=== PATIENT | female | born 1940 | race Caucasian/White ===

== ENCOUNTER → 2018-01-20 | Outpatient (CLI) | payer MEDICARE ==
[~2018-01-20] MED LIST: IOHEXOL 350 MG/ML 100 ML (OMNIPAQUE 350) VIAL IV ONE; NS 250 ML (IVPB) BAG IV ONE
[2018-01-20 12:53] LABS: BUN/CREATININE RATIO 22; CREATININE SERUM 0.68 MG/DL (0.60-1.30); GFR ESTIMATED > 60
--- NOTE | 2018-01-20 13:39 | Diagnostic Imaging Report ---
PROCEDURE: CT head with and without contrast. TECHNIQUE: Multiple contiguous axial images were obtained through the brain before and after the administration of intravenous contrast. INDICATION: Fall with trauma to the head. COMPARISON: 12/18/2014. FINDINGS: Moderate-sized area of encephalomalacia is again identified involving the posterolateral margins of the left frontal lobe consistent with old infarct. There is no new loss of rodriguez-white matter junction differentiation to suggest new acute territorial infarct. There are scattered and confluent areas of decreased attenuation within the periventricular and subcortical deep white matter consistent with chronic small vessel ischemic changes. Old small lacunar infarct of the posteroinferior left basal ganglia is also noted. This is stable as well. There is no evidence of intra or extra-axial intracranial hemorrhage. Ventricles and cortical sulci are diffusely prominent consistent with age-related parenchymal volume loss. There is no mass effect or midline shift. Postcontrast images show no abnormal areas of enhancement. 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 Otherwise, bony calvarium is intact. Paranasal sinuses show minimal mucosal thickening of the left maxillary sinus. Mastoid air cells are clear. IMPRESSION: 1. No acute intracranial abnormality. No CT evidence of acute infarct, mass, nor hemorrhage. 2. Chronic small vessel ischemic changes with old infarcts of the left frontal lobe and basal ganglia. 3. Background of age-related parenchymal volume loss and chronic small vessel ischemic changes. Dictated by: Dictated on workstation # [id number]
== END ==
LOC: RAD 12:11
PROVIDERS: ATTEND Nurse Practitioner
DX: S09.90XA Unspecified injury of head, initial encounter (principal); I67.82 Cerebral ischemia; I63.9 Cerebral infarction, unspecified; W19.XXXA Unspecified fall, initial encounter
CPT/HCPCS: 36415; 70470; 82565; 84520

== ENCOUNTER 2018-02-12 09:07 | Outpatient (RCR) | payer MEDICARE | END 2018-03-19 11:39 | disposition home or self-care (01) | PROVIDERS: ATTEND Internal Medicine | DX: I69.351 Hemiplegia and hemiparesis following cerebral infarction affecting right dominant side (principal) ==

== ENCOUNTER 2018-07-27 10:30 | Inpatient (IN) | payer MEDICARE, OTHER ==
[~2018-07-27] VITALS: Ht 157.5 cm; Wt 48.5 kg
[~2018-07-27 10:30] MED LIST changes: +ACET325T38 PO; +ACET650S15 RC; +ALEN70TA2 PO; +ALPR0.254 PO; +BACL10TA PO; +BENZ1LOZ64 MM; +BISA10SU6 RC; +BISA5TAB8 PO; +CALC500T7 PO; +CLON0.1T PO; +DIPH25CA79 PO; +DOCU-143 PO; +FENT50VI18 IVP; +FLUO20CA42 PO; +GUAI5SYR PO; +HYDR-3812 PO; -IOHEXOL 350 MG/ML 100 ML (OMNIPAQUE 350) VIAL IV ONE; +LACT20SO2 PO; +LEVE500T99 PO; +LIDO1ADH41 TD; +MAG30ORA2 PO; +MAGN400O7 PO; +MELA3TAB PO; -NS 250 ML (IVPB) BAG IV ONE; +ONDA4AMP IVP; +PHEN100C11 PO; +POLY17PO6 PO; +WARF-47 PO
--- NOTE | 2018-07-27 10:30 | NUR ---
Pt admitted to room 229-1, with an admitting diagnosis of Weakness, debility, S/P multiple falls at home, S/P Lumbar Compression fx, on 07/27/18 from [facility], via w/c, accompanied by sister & brother in law. JIM FERNANDES introduced to surroundings, call light, bed controls, phone, TV, temperature control, lights, meal times, smoking policy, visitor policy, side rail policy, bathrooms and showers. Patient Rights provided to patient in the handbook. JIM FRENANDES verbalizes understanding that [facility] is not responsible for the loss or damage to any personal effects or valuables that are kept in the patients posession during their hospitalization. The following Patient Care Plans were discussed with the pt: Discharge Planning, Impaired Mobility, Self Care Deficit, Potential for fall/injury. JIM FERNANDES verbalizes understanding of Interdisciplinary Patient Education. Patient and/or family were informed about the Rapid Response Team and its purpose. Patient received Patient Rights Booklet, which includes Privacy Act Statement and Data Collection Information Summary.
--- NOTE | 2018-07-27 10:35 | NUR ---
UPDATED MED REC TO THE LIST OF MEDICATIONS ACTIVE AT [facility] PER DR. DEAN'S RECORDS. WILL UPDATE THE MED REC TO HOME MED LIST PRIOR TO [facility] AT A LATER TIME FOR PROPER DISCHARGE FROM HOSPITAL ORDERS. Addendum: 07/29/18 at 1125 by WILLIAM TAYLOR cut out press operator UPDATED MED REC BACK TO HOME MED LIST PRIOR TO [facility] USING THEIR PAPERWORK AND THE EXT MED HX. [facility] FILLED: 06-05-18 FOSAMAX 70MG WEEKLY 04-28-18 WARFARIN 4MG ,,,FR,SA (SEE COMMENT BELOW) 04-26-18 LEVETIRACETAM 500MG HS #90 04-26-18 PHENYTOIN EXT 100MG CAP TID #270 03-10-18 OXYBUTYNIN ER 15MG DAILY #30 [facility] FILLED: 06-05-18 FLUOXETINE 40MG DAILY #90 THE WARFARIN DOSE ON FILE FROM [facility] WAS 4MG THU, THU, THU AND 2MG THU,,Thu. I LEFT IT ON THE MED REC THAT DOSE. WHAT WAS FILLED AT [facility] WAS THE 4MG TABLETS ONE DAILY ON THURSDAY, THURSDAY, THURSDAY, THURSDAY. THEY HAD A SCRIPT ON HOLD THAT WAS NEVER FILLED IN JANUARY FOR WARFARIN 2MG Thu. WARFARIN DOSES CHANGE FREQUENTLY AND IT IS UNCLEAR WHAT DOSE THE PATIENT WAS ON PRIOR TO THE STAY AT [facility]. Addendum: 07/29/18 at 1126 by WILLIAM TAYLOR cut out press operator [facility] DID NOT HAVE OXYBUTYNIN ON FILE
[2018-07-27 10:42] VITALS: BP 136/78
[2018-07-27] MEDS ORDERED: OXYB15TA PO (11:02)
--- OUTSIDE RECORDS SUMMARY | 2018-07-27 11:12 | XMS REPORT ---
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 Active 485385349 Problem Arthritis M19.90 Active 2528513 Problem Seizure disorder G40.909 Active 683429211 Problem History of cerebrovascular accident Z86.73 Active 375838931 Problem Age-related osteoporosis without current pathological fracture M81.0 Active 23006432 ALLERGIES No Information ENCOUNTERS Encounter Location Date Diagnosis [place] [address] [address] Mar, History of aortic valve replacement Z95.2 [place] [address] [place] [id number] [place] [address] Feb, History of aortic valve replacement Z95.2 [place] [address] [place] [id number] [place] [address] 84[address]- 8629 Feb, History of aortic valve replacement Z95.2 [place] [address] [place] [id number] [place] [address]66- 8263 Feb, Fall, initial encounter W19.XXXA ; History of cerebrovascular accident Z86.73 ; History of aortic valve replacement Z95.2 ; Age-related osteoporosis without current pathological fracture M81.0 ; Hematoma T14.8XXA ; Reactive depression F32.9 ; Seizure disorder G40.909 and Arthritis M19.90 [place] [address] [place] [address] [address] Jan, Extension of cerebrovascular accident (CVA) I63.9 and History of aortic valve replacement Z95.2 [facility] [address] [place] [id number] [place] [address]- [address] Jan, [facility] [address] [address] Jan, History of aortic valve replacement Z95.2 [facility] [address] [place] [id number] [place] [address] Jan, Fall, initial encounter W19.XXXA and Hematoma T14.8XXA [place] [address] [address] Jan, [facility] [address] [address] Jan, Encounter for immunization Z23 [facility] [address] [address] Jan, History of aortic valve replacement Z95.2 [facility] [address] [place] [id number] [place] [address] 60971- 3146 Dec, [facility] [address] [place] [id number] [place] [address] 85766- 9859 Dec, History of aortic valve replacement Z95.2 [facility] [address] [place] [id number] [place] [address] 84231 -[address]89 Dec, Right ear impacted cerumen H61.21 [facility] [address] [place] [id number] [place] [address] 83856- 5283 Dec, History of aortic valve replacement Z95.2 [facility] [address] [place] [id number] [place] [address] 03855- 1029 Nov, [facility] [address] [address] 237[address] Nov, History of aortic valve replacement Z95.2 [place] [address] [facility] [id number] [address] Nov, 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 and History of aortic valve replacement Z95.2 [place] [address] [id number] [address] Oct, History of cerebrovascular accident Z86.73 ; History of aortic valve replacement Z95.2 ; Age-related osteoporosis without current pathological fracture M81.0 ; Reactive depression F32.9 ; Seizure disorder G40.909 and Arthritis M19.90 [place] [address] [id number] [address] Oct, History of aortic valve replacement Z95.2 [place] [address] [id number] [address] Oct, History of cerebrovascular accident Z86.73 ; Age-related osteoporosis without current pathological fracture M81.0 ; Reactive depression F32.9 ; History of aortic valve replacement Z95.2 ; Seizure disorder G40.909 and Arthritis M19.90 IMMUNIZATIONS No Known Immunizations SOCIAL HISTORY Never Assessed REASON FOR VISIT Lab (walk-in) PLAN OF CARE VITAL SIGNS MEDICATIONS Unknown Medications RESULTS No Results PROCEDURES Procedure Date Ordered Result Body Site PROTHROMBIN TIME Mar 12, 2018 INSTRUCTIONS MEDICATIONS ADMINISTERED No Known Medications MEDICAL (GENERAL) HISTORY Type Description Date Medical History stoke Medical History aortic valve replacement Medical History seizures Medical History bladder incontinence Surgical History right hip replacement 2004 Surgical History shoulder replacement, right Surgical History hysterectomy, total with bilateral salpingo-oophorectomy (BSO ) Surgical History appendectomy Surgical History breast biopsy, left-benign 1999 Surgical History left wrist post wrist fracture 1998 Hospitalization History cervical fx 2016
--- OUTSIDE RECORDS SUMMARY | 2018-07-27 11:12 | XMS REPORT ---
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 Active 564149015 Problem Arthritis M19.90 Active 3702178 Problem Seizure disorder G40.909 Active 192302907 Problem History of cerebrovascular accident Z86.73 Active 063092347 Problem Age-related osteoporosis without current pathological fracture M81.0 Active 45372202 ALLERGIES No Information ENCOUNTERS Encounter Location Date Diagnosis [place] [address] [address] Mar, [place] [address] [address] Mar, History of aortic valve replacement Z95.2 [place] [address] [place] [id number] [place] [address] 47[address] Feb, History of aortic valve replacement Z95.2 [place] [address] [place] [id number] [place] [address]- 8585 Feb, History of aortic valve replacement Z95.2 [place] [address] [address] Feb, Fall, initial encounter W19.XXXA ; History of cerebrovascular accident Z86.73 ; History of aortic valve replacement Z95.2 ; Age-related osteoporosis without current pathological fracture M81.0 ; Hematoma T14.8XXA ; Reactive depression F32.9 ; Seizure disorder G40.909 and Arthritis M19.90 [place] [address] [address] Jan, Extension of cerebrovascular accident (CVA) I63.9 and History of aortic valve replacement Z95.2 [facility] [address] [address] Jan, [place] [address] [address] Jan, History of aortic valve replacement Z95.2 [facility] [address] [address] Jan, Fall, initial encounter W19.XXXA and Hematoma T14.8XXA [place] [address] [address] Jan, [place] [address] [address] Jan, Encounter for immunization Z23 [place] [address] [address] Jan, History of aortic valve replacement Z95.2 [place] [address] [address] Dec, [facility] [address] [address] Dec, History of aortic valve replacement Z95.2 [facility] [address] [address] Dec, Right ear impacted cerumen H61.21 [place] [address] [address] Dec, History of aortic valve replacement Z95.2 [place] [address] [address] Nov, [place] [address] [address] Nov, History of aortic valve replacement Z95.2 [place] [address] [place] [address] Nov, 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 and History of aortic valve replacement Z95.2 [place] [address] [place] [id number] [place] [address]- 4175 Oct, History of cerebrovascular accident Z86.73 ; History of aortic valve replacement Z95.2 ; Age-related osteoporosis without current pathological fracture M81.0 ; Reactive depression F32.9 ; Seizure disorder G40.909 and Arthritis M19.90 [place] [address] [place] [address]70- 3300 Oct, History of aortic valve replacement Z95.2 [place] [address] [place] [address]- 8556 Oct, History of cerebrovascular accident Z86.73 ; Age-related osteoporosis without current pathological fracture M81.0 ; Reactive depression F32.9 ; History of aortic valve replacement Z95.2 ; Seizure disorder G40.909 and Arthritis M19.90 IMMUNIZATIONS No Known Immunizations SOCIAL HISTORY Never Assessed REASON FOR VISIT requests letter for insurance PLAN OF CARE VITAL SIGNS MEDICATIONS Unknown Medications RESULTS No Results PROCEDURES No Known procedures INSTRUCTIONS MEDICATIONS ADMINISTERED No Known Medications MEDICAL [...]
--- OUTSIDE RECORDS SUMMARY | 2018-07-27 11:13 | XMS REPORT ---
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 Active 008235006 Problem Arthritis M19.90 Active 2191480 Problem Seizure disorder G40.909 Active 118276673 Problem History of cerebrovascular accident Z86.73 Active 731052139 Problem Age-related osteoporosis without current pathological fracture M81.0 Active 70808226 ALLERGIES No Information ENCOUNTERS Encounter Location Date Diagnosis [place] [address] [address] Feb, History of aortic valve replacement Z95.2 [place] [address] [place] [id number] [place] [address]- [address] Feb, History of aortic valve replacement Z95.2 [place] [address] [address]- [address] Feb, Fall, initial encounter W19.XXXA ; History of cerebrovascular accident Z86.73 ; History of aortic valve replacement Z95.2 ; Age-related osteoporosis without current pathological fracture M81.0 ; Hematoma T14.8XXA ; Reactive depression F32.9 ; Seizure disorder G40.909 and Arthritis M19.90 [place] [address] [place] [id number] [place] [address] 199[address]- 9171 Jan, Extension of cerebrovascular accident (CVA) I63.9 and History of aortic valve replacement Z95.2 [facility] [address] [place] [id number] [place] [address] 27537- 2555 Jan, [facility] [address] [address]- [address] Jan, History of aortic valve replacement Z95.2 [facility] [address] [place] [id number] [place] [address] -[address]16 Jan, Fall, initial encounter W19.XXXA and Hematoma T14.8XXA [facility] [address] [address]- [address] Jan, [place] [address] [address]- [address] Jan, Encounter for immunization Z23 [place] [address] [address]- [address] Jan, History of aortic valve replacement Z95.2 [facility] [address] [place] [id number] [place] [address] 52035- 9845 Dec, [facility] [address] [place] [id number] [place] [address] 96494- 1245 Dec, History of aortic valve replacement Z95.2 [facility] [address] [place] [id number] [place] [address] -8092 Dec, Right ear impacted cerumen H61.21 [facility] [address] [place] [id number] [place] [address] 06724- 3394 Dec, History of aortic valve replacement Z95.2 [facility] [address] [place] [id number] [place] [address] 45618- 5190 Nov, [facility] [address] [address]- 6[address] Nov, History of aortic valve replacement Z95.2 [facility] [address] [place] [id number] [place] [address] 25771- 1423 Nov, 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 [id number] [address] Oct, History of cerebrovascular accident Z86.73 ; History of aortic valve replacement Z95.2 ; Age-related osteoporosis without current pathological fracture M81.0 ; Reactive depression F32.9 ; Seizure disorder G40.909 and Arthritis M19.90 [place] [address] [facility] [id number] [address] Oct, History of aortic valve replacement Z95.2 [place] [address] [facility] [id number] [address] Oct, History of cerebrovascular accident Z86.73 ; Age-related osteoporosis without current pathological fracture M81.0 ; Reactive depression F32.9 ; History of aortic valve replacement Z95.2 ; Seizure disorder G40.909 and Arthritis M19.90 IMMUNIZATIONS No Known Immunizations SOCIAL HISTORY Never Assessed REASON FOR VISIT medication changes FYI PLAN OF CARE VITAL SIGNS MEDICATIONS Medication Instructions Dosage Frequency Start Date End Date Duration Status Coumadin 4 MG Orally Once a day on Thursday, Thursday, , Thursday and Thursday 1 tablet 30 days Active Coumadin 2 MG Orally Once a day 1 tablet 24h Jan, 12 days Active RESULTS No Results PROCEDURES No Known procedures [...]
--- OUTSIDE RECORDS SUMMARY | 2018-07-27 11:14 | XMS REPORT ---
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 Active 978367398 Problem Arthritis M19.90 Active 3380853 Problem Seizure disorder G40.909 Active 383864801 Problem History of cerebrovascular accident Z86.73 Active 431624144 Problem Age-related osteoporosis without current pathological fracture M81.0 Active 02254067 ALLERGIES No Information ENCOUNTERS Encounter Location Date Diagnosis [place] [address] [address] Feb, History of aortic valve replacement Z95.2 [place] [address] [place] [id number] [place] [address] Feb, History of aortic valve replacement Z95.2 [place] [address] [address] Feb, Fall, initial encounter W19.XXXA ; History of cerebrovascular accident Z86.73 ; History of aortic valve replacement Z95.2 ; Age-related osteoporosis without current pathological fracture M81.0 ; Hematoma T14.8XXA ; Reactive depression F32.9 ; Seizure disorder G40.909 and Arthritis M19.90 [place] [address] [place] [id number] [place] [address]010- 8952 Jan, Extension of cerebrovascular accident (CVA) I63.9 and History of aortic valve replacement Z95.2 [facility] [address] [place] [id number] [place] [address] 7[address]- 9323 Jan, [facility] [address] [address]- [address] Jan, History of aortic valve replacement Z95.2 [facility] [address] [place] [id number] [place] [address] -[address]16 Jan, Fall, initial encounter W19.XXXA and Hematoma T14.8XXA [facility] [address] [address]- [address] Jan, [place] [address] [address]- [address] Jan, Encounter for immunization Z23 [place] [address] [address]- [address] Jan, History of aortic valve replacement Z95.2 [facility] [address] [place] [id number] [place] [address] 54421- 0977 Dec, [facility] [address] [place] [id number] [place] [address] 03933- 2200 Dec, History of aortic valve replacement Z95.2 [facility] [address] [place] [id number] [place] [address]27 -[address]70 Dec, Right ear impacted cerumen H61.21 [facility] [address] [place] [id number] [place] [address] 67[address]- 1666 Dec, History of aortic valve replacement Z95.2 [facility] [address] [place] [id number] [place] [address]- [address] Nov, [facility] [address] [address]- [address] Nov, History of aortic valve replacement Z95.2 [facility] [address] [place] [id number] [place] [address]23- 9754 Nov, 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 [id number] [address] Oct, History of cerebrovascular accident Z86.73 ; History of aortic valve replacement Z95.2 ; Age-related osteoporosis without current pathological fracture M81.0 ; Reactive depression F32.9 ; Seizure disorder G40.909 and Arthritis M19.90 [facility] [address] [id number] [address] Oct, History of aortic valve replacement Z95.2 [place] [address] [id number] [address] Oct, History of cerebrovascular accident Z86.73 ; Age-related osteoporosis without current pathological fracture M81.0 ; Reactive depression F32.9 ; History of aortic valve replacement Z95.2 ; Seizure disorder G40.909 and Arthritis M19.90 IMMUNIZATIONS No Known Immunizations SOCIAL HISTORY Never Assessed REASON FOR VISIT Lab (walk-in) PLAN OF CARE Activity Details Pending Test INR (IN HOUSE) VITAL SIGNS MEDICATIONS Unknown Medications RESULTS No Results PROCEDURES Procedure Date Ordered Result Body Site PROTHROMBIN TIME Feb 26, 2018 INSTRUCTIONS MEDICATIONS ADMINISTERED No Known Medications [...]
--- OUTSIDE RECORDS SUMMARY | 2018-07-27 11:14 | XMS REPORT ---
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 Active 029759703 Problem Arthritis M19.90 Active 5019222 Problem Seizure disorder G40.909 Active 364220630 Problem History of cerebrovascular accident Z86.73 Active 358976512 Problem Age-related osteoporosis without current pathological fracture M81.0 Active 82705307 ALLERGIES Substance Reaction Event Type Date Status Tetracycline HCl hives Drug Allergy Jan, Active Penicillin V Potassium Unknown Drug Allergy Jan, Active ENCOUNTERS Encounter Location Date Diagnosis [facility] [id number] [place] [address] 70777- 2961 Jan, Extension of cerebrovascular accident (CVA) I63.9 and History of aortic valve replacement Z95.2 [facility] [id number] [place] [address] 23011- 2235 Jan, [facility] [id number] [place] [address] 25779- 0531 Jan, History of aortic valve replacement Z95.2 [facility] [id number] [place] [address] 67358 -0460 Jan, Fall, initial encounter W19.XXXA and Hematoma T14.8XXA [facility] [id number] [place] [address] 31467- 6817 Jan, [facility] [id number] [place] [address] 91302- 6945 Jan, Encounter for immunization Z23 [place] [address] [address] Jan, History of aortic valve replacement Z95.2 [facility] [id number] [place] [address] 06287- 4092 Dec, [place] [address] [address]- [address] Dec, History of aortic valve replacement Z95.2 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 and History of aortic valve replacement Z95.2 [place] [id number] [place] [address] 23661- 4717 Oct, History of cerebrovascular accident Z86.73 ; History of aortic valve replacement Z95.2 ; Age-related osteoporosis without current pathological fracture M81.0 ; Reactive depression F32.9 ; Seizure disorder G40.909 and Arthritis M19.90 [place] [id number] [place] [address] 84517- 5167 Oct, History of aortic valve replacement Z95.2 [place] [id number] [place] [address] 68096- 5896 Oct, History of cerebrovascular accident Z86.73 ; Age-related osteoporosis without current pathological fracture M81.0 ; Reactive depression F32.9 ; History of aortic valve replacement Z95.2 ; Seizure disorder G40.909 and Arthritis M19.90 IMMUNIZATIONS No Known Immunizations SOCIAL HISTORY Never Assessed REASON FOR VISIT Hypertension check up Vadim MORENO , fell last saturday 01/20 had a hematoma Vadim MORENO , still has blurry vision Vadim MORENO , right hand is now not working at all since fall she cant use at all Vadim Moreno PLAN OF CARE Activity Details Follow Up 3 Weeks Reason: VITAL SIGNS Height 62.2 in 2018-01-28 Weight 114 lbs 2018-01-28 Temperature 96.6 degrees Fahrenheit 2018-01-28 Heart Rate 77 bpm 2018-01-28 Respiratory Rate 18 2018-01-28 BMI 20.71 kg/m2 2018-01-28 Blood pressure systolic 132 mmHg 2018-01-28 Blood pressure diastolic 78 mmHg 2018-01-28 MEDICATIONS Medication Instructions Dosage Frequency Start Date End Date Duration Status Biotin 5000 5 MG Orally Once a day 1 capsule 24h Active Naproxen Sodium 550 MG Orally every 12 hrs 1 tablet with food or milk as needed 12h Active Vitamin D-3 1000 UNIT Orally Once a day 1 capsule 24h Active Keppra 500 mg Orally at bedtime 1 tablet 30 days Active Prozac 40 mg Orally Once a day 1 capsule 24h Active Ensure - Active Coumadin 4 MG Orally Once a day on Thursday, Thursday, , Thursday and Thursday 1 tablet 30 days Active Coumadin 2 MG Orally Once a day on Thursday and Thursday 1 tablet Jan, 30 day(s) Active Dilantin 100 mg Orally Three times a day 1 capsule 8h 30 days Active Fosamax 70 MG Orally once weekly 1 tablet 28 days Active Oxybutynin Chloride 15 mg Orally Once a day 1 tablet 24h Jan, 30 days Active RESULTS No Results PROCEDURES No [...]
--- OUTSIDE RECORDS SUMMARY | 2018-07-27 11:14 | XMS REPORT ---
Author Author ANUEL HOLLOWAY 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 Active 974452418 Problem Arthritis M19.90 Active 2610605 Problem Seizure disorder G40.909 Active 522714729 Problem History of cerebrovascular accident Z86.73 Active 906581668 Problem Age-related osteoporosis without current pathological fracture M81.0 Active 05095029 ALLERGIES No Information ENCOUNTERS Encounter Location Date Diagnosis [place] [id number] [place] [address]37- 9778 Feb, Fall, initial encounter W19.XXXA ; History of cerebrovascular accident Z86.73 ; History of aortic valve replacement Z95.2 ; Age-related osteoporosis without current pathological fracture M81.0 ; Hematoma T14.8XXA ; Reactive depression F32.9 ; Seizure disorder G40.909 and Arthritis M19.90 [facility] [address] [place] [address] 90283- 1754 Jan, Extension of cerebrovascular accident (CVA) I63.9 and History of aortic valve replacement Z95.2 [facility] [id number] [place] [address] 95514- 1662 Jan, [facility] [id number] [place] [address] 29077- 9349 Jan, History of aortic valve replacement Z95.2 [facility] [address] [address] Jan, Fall, initial encounter W19.XXXA and Hematoma T14.8XXA [place] [address] 7[address]80- 9692 Jan, [place] [address] 03251- 1058 Jan, Encounter for immunization Z23 [place] [address] 75596- 2554 Jan, History of aortic valve replacement Z95.2 [place] [address] 69270- 0941 Dec, [place] [address] 59730- 8591 Dec, History of aortic valve replacement Z95.2 [facility] [address] [address]25 Dec, Right ear impacted cerumen H61.21 [place] [address] 35898- 6536 Dec, History of aortic valve replacement Z95.2 [place] [address] 03167- 5933 Nov, [place] [address] 98559- 6062 Nov, History of aortic valve replacement Z95.2 [place] [address] 72801- 7365 Nov, 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 and History of aortic valve replacement Z95.2 [place] [address] 70707- 2884 Oct, History of cerebrovascular accident Z86.73 ; History of aortic valve replacement Z95.2 ; Age-related osteoporosis without current pathological fracture M81.0 ; Reactive depression F32.9 ; Seizure disorder G40.909 and Arthritis M19.90 [facility] [address] [facility] [id number] [place] [address] Oct, History of aortic valve replacement Z95.2 [facility] [address] [facility] [id number] [place] [address] Oct, History of cerebrovascular accident Z86.73 ; Age-related osteoporosis without current pathological fracture M81.0 ; Reactive depression F32.9 ; History of aortic valve replacement Z95.2 ; Seizure disorder G40.909 and Arthritis M19.90 IMMUNIZATIONS No Known Immunizations SOCIAL HISTORY Never Assessed REASON FOR VISIT Lab (walk-in) PLAN OF CARE VITAL SIGNS MEDICATIONS Unknown Medications RESULTS Name Result Date Reference Range INR (IN HOUSE) 2018-02-11 INR 2.7 1.10 - 3.30 PREVIOUS INR 1.8 CURRENT COUMADIN DOSE 4mg MTTFS/2mg WS NEW COUMADIN DOSE Lot # [id number] Exp date 03 Sep 2018 PROCEDURES Procedure Date Ordered Result Body Site PROTHROMBIN TIME Feb 11, 2018 INSTRUCTIONS MEDICATIONS ADMINISTERED No Known Medications [...]
--- OUTSIDE RECORDS SUMMARY | 2018-07-27 11:15 | XMS REPORT ---
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 Active 802597774 Problem History of cerebrovascular accident Z86.73 Active 193357479 Problem Seizure disorder G40.909 Active 138589171 Problem Reactive depression F32.9 Active 50380061 Problem Age-related osteoporosis without current pathological fracture M81.0 Active 64185711 Problem Arthritis M19.90 Active 6416139 ALLERGIES No Information ENCOUNTERS Encounter Location Date Diagnosis [facility] [address] [address]- [address] Jan, [facility] [address] [address] Jan, Encounter for immunization Z23 [facility] [id number] [place] [address] 64432- 1849 Jan, History of aortic valve replacement Z95.2 [facility] [id number] [place] [address] 64223- 6685 Dec, [facility] [id number] [place] [address] 41143- 9135 Dec, History of aortic valve replacement Z95.2 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 and History of aortic valve replacement Z95.2 [place] [address], [place] [address] Oct, History of cerebrovascular accident Z86.73 ; History of aortic valve replacement Z95.2 ; Age-related osteoporosis without current pathological fracture M81.0 ; Reactive depression F32.9 ; Seizure disorder G40.909 and Arthritis M19.90 [place] [address], [place] [address]678 Oct, History of aortic valve replacement Z95.2 [place] [address], [place] [address]- 7[address] Oct, History of cerebrovascular accident Z86.73 ; Age-related osteoporosis without current pathological fracture M81.0 ; Reactive depression F32.9 ; History of aortic valve replacement Z95.2 ; Seizure disorder G40.909 and Arthritis M19.90 IMMUNIZATIONS No Known Immunizations SOCIAL HISTORY Never Assessed REASON FOR VISIT Requests return call PLAN OF CARE VITAL SIGNS MEDICATIONS Unknown [...]
--- OUTSIDE RECORDS SUMMARY | 2018-07-27 11:15 | XMS REPORT ---
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 Active 847471622 Problem History of cerebrovascular accident Z86.73 Active 255905929 Problem Seizure disorder G40.909 Active 545753889 Problem Reactive depression F32.9 Active 66266698 Problem Age-related osteoporosis without current pathological fracture M81.0 Active 45780233 Problem Arthritis M19.90 Active 9166796 ALLERGIES No Information ENCOUNTERS Encounter Location Date Diagnosis [facility] [address] [address]- [address]03 Dec, History of aortic valve replacement Z95.2 [facility] [address] [address]95 Dec, Right ear impacted cerumen H61.21 [facility] [id number] [place] [address] 97734- 3060 Dec, History of aortic valve replacement Z95.2 [facility] [id number] [place] [address] 79823- 7808 Nov, [facility] [address] 11375- 0578 Nov, History of aortic valve replacement Z95.2 [facility] [id number] [place] [address] 02505- 2525 Nov, 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 [id number] [place] [address]- [address] Oct, History of cerebrovascular accident Z86.73 ; History of aortic valve replacement Z95.2 ; Age-related osteoporosis without current pathological fracture M81.0 ; Reactive depression F32.9 ; Seizure disorder G40.909 and Arthritis M19.90 [place] [address] [facility] [id number] [place] [address]- [address] Oct, History of aortic valve replacement Z95.2 [place] [id number] [address] 9[address] Oct, History of cerebrovascular accident Z86.73 ; Age-related osteoporosis without current pathological fracture M81.0 ; Reactive depression F32.9 ; History of aortic valve replacement Z95.2 ; Seizure disorder G40.909 and Arthritis M19.90 IMMUNIZATIONS No Known Immunizations SOCIAL HISTORY Never Assessed REASON FOR VISIT Lab (walk-in) PLAN OF CARE VITAL SIGNS MEDICATIONS Unknown Medications RESULTS Name Result Date Reference Range INR (IN HOUSE) 2017-12-09 INR 4.6 1.10 - 3.30 PREVIOUS INR 3.6 CURRENT COUMADIN DOSE 4mg 6 days, 2 mg 1 day NEW COUMADIN DOSE Lot # [id number] Exp date 08/2018 PROCEDURES Procedure Date Ordered Result Body Site PROTHROMBIN TIME Dec 09, 2017 INSTRUCTIONS MEDICATIONS ADMINISTERED No Known Medications MEDICAL [...]
--- OUTSIDE RECORDS SUMMARY | 2018-07-27 11:15 | XMS REPORT ---
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 Active 896872855 Problem History of cerebrovascular accident Z86.73 Active 416480233 Problem Seizure disorder G40.909 Active 005829438 Problem Reactive depression F32.9 Active 83044609 Problem Age-related osteoporosis without current pathological fracture M81.0 Active 27002796 Problem Arthritis M19.90 Active 7989531 ALLERGIES No Information ENCOUNTERS Encounter Location Date Diagnosis [facility] [address] [address] Jan, [facility] [address] [address]- [address] Jan, Encounter for immunization Z23 [facility] [id number] [place] [address]- 0427 Jan, History of aortic valve replacement Z95.2 [facility] [id number] [place] [address] 43244- 8561 Dec, [facility] [id number] [place] [address] 59218- 4743 Dec, History of aortic valve replacement Z95.2 [facility] [id number] [place] [address] 84817 -2772 Dec, Right ear impacted cerumen H61.21 [facility] [address] [address]- [address]44 Dec, History of aortic valve replacement Z95.2 [place] [id number] [address] Nov, [place] [address] [place] [address] 94740- 3289 Nov, History of aortic valve replacement Z95.2 [place] [address] [place] [address] 25685- 3961 Nov, 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 and History of aortic valve replacement Z95.2 [place] [address], [place] [address] Oct, History of cerebrovascular accident Z86.73 ; History of aortic valve replacement Z95.2 ; Age-related osteoporosis without current pathological fracture M81.0 ; Reactive depression F32.9 ; Seizure disorder G40.909 and Arthritis M19.90 [place] [address] [place] [address] 85573- 3647 Oct, History of aortic valve replacement Z95.2 [place] [address], [place] [address]- [address] Oct, History of cerebrovascular accident Z86.73 ; Age-related osteoporosis without current pathological fracture M81.0 ; Reactive depression F32.9 ; History of aortic valve replacement Z95.2 ; Seizure disorder G40.909 and Arthritis M19.90 IMMUNIZATIONS No Known Immunizations SOCIAL HISTORY Never Assessed REASON FOR VISIT lab PLAN OF CARE VITAL SIGNS MEDICATIONS Unknown Medications RESULTS Name Result Date Reference Range INR (IN HOUSE) 2018-01-08 INR 3.2 1.10 - 3.30 PREVIOUS INR 2.5 CURRENT COUMADIN DOSE 4 mg 4 days, 2 mg 3 days NEW COUMADIN DOSE Lot # [id number] Exp date 08/2018 PROCEDURES Procedure Date Ordered Result Body Site PROTHROMBIN TIME Jan 08, 2018 INSTRUCTIONS MEDICATIONS ADMINISTERED No Known Medications [...]
--- OUTSIDE RECORDS SUMMARY | 2018-07-27 11:15 | XMS REPORT ---
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 Active 269160686 Problem History of cerebrovascular accident Z86.73 Active 309006882 Problem Seizure disorder G40.909 Active 845835142 Problem Reactive depression F32.9 Active 71566880 Problem Age-related osteoporosis without current pathological fracture M81.0 Active 00744598 Problem Arthritis M19.90 Active 0165693 ALLERGIES No Information ENCOUNTERS Encounter Location Date Diagnosis [facility] [id number] [place] [address]885 Dec, Right ear impacted cerumen H61.21 [facility] [id number] [place] [address] 75974- 3948 Dec, History of aortic valve replacement Z95.2 [facility] [id number] [place] [address] 12204- 7708 Nov, [facility] [address] [address]- [address] Nov, History of aortic valve replacement Z95.2 [facility] [address] [address]- [address] Nov, 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 and History of aortic valve replacement Z95.2 [facility] [id number] [place] [address] 07561- 5290 Oct, History of cerebrovascular accident Z86.73 ; History of aortic valve replacement Z95.2 ; Age-related osteoporosis without current pathological fracture M81.0 ; Reactive depression F32.9 ; Seizure disorder G40.909 and Arthritis M19.90 [facility] [address] [facility] [id number] [place] [address]- [address] Oct, History of aortic valve replacement Z95.2 [facility] [address] [facility] [id number] [address] Oct, History of cerebrovascular accident Z86.73 ; Age-related osteoporosis without current pathological fracture M81.0 ; Reactive depression F32.9 ; History of aortic valve replacement Z95.2 ; Seizure disorder G40.909 and Arthritis M19.90 IMMUNIZATIONS No Known Immunizations SOCIAL HISTORY Never Assessed REASON FOR VISIT Lab (walk-in) PLAN OF CARE VITAL SIGNS MEDICATIONS No Known Medications RESULTS Name Result Date Reference Range INR (IN HOUSE) 2017-11-20 INR 3.6 1.10 - 3.30 PREVIOUS INR 2.7 CURRENT COUMADIN DOSE 4 mg QD NEW COUMADIN DOSE Lot # [id number] Exp date 06/2018 PROCEDURES Procedure Date Ordered Result Body Site PROTHROMBIN TIME Nov 20, 2017 INSTRUCTIONS MEDICATIONS ADMINISTERED No Known Medications [...]
--- OUTSIDE RECORDS SUMMARY | 2018-07-27 11:15 | XMS REPORT ---
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 Active 577863644 Problem History of cerebrovascular accident Z86.73 Active 327131272 Problem Seizure disorder G40.909 Active 828892858 Problem Reactive depression F32.9 Active 19764967 Problem Age-related osteoporosis without current pathological fracture M81.0 Active 87968528 Problem Arthritis M19.90 Active 6695045 ALLERGIES No Information ENCOUNTERS Encounter Location Date Diagnosis [facility] [address] [address] Jan, [facility] [address] [address] Jan, Encounter for immunization Z23 [facility] [id number] [place] [address] Jan, History of aortic valve replacement Z95.2 [facility] [id number] [place] [address] Dec, [facility] [id number] [place] [address] Dec, History of aortic valve replacement Z95.2 [facility] [id number] [place] [address] Dec, Right ear impacted cerumen H61.21 [facility] [address] [address] Dec, History of aortic valve replacement Z95.2 [place] [address] [address] Nov, [place] [address], [place] [address] Nov, History of aortic valve replacement Z95.2 [place] [address] [place] [address] Nov, 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73 ; Age-related osteoporosis without current pathological fracture M81.0 ; Reactive depression F32.9 ; History of aortic valve replacement Z95.2 ; Seizure disorder G40.909 and Arthritis M19.90 IMMUNIZATIONS No Known Immunizations SOCIAL HISTORY Never Assessed REASON FOR VISIT Medication refill request PLAN OF CARE VITAL SIGNS MEDICATIONS Medication Instructions Dosage Frequency Start Date End Date Duration Status Oxybutynin Chloride 15 mg Orally Once a day 1 tablet 24h Jan, 30 days Active Dilantin 100 mg Orally Three times a day 1 capsule 8h 30 days Active Keppra 500 mg Orally at bedtime 1 tablet 30 days Active Fosamax 70 MG Orally once weekly 1 tablet 28 days Active RESULTS No Results PROCEDURES No [...]
--- OUTSIDE RECORDS SUMMARY | 2018-07-27 11:15 | XMS REPORT ---
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 Active 817415864 Problem History of cerebrovascular accident Z86.73 Active 916147883 Problem Seizure disorder G40.909 Active 667413508 Problem Reactive depression F32.9 Active 59149903 Problem Age-related osteoporosis without current pathological fracture M81.0 Active 99769611 Problem Arthritis M19.90 Active 4700555 ALLERGIES Substance Reaction Event Type Date Status Tetracycline HCl hives Drug Allergy Dec, Active Penicillin V Potassium Unknown Drug Allergy Dec, Active ENCOUNTERS Encounter Location Date Diagnosis [facility] [id number] [place] [address] Dec, [facility] [id number] [place] [address] Dec, History of aortic valve replacement Z95.2 [facility] [id number] [place] [address] Dec, Right ear impacted cerumen H61.21 [facility] [id number] [place] [address] Dec, History of aortic valve replacement Z95.2 [facility] [id number] [place] [address] Nov, [facility] [id number] [place] [address] Nov, History of aortic valve replacement Z95.2 [place] [address] [facility] [id number] [address] Nov, 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 and History of aortic valve replacement Z95.2 [place] [address] [address] [facility] [id number], [place] [address] Oct, History of cerebrovascular accident Z86.73 ; History of aortic valve replacement Z95.2 ; Age-related osteoporosis without current pathological fracture M81.0 ; Reactive depression F32.9 ; Seizure disorder G40.909 and Arthritis M19.90 [place] [address], [place] [address] Oct, History of aortic valve replacement Z95.2 [place] [address], [place] [address] Oct, History of cerebrovascular accident Z86.73 ; Age-related osteoporosis without current pathological fracture M81.0 ; Reactive depression F32.9 ; History of aortic valve replacement Z95.2 ; Seizure disorder G40.909 and Arthritis M19.90 IMMUNIZATIONS No Known Immunizations SOCIAL HISTORY Never Assessed REASON FOR VISIT bug in ear-possible bug in ear. The patient hasn't been able to hear out of her right ear since yesterday about noon._ _DANISH Reyes PLAN OF CARE Activity Details Follow Up prn Reason:if symptoms worsen VITAL SIGNS Height 62.2 in 2017-12-09 Weight 113.4 lbs 2017-12-09 Temperature 97.9 degrees Fahrenheit 2017-12-09 Heart Rate 72 bpm 2017-12-09 Respiratory Rate 20 2017-12-09 BMI 20.61 kg/m2 2017-12-09 Blood pressure systolic 164 mmHg 2017-12-09 Blood pressure diastolic 76 mmHg 2017-12-09 MEDICATIONS Medication Instructions Dosage Frequency Start Date End Date Duration Status Coumadin 4 MG Orally Once a day 1 tablet 24h Active Prozac 40 mg Orally Once a day 1 capsule 24h Active Naproxen Sodium 550 MG Orally every 12 hrs 1 tablet with food or milk as needed 12h Active Keppra 500 mg Orally at bedtime 1 tablet 30 days Active Dilantin 100 MG Orally Three times a day 1 capsule 8h Active Vitamin D-3 1000 UNIT Orally Once a day 1 capsule 24h Active Fosamax 70 MG Orally once weekly 1 tablet Mar, 28 days Active Carbamide Peroxide 6.5 % Otic Twice a day 5 drops into affected ear 12h Dec, Dec, 4 day(s) Active Biotin 5000 5 MG Orally Once a day 1 capsule 24h Active Ensure - Active RESULTS No Results PROCEDURES No Known [...]
--- OUTSIDE RECORDS SUMMARY | 2018-07-27 11:15 | XMS REPORT ---
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 Active 555844589 Problem History of cerebrovascular accident Z86.73 Active 842989040 Problem Seizure disorder G40.909 Active 547550185 Problem Reactive depression F32.9 Active 06886603 Problem Age-related osteoporosis without current pathological fracture M81.0 Active 40238568 Problem Arthritis M19.90 Active 2588062 ALLERGIES Substance Reaction Event Type Date Status Tetracycline HCl hives Drug Allergy Nov, Active Penicillin V Potassium Unknown Drug Allergy Nov, Active ENCOUNTERS Encounter Location Date Diagnosis [facility] [address] [place] [address] Dec, Right ear impacted cerumen H61.21 [facility] [address] [place] [address] Dec, History of aortic valve replacement Z95.2 [facility] [address] [address] Nov, [facility] [id number] [place] [address] Nov, History of aortic valve replacement Z95.2 [facility] [id number] [place] [address] Nov, 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 and History of aortic valve replacement Z95.2 [facility] [id number] [place] [address] Oct, History of cerebrovascular accident Z86.73 ; History of aortic valve replacement Z95.2 ; Age-related osteoporosis without current pathological fracture M81.0 ; Reactive depression F32.9 ; Seizure disorder G40.909 and Arthritis M19.90 [place] [address] [facility] [id number] [address] Oct, History of aortic valve replacement Z95.2 [place] [address] [place] [id number] [address] Oct, History of cerebrovascular accident Z86.73 ; Age-related osteoporosis without current pathological fracture M81.0 ; Reactive depression F32.9 ; History of aortic valve replacement Z95.2 ; Seizure disorder G40.909 and Arthritis M19.90 IMMUNIZATIONS No Known Immunizations SOCIAL HISTORY Never Assessed REASON FOR VISIT feet swelling - DANISH Alvares PLAN OF CARE Activity Details Follow Up 2 Months Reason: VITAL SIGNS Height 62.2 in 2017-11-06 Weight 113.1 lbs 2017-11-06 Temperature 98.7 degrees Fahrenheit 2017-11-06 Heart Rate 64 bpm 2017-11-06 Respiratory Rate 18 2017-11-06 BMI 20.55 kg/m2 2017-11-06 Blood pressure systolic 150 mmHg 2017-11-06 Blood pressure diastolic 70 mmHg 2017-11-06 MEDICATIONS Medication Instructions Dosage Frequency Start Date End Date Duration Status Naproxen Sodium 550 MG Orally every 12 hrs 1 tablet with food or milk as needed 12h Active Ensure - Active Biotin 5000 5 MG Orally Once a day 1 capsule 24h Active Dilantin 100 MG Orally Three times a day 1 capsule 8h Active Fosamax 70 MG Orally once weekly 1 tablet Active Keppra 500 mg Orally at bedtime 1 tablet Active Vitamin D-3 1000 UNIT Orally Once a day 1 capsule 24h Active Prozac 40 mg Orally Once a day 1 capsule 24h Active Coumadin 4 MG Orally Once a day 1 tablet 24h Active RESULTS Name Result Date Reference Range INR (IN HOUSE) 2017-11-06 INR 2.7 1.10 - 3.30 PREVIOUS INR 2.0 CURRENT COUMADIN DOSE 4 mg QDay NEW COUMADIN DOSE Lot # Exp date PROCEDURES Procedure Date Ordered Result Body Site PROTHROMBIN TIME Nov 06, 2017 INSTRUCTIONS MEDICATIONS ADMINISTERED No Known Medications MEDICAL (GENERAL) HISTORY Type Description Date Medical History sto Medical History aortic valve replacement Medical History seizures Medical History bladder incontinence Surgical History right hip replacement 2004 Surgical History shoulder replacement, right Surgical History hysterectomy, total with bilateral salpingo-oophorectomy (BSO ) Surgical History appendectomy Surgical History breast biopsy, left-benign 1999 Surgical History left wrist post wrist fracture 1998 Hospitalization History cervical fx 2016
--- OUTSIDE RECORDS SUMMARY | 2018-07-27 11:15 | XMS REPORT ---
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 Active 688802609 Problem History of cerebrovascular accident Z86.73 Active 260348763 Problem Seizure disorder G40.909 Active 724136910 Problem Reactive depression F32.9 Active 59272603 Problem Age-related osteoporosis without current pathological fracture M81.0 Active 06804193 Problem Arthritis M19.90 Active 0685422 ALLERGIES No Information ENCOUNTERS Encounter Location Date Diagnosis [facility] [address] [address] Jan, [facility] [address] [address] Jan, Encounter for immunization Z23 [facility] [id number] [place] [address] Jan, History of aortic valve replacement Z95.2 [facility] [id number] [place] [address] Dec, [facility] [id number] [place] [address] Dec, History of aortic valve replacement Z95.[address] 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 and History of aortic valve replacement Z95.2 [place] [address] [address] Oct, History of cerebrovascular accident Z86.73 ; History of aortic valve replacement Z95.2 ; Age-related osteoporosis without current pathological fracture M81.0 ; Reactive depression F32.9 ; Seizure disorder G40.909 and Arthritis M19.90 [place] [address] [address] Oct, History of aortic valve replacement Z95.2 [place] [address] [place] [id number] [address] Oct, History of cerebrovascular accident Z86.73 ; Age-related osteoporosis without current pathological fracture M81.0 ; Reactive depression F32.9 ; History of aortic valve replacement Z95.2 ; Seizure disorder G40.909 and Arthritis M19.90 IMMUNIZATIONS Vaccine Route Administration Date Status FLUZONE HIGH DOSE 0.5ML (65 & UP) 2017 IM Intramuscular Jan 08, 2018 Administered SOCIAL HISTORY Never Assessed REASON FOR VISIT Flu shot--ABoggsLPN PLAN OF CARE VITAL SIGNS MEDICATIONS Unknown Medications RESULTS No Results PROCEDURES Procedure Date Ordered Result Body Site FLUZONE HIGH DOSE (65 & UP) 2018 Jan 08, 2018 SINGLE IMMUNIZATION ADMIN Jan 08, 2018 INSTRUCTIONS MEDICATIONS ADMINISTERED No [...]
--- OUTSIDE RECORDS SUMMARY | 2018-07-27 11:15 | XMS REPORT ---
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 Active 576924470 Problem History of cerebrovascular accident Z86.73 Active 103427650 Problem Seizure disorder G40.909 Active 719990975 Problem Reactive depression F32.9 Active 39543202 Problem Age-related osteoporosis without current pathological fracture M81.0 Active 33491416 Problem Arthritis M19.90 Active 7005700 ALLERGIES No Information ENCOUNTERS Encounter Location Date Diagnosis [facility] [address] [address] Dec, History of aortic valve replacement Z95.2 [facility] [address] [address] Dec, Right ear impacted cerumen H61.21 [facility] [address] [place] [id number] [place] [address] Dec, History of aortic valve replacement Z95.2 [facility] [address] [place] [id number] [place] [address] Nov, [facility] [address] [address] Nov, History of aortic valve replacement Z95.2 [facility] [address] [id number] [place] [address] Nov, 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 and History of aortic valve replacement Z95.2 [place] [address] [facility] [id number] [place] [address]- [address] Oct, History of cerebrovascular accident Z86.73 ; History of aortic valve replacement Z95.2 ; Age-related osteoporosis without current pathological fracture M81.0 ; Reactive depression F32.9 ; Seizure disorder G40.909 and Arthritis M19.90 [place] [address] [facility] [id number] [place] [address] Oct, History of aortic valve replacement Z95.2 [place] [address] [place] [id number], [place] [address] Oct, History of cerebrovascular accident Z86.73 ; Age-related osteoporosis without current pathological fracture M81.0 ; Reactive depression F32.9 ; History of aortic valve replacement Z95.2 ; Seizure disorder G40.909 and Arthritis M19.90 IMMUNIZATIONS No Known Immunizations SOCIAL HISTORY Never Assessed REASON FOR VISIT Refill request PLAN OF CARE VITAL SIGNS MEDICATIONS Medication Instructions Dosage Frequency Start Date End Date Duration Status Keppra 500 mg Orally at bedtime 1 tablet 30 days Active Fosamax 70 MG Orally once weekly 1 tablet Mar, 28 days Active RESULTS No Results PROCEDURES [...]
--- OUTSIDE RECORDS SUMMARY | 2018-07-27 11:15 | XMS REPORT ---
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 Active 480404127 Problem History of cerebrovascular accident Z86.73 Active 688658959 Problem Seizure disorder G40.909 Active 189172408 Problem Reactive depression F32.9 Active 09218578 Problem Age-related osteoporosis without current pathological fracture M81.0 Active 86335745 Problem Arthritis M19.90 Active 3514509 ALLERGIES No Information ENCOUNTERS Encounter Location Date Diagnosis [facility] [id number] [place] [address] Dec, Right ear impacted cerumen H61.21 [facility] [id number] [place] [address]- [address] Dec, History of aortic valve replacement Z95.2 [facility] [id number] [place] [address] Nov, [facility] [address] [address] Nov, History of aortic valve replacement Z95.2 [facility] [address] [address] Nov, 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 [id number] [place] [address] Oct, History of aortic valve replacement Z95.2 [facility] [address] [facility] [id number] [address] Oct, History of cerebrovascular accident Z86.73 ; Age-related osteoporosis without current pathological fracture M81.0 ; Reactive depression F32.9 ; History of aortic valve replacement Z95.2 ; Seizure disorder G40.909 and Arthritis M19.90 IMMUNIZATIONS No Known Immunizations SOCIAL HISTORY Never Assessed REASON FOR VISIT Lab (walk-in) PLAN OF CARE VITAL SIGNS MEDICATIONS No Known Medications RESULTS Name Result Date Reference Range INR (IN HOUSE) 2017-10-26 INR 2.0 1.10 - 3.30 PREVIOUS INR 6.1 CURRENT COUMADIN DOSE 4 mg qd NEW COUMADIN DOSE Lot # [id number] Exp date 04 Jul 2018 PROCEDURES Procedure Date Ordered Result Body Site PROTHROMBIN TIME October 26, 2017 INSTRUCTIONS MEDICATIONS ADMINISTERED No Known Medications [...]
--- OUTSIDE RECORDS SUMMARY | 2018-07-27 11:16 | XMS REPORT | Continuity of Care Document ---
Author Organization Unknown Address Unknown Allergies Active Description Code Type Severity Reaction Onset Reported/Identified Relationship to Patient Clinical Status Yes PENICILLINS MODERATE OTHER Yes TETRACYCLINE MILD DERMATOLOGICAL - ERIC Yes No Known Drug Allergies [id number] Drug Allergy Unknown N/A 12/18/2014 Yes tetracycline [id number] Drug Allergy Unknown N/A 12/18/2014 Medications Medication Packaging Start Date Stop Date Route Dosage Sig FENTANYL INJ 100 MCG/2CC VIAL MCG 07/20/2018 07/20/2018 ONCE&1605 FENTANYL INJ 100 MCG/2CC VIAL MCG 07/20/2018 07/20/2018 ONCE&1734 FENTANYL INJ 100 MCG/2CC VIAL MCG 07/20/2018 07/20/2018 ONCE&1835 HYDROCODONE/APAP 5MG/325MG TAB 5 MG/325MG (JAQUELINE-TAB 5/325) TAB 07/20/2018 07/20/2018 PRN ONCE ACETAMINOPHEN ORAL TABLET 325mg(Tylenol) MG 07/20/2018 08/19/2018 PRN EVERY 6 Hour Docusate sodium 100mg oral capsule (COLACE) 07/20/2018 08/19/2018 PRN BID FENTANYL INJ 100 MCG/2CC VIAL MCG 07/20/2018 07/23/2018 PRN Q2H LACTULOSE SYRUP LIQ 20 GM/30CC (CHRONULAC SYRUP) GM 07/20/2018 08/19/2018 BID&0800,2000 WARFARIN TAB 2 MG (COUMADIN) tab 07/26/2018 Daily&1700 LEVETIRACETAM TAB 500 MG (KEPPRA) MG 07/20/2018 07/26/2018 QHS&2100 MELATONIN TAB 3 MG (MELATONIN) MG 07/20/2018 07/26/2018 PRN QHS PHENYTOIN CAP 100 MG (DILANTIN) MG 07/20/2018 07/27/2018 Q8H&0600,1400,2200 ACETAMINOPHEN SUPPOS SUP 650 MG (TYLENOL) MG 07/20/2018 07/27/2018 PRN Q4H ONDANSETRON VIAL INJ 4 MG/2CC (ZOFRAN 2CC VIAL) MG 07/20/2018 07/27/2018 PRN Q4H HYDROCODONE/APAP 5MG/325MG TAB 5 MG/325MG (JAQUELINE-TAB 5/325) TAB 07/20/2018 07/30/2018 PRN Q4H ALUM/MAG/SIMETH 30CC LIQ (MYLANTA PLUS) cc 07/20/2018 07/30/2018 PRN Q4H GUAIFENESIN - DM LIQ (ROBITUSSIN DM) MLS 07/20/2018 07/27/2018 PRN Q4H ALPRAZOLAM TAB 0.25 MG (XANAX) MG 07/20/2018 07/30/2018 PRN Q6H CLONIDINE TAB 0.1 MG (CATAPRES) MG 07/20/2018 07/27/2018 PRN Q6H CALCIUM CARBONATE TAB 500 MG (TUMS) MG 07/20/2018 07/27/2018 PRN Q6H DIPHENHYDRAMINE CAP 25 MG (BENADRYL) MG 07/20/2018 07/27/2018 PRN Q6H HYDROCODONE/APAP 5MG/325MG TAB 5 MG/325MG (JAQUELINE-TAB 5/325) TAB 07/20/2018 07/30/2018 PRN Q6H ALENDRONATE TAB 35 MG (FOSAMAX) MG 07/21/2018 07/21/2018 Q1WK&0600 POLYETHYLENE GLYCOL POWDER UD PWD (MIRALAX 17GM UNIT DOSE PAKS) gm 07/21/2018 07/27/2018 BID&0800,2000 BACLOFEN TAB 10 MG (LIORESAL) MG 07/31/2018 PRN TID FENTANYL PATCH PAT 12 MCG/HR (DURAGESIC PATCH) PATCH 07/21/2018 08/02/2018 Q72H&0800 BISACODYL TAB 5 MG (DULCOLAX) MG 07/27/2018 PRN Daily POLYETHYLENE GLYCOL POWDER UD PWD (MIRALAX 17GM UNIT DOSE PAKS) gm 07/21/2018 07/27/2018 Daily&0900 BISACODYL SUPPOS 10 MG (DULCOLAX SUPPOS) MG 07/21/2018 07/27/2018 PRN Daily FENTANYL INJ 100 MCG/2CC VIAL MCG 07/21/2018 07/24/2018 PRN Q3H MILK OF CYNDI ROSALES ml 07/21/2018 08/19/2018 PRN Daily WARFARIN TAB 2 MG (COUMADIN) tab 07/27/2018 Daily&0900 FENTANYL PATCH PAT 25 MCG/HR (DURAGESIC PATCH) PATCH 07/22/2018 11/01/2018 Q72H&0530 CHLORASEPTIC/HALLS ALTA/DROP (SORETHROAT ALTA/COUGH DROP) LOZENGE 07/22/2018 08/01/2018 PRN Q2H FENTANYL PATCH PAT 12 MCG/HR (DURAGESIC PATCH) PATCH 07/23/2018 08/04/2018 Q72H&1230 ENOXAPARIN SYRINGE INJ 40 MG (LOVENOX SYRINGE) MG 07/24/2018 07/24/2018 ONCE&0951 ACETAMINOPHEN ORAL TABLET 325mg(Tylenol) MG 07/24/2018 08/23/2018 PRN EVERY 6 Hour ALPRAZOLAM TAB 0.25 MG (XANAX) MG 07/24/2018 08/03/2018 PRN Q6H CLONIDINE TAB 0.1 MG (CATAPRES) MG 07/24/2018 07/31/2018 PRN Q6H CHLORASEPTIC/HALLS ALTA/DROP (SORETHROAT ALTA/COUGH DROP) LOZENGE 07/24/2018 08/03/2018 PRN Q2H CALCIUM CARBONATE TAB 500 MG (TUMS) MG 07/24/2018 07/31/2018 PRN Q6H DIPHENHYDRAMINE CAP 25 MG (BENADRYL) MG 07/24/2018 07/31/2018 PRN Q6H FENTANYL INJ 100 MCG/2CC VIAL MCG 07/24/2018 07/27/2018 PRN Q3H HYDROCODONE/APAP 5MG/325MG TAB 5 MG/325MG (JAQUELINE-TAB 5/325) TAB 07/24/2018 08/03/2018 PRN Q6H PHENYTOIN CAP 100 MG (DILANTIN) MG 07/24/2018 08/23/2018 TID&0800,1400,2000 ACETAMINOPHEN SUPPOS SUP 650 MG (TYLENOL) MG 07/24/2018 07/31/2018 PRN Q4H ONDANSETRON VIAL INJ 4 MG/2CC (ZOFRAN 2CC VIAL) MG 07/24/2018 07/31/2018 PRN Q4H BACLOFEN TAB 10 MG (LIORESAL) MG 08/03/2018 PRN TID ALUM/MAG/SIMETH 30CC LIQ (MYLANTA PLUS) cc 07/24/2018 08/03/2018 PRN Q4H GUAIFENESIN - DM LIQ (ROBITUSSIN DM) MLS 07/24/2018 07/31/2018 PRN Q4H WARFARIN TAB 2 MG (COUMADIN) MG 07/30/2018 QPM&1800 Docusate sodium 100mg oral capsule (COLACE) 07/24/2018 08/23/2018 PRN BID LACTULOSE SYRUP LIQ 20 GM/30CC (CHRONULAC SYRUP) GM 07/24/2018 08/23/2018 BID&0800,2000 LEVETIRACETAM TAB 500 MG (KEPPRA) MG 07/24/2018 08/22/2018 QHS&2100 MELATONIN TAB 3 MG (MELATONIN) MG 07/24/2018 07/30/2018 PRN QHS HYDROCODONE/APAP 5MG/325MG TAB 5 MG/325MG (JAQUELINE-TAB 5/325) TAB 07/25/2018 08/04/2018 PRN Q4H BISACODYL TAB 5 MG (DULCOLAX) MG 07/31/2018 PRN Daily POLYETHYLENE GLYCOL POWDER UD PWD (MIRALAX 17GM UNIT DOSE PAKS) gm 07/25/2018 08/23/2018 Daily&0900 FLUOXETINE CAP 20 MG (PROZAC) MG 07/31/2018 Daily&0900 BISACODYL SUPPOS 10 MG (DULCOLAX SUPPOS) MG 07/25/2018 07/31/2018 PRN Daily Lidocaine adhesive patch 5% (Lidoderm) PATCH 07/25/2018 08/03/2018 Daily&0900 MILK OF MAGNESIA LIQ ml 07/25/2018 08/23/2018 PRN Daily ENOXAPARIN SYRINGE INJ 40 MG (LOVENOX SYRINGE) MG 07/25/2018 08/04/2018 BID&0800,2000 WARFARIN TAB 2 MG (COUMADIN) MG 07/30/2018 QPM&1800 ALENDRONATE TAB 35 MG (FOSAMAX) MG 07/28/2018 08/18/2018 Q1WK&0600 Problems Date Dx Coded Attending Type Code Diagnosis Diagnosed By 12/18/2014 DEENA ROBERSON, ROSENDO Shaffer Ot 432.9 INTRACRANIAL HEMORR NOS 12/18/2014 DEENA ROBERSON, ROSENDO Shaffer Ot 873.42 OPEN WOUND OF FOREHEAD 12/18/2014 ROSENDO SHAFFER MD Ot 959.01 HEAD INJURY, NOS 12/18/2014 DEENA ROBERSON, ROSENDO Shfafer Ot E000.8 OTHER EXTERNAL CAUSE STATUS 12/18/2014 ROSENDO SHAFFER MD Ot E001.0 ACTIVITIES INVOLVING WALKING, MARCHING A 12/18/2014 DEENA ROBERSON, ROSENDO Shaffer Ot E849.6 ACCIDENT IN PUBLIC BLDG 12/18/2014 ROSENDO SHAFFER MD Ot E885.9 FALL FROM SLIPPING, TRIPPING, OR STUMBLI 12/26/2014 FIFI PARKER DO Ot V58.32 ENCOUNTER FOR REMOVAL OF SUTURES 01/21/2018 NWAGWU, ISIDORE O DIESEL ENGINE TESTER Ot I63.9 CEREBRAL INFARCTION, UNSPECIFIED 01/21/2018 NWAGWU, ISIDORE O DIESEL ENGINE TESTER Ot I67.82 CEREBRAL ISCHEMIA 01/21/2018 NWAGWU, ISIDORE O DIESEL ENGINE TESTER Ot S09.90XA UNSPECIFIED INJURY OF HEAD, INITIAL ENCO 01/21/2018 NWAGWU, ISIDORE O DIESEL ENGINE TESTER Ot W19.XXXA UNSPECIFIED FALL, INITIAL ENCOUNTER 02/04/2018 NWAGWU, ISIDORE O DIESEL ENGINE TESTER Ot I63.9 CEREBRAL INFARCTION, UNSPECIFIED 02/04/2018 NWAGWU, ISIDORE O DIESEL ENGINE TESTER Ot I67.82 CEREBRAL ISCHEMIA 02/04/2018 NWAGWU, ISIDORE O DIESEL ENGINE TESTER Ot S09.90XA UNSPECIFIED INJURY OF HEAD, INITIAL ENCO 02/04/2018 NWAGWU, ISIDORE O DIESEL ENGINE TESTER Ot W19.XXXA UNSPECIFIED FALL, INITIAL ENCOUNTER 03/11/2018 ANUEL HOLLOWAY MD Ot I69.351 HEMIPLGA FOLLOWING CEREBRAL INFRC AFF RI 03/18/2018 ANUEL HOLLOWAY MD Ot I69.351 HEMIPLGA FOLLOWING CEREBRAL INFRC AFF RI 03/19/2018 ANUEL HOLLOWAY MD F Ot I69.351 HEMIPLGA FOLLOWING CEREBRAL INFRC AFF RI 07/20/2018 Emily Deani W S32.0 FRACTURE OF LUMBAR VERTEBRA 07/20/2018 Regine Dean W S32.0 FRACTURE OF LUMBAR VERTEBRA 07/23/2018 NWAGWU, ISIDORE O DIESEL ENGINE TESTER Ot I63.9 CEREBRAL INFARCTION, UNSPECIFIED 07/23/2018 NWAGWU, ISIDORE O DIESEL ENGINE TESTER Ot I67.82 CEREBRAL ISCHEMIA 07/23/2018 NWAGWU, ISIDORE O DIESEL ENGINE TESTER Ot S09.90XA UNSPECIFIED INJURY OF HEAD, INITIAL ENCO 07/23/2018 NWAGWU, ISIDORE O DIESEL ENGINE TESTER Ot W19.XXXA UNSPECIFIED FALL, INITIAL ENCOUNTER Procedures There is no data. Results Test Result Range CMP - 10/09/17 12:07 GLUCOSE 88 mg/dL 65-99 UREA NITROGEN (BUN) 16 mg/dL 7-25 CREATININE 0.66 mg/dL 0.60-0.93 eGFR NON-AFR. BURUNDIAN 85 mL/min/1.73m2 > OR=60 eGFR 98 mL/min/1.73m2 > OR=60 BUN/CREATININE RATIO NOT APPLICABLE (calc) 6-22 SODIUM 141 mmol/L 135-146 POTASSIUM 4.6 mmol/L 3.5-5.3 CHLORIDE 106 mmol/L 98-110 CARBON DIOXIDE 28 mmol/L 20-31 CALCIUM 8.9 mg/dL 8.6-10.4 PROTEIN, TOTAL 6.6 g/dL 6.1-8.1 ALBUMIN 4.3 g/dL 3.6-5.1 GLOBULIN 2.3 g/dL (calc) 1.9-3.7 ALBUMIN/GLOBULIN RATIO 1.9 (calc) 1.0-2.5 BILIRUBIN, TOTAL 0.3 mg/dL 0.2-1.2 ALKALINE PHOSPHATASE 103 U/L 33-130 AST 19 U/L 10-35 ALT 10 U/L 6-29 [id number] - 01/20/18 12:35 Serum or plasma urea nitrogen measurement (mass/volume) 15 mg/dL 7-18 Serum or plasma creatinine measurement (mass/volume) 0.68 mg/dL 0.60-1.30 Serum or plasma urea nitrogen/creatinine mass ratio 22 NRG Serum or plasma creatinine measurement with calculation of estimated glomerular filtration rate > NRG Dilantin - 07/20/18 16:50 Dilantin 15.2 ug/mL 10.0-20.0 Urinalysis - 07/20/18 16:52 Icotest N/A Negative Urine Volume Urine Volume Sufficient (10mL) Urine-Appearance Clear Clear Urine-Bacteria Trace Urine-Bilirubin Negative Negative Urine-Blood Trace Negative Urine-Color Yellow Colorless-Lt. Yellow Urine-Epithelial Cells 0-5/HPF Urine-Glucose Negative Negative Urine-Ketones Negative Negative Urine-Leukocytes Negative Negative Urine-Nitrite Negative Negative Urine-Other Urine Saved if Culture Needed (48hrs from time of collection) Urine-pH 6.5 5-8.5 Urine-Protein Negative Negative Urine-RBC Rare/HPF Urine-Specific Kendall 1.015 1.000-1.030 Urine-WBC Negative Urobilinogen 0.2 0.2-1.0 Comprehensive Metabolic Panel - 07/21/18 05:25 Albumin 3.6 g/dL 3.6-5.1 ALP 182 U/L 35-130 ALT 11 U/L 6-45 Anion Gap 14 6-14 AST 17 U/L 2-40 BUN 12 mg/dL 5-25 Calcium 8.5 mg/dL 8.3-10.4 Chloride 109 mmol/L 95-114 CO2 24 mEq/L 22-33 Creat 0.65 mg/dL 0.50-1.50 eGFR 88 mL/min/1.73m2 >59 Globulin 2.1 g/dL 2.3-3.5 Glucose 87 mg/dL 70-110 Osmo 294 280-295 Potassium 3.7 mmol/L 3.5-5.3 Sodium 143 mmol/L 134-148 TBil 0.4 mg/dL 0.2-1.2 TP 5.7 g/dL 6.0-8.3 Comprehensive Metabolic Panel - 07/22/18 05:15 Albumin 3.6 g/dL 3.6-5.1 ALP 180 U/L 35-130 ALT 11 U/L 6-45 Anion Gap 13 6-14 AST 19 U/L 2-40 BUN 10 mg/dL 5-25 Calcium 8.7 mg/dL 8.3-10.4 Chloride 107 mmol/L 95-114 CO2 24 mEq/L 22-33 Creat 0.63 mg/dL 0.50-1.50 eGFR 91 mL/min/1.73m2 >59 Globulin 2.2 g/dL 2.3-3.5 Glucose 122 mg/dL 70-110 Osmo 289 280-295 Potassium 4.1 mmol/L 3.5-5.3 Sodium 140 mmol/L 134-148 TBil 0.4 mg/dL 0.2-1.2 TP 5.8 g/dL 6.0-8.3 Comprehensive Metabolic Panel - 07/23/18 05:20 Albumin 3.5 g/dL 3.6-5.1 ALP 169 U/L 35-130 ALT 9 U/L 6-45 Anion Gap 13 6-14 AST 18 U/L 2-40 BUN 11 mg/dL 5-25 Calcium 8.7 mg/dL 8.3-10.4 Chloride 108 mmol/L 95-114 CO2 24 mEq/L 22-33 Creat 0.62 mg/dL 0.50-1.50 eGFR 93 mL/min/1.73m2 >59 Globulin 2.0 g/dL 2.3-3.5 Glucose 126 mg/dL 70-110 Osmo 292 280-295 Potassium 3.8 mmol/L 3.5-5.3 Sodium 141 mmol/L 134-148 TBil 0.3 mg/dL 0.2-1.2 TP 5.5 g/dL 6.0-8.3 Protime - 07/24/18 05:21 INR 1.7 1.0-4.0 Protime 20.3 Sec 9.9-12.8 Comprehensive Metabolic Panel - 07/25/18 05:38 Albumin 3.4 g/dL 3.6-5.1 ALP 180 U/L 35-130 ALT 15 U/L 6-45 Anion Gap 14 6-14 AST 27 U/L 2-40 BUN 14 mg/dL 5-25 Calcium 8.6 mg/dL 8.3-10.4 Chloride 109 mmol/L 95-114 CO2 23 mEq/L 22-33 Creat 0.59 mg/dL 0.50-1.50 eGFR 98 mL/min/1.73m2 >59 Globulin 1.9 g/dL 2.3-3.5 Glucose 98 mg/dL 70-110 Osmo 294 280-295 Potassium 4.2 mmol/L 3.5-5.3 Sodium 142 mmol/L 134-148 TBil 0.3 mg/dL 0.2-1.2 TP 5.3 g/dL 6.0-8.3 CBC with Auto Diff - 07/26/18 05:40 Baso% 0.30 % 0.00-2.50 Eos 0.1 K/uL 0.0-0.7 Eos% 2.3 % 0.0-7.0 Hct 35.0 % 36.0-46.0 Hgb 11.4 g/dL 13.0-15.0 Lym 0.68 K/uL 0.60-3.40 Lym% 11.3 % 10.0-50.0 MCH 31.0 pg 27.0-31.0 MCHC 32.6 g/dL 32.0-36.0 MCV 95.1 fL 80.0-97.0 [place]% 12.7 % 0.0-12.0 MPV 12.5 fL 7.4-10.0 All% 73.4 % 37.0-80.0 Plt 209 K/uL 150-400 RBC 3.68 M/uL 3.60-5.00 RDW 13.8 % 11.6-14.8 WBC 6.04 K/uL 5.00-10.00 All 4.43 K/uL 2.00-6.90 [place]ifax 0.8 K/uL 0.0-0.9 Baso 0.0 K/uL 0.0-0.2 Comprehensive Metabolic Panel - 07/26/18 05:40 Albumin 3.3 g/dL 3.6-5.1 ALP 175 U/L 35-130 ALT 15 U/L 6-45 Anion Gap 13 6-14 AST 23 U/L 2-40 BUN 15 mg/dL 5-25 Calcium 8.3 mg/dL 8.3-10.4 Chloride 109 mmol/L 95-114 CO2 24 mEq/L 22-33 Creat 0.61 mg/dL 0.50-1.50 eGFR 95 mL/min/1.73m2 >59 Globulin 1.8 g/dL 2.3-3.5 Glucose 103 mg/dL 70-110 Osmo 294 280-295 Potassium 4.2 mmol/L 3.5-5.3 Sodium 142 mmol/L 134-148 TBil 0.3 mg/dL 0.2-1.2 TP 5.1 g/dL 6.0-8.3 Protime - 07/26/18 05:40 INR 2.1 1.0-4.0 Protime 24.5 Sec 9.9-12.8 Comprehensive Metabolic Panel - 07/27/18 05:20 Albumin 3.4 g/dL 3.6-5.1 ALP 183 U/L 35-130 ALT 16 U/L 6-45 Anion Gap 16 6-14 AST 25 U/L 2-40 BUN 14 mg/dL 5-25 Calcium 8.8 mg/dL 8.3-10.4 Chloride 109 mmol/L 95-114 CO2 23 mEq/L 22-33 Creat 0.63 mg/dL 0.50-1.50 eGFR 91 mL/min/1.73m2 >59 Globulin 2.2 g/dL 2.3-3.5 Glucose 99 mg/dL 70-110 Osmo 296 280-295 Potassium 4.6 mmol/L 3.5-5.3 Sodium 143 mmol/L 134-148 TBil 0.2 mg/dL 0.2-1.2 TP 5.6 g/dL 6.0-8.3 Encounters ACCT No. Visit Date/Time Discharge Status Pt. Type Provider Facility Loc./Unit Complaint [id number] 07/19/2018 12:20:00 07/19/2018 23:59:59 CLS [id number] 10/09/2017 10:20:00 Document Registration [id number] 07/20/2018 19:10:00 07/24/2018 10:00:00 [id number]2018 [id number] 07/20/2018 16:07:00 Document Registration [id number] 07/20/2018 19:10:00 Document Registration [id number] 02/12/2018 09:07:00 03/19/2018 11:39:00 DIS Outpatient ANUEL HOLLOWAY MD [facility] REHAB CVA [id number] 01/20/2018 12:21:00 01/20/2018 23:59:59 CLS Outpatient ENRRIQUE ARRIAGA APRN [facility] RAD FALL [id number] 12/26/2014 10:28:00 12/26/2014 11:06:00 DIS Emergency FIFI PARKER DO [facility] ER SUTURE REMOVAL [id number] 12/18/2014 11:48:00 12/18/2014 14:45:00 DIS Emergency DEENA ROBERSON, ROSENDO Shaffer [facility] ER FALL/RT EYE LAC [id number] 07/30/2018 09:00:00 PEN Preadmit DENISE ROBERSON, VALENTE Bronson [facility] SDC LEFT CATARACT [id number] 07/27/2018 13:56:00 PEN Preadmit REGINE DEAN DO LUMBAR COMPRESSION FX
--- OUTSIDE RECORDS SUMMARY | 2018-07-27 11:16 | XMS REPORT ---
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 Active 106548943 Problem History of cerebrovascular accident Z86.73 Active 355676660 Problem Seizure disorder G40.909 Active 458724811 Problem Reactive depression F32.9 Active 41201535 Problem Age-related osteoporosis without current pathological fracture M81.0 Active 24342139 Problem Arthritis M19.90 Active 7893231 ALLERGIES No Information ENCOUNTERS Encounter Location Date Diagnosis [facility] [id number] [place] [phone] Dec, Right ear impacted cerumen H61.21 [facility] [id number] [place] [address] Dec, History of aortic valve replacement Z95.2 [facility] [id number] [place] [phone] Nov, [facility] [address] [address] Nov, History of aortic valve replacement Z95.2 [facility] [address] [address] Nov, 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 and History of aortic valve replacement Z95.2 [facility] [id number] [place] [address] Oct, History of cerebrovascular accident Z86.73 ; History of aortic valve replacement Z95.2 ; Age-related osteoporosis without current pathological fracture M81.0 ; Reactive depression F32.9 ; Seizure disorder G40.909 and Arthritis M19.90 [facility] [address] [facility] [id number] [place] [address] Oct, History of aortic valve replacement Z95.2 [facility] [address] [facility] [id number] [address] Oct, History of cerebrovascular accident Z86.73 ; Age-related osteoporosis without current pathological fracture M81.0 ; Reactive depression F32.9 ; History of aortic valve replacement Z95.2 ; Seizure disorder G40.909 and Arthritis M19.90 IMMUNIZATIONS No Known Immunizations SOCIAL HISTORY Never Assessed REASON FOR VISIT Lab (walk-in)--DANISH Reyes PLAN OF CARE VITAL SIGNS MEDICATIONS Medication Instructions Dosage Frequency Start Date End Date Duration Status Coumadin 4 MG Orally Once a day 1 tablet 24h Unknown Prozac 40 mg Orally Once a day 1 capsule 24h Unknown Dilantin 100 MG Orally Three times a day 1 capsule 8h Unknown Vitamin D-3 1000 UNIT Orally Once a day 1 capsule 24h Unknown Keppra 500 mg Orally at bedtime 1 tablet Unknown Fosamax 70 MG Orally once weekly 1 tablet Unknown Biotin 5000 5 MG Orally Once a day 1 capsule 24h Unknown Naproxen Sodium 550 MG Orally every 12 hrs 1 tablet with food or milk as needed 12h Unknown Ensure - Unknown RESULTS Name Result Date Reference Range INR (IN HOUSE) 2017-10-23 INR 6.1 1.10 - 3.30 PREVIOUS INR 3.4 CURRENT COUMADIN DOSE 4 mg daily NEW COUMADIN DOSE Lot # [id number] Exp date 06/2018 PROCEDURES Procedure Date Ordered Result Body Site PROTHROMBIN TIME October 23, 2017 INSTRUCTIONS MEDICATIONS ADMINISTERED No Known Medications [...]
--- OUTSIDE RECORDS SUMMARY | 2018-07-27 11:16 | XMS REPORT ---
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 Active 514131826 Problem History of cerebrovascular accident Z86.73 Active 304960854 Problem Seizure disorder G40.909 Active 026937788 Problem Reactive depression F32.9 Active 80665390 Problem Age-related osteoporosis without current pathological fracture M81.0 Active 81635318 Problem Arthritis M19.90 Active 0430160 ALLERGIES Substance Reaction Event Type Date Status Tetracycline HCl hives Drug Allergy Oct, Active Penicillin V Potassium Unknown Drug Allergy Oct, Active ENCOUNTERS Encounter Location Date Diagnosis [facility] [id number] [place] [phone] Dec, Right ear impacted cerumen H61.21 [facility] [id number] [place] [address] Dec, History of aortic valve replacement Z95.2 [facility] [address] [address] Nov, [facility] [id number] [place] [address] Nov, History of aortic valve replacement Z95.2 [facility] [id number] [place] [address] Nov, 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 and History of aortic valve replacement Z95.2 [facility] [id number] [place] [address] Oct, History of cerebrovascular accident Z86.73 ; History of aortic valve replacement Z95.2 ; Age-related osteoporosis without current pathological fracture M81.0 ; Reactive depression F32.9 ; Seizure disorder G40.909 and Arthritis M19.90 [address] [facility] [id number] [address] Oct, History of aortic valve replacement Z95.2 [address] [facility] [id number] [address] Oct, History of cerebrovascular accident Z86.73 ; Age-related osteoporosis without current pathological fracture M81.0 ; Reactive depression F32.9 ; History of aortic valve replacement Z95.2 ; Seizure disorder G40.909 and Arthritis M19.90 IMMUNIZATIONS No Known Immunizations SOCIAL HISTORY Never Assessed REASON FOR VISIT Establish Care-DANISH leonardo, fills at [facility] verified with pharmacy, last INR 2.2 on 09/09/17 PLAN OF CARE Activity Details Follow Up 2 Months Reason: VITAL SIGNS Weight 111.8 lbs 2017-10-09 Temperature 97.7 degrees Fahrenheit 2017-10-09 Heart Rate 70 bpm 2017-10-09 Respiratory Rate 16 2017-10-09 Blood pressure systolic 130 mmHg 2017-10-09 Blood pressure diastolic 72 mmHg 2017-10-09 MEDICATIONS Medication Instructions Dosage Frequency Start Date End Date Duration Status Dilantin 100 MG Orally Three times a day 1 capsule 8h Active Coumadin 4 MG Orally Once a day 1 tablet 24h Active Naproxen Sodium 550 MG Orally every 12 hrs 1 tablet with food or milk as needed 12h Active Prozac 40 mg Orally Once a day 1 capsule 24h Active Fosamax 70 MG Orally once weekly 1 tablet Active Ensure - Active Vitamin D-3 1000 UNIT Orally Once a day 1 capsule 24h Active Biotin 5000 5 MG Orally Once a day 1 capsule 24h Active Keppra 500 mg Orally at bedtime 1 tablet Active RESULTS No Results PROCEDURES Procedure Date Ordered Result Body Site COMPREHEN METABOLIC PANEL October 09, 2017 COMPLETE CBC W/AUTO DIFF WBC October 09, 2017 PROTHROMBIN TIME October 09, 2017 INSTRUCTIONS MEDICATIONS ADMINISTERED No Known [...]
[2018-07-27] MEDS ORDERED: ACETAMINOPHEN 650 MG SUPP (TYLENOL) PR PRN (11:30)
[2018-07-27] MEDS ORDERED: ANTACID SUSP 30 ML UDC (MYLANTA) PO PRN (11:30)
[2018-07-27] MEDS ORDERED: ACETAMINOPHEN 325 MG TABLET PO PRN (11:30)
[2018-07-27] MEDS ORDERED: cloNIDine 0.1 MG (CATAPRES) TAB PO PRN (11:30)
[2018-07-27] MEDS ORDERED: BISACODYL 10 MG SUPP (DULCOLAX) RC PRN (11:30)
[2018-07-27] MEDS ORDERED: BISACODYL 5 MG (DULCOLAX) TABLET PO PRN (11:30)
[2018-07-27] MEDS ORDERED: DOCUSATE SODIUM 100 MG (COLACE) CAP PO PRN (11:30)
[2018-07-27] MEDS ORDERED: ALPRAZolam 0.25 MG (XANAX) TAB PO PRN (11:30)
[2018-07-27] MEDS ORDERED: MILK OF MAGNESIA 400 MG/5 ML 30 ML UDC PO PRN (11:30)
[2018-07-27] MEDS ORDERED: ONDANSETRON 4 MG/2 ML (SDV) Z0FRAN IV PRN (11:45)
[2018-07-27] MEDS ORDERED: guaiFENesin/DM (ROBITUSSIN DM) 10 ML UDC PO PRN (11:45)
[2018-07-27] MEDS ORDERED: CALCIUM CARBONATE 500 MG (TUMS) TAB.CHEW PO PRN (11:45)
[2018-07-27] MEDS ORDERED: CHLORASEPTIC LOZENGE MM PRN (11:45)
[2018-07-27] MEDS ORDERED: diphenhydrAMINE 25 MG TAB (BENADRYL) PO PRN (11:45)
--- NOTE | 2018-07-27 11:55 | Physical Therapy Evaluation ---
PT Evaluation-General Medical Diagnosis Admission Date Jul 27, 2018 at 10:30 Medical Diagnosis: lumbar fracture Onset Date: Jul 20, 2018 Therapy Diagnosis Therapy Diagnosis: impaired mobility, strength, endurance Height/Weight Height (Feet): 3 Weight (Pounds): 150 Referral Physician: Regine Romero DO Reason for Referral: Evaluation/Treatment Medical History Pertinent Medical History: CVA Current History per pt report: pt had fallen 6 weeks ago and has had increase pain. pt went to hospital 1 week ago on 07/20/18 and found to have lumbar fracture. Reviewed History: Yes Social History Home: Single Level Current Living Status: Alone Entry Into Home: Ramp Patient has friends that live just two houses down from her. Prior/Core FIM Prior Level of Function Therapy Code Descriptions/Definitions Functional [place] Measure: 0=Not Assessed/NA 4=Minimal Assistance 1=Total Assistance 5=Supervision or Setup 2=Maximal Assistance 6=Modified [place] 3=Moderate Assistance 7=Complete [place] Therapy Quality Codes: 6 Independent with activity with or without an assistive device 5 Patient requires set up or clean up by helper. Patient completes activity by themselves 4 Supervision or touching assist (CGA). [place] provide cues , steadying assist 3 The helper provides less than half the effort to complete the activity 2 The helper provides more than half the effort to complete the activity 1 Dependent. The helper does all the effort to complete an activity 7 Patient refused to complete or attempt activity 9 The patient did not perform the activity before the current illness or injury 88 Not attempted due to Medical conditions or safety concerns Functional Abilities and Goals: Independent: Patient completed the activities by him/herself, with or without an assistive device, with no assistance from a helper. Needed Some Help: Patient needed partial assistance from another person to complete activities. Dependent: A helper completed the activities for the patient. Unknown: Not Applicable: Bed Mobility: 7 Transfers (B,C,W/C) (FIM): 7 Gait: 7 Indoor Mobility (Ambulation): Independent Patient states she was not using an assistive device previously. PT Evaluation-Current Subjective Patient in transport wheelchair pre tx, agrees to PT, has 6/10 pain in low back and left hip. Pt/Family Goals "to be independent at home" Objective Patient Orientation: Person, Place, Non-Verbal/Aphasic, Situation ROM/Strength ROM Lower Extremities bilateral lower extremities mostly WNL but slightly limited due to pain. Strenght Lower Extremities right lower extremity (hip flexion 3/5, knee flexion 4/5, knee extension 4/5, dorsiflexion 2/5), left lower extremity (hip flexion 4/5, knee flexion 5/5, knee extension 5/5, dorsiflexion 5/5) Neuromuscular (Tone, Coordination, Reflexes) NT Sensory Hearing: Functional Sensation Right Lower Extremit: Impaired Sensation Left Lower Extremity: Impaired Sensation Lower Extremities Patient has intact light touch sensation in both lower extremities but has decreased sensation in her feet. Transfers Therapy Code Descriptions/Definitions Functional [place] Measure: 0=Not Assessed/NA 4=Minimal Assistance 1=Total Assistance 5=Supervision or Setup 2=Maximal Assistance 6=Modified [place] 3=Moderate Assistance 7=Complete [place] Therapy Quality Codes: 6 Independent with activity with or without an assistive device 5 Patient requires set up or clean up by helper. Patient completes activity by themselves 4 Supervision or touching assist (CGA). [place] provide cues , steadying assist 3 The helper provides less than half the effort to complete the activity 2 The helper provides more than half the effort to complete the activity 1 Dependent. The helper does all the effort to complete an activity 7 Patient refused to complete or attempt activity 9 The patient did not perform the activity before the current illness or injury 88 Not attempted due to Medical conditions or safety concerns Transfers (B, C, W/C) (FIM): 4 Scootin Rollin Roll Left to Right (QC): 3 Supine to/from Sit: 3 Sit to/from Stand: 4 Sit to Lying (QC): 3 Lying to Sitting/Side of Bed(Q: 3 Sit to Stand (QC): 4 Chair/Tsa-en-Nlxzo Xfer(QC): 4 Car Transfer (QC): 4 Patient performs bed mobility with SBA but needs min assist for rolling, supine <-> sit min assist, sit <-> stand CGA, transfers CGA, car transfer CGA. Occasional cues for hand placement and positioning. Gait Does the Patient Walk?: Yes Mode of Locomotion: Walk Anticipated Mode of Locomotion: Walk Gait (FIM): 4 Walk 10 feet (QC): 4 Walk 50 ft with 2 Turns(QC): 4 Walk 150 ft (QC): 4 Walking 10ft/uneven surface-QC: 4 Distance: 150'x2 Gait Level of Assist: 4 Gait Persons Needed: 1 Gait Assistive Device: Walker Platform Comments/Gait Description Patient can ambulate 150' with a platform walker with CGA (including 50' with at least 2 turns of 90 degrees and 10' over an uneven surface). 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 She has a slight dropfoot on the right side. Wheelchair Training Does the Pt Use a Wheelchair?: No Stairs Stairs (FIM): 1 #of Steps: 1 Level of Assist: 4 1 Step (curb) (QC): 4 Assistive Device: Walker Patient can go up and down 1 steps using a platform walker with CGA. Cues for foot placement. Balance Sitting Static: Normal Sitting Dynamic: Normal Standing Static: Good Standing Dynamic: Good Treatment Standing LE exercises in the parallel bars x15 (heel raises, hip flex/abd, mini- squats, marching), LAQ alternating for 2 min (seated). Assessment/Needs Patient has impaired mobility, strength, endurance. Patient in recliner post tx with nurse call, phone, tray, all needs met. Patient may benefit from an AFO on the right side. Rehab Potential: Fair PT Short Term Goals Short Term Goals Time Frame: Aug 03, 2018 Transfers (B,C,W/C) (FIM): 4 (CGA) Gait (FIM): 5 Gait Distance Comment: 200' Gait Level of Assist: 5 Gait Assistive Device: Walker Platform PT [facility]iary Goals Quilting Supervisor Goals PT [facility]it[facility]iary Goals Time Frame: August 17, 2018 Transfers (B,C,W/C) (FIM): 5 Sit to Lying (QC): 4 Lying-Sitting on Side/Bed(QC): 4 Sit to Stand (QC): 4 Rollin Roll Left to Right (QC): 4 Chair/Esb-eh-Ldgyc Xfer(QC): 4 Car Transfer (QC): 4 Gait (FIM): 5 Distance: 300' Walk 10 feet (QC): 4 Walk 10ft-Uneven Surface(QC): 4 Walk 50ft with 2 Turns (QC): 4 Walk 150 ft (QC): 4 Gait Level of Assist: 5 Gait Assistive Device: Walker Platform Stairs (FIM): 2 # of Steps: 4 1 Step (curb) (QC): 4 4 Steps (QC): 4 Stairs Level Of Assist: 4 PT Plan Problem List Problem List: Activity Tolerance, Functional Strength, Safety, Balance, Gait, Transfer, Bed Mobility, ROM Treatment/Plan Treatment Plan: Continue Plan of Care Treatment Plan: Bed Mobility, Education, Functional Activity Francy, Functional Strength, Group Therapy, Gait, Safety, Therapeutic Exercise, Transfers Treatment Duration: August 17, 2018 Frequency: At least 5 of 7 days/Wk (IRF) Estimated Hrs Per Day: 1.5 hours per day Patient and/or Family Agrees t: Yes Safety Risks/Education Patient Education: Gait Training, Transfer Techniques, Steps, Correct Positioning, Safety Issues Teaching Recipient: Patient Teaching Methods: Demonstration, Discussion Response to Teaching: Reinforcement Needed Discharge Recommendations Plan Patient will perform bed mobility and transfer training, balance and endurance training, functional strengthening, stair training, gait training, and education , to improve functional mobility and independence at home. Therapy D/C Recommendations: Assisted Living, Home w/ Family Support, Prison (TCU/[facility]) Time/GCodes Time In: 1050 Time Out: 1150 Total Billed Treatment Time: 60 Total Billed Treatment 1 visit EVM 30' EX 15' GT 15' MAURICIO POLANCO PT Jul 27, 2018 11:55
--- NOTE | 2018-07-27 12:57 | Occupational Therapy Eval ---
OT Evaluation-General/PLF Medical Diagnosis Admission Date Jul 27, 2018 at 10:30 Medical Diagnosis: lumbar fracture Onset Date: Jul 20, 2018 Therapy Diagnosis Therapy Diagnosis: impaired ADLs and mobility Height/Weight Height (Feet): 3 Weight (Pounds): 150 Precautions Precautions/Isolations: Seizure, Standard Precautions Weight Bear Status Weight Bearing Restriction: Weight Bearing/Tolerated Referral Physician: Regine Romero DO Referral Reason: Activity Tolerance, Self Care, Evaluation/Treatment, Strengthening/ROM Medical History Pertinent Medical History: CVA Current History per pt report: pt had fallen 6 weeks ago and has had increase pain. pt went to hospital 1 week ago on 07/20/18 and found to have lumbar fracture. Reviewed History: Yes Social History Home: Single Level Current Living Status: Alone Entry Into Home: Ramp pt stated her sister n lives 2 houses down and can assist when need be. ADL-Prior Level of Function Therapy Code Descriptions/Definitions Functional [place] Measure: 0=Not Assessed/NA 4=Minimal Assistance 1=Total Assistance 5=Supervision or Setup 2=Maximal Assistance 6=Modified [place] 3=Moderate Assistance 7=Complete [place] Therapy Quality Codes: 6 Independent with activity with or without an assistive device 5 Patient requires set up or clean up by helper. Patient completes activity by themselves 4 Supervision or touching assist (CGA). [place] provide cues , steadying assist 3 The helper provides less than half the effort to complete the activity 2 The helper provides more than half the effort to complete the activity 1 Dependent. The helper does all the effort to complete an activity 7 Patient refused to complete or attempt activity 9 The patient did not perform the activity before the current illness or injury 88 Not attempted due to Medical conditions or safety concerns Functional Abilities and Goals: Independent: Patient completed the activities by him/herself, with or without an assistive device, with no assistance from a helper. Needed Some Help: Patient needed partial assistance from another person to complete activities. Dependent: A helper completed the activities for the patient. Unknown: Not Applicable: Self Care: Independent Functional Cognition: Independent DME/Equipment: Bath Chair, Shower DME/Equipment Comments quad cane per pt report. pt brother has family member that live 2 houses down to assist PRN. pt stated she was completely independently PLOF with ADLs and IADLs including driving. Drive Self: Yes OT Current Status Subjective pt sitting in recliner chiar upon OT arrival in no apparent distress. pt agreed to OT evaluation/ treatment session. 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 PROM WFL for R hand L UE WFL all planes. ADL-Treatment Eating (FIM): 5 (reqries additional timing to comlete task) Eating (QC): 4 Grooming (FIM): 4 (required CGA and assit to open items. ) Oral Hygiene (QC): 3 Bathing (FIM): 4 (CGA fro safty/ balance. pt required assist to open soap containers secodnary to decrease strength/ ROM in RUE from prior CVA) Bathing Location: L Arm, R Arm, L Upper Leg, R Upper Leg, L Lower Leg ( including foot), R Lower Leg (including foot), Chest, Abdomen, Buttocks, Perineal Area Shower/Bathe Self (QC): 3 Upper Body Dressing (FIM): 4 (pt required assist to fasten zipper) Upper Body Dressing (QC): 3 Lower Body Dressing (FIM): 4 (CGA for safety/ balance) Lower Body Dressing (QC): 4 On/Off Footwear (QC): 4 Toileting (FIM): 4 (CGA fro safety/ balance while standing to pull up/ down pants. ) Toileting Hygiene (QC): 4 Transfers (B, C, W/C) (FIM): 4 (CGA fro safety/ balance while using platform walker) Toilet/Commode Transfer (FIM): 4 Toilet Transfer (QC): 4 Shower Transfer (FIM): 4 Other Treatments resting hand splint measured and applied to R hand secondary to decrease ROM and fixed flexion of MCPs. pt education on wearing splint at night time only. pt education on precautions of splint. pt verbalized understanding precaution placed on white board in room as a reminder. NSG made aware of night time splint. Education OT Patient Education: Correct positioning, Energy conservation, Instructions don/doff splint/brace, Instructions to caregiver, Modified ADL techniques, Progress toward Goal/Update tx plan, Purpose of tx/functional activities, Reviewed precautions, Rehab process, Safety issues, Transfer techniques Teaching Recipient: Patient Teaching Methods: Demonstration, Discussion Response to Teaching: Verbalize Understanding, Return Demonstration OT Short Term Goals Short Term Goals Eating(FIM): 6 Grooming(FIM): 5 Bathing(FIM): 5 Bathing Location: L Arm, R Arm, L Upper Leg, R Upper Leg, L Lower Leg ( including foot), R Lower Leg (including foot), Chest, Abdomen, Buttocks, Perineal Area Upper Body Dressing(FIM): 5 Lower Body Dressing(FIM): 5 Toileting(FIM): 5 Transfers (B,C,W/C) (FIM): 5 Toilet/Commode Transfer(FIM): 5 Tub Transfer(FIM): 5 Shower Transfer(FIM): 5 Comprehension(FIM): 5 Additional Short Term Goals: 1-Demonstrate ADL Tasks, 2-Verbalize Understanding , 3-ImproveStrength/Francy 1=Demonstrate adherence to instructed precautions during ADL tasks. 2=Patient will verbalize/demonstrate understanding of assistive devices/ modifications for ADL. 3=Patient will improve strength/tolerance for activity to enable patient to perform ADL's. OT Education Program Associate Goals Education Program Associate Goals Eating (FIM): 6 Eating (QC): 6 Groomin Oral Hygiene (QC): 6 Bathing(FIM): 6 Bathing Location: L Arm, R Arm, L Upper Leg, R Upper Leg, L Lower Leg ( including foot), R Lower Leg (including foot), Chest, Abdomen, Buttocks, Perineal Area Shower/Bathe Self (QC): 6 Upper Body Dressing(FIM): 6 Upper Body Dressing (QC): 6 Lower Body Dressing(FIM): 6 Lower Body Dressing (QC): 6 On/Off Footwear (QC): 6 Toileting(FIM): 6 Toileting Hygiene (QC): 6 Transfers (B,C,W/C) (FIM): 6 Toilet/Commode Transfer(FIM): 6 Toilet/Commode Transfer (QC): 6 Tub Transfer(FIM): 0 Shower Transfer(FIM): 6 Additional Goals: 1-Demonstrate ADL Tasks, 2-Verbalize Understanding, 3- ImproveStrength/Francy 1=Demonstrate adherence to instructed precautions during ADL tasks. 2=Patient will verbalize/demonstrate understanding of assistive devices/ modifications for ADL. 3=Patient will improve strength/tolerance for activity to enable patient to perform ADL's. OT Education/Plan Problem List/Assessment Assessment: Decreased Activ Tolerance, Decreased Safety Aware, Decreased UE Strength, Impaired Bed Mobility, Impaired Coordination, Impaired Funct Balance, Impaired I ADL's, Impaired Self-Care Skills, Restricted Funct UE ROM 78 year old female presents with functional limitations affecting areas of ADLs and functional trasnfers. pt would ebenefit from skilled OT Services to increase independence with ADLS and functional transfers and to assist upon mention deficits. Discharge Recommendations Plan/Recommendations: Continue POC Target Placement home Patient/Family Goals "to increase my overall independence Treatment Plan/Plan of Care Treatment,Training & Education: Yes Patient would benefit from OT for education, treatment and training to promote independence in ADL's, mobility, safety and/or upper extremity function for ADL' s. Plan of Care: ADL Retraining, Caregiver Training, Concurrent Therapy, Functional Mobility, Group Exercise/Act as Ind, Orthotic Fitting/Training, UE Funct Exercise/Act, UE Neuromus Re-Ed/Coord Treatment Duration: August 17, 2018 Frequency: At least 5 of 7 days/Wk (IRF) Estimated Hrs Per Day: 1.5 hours per day Agreement: Yes Rehab Potential: Good Time/GCodes Start Time: 12:45 Stop Time: 14:15 Billed Treatment Time EVM 15 minutes ADL 60 minutes, 4 units FA 15 minutes, 1 unit DEBORA SLOAN OT Jul 27, 2018 12:57
[2018-07-27] MEDS: OXYBUTYNIN (DITROPAN) 5 MG TAB PO SCH ×2 (13:59→21:52)
[2018-07-27] MEDS: PHENYTOIN 100 MG (DILANTIN) CAP PO SCH ×2 (14:15→20:25)
[2018-07-27] MEDS: HYDROcodone/APAP 5 MG/325 MG (LORTAB) TAB PO PRN ×2 (14:20→22:38)
--- NOTE | 2018-07-27 15:34 | NUR ---
Call to Dr. Coronel's office per pt request. Pt states that she was scheduled to have cataract surgery this Thursday by Dr. Barton. Will be unable to do this since hospitalization.
--- NOTE | 2018-07-27 15:39 | ST Cognitive Linguistic Eval ---
Speech Evaluation-General Medical Diagnosis lumbar fracture Onset Date: Jul 20, 2018 Therapy Diagnosis Therapy Diagnosis: Cognitive-communication Precautions Precautions/Isolations: Seizure, Standard Precautions Referral Referring Physician: Dr. Romero Medical History Pertinent Medical History: CVA Reviewed History: Yes Social History Current Living Status: Alone Speech PLF-Current Status Prior Level of Function The patient lived at home alone with family close by who provide daily support for her needs. Subjective The patient was pleasant and cooperative with the evaluation. Language Eval: Auditory Comprehends Simple Yes/No Ques: Functional Indent/Objects Multiple Xavier: Functional Ident/Pics in Multiple Xavier: Functional Follows 1-Step Commands: Functional Follows Complex Directions: Functional Follows General Conversations: Functional Language Eval: Verbal Language Completes Spontaneous Greeting: Functional Produces Auto, Serial Info: Functional Imitates Simple Words/Phrases: Functional Word Finding: Functional Requests Basic Needs: Functional States Basic Personal Info: Functional Expresses Complex Ideas: Functional Objective Cognitive Domain Attention: WNL Memory: WNL Problem Solving: Functional Executive Functions: WNL Visuospatial Skills: WNL Composite Severity Rating: WNL Clock Drawing Severity Rating: WNL Objective Formal/Standardized Tests Abimael Cognitive Assessment (MOCA) Results Visuospatial/Executive: 5/5, Namin/3, Memory: Immediate 5/5, Delayed 5/5, Attention: 6/6, Language: 3/3, Abstraction: 2/2, Orientation: 6/6 Total 30/30 Oral Motor/Speech Production The patient's speech is somewhat delayed due to an old CVA (1996) Impression The patient is a pleasant 78 year old female who was admitted to the ARU for strengthening s/p spine fracture. She plans to return home with family support post rehab. The patient completed the MOCA with all areas of cognitive testing completed at 100%. She does not require skilled ST at this time. Communication/Social Cognition Comprehension: 7 Expression: 7 Social Interaction: 7 Problem Solvin Memory: 7 Speech Patient Assess Expression of Ideas/Wants: Expression (4) Understanding Verbal Content: Understands (4) Brief Interview-Mental Status: Yes Repetition of Three Words: Three (3) Temporal Orientation: Month: Accurate within 5 days(2) Temporal Orientation: Day: Correct (1) Recall : Wear to say "Sock": Yes, no cue required (2) Recall : Color: Yes, no cue required (2) Recall : Bed: Yes, no cue required (2) Memory/Recall Ability: Current season, Location of own room, That he or she is in a hsp/hsp unit Speech Short Term Goals Short Term Goals Comprehension: 5 Speech-Plan Patient/Family Goals Patient/Family Goals: The patient plans to return home with her family near by for daily support as needed. Treatment Plan Speech Therapy Treatment Plan: Discontinue ST The patient does not warrant skilled ST at this time. Treatment Duration: Jul 27, 2018 Frequency: 1 time per week Estimated Hrs Per Day: .25 hour per day Rehab Potential: Good Barriers to Learning: None identified Pt/Family Agrees to Plan: Yes Safety Risks/Education Teaching Recipient: Patient Teaching Methods: Discussion Response to Teaching: Verbalize Understanding Education Topics Provided: Safety within her room. Time Speech Therapy Time In: 15:05 Speech Therapy Time Out: 15:20 Total Billed Time: 15 Billed Treatment Time 1, SPSNDSUDHAKAR Lyn Jul 27, 2018 15:39
--- NOTE | 2018-07-27 15:51 | Physical Therapy Daily Note ---
PT Daily Note-Current Subjective Patient in recliner pre tx, agrees to PT, has pain of 7/10 in right leg, states she has already had pain meds. Appearance Patient in recliner post tx with nurse call, phone, tray, all needs met. Mental Status Patient Orientation: Person, Place, Situation Transfers Therapy Code Descriptions/Definitions Functional [place] Measure: 0=Not Assessed/NA 4=Minimal Assistance 1=Total Assistance 5=Supervision or Setup 2=Maximal Assistance 6=Modified [place] 3=Moderate Assistance 7=Complete [place] Therapy Quality Codes: 6 Independent with activity with or without an assistive device 5 Patient requires set up or clean up by helper. Patient completes activity by themselves 4 Supervision or touching assist (CGA). [place] provide cues , steadying assist 3 The helper provides less than half the effort to complete the activity 2 The helper provides more than half the effort to complete the activity 1 Dependent. The helper does all the effort to complete an activity 7 Patient refused to complete or attempt activity 9 The patient did not perform the activity before the current illness or injury 88 Not attempted due to Medical conditions or safety concerns Transfers (B, C, W/C) (FIM): 5 Sit to/from Stand: 5 Gait Training Gait (FIM): 5 Distance: 150'x2 Gait Level of Assist: 5 Gait Persons Needed: 1 Gait Assistive Device: Walker Platform slow, antalgic, occasional standing rest break, right foot drop Exercises Seated Therapy Exercises: Ankle pumps, Hip flexion Seated Reps: 20 LAQ alternating for 2 min Treatments transfers, ambulation, LE exercises Assessment Current Status: Fair Progress improving ambulation PT Short Term Goals Short Term Goals Time Frame: Aug 03, 2018 Transfers (B,C,W/C) (FIM): 5 Gait (FIM): 5 Gait Distance Comment: 200' Gait Level of Assist: 5 Gait Assistive Device: Walker Platform PT Tare Worker Goals Tare Worker Goals PT Tare Worker Goals Time Frame: August 17, 2018 Transfers (B,C,W/C) (FIM): 5 Sit to Lying (QC): 4 Lying-Sitting on Side/Bed(QC): 4 Sit to Stand (QC): 4 Rollin Roll Left to Right (QC): 4 Chair/Dpv-wm-Wdyaa Xfer(QC): 4 Car Transfer (QC): 4 Gait (FIM): 5 Distance: 300' Walk 10 feet (QC): 4 Walk 10ft-Uneven Surface(QC): 4 Walk 50ft with 2 Turns (QC): 4 Walk 150 ft (QC): 4 Gait Level of Assist: 5 Gait Assistive Device: Walker Platform Stairs (FIM): 2 # of Steps: 4 1 Step (curb) (QC): 4 4 Steps (QC): 4 Stairs Level Of Assist: 4 PT Plan Problem List Problem List: Activity Tolerance, Functional Strength, Safety, Balance, Gait, Transfer, Bed Mobility, ROM Treatment/Plan Treatment Plan: Continue Plan of Care Treatment Plan: Bed Mobility, Education, Functional Activity Francy, Functional Strength, Group Therapy, Gait, Safety, Therapeutic Exercise, Transfers Treatment Duration: August 17, 2018 Frequency: At least 5 of 7 days/Wk (IRF) Estimated Hrs Per Day: 1.5 hours per day Patient and/or Family Agrees t: Yes Safety Risks/Education Patient Education: Gait Training, Transfer Techniques, Correct Positioning, Safety Issues Teaching Recipient: Patient Teaching Methods: Demonstration, Discussion Response to Teaching: Reinforcement Needed Time/GCodes Time In: 1520 Time Out: 1550 Total Billed Treatment Time: 30 Total Billed Treatment 1 visit EX 10' GT 20' MAURICIO POLANCO PT Jul 27, 2018 15:51
[2018-07-27] MEDS: BACLOFEN 10 MG (LIORESAL) TAB PO PRN (16:11)
[2018-07-27 16:27] VITALS: BP 117/71
[2018-07-27] MEDS ORDERED: warFARin 2 MG (COUMADIN) TAB PO SCH (18:00)
[2018-07-27] MEDS: LIDOCAINE PATCH REMOVAL TP SCH (20:25)
[2018-07-27] MEDS: LACTULOSE SYRUP 10GM/15ML (ENULOSE) 30ML UDC PO SCH (20:31)
[2018-07-27] MEDS ORDERED: MELATONIN 3 MG TABLET PO PRN (21:00)
[2018-07-27] MEDS: LEVETIRACETAM 500 MG (KEPPRA) TAB PO SCH (21:52)
--- NOTE | 2018-07-28 03:50 | NUR ---
MANAGER IMAGE met with patient to review team conference summary. As patient was relatively high functioning upon admission and currently requiring standby assist to contact-guard assist for all therapy activity team has recommended discharge on 429. Patient is agreeable to this date as she was hopeful to complete only a short stay at a . MANAGER IMAGE reviewed recommendation of home health therapies and platform walker upon discharge, patient is agreeable to this. MANAGER IMAGE will arrange resources.
[2018-07-28 05:01] VITALS: BP 131/78
[2018-07-28 05:19] LABS: BASOPHILS % (AUTO) 1 % (0-10); EOSINOPHILS # (AUTO) 0.2 10^3/uL (0.0-0.3); EOSINOPHILS % (AUTO) 4 % (0-10); HEMATOCRIT 36 % (35-52); HEMOGLOBIN 11.2 G/DL (11.5-16.0); LYMPHOCYTES % (AUTO) 19 % (12-44); MEAN CORPUSCULAR HEMOGLOBIN 30 PG (25-34); MEAN CORPUSCULAR HGB CONC 32 G/DL (32-36); MEAN CORPUSCULAR VOLUME 95 FL (80-99); MEAN PLATELET VOLUME 11.8 FL (7.4-10.4); MONOCYTES # (AUTO) 0.7 X 10^3 (0.0-1.0); MONOCYTES % (AUTO) 13 % (0-12); NEUTROPHILS # (AUTO) 3.1 X 10^3 (1.8-7.8); NEUTROPHILS % (AUTO) 63 % (42-75); PLATELET COUNT 237 10^3/uL (130-400); RED CELL DISTRIBUTION WIDTH 14.3 % (10.0-14.5)
[2018-07-28 05:37] LABS: INR 1.9 (0.8-1.4); PROTHROMBIN TIME PATIENT 22.8 SEC (12.2-14.7)
[2018-07-28 05:43] LABS: ALANINE AMINOTRANSFERASE 18 U/L (0-55); ALBUMIN 3.4 GM/DL (3.2-4.5); ALKALINE PHOSPHATASE 162 U/L (40-136); BILIRUBIN,TOTAL 0.2 MG/DL (0.1-1.0); BUN/CREATININE RATIO 33; CALCIUM 9.1 MG/DL (8.5-10.1); CARBON DIOXIDE 25 MMOL/L (21-32); CHLORIDE 107 MMOL/L (98-107); CREATININE SERUM 0.61 MG/DL (0.60-1.30); GFR ESTIMATED > 60; GLUCOSE 99 MG/DL (70-105); POTASSIUM 4.7 MMOL/L (3.6-5.0); SODIUM 142 MMOL/L (135-145); TOTAL PROTEIN 5.9 GM/DL (6.4-8.2)
[2018-07-28] MEDS: HYDROcodone/APAP 5 MG/325 MG (LORTAB) TAB PO PRN ×2 (06:01→21:04)
--- NOTE | 2018-07-28 08:25 | PM&R H&P / Post Admit Assess ---
History of Present Illness HPI/Chief Complaint CC: Lumbar compression fracture with severe debility HPI: This is a frail 78yoWF clinic patient of Dr Martinez at [facility], who recently moved from [place], [place] to be close to her niece who provides for her care and lives 2 houses down from her, who present to IRF to improve on independent ADL's and ambulation and prevent fall prior to returning home to live independently. Patient was admitted to [facility] for 1 week due to severe spine pain and was dx with compression fracture of L5 and subacute on L2 along with lumbar stenosis so she was admitted and treated for severe pain and then required SB to improve strength prior to admit to IRF. 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 She has a mechanical valve of which her Warfarin has required multiple adjustments since she has been inpatient at [facility] so will consult Cardiology to establish care and check ECHO and further manage that while she is here at IRF. Barriers to returning home will be ability to ambulate safely without falls and regain independent ADL 's of showering and toileting. Source: patient, RN/MD, old records Exam Limitations: no limitations Date Seen 07/28/18 Time Seen by a Provider: 08:30 Attending Physician Regine Dean David F MD Referring Physician Date of Admission Jul 27, 2018 at 10:30 Home Medications & Allergies Home Medications Reviewed patient Home Medication Reconciliation performed by pharmacy medication reconciliations preventative maintenance technician and/or nursing. Patients Allergies have been reviewed. Allergies Allergies Coded Allergies Penicillins (Verified Allergy, Unknown, 07/27/18) tetracycline (Verified Allergy, Unknown, 12/18/14) Past Nvwndhy-Lwdmro-Jqxslw Hx Past Med/Social Hx: Reviewed Nursing Past Med/Soc Hx, Reviewed and Corrections made Patient Social History Marrital Status: single Employed/Student: retired Alcohol Use: Denies Use Alcohol Beverage of Choice: Wine Recreational Drug Use: No Smoking Status: Never a Smoker Physical Abuse Screen: No Sexual Abuse: No Recent Foreign Travel: No Contact w/other who traveled: No Recent Hopitalizations: Yes ([facility]) Recent Infectious Disease Expo: No Immunizations Up To Date Tetanus Booster (TDap): Less than 5yrs Date of Pneumonia Vaccine: Apr 06, 2014 Past Medical History Surgeries: Cardiac, Hysterectomy, Joint Replacement Cardiac: High Cholesterol, Hypertension, Valvular Heart Disease Neurological: Seizure Disorder, Stroke Musculoskeletal: Osteoporosis, Back Injury, Foot Drop, Fractures, Spasms HEENT: Cataract Loss of Vision: Left Psychosocial: Anxiety, Depression History of Blood Disorders: No Adverse Reaction to Blood Orellana: No Review of Systems Constitutional: see HPI, malaise, weakness EENTM: no symptoms reported Respiratory: no symptoms reported Cardiovascular: no symptoms reported Gastrointestinal: no symptoms reported Genitourinary: no symptoms reported Musculoskeletal: back pain, joint pain Skin: no symptoms reported Psychiatric/Neurological: Anxiety, Depressed, Emotional Problems All Other Systems Reviewed Negative Unless Noted: Yes Physical Exam Exam Vital Signs Vital Signs Date Time Temp Pulse Resp B/P (MAP) Pulse Ox O2 Delivery O2 Flow Rate FiO2 07/28/18 05:01 97.0 68 16 131/78 (95) 97 Room Air Capillary Refill : Less Than 3 Seconds General Appearance: No Apparent Distress, WD/WN, Chronically ill, Thin HEENT: PERRL/EOMI, Normal ENT Inspection, Pharynx Normal, Moist Mucous Membranes Neck: Full Range of Motion, Normal Inspection, Non Tender, Supple Respiratory: Chest Non Tender, Lungs Clear, Normal Breath Sounds, No Accessory Muscle Use, No Respiratory Distress Cardiovascular: Regular Rate, Rhythm, No Edema, No Gallop, No JVD, Systolic Murmur Gastrointestinal: Normal Bowel Sounds, No Organomegaly, No Pulsatile Mass, Non Tender, Soft Back: Normal Inspection, No CVA Tenderness, Decreased Range of Motion, Vertebral Tenderness Extremity: Normal Capillary Refill, Normal Inspection, Normal Range of Motion, Non Tender, No Calf Tenderness, No Pedal Edema Neurologic/Psychiatric: Alert, Oriented x3, No Motor/Sensory Deficits (see specifics), Normal Mood/Affect, Motor Weakness (right arm 1/5 strength right hand 0.5/5, right foot drop noted) Skin: Normal Color, Warm/Dry Lymphatic: No Adenopathy Results Results/Procedures Labs Laboratory Tests 07/28/18 05:05 Patient resulted labs reviewed. 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 The patient will have a comprehensive program of inpatient rehabilitation with a goal of maximizing level of functional independence prior to discharge home with family next door. The patient will have PT/OT ninety minutes per day, each discipline, five days a week for gait, strengthening, conditioning, balance , ADLs, any patient/family/caregiver training as necessary. Speech therapy to do cognitive assessment and treat as indicated. Rehabilitation nursing to assist with bowel, bladder, skin, wound care, medication administration, pain management. Enrollment Coordinator to assist with discharge planning, community reentry. SCD's for DVT prophylaxis. She appears to be well motivated to participate in three hours of therapy a day. She should be able to tolerate three hours of therapy a day from a medical standpoint. She should benefit from the three hours of therapy a day. She has a reasonable discharge plan, reasonable discharge rehabilitation goals and a supportive family. She has various comorbidities that need to be closely monitored with medications and treatments adjusted on a daily basis as needed. These include: see list Barriers to discharge for this patient who had been independent prior to this are for her to be modified independent to supervision for ADLs and mobility skills prior to discharge home with family, so as to lessen the burden of the caregivers. Risks for this patient include: 1. Fall 2. Fracture 3. DVT 4. Pulmonary embolism 5. Wound infection 6. Skin breakdown 7. Contractures 8. Poorly controlled pain 9. Urinary retention 10. UTI 11. Respiratory infection 12. Aspiration Estimated Length of Stay: 7 days Prognosis: Rehab prognosis appears good for goal of discharge home with family modified independent to supervision for ADLs and mobility skills. REGINE DEAN DO Jul 28, 2018 08:25
[2018-07-28] MEDS: LACTULOSE SYRUP 10GM/15ML (ENULOSE) 30ML UDC PO SCH ×2 (09:00→21:00)
--- NOTE | 2018-07-28 09:47 | Occupational Ther Daily Note ---
OT Current Status-Daily Note Subjective pt sitting in recliner chair upon OT Arrival in no apparent distress. pt complains of no pain, lightness or dizziness prior to stated of OT. Appearance post OT Session pt left with physical therapist Mental Status/Objective Therapy Code Descriptions/Definitions Functional [place] Measure: 0=Not Assessed/NA 4=Minimal Assistance 1=Total Assistance 5=Supervision or Setup 2=Maximal Assistance 6=Modified [place] 3=Moderate Assistance 7=Complete [place] ADL-Treatment Therapy Code Descriptions/Definitions Functional [place] Measure: 0=Not Assessed/NA 4=Minimal Assistance 1=Total Assistance 5=Supervision or Setup 2=Maximal Assistance 6=Modified [place] 3=Moderate Assistance 7=Complete [place] Therapy Quality Codes: 6 Independent with activity with or without an assistive device 5 Patient requires set up or clean up by helper. Patient completes activity by themselves 4 Supervision or touching assist (CGA). Shelley provide cues , steadying assist 3 The helper provides less than half the effort to complete the activity 2 The helper provides more than half the effort to complete the activity 1 Dependent. The helper does all the effort to complete an activity 7 Patient refused to complete or attempt activity 9 The patient did not perform the activity before the current illness or injury 88 Not attempted due to Medical conditions or safety concerns Transfers (B, C, W/C) (FIM): 5 (platform walker) Other Treatment pt demo ability to perform functional mobility approx. 15 ft to closet to gather clothing with supervision for safety/ balance using platform walker. pt gathered clothing and placed them in bag. pt education on carrying items while using platform walker. pt verbalized and demo understanding correctly with supervision.. pt then took clothing to laundry room approx 65 ft with supervision. pt education on placement of RW while completing laundry task. pt demo understanding correctly. pt then ambulate to [place] gym where she complete 5 minutes f/b UBE to increase activity tolerance for daily tasks. 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 pt reports rest hand splint work great during the night and complains of no issues. noted MCP flex approx 70 degrees compared to 90 degrees yesterday (07/27/18) Education OT Patient Education: Energy conservation, Modified ADL techniques, Progress toward Goal/Update tx plan, Purpose of tx/functional activities, Rehab process, Transfer techniques, Use of adapted equipment Teaching Recipient: Patient Teaching Methods: Demonstration, Discussion Response to Teaching: Verbalize Understanding, Return Demonstration OT Short Term Goals Short Term Goals Eating(FIM): 6 Grooming(FIM): 5 Bathing(FIM): 5 Bathing Location: L Arm, R Arm, L Upper Leg, R Upper Leg, L Lower Leg ( including foot), R Lower Leg (including foot), Chest, Abdomen, Buttocks, Perineal Area Upper Body Dressing(FIM): 5 Lower Body Dressing(FIM): 5 Toileting(FIM): 5 Transfers (B,C,W/C) (FIM): 5 Toilet/Commode Transfer(FIM): 5 Tub Transfer(FIM): 5 Shower Transfer(FIM): 5 Comprehension(FIM): 5 Additional Short Term Goals: 1-Demonstrate ADL Tasks, 2-Verbalize Understanding , 3-ImproveStrength/Francy 1=Demonstrate adherence to instructed precautions during ADL tasks. 2=Patient will verbalize/demonstrate understanding of assistive devices/ modifications for ADL. 3=Patient will improve strength/tolerance for activity to enable patient to perform ADL's. OT Table Assembler Metal Goals Table Assembler Metal Goals Eating (FIM): 6 Eating (QC): 6 Groomin Oral Hygiene (QC): 6 Bathing(FIM): 6 Bathing Location: L Arm, R Arm, L Upper Leg, R Upper Leg, L Lower Leg ( including foot), R Lower Leg (including foot), Chest, Abdomen, Buttocks, Perineal Area Shower/Bathe Self (QC): 6 Upper Body Dressing(FIM): 6 Upper Body Dressing (QC): 6 Lower Body Dressing(FIM): 6 Lower Body Dressing (QC): 6 On/Off Footwear (QC): 6 Toileting(FIM): 5 Toileting Hygiene (QC): 6 Transfers (B,C,W/C) (FIM): 6 Toilet/Commode Transfer(FIM): 6 Toilet/Commode Transfer (QC): 6 Tub Transfer(FIM): 0 Shower Transfer(FIM): 6 Comprehension(FIM): 6 Expression (FIM): 6 Social Interaction(FIM): 6 Problem Solving(FIM): 6 Memory(FIM): 6 Additional Goals: 1-Demonstrate ADL Tasks, 2-Verbalize Understanding, 3- ImproveStrength/Francy 1=Demonstrate adherence to instructed precautions during ADL tasks. 2=Patient will verbalize/demonstrate understanding of assistive devices/ modifications for ADL. 3=Patient will improve strength/tolerance for activity to enable patient to perform ADL's. OT Education/Plan Problem List/Assessment Assessment: Decreased Activ Tolerance, Decreased Safety Aware, Decreased UE Strength, Impaired Bed Mobility, Impaired Cognition, Impaired Coordination, Impaired Funct Balance, Impaired I ADL's, Impaired Self-Care Skills, Restricted Funct UE ROM pt presents with functional limitations affecting areas of ADLs and functional transfers. pt would benefit from skilled OT Services to increase independence with ADLS and functional transfers and to assist upon mention deficits. Discharge Recommendations Plan/Recommendations: Continue POC Patient/Family Goals "to be independent with everything again" Treatment Plan/Plan of Care Patient would benefit from OT for education, treatment and training to promote independence in ADL's, mobility, safety and/or upper extremity function for ADL' s. Plan of Care: ADL Retraining, Caregiver Training, Concurrent Therapy, Functional Mobility, Group Exercise/Act as Ind, Orthotic Fitting/Training, UE Funct Exercise/Act, UE Neuromus Re-Ed/Coord Treatment Duration: August 17, 2018 Frequency: At least 5 of 7 days/Wk (IRF) Estimated Hrs Per Day: 1.5 hours per day Agreement: Yes Rehab Potential: Good Time/GCodes Start Time: 08:00 Stop Time: 09:00 Billed Treatment Time FA 60 minutes, 4 units DEBORA SLOAN OT Jul 28, 2018 09:47
[2018-07-28] MEDS: OXYBUTYNIN (DITROPAN) 5 MG TAB PO SCH ×3 (09:55→20:58)
[2018-07-28] MEDS: FLUoxetine HCL 20 MG (PROzac) CAP PO SCH (09:55)
[2018-07-28] MEDS: PHENYTOIN 100 MG (DILANTIN) CAP PO SCH ×3 (09:55→20:58)
[2018-07-28] MEDS: POLYETHYLENE GLYCOL 17 GM (MIRALAX) PACK PO SCH (09:57)
--- NOTE | 2018-07-28 09:59 | Physical Therapy Daily Note ---
PT Daily Note-Current Subjective Pt. was in therapy room before treatment. Pt. agreed to therapy treatment. Pt. rated pain 5/10 in her lower back. 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 May take a few seconds for her to comprehend and reply to a question. Transfers Therapy Code Descriptions/Definitions Functional [place] Measure: 0=Not Assessed/NA 4=Minimal Assistance 1=Total Assistance 5=Supervision or Setup 2=Maximal Assistance 6=Modified [place] 3=Moderate Assistance 7=Complete [place] Therapy Quality Codes: 6 Independent with activity with or without an assistive device 5 Patient requires set up or clean up by helper. Patient completes activity by themselves 4 Supervision or touching assist (CGA). [place] provide cues , steadying assist 3 The helper provides less than half the effort to complete the activity 2 The helper provides more than half the effort to complete the activity 1 Dependent. The helper does all the effort to complete an activity 7 Patient refused to complete or attempt activity 9 The patient did not perform the activity before the current illness or injury 88 Not attempted due to Medical conditions or safety concerns Scootin Supine to/from Sit: 5 Sit to/from Stand: 5 Sit to Lying (QC): 5 Sit to Stand (QC): 5 Gait Training Does the Patient Walk?: Yes Distance (FIM): 3=150 ft Distance: 150' Walk 10 feet (QC): 5 Walk 50 ft with 2 Turns(QC): 5 Walk 150 ft (QC): 5 Gait Level of Assist: 5 Gait Persons Needed: 1 Gait Assistive Device: Walker Platform Pt walks with slow but steady phu. Wheelchair Training Does the Pt Use a Wheelchair?: No Exercises Supine Ex: Ankle pumps, Quad Set, Glut sets, Heel Slides, Short Arc Quads, Straight leg raise, Hip abd/add Supine Reps: 10 Seated Therapy Exercises: Ankle pumps, Long arc quads, Hip flexion, Kicking activity, Hip abd/add Seated Reps: 10 Treatments Pt completes Supine Ex with a couple short RB followed by Seated Ex. Pt ambulates in hallway using Platform. Pt returns to recliner at end of tx. JIG GRINDER assists pt with computer and phone set up at end of tx. Pt has all needs met. Assessment Current Status: Good Progress Pt takes extended time to complete tasks and occasional RB needed. PT Short Term Goals Short Term Goals Time Frame: Aug 03, 2018 Transfers (B,C,W/C) (FIM): 5 Gait (FIM): 5 Gait Distance Comment: 200' Gait Level of Assist: 5 Gait Assistive Device: Walker Platform PT Detention Goals Manager Document Control Goals PT Detention Goals Time Frame: August 17, 2018 Transfers (B,C,W/C) (FIM): 5 Sit to Lying (QC): 4 Lying-Sitting on Side/Bed(QC): 4 Sit to Stand (QC): 4 Rollin Roll Left to Right (QC): 4 Chair/Nbm-mw-Yqznn Xfer(QC): 4 Car Transfer (QC): 4 Gait (FIM): 5 Distance: 300' Walk 10 feet (QC): 4 Walk 10ft-Uneven Surface(QC): 4 Walk 50ft with 2 Turns (QC): 4 Walk 150 ft (QC): 4 Gait Level of Assist: 5 Gait Assistive Device: Walker Platform Stairs (FIM): 2 # of Steps: 4 1 Step (curb) (QC): 4 4 Steps (QC): 4 Stairs Level Of Assist: 4 PT Plan Problem List Problem List: Activity Tolerance, Functional Strength, Gait Treatment/Plan Treatment Plan: Continue Plan of Care Treatment Plan: Bed Mobility, Education, Functional Activity Francy, Functional Strength, Group Therapy, Gait, Safety, Therapeutic Exercise, Transfers Treatment Duration: August 17, 2018 Frequency: At least 5 of 7 days/Wk (IRF) Estimated Hrs Per Day: 1.5 hours per day Patient and/or Family Agrees t: Yes Safety Risks/Education Patient Education: Gait Training, Transfer Techniques, Correct Positioning, Safety Issues Teaching Recipient: Patient Teaching Methods: Discussion Response to Teaching: Verbalize Understanding Time/GCodes Time In: 900 Time Out: 1000 Total Billed Treatment Time: 60 Total Billed Treatment 1, GT, EX x2 & FA G Codes Necessary: JOSEPH Doss JIG GRINDER Jul 28, 2018 09:59
[2018-07-28] MEDS: LIDOCAINE 4% (SALONPAS) PATCH TOP SCH (10:14)
--- NOTE | 2018-07-28 10:15 | NUR ---
POT LINING SUPERVISOR met with patient to complete initial assessment. Patient was alert and oriented and agreeable to assessment. Patient admitted to ARU from [facility] with lumbar compression fracture and debility. Prior to fracture patient resided alone in a one level home in [place] and the home is equipped with a wheelchair ramp at the entrance. Previous to fracture patient utilized a single-point cane or quad cane for ambulation. Patient reports independence with tasks; however, does require assistance with housekeeping. PCP identified as Dr. Haim Zavala at [facility] and nike athlete as Dr. Pedroza. Primary contact identified as [id number] Cally at [phone] and [id number] ray at [phone], both reside a few houses away from patient. Insurance verified as Medicare and [employer] Medicare supplement with [employer] prescription coverage. Preferred pharmacy listed as [facility]. Patient requests shortened length of stay as admission function was high level, POT LINING SUPERVISOR will discuss barriers to discharge in team conference meeting. POT LINING SUPERVISOR did review typical ARU length of stay and will report patient following team recommendation. POT LINING SUPERVISOR will continue to follow.
--- NOTE | 2018-07-28 11:00 | NUR ---
ECHO DONE. IS SLOW TO RESPOND DUE TO PREVIOUS STROKE, BUT ANSWERS APPROPRIATELY. DENIES ANY BACK PAIN LONG SITTING OR LYING STILL. STATES PAIN "NEVER GETS OVER A 5".
[2018-07-28] MEDS ORDERED: NON-FORMULARY MEDICATION 1 EA EA (Alendronate Sodium (Fosamax) 70 MG) PO SCH (11:30)
--- NOTE | 2018-07-28 11:31 | Consultation-Cardiology ---
HPI-Cardiology Cardiology Consultation Date of Consultation 07/28/18 Date of Admission Time Seen by Provider: 08:30 Indication: History of valve replacement. HPI Patient is a very pleasant 78 y/o female with history of CVA, HTN, valve replacement with mechanical valve, on coumadin therapy. Currently in IRF d/t weakness/debility after sustaining lumbar compression fracture approx 6 weeks ago. Denies any chest pain, dyspnea, dizziness or lightheadedness. No other complaints at this time. This is a 78-year-old lady with history of CVA, hypertension and aortic valve replacement. Material Coumadin therapy, has generalized weakness and debility, undergoing physical therapy, had lumbar compression fracture 6 weeks ago. She denied any chest pain or shortness of breath. No palpitation. Home Medications & Allergies Allergies: Coded Allergies: Penicillins (Verified Allergy, Unknown, 07/27/18) tetracycline (Verified Allergy, Unknown, 12/18/14) Home Medication List Reviewed: Yes OZV-Uyurgy-Pzjsks Hx Patient Social History Marital Status: single Employed/Student: retired Alcohol Use: Denies Use Recreational Drug Use: No Smoking Status: Never a Smoker Recent Foreign Travel: No Recent Infectious Disease Expo: No Recent Hopitalizations: Yes ([facility]) Physical Abuse Screen: No Sexual Abuse: No Immunizations Up To Date Tetanus Booster (TDap): Less than 5yrs Date of Pneumonia Vaccine: Apr 06, 2014 Past Medical History Valve replacement, HTN Family Medical History Significant Family History: No Pertinent Family Hx Review of Systems Constitutional: No chills, No diaphoresis, No fever; malaise, weakness EENTM: No blurred vision, No double vision, No mouth pain, No epistaxis, No nose congestion, No nose pain Respiratory: No cough, No dyspnea on exertion Cardiovascular: No chest pain, No palpitations Gastrointestinal: No abdominal pain, No constipation, No diarrhea Genitourinary: No dysuria, No frequency Musculoskeletal: back pain; No joint pain Skin: No lesions, No rash Psychiatric/Neurological: Denies Anxiety, Denies Depressed Reviewed Test Results Reviewed Test Results Lab Laboratory Tests 07/28/18 05:05: White Blood Count 5.0, Red Blood Count 3.75L, Hemoglobin 11.2L, Hematocrit 36, Mean Corpuscular Volume 95, Mean Corpuscular Hemoglobin 30, Mean Corpuscular Hemoglobin Concent 32, Red Cell Distribution Width 14.3, Platelet Count 237, Mean Platelet Volume 11.8H, Neutrophils (%) (Auto) 63, Lymphocytes (%) (Auto) 19 , Monocytes (%) (Auto) 13H, Eosinophils (%) (Auto) 4, Basophils (%) (Auto) 1, Neutrophils # (Auto) 3.1, Lymphocytes # (Auto) 1.0, Monocytes # (Auto) 0.7, Eosinophils # (Auto) 0.2, Basophils # (Auto) 0.0, Prothrombin Time 22.8H, INR Comment 1.9H, Sodium Level 142, Potassium Level 4.7, Chloride Level 107, Carbon Dioxide Level 25, Anion Gap 10, Blood Urea Nitrogen 20H, Creatinine 0.61, Estimat Glomerular Filtration Rate > 60, BUN/Creatinine Ratio 33, Glucose Level 99, Calcium Level 9.1, Corrected Calcium 9.6, Total Bilirubin 0.2, Aspartate Amino Transf (AST/SGOT) 21, Alanine Aminotransferase (ALT/SGPT) 18, Alkaline Phosphatase 162H, Total Protein 5.9L, Albumin 3.4 Physical Exam Vital Signs Vital Signs - First Documented 07/27/18 10:42 Temp 98.3 Pulse 71 Resp 20 B/P (MAP) 136/78 (97) Pulse Ox 97 O2 Delivery Room Air Capillary Refill : Less Than 3 Seconds Height, Weight, BMI Height: 5'2.00" Weight: 107lbs. 0.8oz. 48.420217na; 19.6 BMI Method:Estimated General Appearance: No Apparent Distress, WD/WN HEENT: TMs Normal, Normal ENT Inspection Neck: Full Range of Motion, Normal Inspection, Non Tender, Supple Respiratory: Chest Non Tender, Lungs Clear, Normal Breath Sounds, No Accessory Muscle Use, No Respiratory Distress Cardiovascular: Regular Rate, Rhythm, No Edema, No Gallop, No JVD, No Murmur, Normal Peripheral Pulses Gastrointestinal: Normal Bowel Sounds, Non Tender, Soft Rectal: Deferred Back: No CVA Tenderness Extremity: Non Tender, No Calf Tenderness Neurologic/Psychiatric: Alert, Oriented x3, medical lab assistant II-XII Norm as Tested A/P-Cardiology Admission Diagnosis Generalized weakness HTN Hx Valve replacement Seizure disorder Assessment/Plan Generalized weakness after lumbar compression fracture- continue PT/OT History of valve replacement with mechanical valve, patient unsure of which valve, surgery done in [place] in remote past. Maintained on Coumadin. Continue to monitor PT/INR. Reports no recent 2D Echo done, I will evaluate 2D Echo. I will try to obtain records from Dr. Abram Licona, CT surgeon at [facility] in [place], [place]. HTN- controlled. Continue to monitor. Hx of seizure disorder Hx of CVA in 1996 Hx of intracranial bleed secondary to fall in 2014. Thank you for allowing us to participate in the management of Ms. Brice. This is Chrissy Smith PA-C, as a scribe for Dr. Vora. This is Dr. Vora, I have seen and evaluated the patient with Chrissy, examined the patient and interviewed the patient, on examination lungs were clear to auscultation bilateral, heart is regular. Patient has generalized weakness and receiving physical therapy, still having residual slurred speech from her old stroke. Has weakness and compression fraction. Maintained on Coumadin. I will continue to monitor blood pressure, continue to monitor INR. Continue with physical therapy. I did make a few minor modification to the note using Italic font Clinical Quality Measures DVT/VTE Risk/Contraindication: Risk Factor Score Per Nursin RFS Level Per Nursing on Admit: 4+=Very High CHRISSY CHRISTIANSON Jul 28, 2018 11:31 VALENTIN VORA MD Jul 28, 2018 16:16
[2018-07-28] MEDS: BACLOFEN 10 MG (LIORESAL) TAB PO PRN (14:20)
--- NOTE | 2018-07-28 14:26 | Therapy Group Daily Note ---
Therapy Daily Group Note Patient Education Topic Exercises Exercises LE Seated Exercise, UE Exercise Session Ratio (pt:therapist): 4:1 Goal of Session: UE/LE Strengthing Goal Met for this Session: Yes Pt Benefit of Group: Contributions to Others, Increased Functional Strength, Recognition of Peers, Socialization Other/Notes Pt ambulated with FWW to OT/PT group. Group consisted of introductions (name, place living, name of kindergarten), socialization and UE/LE seated exercises with education. Pt introduced self with cues due to diagnosis and actively listened to peers. Pt verbalized understanding of education and completed exercises using light resistance theraband and 1# wrist/ankle wts, verbal/ physical cues needed for correct technique. Pt able to acknowledge exercises that were completed as a daily activity. After therapy, pt sitting in recliner with call light/phone in reach. All needs met in room. Start Time: 13:00 Stop Time: 14:05 Total Billed Treatment Time: 65 Total Billed Treatment 1-GRP JOSE MANUEL PRINGLE Jul 28, 2018 14:26
--- NOTE | 2018-07-28 15:25 | NUR ---
REQUEST FOR RECORDS FAXED TO [facility], MEDICAL RECORDS IN [place], [place]. THEY SAID IT WOULD BE SEVERAL DAYS BEFORE RECORDS WERE FAXED.
[2018-07-28 17:51] VITALS: BP 105/59
[2018-07-28] MEDS ORDERED: warFARin 2 MG (COUMADIN) TAB PO SCH (18:00)
--- NOTE | 2018-07-28 19:07 | NUR ---
bedside report received from MORIAH CADE, assume care of pt
[2018-07-28] MEDS: LEVETIRACETAM 500 MG (KEPPRA) TAB PO SCH (20:58)
[2018-07-28] MEDS: LIDOCAINE PATCH REMOVAL TP SCH (21:00)
--- NOTE | 2018-07-28 21:00 | NUR ---
assessments & interventions completed, see assessments & interventions, refused Enulose
--- NOTE | 2018-07-28 21:04 | NUR ---
c/o pain to neck level 6/10 on numeric scale , Lortab 5 1 tab po given
--- NOTE | 2018-07-28 21:35 | NUR ---
pain level 2/10 on numeric scale
[2018-07-29 06:26] VITALS: BP 123/66
--- NOTE | 2018-07-29 06:30 | NUR ---
refused to get up in the chair for breakfast
[2018-07-29 06:56] LABS: INR 1.8 (0.8-1.4); PROTHROMBIN TIME PATIENT 21.6 SEC (12.2-14.7)
--- NOTE | 2018-07-29 07:11 | NUR ---
report given to MORIAH CDAE
--- NOTE | 2018-07-29 08:10 | Cardiology Progress Note ---
Subjective Date Seen by Provider: Jul 29, 2018 Time Seen by Provider: 08:09 Subjective/Events-last exam Patient is sitting up in bed, no new complaints. Denies any chest pain or dyspnea. Objective-Cardiology Exam Last Set of Vital Signs Vital Signs 07/29/18 07/29/18 06:26 09:00 Temp 97.3 Pulse 58 Resp 16 B/P (MAP) 123/66 (85) Pulse Ox 99 O2 Delivery Room Air Capillary Refill : Less Than 3 Seconds I&O Intake and Output 07/29/18 00:00 Intake Total 940 ml Balance 940 ml Intake Oral 940 ml # Voids 7 # Bowel Movements 2 General: Alert, Oriented X3, Cooperative HEENT: Atraumatic, PERRLA Neck: Supple, No JVD, No Thyromegaly Lungs: Clear to Auscultation, Normal Air Movement Heart: Regular Rate, Normal S1, Normal S2, No Murmurs Abdomen: Normal Bowel Sounds, Soft, No Tenderness, No Hepatosplenomegaly, No Masses Extremities: No Clubbing, No Cyanosis, No Edema, Normal Pulses, No Tenderness/ Swelling Skin: No Rashes, No Breakdown, No Significant Lesion Neuro: Normal Speech, Cranial Nerves 3-12 NL Psych/Mental Status: Mental Status NL, Mood NL A/P-Cardiology Admission Diagnosis Generalized weakness HTN Hx Valve replacement Seizure disorder Assessment/Plan Generalized weakness after lumbar compression fracture- continue PT/OT History of aortic valve replacement with mechanical valve, surgery done in [place] in remote past. Maintained on Coumadin. Continue to monitor PT/INR. 2D Echo done yesterday. I will try to obtain records from Dr. Abram Licona, CT surgeon at [facility] in [place], [place]. HTN- controlled. Continue to monitor. Hx of seizure disorder Hx of CVA in 1996 Hx of intracranial bleed secondary to fall in 2014. Clinical Quality Measures DVT/VTE Risk/Contraindication: Risk Factor Score Per Nursin RFS Level Per Nursing on Admit: 4+=Very High Supervisory-Addendum Brief Supervisory Addendum Participated in pt care: history, MDM, physical Personally performed: exam, history, MDM Care discussed with: DANE Results interpretation: agree with documentation Notes: Patient was seen and evaluated, resting comfortably, no new complaint. No chest pain. Discussed the finding of her echocardiogram. On examination lungs were clear to auscultation bilaterally. I'll continue on current medication and monitor CHRISSY CHRISTIANSON Jul 29, 2018 8:10 am VALENTIN HEAD MD Jul 29, 2018 3:48 pm
--- NOTE | 2018-07-29 08:33 | PM&R Progress Note ---
Subjective HPI/CC On Admission Date Seen by Provider: Jul 29, 2018 Time Seen by Provider: 08:15 CC: Lumbar compression fracture with severe debility HPI: This is a frail 78yoWF clinic patient of Dr Martinez at [facility], who recently moved from [place], [place] to be close to her niece who provides for her care and lives 2 houses down from her, who present to IRF to improve on independent ADL's and ambulation and prevent fall prior to returning home to live independently. Patient was admitted to [facility] for 1 week due to severe spine pain and was dx with compression fracture of L5 and subacute on L2 along with lumbar stenosis so she was admitted and treated for severe pain and then required SB to improve strength prior to admit to IRF. 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 She has a mechanical valve of which her Warfarin has required multiple adjustments since she has been inpatient at [facility] so will consult Cardiology to establish care and check ECHO and further manage that while she is here at IRF. Barriers to returning home will be ability to ambulate safely without falls and regain independent ADL 's of showering and toileting. Subjective/Events-last exam INR 1.8 so will initiate Lovenox bridge for mechanical valve. Echo was completed yesterday. Appreciate Dr. Vora consultation. Increasing Coumadin to 5mg daily now. Will check INR tomorrow. Bowels are moving. Pain is controlled. Participating in therapy. Agrees with discharge on Thursday. Review of Systems General: Fatigue Neurological: Weakness, Numbness, Incoordination Objective Exam Vital Signs Vital Signs Date Time Temp Pulse Resp B/P (MAP) Pulse Ox O2 Delivery O2 Flow Rate FiO2 07/29/18 17:11 Room Air 07/29/18 16:29 98.1 59 16 114/68 (83) 100 Capillary Refill : Less Than 3 Seconds General Appearance: No Apparent Distress, WD/WN HEENT: TMs Normal, Normal ENT Inspection Neck: Full Range of Motion, Normal Inspection, Non Tender, Supple Respiratory: Chest Non Tender, Lungs Clear, Normal Breath Sounds, No Accessory Muscle Use, No Respiratory Distress Cardiovascular: Regular Rate, Rhythm, No Edema, No Gallop, No JVD, No Murmur, Normal Peripheral Pulses Gastrointestinal: Normal Bowel Sounds, Non Tender, Soft Rectal: Deferred Back: Normal Inspection, Decreased Range of Motion Extremity: Non Tender, No Calf Tenderness Neurologic/Psychiatric: Alert, Oriented x3, choir accompanist II-XII Norm as Tested, Aphasia (ezpressive aphasia), Motor Weakness (right arm and hand) Skin: Normal Color, Warm/Dry Lymphatic: No Adenopathy Results/Procedures Lab Patient resulted labs reviewed. FIM Transfers Therapy Code Descriptions/Definitions Functional [place] Measure: 0=Not Assessed/NA 4=Minimal Assistance 1=Total Assistance 5=Supervision or Setup 2=Maximal Assistance 6=Modified [place] 3=Moderate Assistance 7=Complete [place] Therapy Quality Codes: 6 Independent with activity with or without an assistive device 5 Patient requires set up or clean up by helper. Patient completes activity by themselves 4 Supervision or touching assist (CGA). [place] provide cues , steadying assist 3 The helper provides less than half the effort to complete the activity 2 The helper provides more than half the effort to complete the activity 1 Dependent. The helper does all the effort to complete an activity 7 Patient refused to complete or attempt activity 9 The patient did not perform the activity before the current illness or injury 88 Not attempted due to Medical conditions or safety concerns Gait Training Does the Patient Walk?: Yes Distance (FIM): [phone] ft Gait Assistive Device: Walker Platform Wheelchair Training Does the Pt Use a Wheelchair?: No Mental Status/Objective Comprehension: 7 Expression: 7 Social Interaction: 7 Problem Solvin Memory: 7 ADL-Treatment Feedin (reqries additional timing to comlete task) Eating (QC): 4 Groomin (required CGA and assit to open items. ) Oral Hygiene (QC): 3 Bathin (CGA fro safty/ balance. pt required assist to open soap containers secodnary to decrease strength/ ROM in RUE from prior CVA) Bathing Location: L Arm, R Arm, L Upper Leg, R Upper Leg, L Lower Leg ( including foot), R Lower Leg (including foot), Chest, Abdomen, Buttocks, Perineal Area Shower/Bathe Self (QC): 3 Upper Extremity Dressin (pt required assist to fasten zipper) Upper Body Dressing (QC): 3 Lower Extremity Dressin (CGA for safety/ balance) Lower Body Dressing (QC): 4 On/Off Footwear (QC): 4 Toiletin (CGA fro safety/ balance while standing to pull up/ down pants. ) Toileting Hygiene (QC): 4 Toilet/Commode Transfer: 4 Toilet Transfer (QC): 4 Shower: 4 Assessment/Plan Assessment and Plan Assess & Plan/Chief Complaint Assessment: Lumbar compression fracture Plan: IRF protocol Pain meds Ambulate Fine tune prior to DC home Consult Dr Vora to establish Cardiology care is appreciated Checked ECHO Lovenox bridge (1) Lumbar compression fracture (2) Mechanical heart valve present (3) Anticoagulant long-term use (4) Right sided weakness (5) Foot drop, right (6) Depression (7) Anxiety (8) Lumbar stenosis (9) Seizure disorder (10) Overactive bladder (11) Hypertension (12) Fall on same level from tripping as cause of accidental injury (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
--- NOTE | 2018-07-29 08:33 | Individualized Plan of Care ---
Individualized Plan of Care Rehab Nursing IPOC Order Admission Date Jul 27, 2018 at 10:30 Current Orders Orders Admission Order(Inpt,Obs,Sdc) (07/27/18 09:11) Magnetic Observer-Inpt Rehab Con (07/27/18 09:11) Rehab Nursing Orders-Ipoc (07/27/18 09:11) Physical Therapy Rehab Orders (07/27/18 09:11) Occupational Therapy Rehab Ord (07/27/18 09:11) Speech Therapy Rehab Orders (07/27/18 09:11) Precautions (Aru) (07/27/18 09:11) Weekly Weight (Lbs) WEEK (07/27/18 09:11) Rehab-Intensity Of Therapy (07/27/18 09:11) Initiate Admission Nursing Pro .admission (07/27/18 09:11) Admission Arrival Bed Request (07/27/18 10:38) Acetaminophen Tablet/Caplet (Tylenol T (07/27/18 11:30) Alprazolam Tablet (Xanax Tablet) (07/27/18 11:30) Baclofen Tablet (Lioresal Tablet) (07/27/18 11:30) Bisacodyl Tablet (Dulcolax Tablet) (07/27/18 11:30) Bisacodyl Suppository (Dulcolax Supposit (07/27/18 11:30) Clonidine Tablet (Catapres Tablet) (07/27/18 11:30) Docusate Sodium Capsule (Colace Capsule) (07/27/18 11:30) Antacid Suspension (Mylanta Suspension (07/27/18 11:30) Magnesium Hydroxide Oral Susp (Mom Oral (07/27/18 11:30) Warfarin Tablet (Coumadin Tablet) (07/27/18 18:00) Warfarin Tablet (Coumadin Tablet) (07/28/18 18:00) Acetaminophen Suppository (Tylenol Suppo (07/27/18 11:30) (Nf) Alendronate Sodium (Fosamax) (07/28/18 11:30) Phenol/Na Phenolate Lozenge (Chlorasepti (07/27/18 11:45) Calcium Carbonate Chew Tablet (Antacid C (07/27/18 11:45) Diphenhydramine Tablet (Benadryl Tablet) (07/27/18 11:45) Fluoxetine Capsule (Prozac Capsule) (07/28/18 09:00) Guaifenesin/Dm Syrup (Robitussin Dm Syru (07/27/18 11:45) Hydrocodone/Apap 5/325 Tablet (Lortab 5 (07/27/18 11:45) Lactulose Oral Solution (Enulose Oral So (07/27/18 21:00) Levetiracetam Tablet (Keppra Tablet) (07/27/18 21:00) Lidocaine 4% Patch (Salonpas 4% Patch) (07/28/18 09:00) Melatonin Tablet (Melatonin Tablet) (07/27/18 21:00) Ondansetron Injection (Zofran Injectio (07/27/18 11:45) Phenytoin Capsule (Dilantin Capsule) (07/27/18 14:00) Polyethylene Glycol Powder Pkt (Miralax (07/28/18 09:00) Cbc With Automated Diff (07/28/18 06:00) Comprehensive Metabolic Panel (07/28/18 06:00) Protime With Inr (07/28/18 06:00) Oxybutynin Tablet (Ditropan Tablet) (07/27/18 13:00) Patch Removal (Patch Removal) (07/27/18 21:00) Heart Healthy (07/27/18 Lunch) Patient Visit (07/27/18 ) Pt Eval Moderate Complexity (07/27/18 ) Exercise Therap, Ea 15 Min (07/27/18 ) Gait Training, Ea 15 Min (07/27/18 ) Patient Visit (07/27/18 ) Speech Sound Lang Comp (07/27/18 ) Request Ot Evaluate & Treat (07/27/18 20:10) Ambulate 08,12,20 (07/27/18 20:11) Sequential Compression Device 08,20 (07/27/18 20:11) Dvt/Vte Risk - Notifiy Physici 08 (07/27/18 20:11) Consult Physician (07/28/18 08:21) Echo W Doppler/Color Flow (07/28/18 09:08) Obtain Records From (Order) (07/28/18 12:05) Protime With Inr (07/29/18 05:00) Patient Visit (07/28/18 ) Gait Training, Ea 15 Min (07/28/18 ) Exercise Therap, Ea 15 Min (07/28/18 ) Functional Activities, Ea 15 (07/28/18 ) Patient Visit (07/28/18 ) Enoxaparin Injection (Lovenox Injection) (07/29/18 10:00) Warfarin Tablet (Coumadin Tablet) (07/29/18 18:00) Enoxaparin Injection (Lovenox Injection) (07/29/18 10:00) Protime With Inr (07/30/18 06:00) Patient Visit (07/29/18 ) Gait Training, Ea 15 Min (07/29/18 ) Exercise Therap, Ea 15 Min (07/29/18 ) Rehab Nursing Orders: Ongoing Assess. of Function Status Intensity of Therapy to be met Patient to be seen: Min.3h per day/5 of 7d PT IPOC Problem List: Activity Tolerance, Functional Strength, Gait Treatment Plan: Continue Plan of Care Bed Mobility, Education, Functional Activity Francy, Functional Strength, Group Therapy, Gait, Safety, Therapeutic Exercise, Transfers Treatment Duration: August 17, 2018 Frequency: At least 5 of 7 days/Wk (IRF) Estimated Hrs Per Day: 1.5 hours per day OT IPOC Problems: Decreased Activ Tolerance, Decreased Safety Aware, Decreased UE Strength, Impaired Bed Mobility, Impaired Coordination, Impaired Funct Balance, Impaired I ADL's, Impaired Self-Care Skills, Restricted Funct UE ROM OT Treatment, Training and Edu: Yes OT Problems pt presents with functional limitations affecting areas of ADLs and functional transfers. pt would benefit from skilled OT Services to increase independence with ADLS and functional transfers and to assist upon mention deficits. Plan of Care: ADL Retraining, Caregiver Training, Concurrent Therapy, Functional Mobility, Group Exercise/Act as Ind, Orthotic Fitting/Training, UE Funct Exercise/Act, UE Neuromus Re-Ed/Coord Treatment Duration: August 17, 2018 Frequency: At least 5 of 7 days/Wk (IRF) Estimated Hrs Per Day: 1.[address] IPOC Speech Therapy Treatment Plan: Discontinue ST Treatment Duration: Jul 27, 2018 Frequency: 1 time per week Estimated Hrs Per Day: .25 hour per day Magnetic Observer/Case Mgmt Magnetic Observer/Case Managemen: Discharge Planning Dietitian/Mobile Device Engineer Dietitian/Mobile Device Engineer to monitor nutritional status and make changes and/or recommendations as needed and work with speech pathology on dietary upgrades as the occur. Physician IPOC Medical Issues being managed closely and that require the 24 hour availability of a physician: Close monitoring of INR due to h/o bleeding and toxic level last week Fall risk increased Brief Synthesis of Preadmission Screen, Post-Admission Evaluation, and Therapy Evaluations: PT will work with patient on ambulating with walker with right arm chronic paresis OT will work to improve impaired ADL's Medical Prognosis: Good Anticipated Length of Stay: 7 days TRACEY DEAN DO Jul 29, 2018 08:33
[2018-07-29] MEDS: LACTULOSE SYRUP 10GM/15ML (ENULOSE) 30ML UDC PO SCH ×2 (09:04→21:05)
[2018-07-29] MEDS: FLUoxetine HCL 20 MG (PROzac) CAP PO SCH (09:04)
[2018-07-29] MEDS: OXYBUTYNIN (DITROPAN) 5 MG TAB PO SCH ×3 (09:04→21:04)
[2018-07-29] MEDS: PHENYTOIN 100 MG (DILANTIN) CAP PO SCH ×3 (09:04→19:31)
[2018-07-29] MEDS: POLYETHYLENE GLYCOL 17 GM (MIRALAX) PACK PO SCH (09:05)
[2018-07-29] MEDS: LIDOCAINE 4% (SALONPAS) PATCH TOP SCH (09:06)
[2018-07-29] MEDS ORDERED: ENOXAPARIN 40 MG/0.4 ML (LOVENOX) SYR SQ SCH (10:00)
--- NOTE | 2018-07-29 10:00 | NUR ---
FEELS IS IMPROVING WITH THERAPY. DR. DEAN AWARE OF INR 1.8 AND MED CHANGES MADE.
--- NOTE | 2018-07-29 10:28 | Physical Therapy Daily Note ---
PT Daily Note-Current Subjective Pt sitting in recliner upon arrival. Pt agrees to PT. Pain Numeric Pain Scale: 4 Location: Right Location Body Site: Thigh Pain Description: Ache Mental Status Patient Orientation: Person, Place, Situation Pt is more verbal today than yesterday. Transfers Therapy Code Descriptions/Definitions Functional [place] Measure: 0=Not Assessed/NA 4=Minimal Assistance 1=Total Assistance 5=Supervision or Setup 2=Maximal Assistance 6=Modified [place] 3=Moderate Assistance 7=Complete [place] Therapy Quality Codes: 6 Independent with activity with or without an assistive device 5 Patient requires set up or clean up by helper. Patient completes activity by themselves 4 Supervision or touching assist (CGA). [place] provide cues , steadying assist 3 The helper provides less than half the effort to complete the activity 2 The helper provides more than half the effort to complete the activity 1 Dependent. The helper does all the effort to complete an activity 7 Patient refused to complete or attempt activity 9 The patient did not perform the activity before the current illness or injury 88 Not attempted due to Medical conditions or safety concerns Scootin Supine to/from Sit: 5 Sit to/from Stand: 5 Sit to Lying (QC): 5 Sit to Stand (QC): 5 Car Transfer (QC): 5 Weight Bearing Right Lower Extremity: Right Full Weight Bearing Left Lower Extremity: Left Full Weight Bearing Gait Training Does the Patient Walk?: Yes Distance (FIM): 3=150 ft Distance: 150' x 2 Walk 10 feet (QC): 5 Walk 50 ft with 2 Turns(QC): 5 Gait Level of Assist: 5 Gait Persons Needed: 1 Gait Assistive Device: Walker Platform Wheelchair Training Does the Pt Use a Wheelchair?: No Exercises Supine Ex: Ankle pumps, Quad Set, Glut sets, Short Arc Quads, Hip abd/add Supine Reps: 10 Seated Therapy Exercises: Ankle pumps, Long arc quads, Hip flexion, Kicking activity, Hamstring Curls, Hip abd/add, Glut set Seated Reps: 10 NuStep Minutes: 5 NuStep Workload: 1 Treatments Pt. transferred from chair and ambulated in hallway and into therapy room. Pt. completed supine exercises followed by some seated exercises. Pt. then rode Nustep x 5 min on workload 1 using just her LE for her back precautions. Pt. then ambulated to car transfer and completed task on her own. Pt. then ambulated back to her room and left in chair with call light and all needs met. Assessment Current Status: Good Progress Pt. seemed to have more energy today and seemed to be able to carry on conversation better today. 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 PT [facility] Goals Time Frame: August 17, 2018 Transfers (B,C,W/C) (FIM): 5 Sit to Lying (QC): 4 Lying-Sitting on Side/Bed(QC): 4 Sit to Stand (QC): 4 Rollin Roll Left to Right (QC): 4 Chair/Zof-pb-Fhqiu Xfer(QC): 4 Car Transfer (QC): 4 Gait (FIM): 5 Distance: 300' Walk 10 feet (QC): 4 Walk 10ft-Uneven Surface(QC): 4 Walk 50ft with 2 Turns (QC): 4 Walk 150 ft (QC): 4 Gait Level of Assist: 5 Gait Assistive Device: Walker Platform Stairs (FIM): 2 # of Steps: 4 1 Step (curb) (QC): 4 4 Steps (QC): 4 Stairs Level Of Assist: 4 PT Plan Treatment/Plan Treatment Plan: Continue Plan of Care Treatment Plan: Bed Mobility, Education, Functional Activity Francy, Functional Strength, Group Therapy, Gait, Safety, Therapeutic Exercise, Transfers Treatment Duration: August 17, 2018 Frequency: At least 5 of 7 days/Wk (IRF) Estimated Hrs Per Day: 1.5 hours per day Patient and/or Family Agrees t: Yes Safety Risks/Education Patient Education: Gait Training, Transfer Techniques, Reviewed Precautions, Correct Positioning, Disease Process, Safety Issues Teaching Recipient: Patient Teaching Methods: Demonstration, Discussion Response to Teaching: Verbalize Understanding, Return Demonstration Time/GCodes Time In: 1000 Time Out: 1100 Total Billed Treatment Time: 60 Total Billed Treatment 1, GT x 2, EX x 2 G Codes Necessary: JOSEPH Doss [employer] DIST[employer]BUTOR TENDER Jul 29, 2018 10:28
[2018-07-29] MEDS: HYDROcodone/APAP 5 MG/325 MG (LORTAB) TAB PO PRN ×2 (11:04→23:18)
[2018-07-29] MEDS: ENOXAPARIN 60 MG/0.6 ML (LOVENOX) SYR SC SCH ×2 (11:06→21:05)
[2018-07-29] MEDS ORDERED: FLUO40CA PO (11:19)
--- NOTE | 2018-07-29 13:36 | Occupational Ther Daily Note ---
OT Current Status-Daily Note Subjective pt sitting in recliner chair upon OT arrival in no apparent distress. pt agreed to OT TX session with focus on increasing independence with ADLS and functional transfers Mental Status/Objective Patient Orientation: Normal For Age Therapy Code Descriptions/Definitions Functional [place] Measure: 0=Not Assessed/NA 4=Minimal Assistance 1=Total Assistance 5=Supervision or Setup 2=Maximal Assistance 6=Modified [place] 3=Moderate Assistance 7=Complete [place] ADL-Treatment Therapy Code Descriptions/Definitions Functional [place] Measure: 0=Not Assessed/NA 4=Minimal Assistance 1=Total Assistance 5=Supervision or Setup 2=Maximal Assistance 6=Modified [place] 3=Moderate Assistance 7=Complete [place] Therapy Quality Codes: 6 Independent with activity with or without an assistive device 5 Patient requires set up or clean up by helper. Patient completes activity by themselves 4 Supervision or touching assist (CGA). [place] provide cues , steadying assist 3 The helper provides less than half the effort to complete the activity 2 The helper provides more than half the effort to complete the activity 1 Dependent. The helper does all the effort to complete an activity 7 Patient refused to complete or attempt activity 9 The patient did not perform the activity before the current illness or injury 88 Not attempted due to Medical conditions or safety concerns Eating (FIM): 5 (requries maranda tiwth opening container secondary to limited ROM in right hand) Eating (QC): 4 Grooming (FIM): 6 (standing at sink) Oral Hygiene (QC): 6 Bathing (FIM): 5 (intermitting superiviosins for safety/ balance) Bathing Location: L Arm, R Arm, L Upper Leg, R Upper Leg, L Lower Leg ( including foot), R Lower Leg (including foot), Chest, Abdomen, Buttocks, Perineal Area Shower/Bathe Self (QC): 4 Upper Body (FIM): 6 Upper Body Dressing (QC): 6 Lower Body Dressing (FIM): 6 Lower Body Dressing (QC): 6 On/Off Footwear (QC): 6 Toileting (FIM): 6 Toileting Hygiene (QC): 6 Transfers (B, C, W/C) (FIM): 5 (supervision for safety/ balance) Toilet/Commode Transfer (FIM): 6 Toilet Transfer (QC): 6 Shower Transfer(FIM): 6 (use of GB) Other Treatment pt demo ability to singh/ doff resting hand splint appropriately and was able to stated precautions of wearing RHS and wearing times of RHS Education OT Patient Education: Energy conservation, Instructions don/doff splint/brace, Modified ADL techniques, Progress toward Goal/Update tx plan, Purpose of tx/ functional activities, Reviewed precautions, Rehab process, Safety issues, Transfer techniques Teaching Recipient: Patient Teaching Methods: Demonstration, Discussion Response to Teaching: Verbalize Understanding, Return Demonstration OT Short Term Goals Short Term Goals Eating(FIM): 6 Grooming(FIM): 5 Bathing(FIM): 5 Bathing Location: L Arm, R Arm, L Upper Leg, R Upper Leg, L Lower Leg ( including foot), R Lower Leg (including foot), Chest, Abdomen, Buttocks, Perineal Area Upper Body Dressing(FIM): 5 Lower Body Dressing(FIM): 5 Toileting(FIM): 5 Transfers (B,C,W/C) (FIM): 5 Toilet/Commode Transfer(FIM): 5 Tub Transfer(FIM): 5 Shower Transfer(FIM): 5 Comprehension(FIM): 5 Additional Short Term Goals: 1-Demonstrate ADL Tasks, 2-Verbalize Understanding , 3-ImproveStrength/Francy 1=Demonstrate adherence to instructed precautions during ADL tasks. 2=Patient will verbalize/demonstrate understanding of assistive devices/ modifications for ADL. 3=Patient will improve strength/tolerance for activity to enable patient to perform ADL's. OT Halfway Goals Halfway Goals Eating (FIM): 6 Eating (QC): 6 Groomin Oral Hygiene (QC): 6 Bathing(FIM): 6 Bathing Location: L Arm, R Arm, L Upper Leg, R Upper Leg, L Lower Leg ( including foot), R Lower Leg (including foot), Chest, Abdomen, Buttocks, Perineal Area Shower/Bathe Self (QC): 6 Upper Body Dressing(FIM): 6 Upper Body Dressing (QC): 6 Lower Body Dressing(FIM): 6 Lower Body Dressing (QC): 6 On/Off Footwear (QC): 6 Toileting(FIM): 5 Toileting Hygiene (QC): 6 Transfers (B,C,W/C) (FIM): 6 Toilet/Commode Transfer(FIM): 6 Toilet/Commode Transfer (QC): 6 Tub Transfer(FIM): 0 Shower Transfer(FIM): 6 Comprehension(FIM): 6 Expression (FIM): 6 Social Interaction(FIM): 6 Problem Solving(FIM): 6 Memory(FIM): 6 Additional Goals: 1-Demonstrate ADL Tasks, 2-Verbalize Understanding, 3- ImproveStrength/Francy 1=Demonstrate adherence to instructed precautions during ADL tasks. 2=Patient will verbalize/demonstrate understanding of assistive devices/ modifications for ADL. 3=Patient will improve strength/tolerance for activity to enable patient to perform ADL's. OT Education/Plan Problem List/Assessment Assessment: Decreased UE Strength, Impaired Funct Balance, Impaired I ADL's pt presents with functional limitations affecting areas of ADLs and functional transfers. pt would benefit from skilled OT Services to increase independence with ADLS and functional transfers and to assist upon mention deficits. Discharge Recommendations Plan/Recommendations: Continue POC Treatment Plan/Plan of Care Treatment,Training & Education: Yes Patient would benefit from OT for education, treatment and training to promote independence in ADL's, mobility, safety and/or upper extremity function for ADL' s. Plan of Care: ADL Retraining, Caregiver Training, Concurrent Therapy, Functional Mobility, Group Exercise/Act as Ind, Orthotic Fitting/Training, UE Funct Exercise/Act, UE Neuromus Re-Ed/Coord Treatment Duration: August 17, 2018 Frequency: At least 5 of 7 days/Wk (IRF) Estimated Hrs Per Day: 1.5 hours per day Agreement: Yes Rehab Potential: Good Time/GCodes Start Time: 11:00 Stop Time: 12:30 Billed Treatment Time ADL 6 units, 85minutes FA 5 minutes DEBORA SLOAN OT Jul 29, 2018 13:36
--- NOTE | 2018-07-29 15:01 | Physical Therapy Daily Note ---
PT Daily Note-Current Subjective Pt. was in chair upon arrival and agreed to treatment. Pt. complained of pain 4/ 10 in her R leg. Pain Numeric Pain Scale: 4 Location: Right Location Body Site: Thigh Pain Description: Ache Transfers Therapy Code Descriptions/Definitions Functional [place] Measure: 0=Not Assessed/NA 4=Minimal Assistance 1=Total Assistance 5=Supervision or Setup 2=Maximal Assistance 6=Modified [place] 3=Moderate Assistance 7=Complete [place] Therapy Quality Codes: 6 Independent with activity with or without an assistive device 5 Patient requires set up or clean up by helper. Patient completes activity by themselves 4 Supervision or touching assist (CGA). [place] provide cues , steadying assist 3 The helper provides less than half the effort to complete the activity 2 The helper provides more than half the effort to complete the activity 1 Dependent. The helper does all the effort to complete an activity 7 Patient refused to complete or attempt activity 9 The patient did not perform the activity before the current illness or injury 88 Not attempted due to Medical conditions or safety concerns Sit to/from Stand: 5 Sit to Lying (QC): 5 Sit to Stand (QC): 5 Weight Bearing Right Lower Extremity: Right Full Weight Bearing Left Lower Extremity: Left Full Weight Bearing Gait Training Does the Patient Walk?: Yes Distance (FIM): 3=150 ft Distance: 150' Gait Level of Assist: 5 Gait Persons Needed: 1 Gait Assistive Device: Walker Platform Wheelchair Training Does the Pt Use a Wheelchair?: No Exercises Supine Ex: Ankle pumps, Quad Set, Glut sets, Heel Slides, Short Arc Quads, Hip abd/add Supine Reps: 10 Treatments Pt. transferred from chair and ambulated down the hallway and then into the therapy room. Pt. completed supine exercises. Pt. then transferred from mat and ambulated back to room left in bed with call light and all needs met. Assessment Current Status: Good Progress Pt. seems to have more energy today and seems to be able to hold on conversation better. PT Short Term Goals Short Term Goals Time Frame: Aug 03, 2018 Transfers (B,C,W/C) (FIM): 5 Gait (FIM): 5 Gait Distance Comment: 200' Gait Level of Assist: 5 Gait Assistive Device: Walker Platform PT [facility] Goals [facility] Goals PT [facility] Goals Time Frame: August 17, 2018 Transfers (B,C,W/C) (FIM): 5 Sit to Lying (QC): 4 Lying-Sitting on Side/Bed(QC): 4 Sit to Stand (QC): 4 Rollin Roll Left to Right (QC): 4 Chair/Eel-qk-Dosgk Xfer(QC): 4 Car Transfer (QC): 4 Gait (FIM): 5 Distance: 300' Walk 10 feet (QC): 4 Walk 10ft-Uneven Surface(QC): 4 Walk 50ft with 2 Turns (QC): 4 Walk 150 ft (QC): 4 Gait Level of Assist: 5 Gait Assistive Device: Walker Platform Stairs (FIM): 2 # of Steps: 4 1 Step (curb) (QC): 4 4 Steps (QC): 4 Stairs Level Of Assist: 4 PT Plan Treatment/Plan Treatment Plan: Continue Plan of Care Treatment Plan: Bed Mobility, Education, Functional Activity Francy, Functional Strength, Group Therapy, Gait, Safety, Therapeutic Exercise, Transfers Treatment Duration: August 17, 2018 Frequency: At least 5 of 7 days/Wk (IRF) Estimated Hrs Per Day: 1.5 hours per day Patient and/or Family Agrees t: Yes Safety Risks/Education Patient Education: Gait Training, Reviewed Precautions, Correct Positioning, Disease Process, Safety Issues Teaching Recipient: Patient Teaching Methods: Demonstration, Discussion Response to Teaching: Verbalize Understanding, Return Demonstration Time/GCodes Time In: 1330 Time Out: 1400 Total Billed Treatment Time: 30 Total Billed Treatment 1, GT, EX G Codes Necessary: JOSEPH Doss ENGINE ROOM HELPER Jul 29, 2018 15:01
[2018-07-29 16:29] VITALS: BP 114/68
[2018-07-29] MEDS: warFARin 5 MG (COUMADIN) TAB PO SCH (17:39)
[2018-07-29] MEDS ORDERED: warFARin 3 MG (COUMADIN) TAB PO SCH (18:00)
[2018-07-29] MEDS: BACLOFEN 10 MG (LIORESAL) TAB PO PRN (21:04)
[2018-07-29] MEDS: LEVETIRACETAM 500 MG (KEPPRA) TAB PO SCH (21:04)
[2018-07-29] MEDS: LIDOCAINE PATCH REMOVAL TP SCH (21:05)
[2018-07-30 04:46] VITALS: BP 117/73
[2018-07-30 06:18] LABS: INR 2.1 (0.8-1.4); PROTHROMBIN TIME PATIENT 24.7 SEC (12.2-14.7)
--- NOTE | 2018-07-30 08:21 | Occupational Ther Daily Note ---
OT Current Status-Daily Note Subjective pt laying in bed upon O T arrival in no apparent distress.pt agreed to OT TX session with focus on increasing independence with ADLS. pt complains of no pain Mental Status/Objective Patient Orientation: Normal For Age Therapy Code Descriptions/Definitions Functional [place] Measure: 0=Not Assessed/NA 4=Minimal Assistance 1=Total Assistance 5=Supervision or Setup 2=Maximal Assistance 6=Modified [place] 3=Moderate Assistance 7=Complete [place] ADL-Treatment Therapy Code Descriptions/Definitions Functional [place] Measure: 0=Not Assessed/NA 4=Minimal Assistance 1=Total Assistance 5=Supervision or Setup 2=Maximal Assistance 6=Modified [place] 3=Moderate Assistance 7=Complete [place] Therapy Quality Codes: 6 Independent with activity with or without an assistive device 5 Patient requires set up or clean up by helper. Patient completes activity by themselves 4 Supervision or touching assist (CGA). [place] provide cues , steadying assist 3 The helper provides less than half the effort to complete the activity 2 The helper provides more than half the effort to complete the activity 1 Dependent. The helper does all the effort to complete an activity 7 Patient refused to complete or attempt activity 9 The patient did not perform the activity before the current illness or injury 88 Not attempted due to Medical conditions or safety concerns Eating (FIM): 6 (pt requried additioning timing to open containers/ cut up food. pt demo jr technique. ) Eating (QC): 6 Grooming (FIM): 6 (additional timing to open containters. ) Oral Hygiene (QC): 6 Bathing (FIM): 6 (use GB to maintain balance while standig.) Bathing Location: L Arm, R Arm, L Upper Leg, R Upper Leg, L Lower Leg ( including foot), R Lower Leg (including foot), Chest, Abdomen, Buttocks, Perineal Area Shower/Bathe Self (QC): 6 Upper Body (FIM): 7 (pt demo ability to gather clothing from closet and singh shirt independently ) Upper Body Dressing (QC): 6 Lower Body Dressing (FIM): 6 (use of RW to maintain balance while standing to pull up pants. ) Lower Body Dressing (QC): 6 On/Off Footwear (QC): 6 Toileting (FIM): 7 Toileting Hygiene (QC): 6 Transfers (B, C, W/C) (FIM): 6 (use of platform walker) Toilet/Commode Transfer (FIM): 6 Toilet Transfer (QC): 6 Shower Transfer(FIM): 6 pt demo increased independence with ADLS and functional transfers with use of platform walker Education OT Patient Education: Progress toward Goal/Update tx plan, Purpose of tx/ functional activities Teaching Recipient: Patient Teaching Methods: Discussion Response to Teaching: Verbalize Understanding OT Short Term Goals Short Term Goals Eating(FIM): 6 Grooming(FIM): 5 Bathing(FIM): 5 Bathing Location: L Arm, R Arm, L Upper Leg, R Upper Leg, L Lower Leg ( including foot), R Lower Leg (including foot), Chest, Abdomen, Buttocks, Perineal Area Upper Body Dressing(FIM): 5 Lower Body Dressing(FIM): 5 Toileting(FIM): 5 Transfers (B,C,W/C) (FIM): 5 Toilet/Commode Transfer(FIM): 5 Tub Transfer(FIM): 5 Shower Transfer(FIM): 5 Comprehension(FIM): 5 Additional Short Term Goals: 1-Demonstrate ADL Tasks, 2-Verbalize Understanding , 3-ImproveStrength/Francy 1=Demonstrate adherence to instructed precautions during ADL tasks. 2=Patient will verbalize/demonstrate understanding of assistive devices/ modifications for ADL. 3=Patient will improve strength/tolerance for activity to enable patient to perform ADL's. OT [facility] Goals [facility] Goals Eating (FIM): 6 Eating (QC): 6 Groomin Oral Hygiene (QC): 6 Bathing(FIM): 6 Bathing Location: L Arm, R Arm, L Upper Leg, R Upper Leg, L Lower Leg ( including foot), R Lower Leg (including foot), Chest, Abdomen, Buttocks, Perineal Area Shower/Bathe Self (QC): 6 Upper Body Dressing(FIM): 6 Upper Body Dressing (QC): 6 Lower Body Dressing(FIM): 6 Lower Body Dressing (QC): 6 On/Off Footwear (QC): 6 Toileting(FIM): 5 Toileting Hygiene (QC): 6 Transfers (B,C,W/C) (FIM): 6 Toilet/Commode Transfer(FIM): 6 Toilet/Commode Transfer (QC): 6 Tub Transfer(FIM): 0 Shower Transfer(FIM): 6 Comprehension(FIM): 6 Expression (FIM): 6 Social Interaction(FIM): 6 Problem Solving(FIM): 6 Memory(FIM): 6 Additional Goals: 1-Demonstrate ADL Tasks, 2-Verbalize Understanding, 3- ImproveStrength/Francy 1=Demonstrate adherence to instructed precautions during ADL tasks. 2=Patient will verbalize/demonstrate understanding of assistive devices/ modifications for ADL. 3=Patient will improve strength/tolerance for activity to enable patient to perform ADL's. OT Education/Plan Problem List/Assessment Assessment: Impaired I ADL's, Restricted Funct UE ROM pt presents with functional limitations affecting areas of ADLs and functional transfers. pt would benefit from skilled OT Services to increase independence with ADLS and functional transfers and to assist upon mention deficits. Discharge Recommendations Plan/Recommendations: Continue POC Treatment Plan/Plan of Care Treatment,Training & Education: Yes Patient would benefit from OT for education, treatment and training to promote independence in ADL's, mobility, safety and/or upper extremity function for ADL' s. Plan of Care: ADL Retraining, Caregiver Training, Concurrent Therapy, Functional Mobility, Group Exercise/Act as Ind, Orthotic Fitting/Training, UE Funct Exercise/Act, UE Neuromus Re-Ed/Coord Treatment Duration: August 17, 2018 Frequency: At least 5 of 7 days/Wk (IRF) Estimated Hrs Per Day: 1.5 hours per day Agreement: Yes Rehab Potential: Good Time/GCodes Start Time: 08:00 Stop Time: 09:00 Billed Treatment Time ADL 4 units, 60 minutes DEBORA SLOAN OT Jul 30, 2018 08:21
--- NOTE | 2018-07-30 08:39 | PM&R Progress Note ---
Subjective HPI/CC On Admission Date Seen by Provider: Jul 30, 2018 Time Seen by Provider: 08:45 CC: Lumbar compression fracture with severe debility HPI: This is a frail 78yoWF clinic patient of Dr Martinez at [facility], who recently moved from [place], [place] to be close to her niece who provides for her care and lives 2 houses down from her, who present to IRF to improve on independent ADL's and ambulation and prevent fall prior to returning home to live independently. Patient was admitted to [facility] for 1 week due to severe spine pain and was dx with compression fracture of L5 and subacute on L2 along with lumbar stenosis so she was admitted and treated for severe pain and then required SB to improve strength prior to admit to IRF. 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 She has a mechanical valve of which her Warfarin has required multiple adjustments since she has been inpatient at [facility] so will consult Cardiology to establish care and check ECHO and further manage that while she is here at IRF. Barriers to returning home will be ability to ambulate safely without falls and regain independent ADL 's of showering and toileting. Subjective/Events-last exam INR is 2.1 today so will DC the Lovenox bridge Bladder issues persist even after Oxybutynin has been continued so Dr. Stewart will be consulted Fall risk prevention discussed DC planning for Thursday Can navigate at home because she's had the stroke for 20 years and has everything set up at home Overall doing very well Reviewed RN notes and therapy notes Review of Systems Musculoskeletal: back pain Neurological: Weakness, Numbness, Incoordination Objective Exam Vital Signs Vital Signs Date Time Temp Pulse Resp B/P (MAP) Pulse Ox O2 Delivery O2 Flow Rate FiO2 07/30/18 17:30 98.0 63 18 106/66 (79) 97 Room Air Capillary Refill : Less Than 3 Seconds General Appearance: No Apparent Distress, WD/WN HEENT: TMs Normal, Normal ENT Inspection Neck: Full Range of Motion, Normal Inspection, Non Tender, Supple Respiratory: Chest Non Tender, Lungs Clear, Normal Breath Sounds, No Accessory Muscle Use, No Respiratory Distress Cardiovascular: Regular Rate, Rhythm, No Edema, No Gallop, No JVD, No Murmur, Normal Peripheral Pulses Gastrointestinal: Normal Bowel Sounds, Non Tender, Soft Rectal: Deferred Back: Normal Inspection, Decreased Range of Motion Extremity: Non Tender, No Calf Tenderness Neurologic/Psychiatric: Alert, Oriented x3, chief librarian branch or department II-XII Norm as Tested, Aphasia (ezpressive aphasia), Motor Weakness (right arm and hand) Skin: Normal Color, Warm/Dry Lymphatic: No Adenopathy Results/Procedures Lab Patient resulted labs reviewed. FIM Transfers Therapy Code Descriptions/Definitions Functional [place] Measure: 0=Not Assessed/NA 4=Minimal Assistance 1=Total Assistance 5=Supervision or Setup 2=Maximal Assistance 6=Modified [place] 3=Moderate Assistance 7=Complete [place] Therapy Quality Codes: 6 Independent with activity with or without an assistive device 5 Patient requires set up or clean up by helper. Patient completes activity by themselves 4 Supervision or touching assist (CGA). [place] provide cues , steadying assist 3 The helper provides less than half the effort to complete the activity 2 The helper provides more than half the effort to complete the activity 1 Dependent. The helper does all the effort to complete an activity 7 Patient refused to complete or attempt activity 9 The patient did not perform the activity before the current illness or injury 88 Not attempted due to Medical conditions or safety concerns Mental Status/Objective Comprehension: 7 Expression: 7 Social Interaction: 7 Problem Solvin Memory: 7 ADL-Treatment Feedin (pt requried additioning timing to open containers/ cut up food. pt demo jr technique. ) Eating (QC): 6 Groomin (additional timing to open containters. ) Oral Hygiene (QC): 6 Bathin (use GB to maintain balance while standig.) Bathing Location: L Arm, R Arm, L Upper Leg, R Upper Leg, L Lower Leg ( including foot), R Lower Leg (including foot), Chest, Abdomen, Buttocks, Perineal Area Shower/Bathe Self (QC): 6 Upper Extremity Dressin (pt demo ability to gather clothing from closet and singh shirt independently ) Upper Body Dressing (QC): 6 Lower Extremity Dressin (use of RW to maintain balance while standing to pull up pants. ) Lower Body Dressing (QC): 6 On/Off Footwear (QC): 6 Toiletin Toileting Hygiene (QC): 6 Toilet/Commode Transfer: 6 Toilet Transfer (QC): 6 Shower: 6 (use of GB) Assessment/Plan Assessment and Plan Assess & Plan/Chief Complaint Assessment: Lumbar compression fracture Plan: IRF protocol Pain meds Ambulate Fine tune prior to DC home Consult Dr Vora to establish Cardiology care is appreciated Checked ECHO Lovenox bridge DC since INR 2.1 (1) Lumbar compression fracture (2) Mechanical heart valve present (3) Anticoagulant long-term use (4) Right sided weakness (5) Foot drop, right (6) Depression (7) Anxiety (8) Lumbar stenosis (9) Seizure disorder (10) Overactive bladder (11) Hypertension (12) Fall on same level from tripping as cause of accidental injury (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
[2018-07-30] MEDS: LIDOCAINE 4% (SALONPAS) PATCH TOP SCH (10:02)
[2018-07-30] MEDS: OXYBUTYNIN (DITROPAN) 5 MG TAB PO SCH ×2 (10:02→13:15)
[2018-07-30] MEDS: PHENYTOIN 100 MG (DILANTIN) CAP PO SCH ×3 (10:02→20:10)
[2018-07-30] MEDS: LACTULOSE SYRUP 10GM/15ML (ENULOSE) 30ML UDC PO SCH ×2 (10:02→19:33)
[2018-07-30] MEDS: FLUoxetine HCL 20 MG (PROzac) CAP PO SCH (10:02)
[2018-07-30] MEDS: POLYETHYLENE GLYCOL 17 GM (MIRALAX) PACK PO SCH (10:03)
--- NOTE | 2018-07-30 10:06 | Physical Therapy Daily Note ---
PT Daily Note-Current Subjective Yoko states she is eager to go home Thursday. She does not own a FWW and would like one with a platform. She would like to have a bath aide for a few weeks if possible. Her low back pain appears to be 3-5/10 during amb. Mental Status Patient Orientation: Person, Non-Verbal/Aphasic, Situation Comprehension: 6 Transfers Therapy Code Descriptions/Definitions Functional [place] Measure: 0=Not Assessed/NA 4=Minimal Assistance 1=Total Assistance 5=Supervision or Setup 2=Maximal Assistance 6=Modified [place] 3=Moderate Assistance 7=Complete [place] Therapy Quality Codes: 6 Independent with activity with or without an assistive device 5 Patient requires set up or clean up by helper. Patient completes activity by themselves 4 Supervision or touching assist (CGA). [place] provide cues , steadying assist 3 The helper provides less than half the effort to complete the activity 2 The helper provides more than half the effort to complete the activity 1 Dependent. The helper does all the effort to complete an activity 7 Patient refused to complete or attempt activity 9 The patient did not perform the activity before the current illness or injury 88 Not attempted due to Medical conditions or safety concerns Transfers (B, C, W/C) (FIM): 5 Scootin Rollin Supine to/from Sit: 6 Sit to/from Stand: 6 Bed to/from Chair: 5 Weight Bearing Right Lower Extremity: Right Full Weight Bearing Left Lower Extremity: Left Full Weight Bearing Gait Training Gait (FIM): 5 Yoko amb with platform FWW from her room to the gift shop, down and up the ramp outdoors and back with 2 rest breaks (>500 ft). She attempted to walk without an asistive device, which was her PLOF at home, but R leg pain and weakness prevented her from amb safely. She amb 15 ft with min assist x 1. Exercises Supine Ex: Bridging, Ankle pumps, Heel Slides Supine Reps: 10 Assessment Current Status: Excellent Progress Yoko walks safely and independently with the platform FWW, bed mobility was independent. She tried to amb without the walker but R leg pain/weakness prevented safe amb. Recommend platform FWW, [facility] PT and bath aide when she returns home. PT Short Term Goals Short Term Goals Time Frame: Aug 03, 2018 Transfers (B,C,W/C) (FIM): 5 Gait (FIM): 5 Gait Distance Comment: 200' Gait Level of Assist: 5 Gait Assistive Device: Walker Platform PT Axle Inspector Goals Long-Term Goals PT Long-Term Goals Time Frame: August 17, 2018 Transfers (B,C,W/C) (FIM): 5 Sit to Lying (QC): 4 Lying-Sitting on Side/Bed(QC): 4 Sit to Stand (QC): 4 Rollin Roll Left to Right (QC): 4 Chair/Lib-rg-Xcnkk Xfer(QC): 4 Car Transfer (QC): 4 Gait (FIM): 5 Distance: 300' Walk 10 feet (QC): 4 Walk 10ft-Uneven Surface(QC): 4 Walk 50ft with 2 Turns (QC): 4 Walk 150 ft (QC): 4 Gait Level of Assist: 5 Gait Assistive Device: Walker Platform Stairs (FIM): 2 # of Steps: 4 1 Step (curb) (QC): 4 4 Steps (QC): 4 Stairs Level Of Assist: 4 PT Plan Treatment/Plan Treatment Plan: Continue Plan of Care Treatment Plan: Bed Mobility, Education, Functional Activity Francy, Functional Strength, Group Therapy, Gait, Safety, Therapeutic Exercise, Transfers Treatment Duration: August 17, 2018 Frequency: At least 5 of 7 days/Wk (IRF) Estimated Hrs Per Day: 1.5 hours per day Patient and/or Family Agrees t: Yes Time/GCodes Time In: 900 Time Out: 1000 Total Billed Treatment Time: 60 Total Billed Treatment 1, Gt x 3, ex x 1 G Codes Necessary: STEPHANIE Rehman PT Jul 30, 2018 10:06
[2018-07-30] MEDS: HYDROcodone/APAP 5 MG/325 MG (LORTAB) TAB PO PRN (10:22)
--- NOTE | 2018-07-30 10:54 | Cardiology Progress Note ---
Subjective Date Seen by Provider: Jul 30, 2018 Time Seen by Provider: 10:53 Subjective/Events-last exam Patient is sitting in a chair, feeling better, no new complaint, still having generalized fatigue Review of Systems General: No Chills, No Night Sweats; Fatigue, Malaise; No Appetite, No Other HEENT: No Head Aches, No Visual Changes, No Eye Pain, No Ear Pain, No Dysphasia , No Sinus Congestion, No Post Nasal Drip, No Sore Throat, No Other Pulmonary: No Dyspnea, No Cough, No Pleuritic Chest Pain, No Other Cardiovascular: No: Chest Pain, Palpitations, Orthopnea, Paroxysmal Noc. Dyspnea, Edema, Lt Headedness, Other Objective-Cardiology Exam Last Set of Vital Signs Vital Signs 07/30/18 04:46 Temp 96.9 Pulse 60 Resp 16 B/P (MAP) 117/73 (88) Pulse Ox 96 O2 Delivery Room Air Capillary Refill : Less Than 3 Seconds I&O Intake and Output 07/30/18 00:00 Intake Total 1120 ml Balance 1120 ml Intake Oral 1120 ml # Voids 5 # Bowel Movements 2 General: Alert, Oriented X3, Cooperative HEENT: Atraumatic, PERRLA Neck: Supple, No JVD, No Thyromegaly Lungs: Clear to Auscultation, Normal Air Movement Heart: Regular Rate, Normal S1, Normal S2, Other (systolic murmur at the left sternal border) Abdomen: Normal Bowel Sounds, Soft, No Tenderness, No Hepatosplenomegaly, No Masses Extremities: No Clubbing, No Cyanosis, No Edema, Normal Pulses, No Tenderness/ Swelling Skin: No Rashes, No Breakdown, No Significant Lesion Neuro: Normal Speech, Cranial Nerves 3-12 NL Psych/Mental Status: Mental Status NL, Mood NL Results Lab Laboratory Tests Test 07/30/18 05:46 Range/Units Prothrombin Time 24.7 H 12.2-14.7 SEC INR Comment 2.1 H 0.8-1.4 A/P-Cardiology Admission Diagnosis Generalized weakness HTN Hx Valve replacement Seizure disorder Assessment/Plan Generalized weakness after lumbar compression fracture- continue PT/OT History of aortic valve replacement with mechanical valve, surgery done in [place] in remote past. Maintained on Coumadin. Continue to monitor PT/INR. 2D Echo done yesterday. I will try to obtain records from Dr. Abram Licona, CT surgeon at [facility] in [place], [place]. Continue on Coumadin and monitor INR HTN- controlled. Continue to monitor. Hx of seizure disorder Hx of CVA in 1996 Hx of intracranial bleed secondary to fall in 2014. Clinical Quality Measures DVT/VTE Risk/Contraindication: Risk Factor Score Per Nursin RFS Level Per Nursing on Admit: 4+=Very High VALENTIN HEAD MD Jul 30, 2018 10:54 am
--- NOTE | 2018-07-30 11:11 | NUR ---
METAL FABRICATOR APPRENTICE sent walker order with platform attachment to DME for delivery today. Patient will proceed with discharge on Thursday. METAL FABRICATOR APPRENTICE provided list of area [facility] providers for patient to review. She wishes to discuss with her family and will let METAL FABRICATOR APPRENTICE know which provider she would like to choose, on Thursday.
--- NOTE | 2018-07-30 14:03 | CONSULTATION REPORT ---
DATE OF SERVICE: 07/30/2018 ATTENDING PHYSICIAN: Dr. Romero. SUMMARY: After reviewing the patient's records, interviewing her, this is a 78-year-old white lady who had a compression fracture of L5 and subacute L2 lumbar stenosis, admitted to rehab. She also has a history of mechanical valve and is on warfarin. She is allergic to PENICILLIN and TETRACYCLINE. The patient has some concentration and speech problem; however, she told me that she has been having problem with stress urinary incontinence, necessitating some 2-3 a day. She has been taking oxybutynin, but apparently was not best helped may be helping her urgency and urge incontinence. She denies any retention. She denies any previous bladder surgeries. IMPRESSION: Neurogenic bladder with stress urinary incontinence, rule out retention and urinary tract infection. PLAN: We will do a bladder scan postvoid residual and straight cath if needed. Stress urinary incontinence is more managed by outpatient workup at this point; however, we will see what we can do while she is in the hospital. Job ID: [id number] DocumentID: [id number] Dictated Date: 07/30/2018 13:28:56 Accounting Systems Manager Date: 07/30/2018 14:02:46 Dictated By: DELROY LOPEZ MD
--- NOTE | 2018-07-30 14:47 | Therapy Group Daily Note ---
Therapy Daily Group Note Patient Education Topic Home Safety, Fall Prevention, Home Safety, Energy Cons Session Ratio (pt:therapist): 4:1 Goal of Session: Education on ARU Expectations, Energy Conservation Tech., Home Safety Strategies, Safety with Transfers, Use of Adaptive Equipment Goal Met for this Session: Yes Pt Benefit of Group: Contributions to Others, F/U Use of Strategies @Home, Increased Functional Safety, Recognition of Peers, Socialization Other/Notes Pt perform functional mobility with use of platform walker MOD I to OT group this pm. Pt introduced self to group for socialization. Education was provided regarding home safety including potential hazards and solutions for common problem areas. each room of home discussed in session. AE/ modification discussed to increase safety within home. Education also included energy conservation during functional tasks. Pt contributed appropriately to group discussion and was able to identify possible areas for improvement needed in her own home situation. Pt actively listened to education and states understanding. pt also was able to name explamples of safety modifications through out house. Pt returned to room, sitting in chair with needs met after session. Start Time: 13:00 Stop Time: 14:00 Total Billed Treatment GRP 60 minutes DEBORA SLOAN OT Jul 30, 2018 14:47
[2018-07-30 17:30] VITALS: BP 106/66
[2018-07-30] MEDS: warFARin 5 MG (COUMADIN) TAB PO SCH (18:01)
[2018-07-30] MEDS: LEVETIRACETAM 500 MG (KEPPRA) TAB PO SCH (20:10)
[2018-07-30] MEDS: LIDOCAINE PATCH REMOVAL TP SCH (20:10)
[2018-07-30] MEDS: BACLOFEN 10 MG (LIORESAL) TAB PO PRN (22:22)
[2018-07-31 05:51] VITALS: BP 130/72
--- NOTE | 2018-07-31 08:39 | PM&R Progress Note ---
Subjective HPI/CC On Admission Date Seen by Provider: Jul 31, 2018 Time Seen by Provider: 07:00 CC: Lumbar compression fracture with severe debility HPI: This is a frail 78yoWF clinic patient of Dr Martinez at [facility], who recently moved from [place], [place] to be close to her niece who provides for her care and lives 2 houses down from her, who present to IRF to improve on independent ADL's and ambulation and prevent fall prior to returning home to live independently. Patient was admitted to [facility] for 1 week due to severe spine pain and was dx with compression fracture of L5 and subacute on L2 along with lumbar stenosis so she was admitted and treated for severe pain and then required SB to improve strength prior to admit to IRF. 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 She has a mechanical valve of which her Warfarin has required multiple adjustments since she has been inpatient at [facility] so will consult Cardiology to establish care and check ECHO and further manage that while she is here at IRF. Barriers to returning home will be ability to ambulate safely without falls and regain independent ADL 's of showering and toileting. Subjective/Events-last exam Patient doing much better and ready for discharge on Thursday Walker with platform due to right arm paralysis from stroke 20 years ago was ordered Denies any pain Bowels are moving Reviewed therapy notes Conferred with RN We will check INR tomorrow since she has been on Coumadin and a higher dose of 5 mg daily and was discontinued off the Lovenox bridge since it was therapeutic Appreciate cardiology evaluation since now she is established with cardiology Review of Systems General: Fatigue Objective Exam Vital Signs Vital Signs Date Time Temp Pulse Resp B/P (MAP) Pulse Ox O2 Delivery O2 Flow Rate FiO2 07/31/18 16:15 98.1 62 18 119/68 (85) 97 Room Air Capillary Refill : Less Than 3 Seconds General Appearance: No Apparent Distress, WD/WN HEENT: TMs Normal, Normal ENT Inspection Neck: Full Range of Motion, Normal Inspection, Non Tender, Supple Respiratory: Chest Non Tender, Lungs Clear, Normal Breath Sounds, No Accessory Muscle Use, No Respiratory Distress Cardiovascular: Regular Rate, Rhythm, No Edema, No Gallop, No JVD, No Murmur, Normal Peripheral Pulses Gastrointestinal: Normal Bowel Sounds, Non Tender, Soft Rectal: Deferred Back: Normal Inspection, Decreased Range of Motion Extremity: Non Tender, No Calf Tenderness Neurologic/Psychiatric: Alert, Oriented x3, nursing program director II-XII Norm as Tested, Aphasia , Motor Weakness Skin: Normal Color, Warm/Dry Lymphatic: No Adenopathy Results/Procedures Lab Patient resulted labs reviewed. FIM Transfers Therapy Code Descriptions/Definitions Functional [place] Measure: 0=Not Assessed/NA 4=Minimal Assistance 1=Total Assistance 5=Supervision or Setup 2=Maximal Assistance 6=Modified [place] 3=Moderate Assistance 7=Complete [place] Therapy Quality Codes: 6 Independent with activity with or without an assistive device 5 Patient requires set up or clean up by helper. Patient completes activity by themselves 4 Supervision or touching assist (CGA). [place] provide cues , steadying assist 3 The helper provides less than half the effort to complete the activity 2 The helper provides more than half the effort to complete the activity 1 Dependent. The helper does all the effort to complete an activity 7 Patient refused to complete or attempt activity 9 The patient did not perform the activity before the current illness or injury 88 Not attempted due to Medical conditions or safety concerns Mental Status/Objective Comprehension: 6 Expression: 7 Social Interaction: 7 Problem Solvin Memory: 7 ADL-Treatment Feedin (pt requried additioning timing to open containers/ cut up food. pt demo jr technique. ) Eating (QC): 6 Groomin (additional timing to open containters. ) Oral Hygiene (QC): 6 Bathin (use GB to maintain balance while standig.) Bathing Location: L Arm, R Arm, L Upper Leg, R Upper Leg, L Lower Leg ( including foot), R Lower Leg (including foot), Chest, Abdomen, Buttocks, Perineal Area Shower/Bathe Self (QC): 6 Upper Extremity Dressin (pt demo ability to gather clothing from closet and singh shirt independently ) Upper Body Dressing (QC): 6 Lower Extremity Dressin (use of RW to maintain balance while standing to pull up pants. ) Lower Body Dressing (QC): 6 On/Off Footwear (QC): 6 Toiletin Toileting Hygiene (QC): 6 Toilet/Commode Transfer: 6 Toilet Transfer (QC): 6 Shower: 6 Assessment/Plan Assessment and Plan Assess & Plan/Chief Complaint Assessment: Lumbar compression fracture Plan: IRF protocol Pain meds Ambulate Fine tune prior to DC home Consult Dr Vora to establish Cardiology care is appreciated Checked ECHO Lovenox bridge DC since INR 2.1 Check labs in am (1) Lumbar compression fracture (2) Mechanical heart valve present (3) Anticoagulant long-term use (4) Right sided weakness (5) Foot drop, right (6) Depression (7) Anxiety (8) Lumbar stenosis (9) Seizure disorder (10) Overactive bladder (11) Hypertension (12) Fall on same level from tripping as cause of accidental injury (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
[2018-07-31] MEDS: POLYETHYLENE GLYCOL 17 GM (MIRALAX) PACK PO SCH (09:17)
[2018-07-31] MEDS: LACTULOSE SYRUP 10GM/15ML (ENULOSE) 30ML UDC PO SCH ×2 (09:17→20:35)
[2018-07-31] MEDS: FLUoxetine HCL 20 MG (PROzac) CAP PO SCH (09:30)
[2018-07-31] MEDS: PHENYTOIN 100 MG (DILANTIN) CAP PO SCH ×3 (09:30→20:34)
[2018-07-31] MEDS: LIDOCAINE 4% (SALONPAS) PATCH TOP SCH (09:31)
--- NOTE | 2018-07-31 09:48 | Progress Note-Urology ---
Progress Note-Urology Progress Notes/Assess & Plan Progress/Assessment & Plan STRAIGHT CATH RETENTION FOR PVR YESTERDAY AND OXYBUTIN HELD. FOLLOW UP WITH SCANS AND CATH PRN. Final Diagnosis NEUROGENIC BLADDER WITH RETENTION AND INCONTINENCE DELROY LOPEZ MD Jul 31, 2018 09:48
--- NOTE | 2018-07-31 13:30 | Physical Therapy Daily Note ---
PT Daily Note-Current Subjective Pt agreeable. Requested BR. Pt asked if she could be up adlib in room. Pt instructed to always call nurse for safety. Pt agreeable. Pain rated 1/10 in back. Mental Status Patient Orientation: Person, Place, Situation Transfers Therapy Code Descriptions/Definitions Functional [place] Measure: 0=Not Assessed/NA 4=Minimal Assistance 1=Total Assistance 5=Supervision or Setup 2=Maximal Assistance 6=Modified [place] 3=Moderate Assistance 7=Complete [place] Therapy Quality Codes: 6 Independent with activity with or without an assistive device 5 Patient requires set up or clean up by helper. Patient completes activity by themselves 4 Supervision or touching assist (CGA). [place] provide cues , steadying assist 3 The helper provides less than half the effort to complete the activity 2 The helper provides more than half the effort to complete the activity 1 Dependent. The helper does all the effort to complete an activity 7 Patient refused to complete or attempt activity 9 The patient did not perform the activity before the current illness or injury 88 Not attempted due to Medical conditions or safety concerns Weight Bearing Right Lower Extremity: Right Full Weight Bearing Left Lower Extremity: Left Full Weight Bearing Gait Training Gait Assistive Device: FWW Pt amb with PW 1 x 500ft Treatments Ther ex LAQ and hip flexion x 20 each. BR mobility SBA. Back to chair with call light and all needs met Assessment Pt nicolas well. Demonstrated safe transfers and mobility. PT Short Term Goals Short Term Goals Time Frame: Aug 03, 2018 Transfers (B,C,W/C) (FIM): 5 Gait (FIM): 5 Gait Distance Comment: 200' Gait Level of Assist: 5 Gait Assistive Device: Walker Platform PT Packing Machine Feeder Goals Halfway Goals PT Halfway Goals Time Frame: August 17, 2018 Transfers (B,C,W/C) (FIM): 5 Sit to Lying (QC): 4 Lying-Sitting on Side/Bed(QC): 4 Sit to Stand (QC): 4 Rollin Roll Left to Right (QC): 4 Chair/Aiq-go-Xgwzd Xfer(QC): 4 Car Transfer (QC): 4 Gait (FIM): 5 Distance: 300' Walk 10 feet (QC): 4 Walk 10ft-Uneven Surface(QC): 4 Walk 50ft with 2 Turns (QC): 4 Walk 150 ft (QC): 4 Gait Level of Assist: 5 Gait Assistive Device: Walker Platform Stairs (FIM): 2 # of Steps: 4 1 Step (curb) (QC): 4 4 Steps (QC): 4 Stairs Level Of Assist: 4 PT Plan Treatment/Plan Treatment Plan: Continue Plan of Care Treatment Plan: Bed Mobility, Education, Functional Activity Francy, Functional Strength, Group Therapy, Gait, Safety, Therapeutic Exercise, Transfers Treatment Duration: August 17, 2018 Frequency: At least 5 of 7 days/Wk (IRF) Estimated Hrs Per Day: 1.5 hours per day Patient and/or Family Agrees t: Yes Time/GCodes Time In: 930 Time Out: 1000 Total Billed Treatment Time: 30 Total Billed Treatment 1, ther x 10min, gait 20 min SANTOS CLAYTON CPTA Jul 31, 2018 13:30
[2018-07-31 16:15] VITALS: BP 119/68
[2018-07-31] MEDS: warFARin 5 MG (COUMADIN) TAB PO SCH (18:34)
--- NOTE | 2018-07-31 19:11 | NUR ---
bedside report received from CASSANDRA CADE, assume care of pt
[2018-07-31] MEDS: LEVETIRACETAM 500 MG (KEPPRA) TAB PO SCH (20:34)
[2018-07-31] MEDS: HYDROcodone/APAP 5 MG/325 MG (LORTAB) TAB PO PRN (20:35)
[2018-07-31] MEDS: LIDOCAINE PATCH REMOVAL TP SCH (20:35)
--- NOTE | 2018-07-31 20:35 | NUR ---
c/o generalized discomfort level 5/10 on numeric scale, Lortab 5 1 tab po given, refused Enulose
--- NOTE | 2018-07-31 22:39 | NUR ---
earlier found pt had credit cards offered to lock them up in her room but pt declined, now letting this nurse lock up her walet with credit cards in her room locked cabinet
[2018-08-01 05:16] LABS: BASOPHILS # (AUTO) 0.1 10^3/uL (0.0-0.1); BASOPHILS % (AUTO) 1 % (0-10); EOSINOPHILS # (AUTO) 0.2 10^3/uL (0.0-0.3); EOSINOPHILS % (AUTO) 4 % (0-10); HEMATOCRIT 36 % (35-52); HEMOGLOBIN 11.2 G/DL (11.5-16.0); LYMPHOCYTES # (AUTO) 1.1 X 10^3 (1.0-4.0); LYMPHOCYTES % (AUTO) 22 % (12-44); MEAN CORPUSCULAR HEMOGLOBIN 30 PG (25-34); MEAN CORPUSCULAR HGB CONC 31 G/DL (32-36); MEAN CORPUSCULAR VOLUME 95 FL (80-99); MEAN PLATELET VOLUME 11.6 FL (7.4-10.4); MONOCYTES # (AUTO) 0.7 X 10^3 (0.0-1.0); MONOCYTES % (AUTO) 14 % (0-12); NEUTROPHILS # (AUTO) 3.1 X 10^3 (1.8-7.8); NEUTROPHILS % (AUTO) 59 % (42-75); PLATELET COUNT 265 10^3/uL (130-400); RED CELL DISTRIBUTION WIDTH 13.9 % (10.0-14.5); WHITE BLOOD COUNT 5.2 10^3/uL (4.3-11.0)
[2018-08-01 05:29] LABS: INR 2.6 (0.8-1.4)
[2018-08-01 05:39] VITALS: BP 144/66
[2018-08-01 05:45] LABS: ALANINE AMINOTRANSFERASE 18 U/L (0-55); ALBUMIN 3.5 GM/DL (3.2-4.5); ALKALINE PHOSPHATASE 185 U/L (40-136); BILIRUBIN,TOTAL 0.2 MG/DL (0.1-1.0); BUN/CREATININE RATIO 33; CARBON DIOXIDE 24 MMOL/L (21-32); CHLORIDE 107 MMOL/L (98-107); CREATININE SERUM 0.63 MG/DL (0.60-1.30); GFR ESTIMATED > 60; GLUCOSE 98 MG/DL (70-105); POTASSIUM 4.2 MMOL/L (3.6-5.0); SODIUM 143 MMOL/L (135-145); TOTAL PROTEIN 5.9 GM/DL (6.4-8.2)
--- NOTE | 2018-08-01 07:12 | NUR ---
bedside report given to CASSANDRA CADE
--- NOTE | 2018-08-01 07:28 | PM&R Progress Note ---
Subjective HPI/CC On Admission Date Seen by Provider: Aug 01, 2018 Time Seen by Provider: 07:00 CC: Lumbar compression fracture with severe debility HPI: This is a frail 78yoWF clinic patient of Dr Martinez at [facility], who recently moved from [place], [place] to be close to her niece who provides for her care and lives 2 houses down from her, who present to IRF to improve on independent ADL's and ambulation and prevent fall prior to returning home to live independently. Patient was [place] [facility] [place] due to severe spine pain and was dx with compression fracture of L5 and subacute on L2 along with lumbar stenosis so she was admitted and treated for severe pain and then required SB to improve strength prior to admit to IRF. 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 She has a mechanical valve of which her Warfarin has required multiple adjustments since she has been inpatient [place] [facility] so will consult Cardiology to establish care and check ECHO and further manage that while she is here at IRF. Barriers to returning home will be ability to ambulate safely without falls and regain independent ADL 's of showering and toileting. 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 was ordered and she has that in the room with her now Denies any pain Bowels are moving Reviewed therapy notes Conferred with RN INR therapeutic since she has been on Coumadin and a higher dose of 5 mg daily and was discontinued off the Lovenox bridge since it was therapeutic Appreciate cardiology evaluation since now she is established with cardiology Objective Exam Vital Signs Vital Signs Date Time Temp Pulse Resp B/P (MAP) Pulse Ox O2 Delivery O2 Flow Rate FiO2 08/01/18 17:19 98.2 64 18 128/79 (95) 95 Room Air Capillary Refill : Less Than 3 Seconds General Appearance: No Apparent Distress, WD/WN HEENT: TMs Normal, Normal ENT Inspection Neck: Full Range of Motion, Normal Inspection, Non Tender, Supple Respiratory: Chest Non Tender, Lungs Clear, Normal Breath Sounds, No Accessory Muscle Use, No Respiratory Distress Cardiovascular: Regular Rate, Rhythm, No Edema, No Gallop, No JVD, No Murmur, Normal Peripheral Pulses Gastrointestinal: Normal Bowel Sounds, Non Tender, Soft Rectal: Deferred Back: Normal Inspection, Decreased Range of Motion Extremity: Non Tender, No Calf Tenderness Neurologic/Psychiatric: Alert, Oriented x3, senior php developer II-XII Norm as Tested, Aphasia , Motor Weakness Skin: Normal Color, Warm/Dry Lymphatic: No Adenopathy Results/Procedures Lab Laboratory Tests 08/01/18 05:00 Patient resulted labs reviewed. FIM Transfers Therapy Code Descriptions/Definitions Functional [place] Measure: 0=Not Assessed/NA 4=Minimal Assistance 1=Total Assistance 5=Supervision or Setup 2=Maximal Assistance 6=Modified [place] 3=Moderate Assistance 7=Complete [place] Therapy Quality Codes: 6 Independent with activity with or without an assistive device 5 Patient requires set up or clean up by helper. Patient completes activity by themselves 4 Supervision or touching assist (CGA). [place] provide cues , steadying assist 3 The helper provides less than half the effort to complete the activity 2 The helper provides more than half the effort to complete the activity 1 Dependent. The helper does all the effort to complete an activity 7 Patient refused to complete or attempt activity 9 The patient did not perform the activity before the current illness or injury 88 Not attempted due to Medical conditions or safety concerns Mental Status/Objective Comprehension: 6 Expression: 7 Social Interaction: 7 Problem Solvin Memory: 7 ADL-Treatment Feedin (pt requried additioning timing to open containers/ cut up food. pt demo jr technique. ) Eating (QC): 6 Groomin (additional timing to open containters. ) Oral Hygiene (QC): 6 Bathin (use GB to maintain balance while standig.) Bathing Location: L Arm, R Arm, L Upper Leg, R Upper Leg, L Lower Leg ( including foot), R Lower Leg (including foot), Chest, Abdomen, Buttocks, Perineal Area Shower/Bathe Self (QC): 6 Upper Extremity Dressin (pt demo ability to gather clothing from closet and singh shirt independently ) Upper Body Dressing (QC): 6 Lower Extremity Dressin (use of RW to maintain balance while standing to pull up pants. ) Lower Body Dressing (QC): 6 On/Off Footwear (QC): 6 Toiletin Toileting Hygiene (QC): 6 Toilet/Commode Transfer: 6 Toilet Transfer (QC): 6 Shower: 6 Assessment/Plan Assessment and Plan Assess & Plan/Chief Complaint Assessment: Lumbar compression fracture Plan: IRF protocol Pain meds Ambulate Fine tune prior to DC home Consult Dr Vora to establish Cardiology care is appreciated Checked ECHO Lovenox bridge DC since INR > 2.0 (1) Lumbar compression fracture (2) Mechanical heart valve present (3) Anticoagulant long-term use (4) Right sided weakness (5) Foot drop, right (6) Depression (7) Anxiety (8) Lumbar stenosis (9) Seizure disorder (10) Overactive bladder (11) Hypertension (12) Fall on same level from tripping as cause of accidental injury (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
[2018-08-01] MEDS: LACTULOSE SYRUP 10GM/15ML (ENULOSE) 30ML UDC PO SCH ×2 (08:39→20:40)
[2018-08-01] MEDS: POLYETHYLENE GLYCOL 17 GM (MIRALAX) PACK PO SCH (08:39)
[2018-08-01] MEDS: FLUoxetine HCL 20 MG (PROzac) CAP PO SCH (08:49)
[2018-08-01] MEDS: LIDOCAINE 4% (SALONPAS) PATCH TOP SCH (08:49)
[2018-08-01] MEDS: PHENYTOIN 100 MG (DILANTIN) CAP PO SCH ×3 (08:49→20:41)
[2018-08-01 15:15] VITALS: BP 128/79
[2018-08-01 17:19] VITALS: BP 128/79
[2018-08-01] MEDS: warFARin 5 MG (COUMADIN) TAB PO SCH (18:09)
[2018-08-01] MEDS: LEVETIRACETAM 500 MG (KEPPRA) TAB PO SCH (20:41)
[2018-08-01] MEDS: BACLOFEN 10 MG (LIORESAL) TAB PO PRN (21:54)
[2018-08-01] MEDS: LIDOCAINE PATCH REMOVAL TP SCH (21:54)
[2018-08-02 05:24] VITALS: BP 119/57
[2018-08-02] MEDS ORDERED: ACHD5005 PO (08:16)
[2018-08-02] MEDS ORDERED: Lidocaine 4% Patch TOP (08:16)
[2018-08-02] MEDS ORDERED: BACL10TA PO (08:16)
--- NOTE | 2018-08-02 08:18 | D/C HH Face to Face Order ---
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 Patient Data-Allergies,Ht & Wt Patient Allergies: Coded Allergies: Penicillins (Verified Allergy, Unknown, 07/27/18) tetracycline (Verified Allergy, Unknown, 12/18/14) Height (Feet): 5 Height (Inches): 2.00 Weight (Pounds): 107 Weight (Ounces): 0.8 Home Health Need/Face to Face Date of Face to Face: Aug 02, 2018 Clinical Findings: Generalized weakness and fatigue, Muscle weakness, Unsteady gait I have seen Pt [id number]: Yes Discharged To: Home Diagnosis/Conditions: Lumbar compression fracture Falls Mechanical heart valve Coumadin treatment 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 Pt req the following assistanc: Walker Home Health Nursing Orders Home Health Services Order: Nursing Services, Wireless Sales Manager-Evaluate & Treat, Physical Therapy-Evaluate & Treat, Other (bath aide) Certify Stmt I certify that this patient is under my care and that I, a nurse practitioner or a physician; a legal document assistant working with me, had a face to face encounter that - meets the physician face to face encounter requirements with this patient as dated. TRACEY DEAN DO Aug 02, 2018 08:18
--- NOTE | 2018-08-02 08:20 | Cardiology Progress Note ---
Subjective Date Seen by Provider: Aug 02, 2018 Time Seen by Provider: 08:18 Subjective/Events-last exam Patient is sitting up in bed, no new complaints. Being discharged home today. Denies any chest pain or dyspnea. Objective-Cardiology Exam Last Set of Vital Signs Vital Signs 08/02/18 05:24 Temp 97.8 Pulse 63 Resp 20 B/P (MAP) 119/57 (77) Pulse Ox 97 O2 Delivery Room Air Capillary Refill : Less Than 3 Seconds I&O Intake and Output 08/02/18 00:00 Intake Total 1580 ml Output Total 750 ml Balance 830 ml Intake Oral 1580 ml Output Urine Total 750 ml Bladder Scan Volume Amount 201 ml 201 ml # Voids 5 General: Alert, Oriented X3, Cooperative HEENT: Atraumatic, PERRLA Neck: Supple, No JVD, No Thyromegaly Lungs: Clear to Auscultation, Normal Air Movement Heart: Regular Rate, Normal S1, Normal S2, Other (systolic murmur at the left sternal border) Abdomen: Normal Bowel Sounds, Soft, No Tenderness, No Hepatosplenomegaly, No Masses Extremities: No Clubbing, No Cyanosis, No Edema, Normal Pulses, No Tenderness/ Swelling Skin: No Rashes, No Breakdown, No Significant Lesion Neuro: Normal Speech, Cranial Nerves 3-12 NL Psych/Mental Status: Mental Status NL, Mood NL A/P-Cardiology Admission Diagnosis Generalized weakness HTN Hx Valve replacement Seizure disorder Assessment/Plan Generalized weakness after lumbar compression fracture- continue PT/OT History of aortic valve replacement with mechanical valve, surgery done in [place] in remote past. Maintained on Coumadin. Continue to monitor PT/INR. Continue on Coumadin and monitor INR HTN- controlled. Continue to monitor. Hx of seizure disorder Hx of CVA in 1996 Hx of intracranial bleed secondary to fall in 2014. Patient being discharged home today. F/u in our office in 2-4 weeks. Clinical Quality Measures DVT/VTE Risk/Contraindication: Risk Factor Score Per Nursin RFS Level Per Nursing on Admit: 4+=Very High CHRISSY CHRISTIANSON Aug 02, 2018 08:20
--- NOTE | 2018-08-02 08:20 | Discharge Summary ---
Diagnosis/Chief Complaint Date of Admission Jul 27, 2018 at 10:30 Date of Discharge Discharge Date: Aug 02, 2018 Discharge Diagnosis Assessment: Lumbar compression fracture Plan: IRF protocol Pain meds Ambulate Fine tune prior to DC home Consult Dr Vora to establish Cardiology care is appreciated Checked ECHO Lovenox bridge DC since INR > 2.0 (1) Lumbar compression fracture (2) Mechanical heart valve present (3) Anticoagulant long-term use (4) Right sided weakness (5) Foot drop, right (6) Depression (7) Anxiety (8) Lumbar stenosis (9) Seizure disorder (10) Overactive bladder (11) Hypertension (12) Fall on same level from tripping as cause of accidental injury (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 She was maintained on Coumadin required Lovenox bridges periodically when INR was less than 2.0. Cardiology Dr. Vora was consulted to establish cardiology care since she was new to the area. She participated in all therapies and her pain was well controlled on a Lidocaine patch and minimal amount of pain medication. Bowel regimen was maintained with good results and normalcy. Overall she was found to have good return back to baseline function although the right arm from the stroke from the 20 years prior still remained she did well with a platform walker and overall was able to navigate and return back to baseline to return home to live independently with her sister in law helping her. She had close follow up with Dr. Stewart, he recommended discontinuation of the Oxybutynin since she was retaining urine, follow up with Dr. Vora and Dr. Martinez. Labs (last 24 hrs) Laboratory Tests 07/28/18 05:05: White Blood Count 5.0, Red Blood Count 3.75L, Hemoglobin 11.2L, Hematocrit 36, Mean Corpuscular Volume 95, Mean Corpuscular Hemoglobin 30, Mean Corpuscular Hemoglobin Concent 32, Red Cell Distribution Width 14.3, Platelet Count 237, Mean Platelet Volume 11.8H, Neutrophils (%) (Auto) 63, Lymphocytes (%) (Auto) 19 , Monocytes (%) (Auto) 13H, Eosinophils (%) (Auto) 4, Basophils (%) (Auto) 1, Neutrophils # (Auto) 3.1, Lymphocytes # (Auto) 1.0, Monocytes # (Auto) 0.7, Eosinophils # (Auto) 0.2, Basophils # (Auto) 0.0, Prothrombin Time 22.8H, INR Comment 1.9H, Sodium Level 142, Potassium Level 4.7, Chloride Level 107, Carbon Dioxide Level 25, Anion Gap 10, Blood Urea Nitrogen 20H, Creatinine 0.61, Estimat Glomerular Filtration Rate > 60, BUN/Creatinine Ratio 33, Glucose Level 99, Calcium Level 9.1, Corrected Calcium 9.6, Total Bilirubin 0.2, Aspartate Amino Transf (AST/SGOT) 21, Alanine Aminotransferase (ALT/SGPT) 18, Alkaline Phosphatase 162H, Total Protein 5.9L, Albumin 3.4 07/29/18 06:12: Prothrombin Time 21.6H, INR Comment 1.8H 07/30/18 05:46: Prothrombin Time 24.7H, INR Comment 2.1H 08/01/18 05:00: White Blood Count 5.2, Red Blood Count 3.76L, Hemoglobin 11.2L, Hematocrit 36, Mean Corpuscular Volume 95, Mean Corpuscular Hemoglobin 30, Mean Corpuscular Hemoglobin Concent 31L, Red Cell Distribution Width 13.9, Platelet Count 265, Mean Platelet Volume 11.6H, Neutrophils (%) (Auto) 59, Lymphocytes (%) (Auto) 22 , Monocytes (%) (Auto) 14H, Eosinophils (%) (Auto) 4, Basophils (%) (Auto) 1, Neutrophils # (Auto) 3.1, Lymphocytes # (Auto) 1.1, Monocytes # (Auto) 0.7, Eosinophils # (Auto) 0.2, Basophils # (Auto) 0.1, Prothrombin Time 29.0H, INR Comment 2.6H, Sodium Level 143, Potassium Level 4.2, Chloride Level 107, Carbon Dioxide Level 24, Anion Gap 12, Blood Urea Nitrogen 21H, Creatinine 0.63, Estimat Glomerular Filtration Rate > 60, BUN/Creatinine Ratio 33, Glucose Level 98, Calcium Level 9.0, Corrected Calcium 9.4, Total Bilirubin 0.2, Aspartate Amino Transf (AST/SGOT) 21, Alanine Aminotransferase (ALT/SGPT) 18, Alkaline Phosphatase 185H, Total Protein 5.9L, Albumin 3.5 Pending Labs Laboratory Tests 07/28/18 05:05: White Blood Count 5.0, Red Blood Count 3.75, Hemoglobin 11.2, Hematocrit 36, Mean Corpuscular Volume 95, Mean Corpuscular Hemoglobin 30, Mean Corpuscular Hemoglobin Concent 32, Red Cell Distribution Width 14.3, Platelet Count 237, Mean Platelet Volume 11.8, Neutrophils (%) (Auto) 63, Lymphocytes (%) (Auto) 19 , Monocytes (%) (Auto) 13, Eosinophils (%) (Auto) 4, Basophils (%) (Auto) 1, Neutrophils # (Auto) 3.1, Lymphocytes # (Auto) 1.0, Monocytes # (Auto) 0.7, Eosinophils # (Auto) 0.2, Basophils # (Auto) 0.0, Prothrombin Time 22.8, INR Comment 1.9, Sodium Level 142, Potassium Level 4.7, Chloride Level 107, Carbon Dioxide Level 25, Anion Gap 10, Blood Urea Nitrogen 20, Creatinine 0.61, Estimat Glomerular Filtration Rate > 60, BUN/Creatinine Ratio 33, Glucose Level 99, Calcium Level 9.1, Corrected Calcium 9.6, Total Bilirubin 0.2, Aspartate Amino Transf (AST/SGOT) 21, Alanine Aminotransferase (ALT/SGPT) 18, Alkaline Phosphatase 162, Total Protein 5.9, Albumin 3.4 07/29/18 06:12: Prothrombin Time 21.6, INR Comment 1.8 07/30/18 05:46: Prothrombin Time 24.7, INR Comment 2.1 08/01/18 05:00: White Blood Count 5.2, Red Blood Count 3.76, Hemoglobin 11.2, Hematocrit 36, Mean Corpuscular Volume 95, Mean Corpuscular Hemoglobin 30, Mean Corpuscular Hemoglobin Concent 31, Red Cell Distribution Width 13.9, Platelet Count 265, Mean Platelet Volume 11.6, Neutrophils (%) (Auto) 59, Lymphocytes (%) (Auto) 22 , Monocytes (%) (Auto) 14, Eosinophils (%) (Auto) 4, Basophils (%) (Auto) 1, Neutrophils # (Auto) 3.1, Lymphocytes # (Auto) 1.1, Monocytes # (Auto) 0.7, Eosinophils # (Auto) 0.2, Basophils # (Auto) 0.1, Prothrombin Time 29.0, INR Comment 2.6, Sodium Level 143, Potassium Level 4.2, Chloride Level 107, Carbon Dioxide Level 24, Anion Gap 12, Blood Urea Nitrogen 21, Creatinine 0.63, Estimat Glomerular Filtration Rate > 60, BUN/Creatinine Ratio 33, Glucose Level 98, Calcium Level 9.0, Corrected Calcium 9.4, Total Bilirubin 0.2, Aspartate Amino Transf (AST/SGOT) 21, Alanine Aminotransferase (ALT/SGPT) 18, Alkaline Phosphatase 185, Total Protein 5.9, Albumin 3.5 Discharge Home Medications: Active Scripts Active [Lidocaine 4% Patch] 1 EA Patch 1 Ea TOP DAILY Hydrocodone/Acetaminophen 5/325mg Tablet (Acetaminophen/Hydrocodone Bitart) 1 Tab Tab 1 Tab PO Q4H PRN Baclofen 10 Mg Tablet 10 Mg PO TID PRN Reported Fluoxetine HCl 40 Mg Capsule 40 Mg PO DAILY Fosamax (Alendronate Sodium) 70 Mg Tablet 70 Mg PO WE Keppra (Levetiracetam) 500 Mg Tablet 500 Mg PO HS Warfarin Sodium 2 Mg Tablet 4 Mg PO MOWEFR@1800 TAKES 2 (2MG) TABLETS Warfarin Sodium 2 Mg Tablet 2 Mg PO SUTUTHSA@1800 Phenytoin Sodium Extended 100 Mg Capsule 100 Mg PO 0800,1400,2000 Instructions to patient/family Please see electronic discharge instructions given to patient. 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
[2018-08-02] MEDS: LIDOCAINE 4% (SALONPAS) PATCH TOP SCH (08:50)
[2018-08-02] MEDS: LACTULOSE SYRUP 10GM/15ML (ENULOSE) 30ML UDC PO SCH (08:50)
[2018-08-02] MEDS: FLUoxetine HCL 20 MG (PROzac) CAP PO SCH (08:50)
[2018-08-02] MEDS: POLYETHYLENE GLYCOL 17 GM (MIRALAX) PACK PO SCH (08:50)
[2018-08-02] MEDS: PHENYTOIN 100 MG (DILANTIN) CAP PO SCH (08:50)
--- NOTE | 2018-08-02 09:14 | Cardiology Progress Note ---
Subjective Date Seen by Provider: Aug 02, 2018 Time Seen by Provider: 09:10 Subjective/Events-last exam Patient is in a chair, no new complaint, possible discharge Review of Systems General: No Chills, No Night Sweats, No Fatigue, No Malaise, No Appetite, No Other HEENT: No Head Aches, No Visual Changes, No Eye Pain, No Ear Pain, No Dysphasia , No Sinus Congestion, No Post Nasal Drip, No Sore Throat, No Other Pulmonary: No Dyspnea, No Cough, No Pleuritic Chest Pain, No Other Cardiovascular: No: Chest Pain, Palpitations, Orthopnea, Paroxysmal Noc. Dyspnea, Edema, Lt Headedness, Other Objective-Cardiology Exam Last Set of Vital Signs Vital Signs 08/02/18 05:24 Temp 97.8 Pulse 63 Resp 20 B/P (MAP) 119/57 (77) Pulse Ox 97 O2 Delivery Room Air Capillary Refill : Less Than 3 Seconds I&O Intake and Output 08/02/18 00:00 Intake Total 1580 ml Output Total 750 ml Balance 830 ml Intake Oral 1580 ml Output Urine Total 750 ml Bladder Scan Volume Amount 201 ml 201 ml # Voids 5 General: Alert, Oriented X3, Cooperative HEENT: Atraumatic, PERRLA Neck: Supple, No JVD, No Thyromegaly Lungs: Clear to Auscultation, Normal Air Movement Heart: Regular Rate, Normal S1, Normal S2, Other (systolic murmur at the left sternal border) Abdomen: Normal Bowel Sounds, Soft, No Tenderness, No Hepatosplenomegaly, No Masses Extremities: No Clubbing, No Cyanosis, No Edema, Normal Pulses, No Tenderness/ Swelling Skin: No Rashes, No Breakdown, No Significant Lesion Neuro: Normal Speech, Cranial Nerves 3-12 NL Psych/Mental Status: Mental Status NL, Mood NL A/P-Cardiology Admission Diagnosis Generalized weakness HTN Hx Valve replacement Seizure disorder Assessment/Plan Generalized weakness after lumbar compression fracture- continue PT/OT History of aortic valve replacement with mechanical valve, surgery done in [place] in remote past. Maintained on Coumadin. Continue to monitor PT/INR. Continue on Coumadin and monitor INR HTN- controlled. Continue to monitor. Hx of seizure disorder Hx of CVA in 1996 Hx of intracranial bleed secondary to fall in 2014. Patient being discharged home today. F/u in our office in 2-4 weeks. Clinical Quality Measures DVT/VTE Risk/Contraindication: Risk Factor Score Per Nursin RFS Level Per Nursing on Admit: 4+=Very High VALENTIN HEAD MD Aug 02, 2018 09:14
--- NOTE | 2018-08-02 09:33 | Physical Therapy Daily Note ---
PT Daily Note-Current Subjective Pt laying Supine in bed upon arrival. Pt agrees to PT for FIM scoring for D/C today. Pt asked for SW to visit w/pt after tx for choice of HH & info about [place]. Pain Location: No Pain Reported Mental Status Patient Orientation: Person, Place, Situation Pt still struggling with verbalization. Transfers Therapy Code Descriptions/Definitions Functional [place] Measure: 0=Not Assessed/NA 4=Minimal Assistance 1=Total Assistance 5=Supervision or Setup 2=Maximal Assistance 6=Modified [place] 3=Moderate Assistance 7=Complete [place] Therapy Quality Codes: 6 Independent with activity with or without an assistive device 5 Patient requires set up or clean up by helper. Patient completes activity by themselves 4 Supervision or touching assist (CGA). [place] provide cues , steadying assist 3 The helper provides less than half the effort to complete the activity 2 The helper provides more than half the effort to complete the activity 1 Dependent. The helper does all the effort to complete an activity 7 Patient refused to complete or attempt activity 9 The patient did not perform the activity before the current illness or injury 88 Not attempted due to Medical conditions or safety concerns Transfers (B, C, W/C) (FIM): 6 Scootin Rollin Roll Left to Right (QC): 6 Supine to/from Sit: 6 Sit to/from Stand: 6 Sit to Lying (QC): 6 Sit to Stand (QC): 6 Chair/Izg-wi-Fezdc Xfer(QC): 6 Bed to/from Chair: 6 Car Transfer (QC): 6 Weight Bearing Right Lower Extremity: Right Full Weight Bearing Left Lower Extremity: Left Full Weight Bearing Gait Training Does the Patient Walk?: Yes Gait (FIM): 6 Distance (FIM): 3=150 ft Distance: 150' Walk 10 feet (QC): 6 Walk 50 ft with 2 Turns(QC): 6 Walk 150 ft (QC): 6 Walking 10ft/uneven surface-QC: 6 Gait Level of Assist: 6 Gait Persons Needed: 1 Gait Assistive Device: Walker Platform Wheelchair Training Does the Pt Use a Wheelchair?: No Stair Training Stairs (FIM): 1 #of Steps: 1 1 Step (curb) (QC): 4 Stairs: Pattern: Step to Level of Assist: 4 Pt not able to complete steps and will have ramp at home. 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 Treatments Pt completes transfers including car transfer, ambulation including across varying surface and Bed Mobility. Pt returns to room to rest reclined in recliner with all needs met. Assessment Current Status: Good Progress Pt excited for D/C today. PT Short Term Goals Short Term Goals Time Frame: Aug 03, 2018 Transfers (B,C,W/C) (FIM): 5 Gait (FIM): 5 Gait Distance Comment: 200' Gait Level of Assist: 5 Gait Assistive Device: Walker Platform PT Alf Goals Block Saw Operator Goals PT Alf Goals Time Frame: August 17, 2018 Transfers (B,C,W/C) (FIM): 5 Sit to Lying (QC): 4 Lying-Sitting on Side/Bed(QC): 4 Sit to Stand (QC): 4 Rollin Roll Left to Right (QC): 4 Chair/Ste-wz-Bnaid Xfer(QC): 4 Car Transfer (QC): 4 Gait (FIM): 5 Distance: 300' Walk 10 feet (QC): 4 Walk 10ft-Uneven Surface(QC): 4 Walk 50ft with 2 Turns (QC): 4 Walk 150 ft (QC): 4 Gait Level of Assist: 5 Gait Assistive Device: Walker Platform Stairs (FIM): 2 # of Steps: 4 1 Step (curb) (QC): 4 4 Steps (QC): 4 Stairs Level Of Assist: 4 PT Plan Problem List Problem List: Activity Tolerance Treatment/Plan Treatment Plan: Continue Plan of Care Treatment Plan: Bed Mobility, Education, Functional Activity Francy, Functional Strength, Group Therapy, Gait, Safety, Therapeutic Exercise, Transfers Treatment Duration: August 17, 2018 Frequency: At least 5 of 7 days/Wk (IRF) Estimated Hrs Per Day: 1.5 hours per day Patient and/or Family Agrees t: Yes Safety Risks/Education Patient Education: Gait Training, Correct Positioning, Safety Issues Teaching Recipient: Patient Teaching Methods: Discussion Response to Teaching: Verbalize Understanding Time/GCodes Time In: 800 Time Out: 830 Total Billed Treatment Time: 30 Total Billed Treatment 1, FA x2 (30m) G Codes Necessary: JOSEPH Doss TAX SPECIALIST Aug 02, 2018 09:33
--- NOTE | 2018-08-02 09:34 | Progress Note-Urology ---
Progress Note-Urology Progress Notes/Assess & Plan Progress/Assessment & Plan DOING WELL OFF OXYBUTIN. HOME TODAY. SEE ME IN 2 WEEKS Final Diagnosis NEUROGENIC BLADDER WITH RETENTION AND INCONTINENCE DELROY LOPEZ MD Aug 02, 2018 09:34
--- NOTE | 2018-08-02 09:57 | Occupational Ther Daily Note ---
OT Current Status-Daily Note Subjective pt agreed to OT TX session with focus on increasing independence with ADLS. functional transfers. pt stated she is d/c today Mental Status/Objective Therapy Code Descriptions/Definitions Functional [place] Measure: 0=Not Assessed/NA 4=Minimal Assistance 1=Total Assistance 5=Supervision or Setup 2=Maximal Assistance 6=Modified [place] 3=Moderate Assistance 7=Complete [place] Comprehension(FIM): 6 Expression(FIM): 6 Social Interaction(FIM): 7 Problem Solving(FIM): 7 Memory(FIM): 7 ADL-Treatment Therapy Code Descriptions/Definitions Functional [place] Measure: 0=Not Assessed/NA 4=Minimal Assistance 1=Total Assistance 5=Supervision or Setup 2=Maximal Assistance 6=Modified [place] 3=Moderate Assistance 7=Complete [place] Therapy Quality Codes: 6 Independent with activity with or without an assistive device 5 Patient requires set up or clean up by helper. Patient completes activity by themselves 4 Supervision or touching assist (CGA). [place] provide cues , steadying assist 3 The helper provides less than half the effort to complete the activity 2 The helper provides more than half the effort to complete the activity 1 Dependent. The helper does all the effort to complete an activity 7 Patient refused to complete or attempt activity 9 The patient did not perform the activity before the current illness or injury 88 Not attempted due to Medical conditions or safety concerns Eating (FIM): 7 Eating (QC): 6 Grooming (FIM): 7 Oral Hygiene (QC): 6 Bathing (FIM): 6 (seated with use of hand held shower head) Bathing Location: L Arm, R Arm, L Upper Leg, R Upper Leg, L Lower Leg ( including foot), R Lower Leg (including foot), Chest, Abdomen, Buttocks, Perineal Area Shower/Bathe Self (QC): 6 Upper Body (FIM): 7 Upper Body Dressing (QC): 6 Lower Body Dressing (FIM): 6 (use of RW to maintain balance with one hand) Lower Body Dressing (QC): 6 On/Off Footwear (QC): 6 Toileting (FIM): 7 (3/3 task using no AD) Toileting Hygiene (QC): 6 Transfers (B, C, W/C) (FIM): 6 (use of platform walker) Toilet/Commode Transfer (FIM): 6 Toilet Transfer (QC): 6 Tub Transfer(FIM): 0 Shower Transfer(FIM): 6 (use of GB) pt demo ability to gather clothing from closet and transport items safety into bathroom. pt demo ability to perform ADLS with use of shower chair, grab bar and platform walker. noted no LOB noted this date and pt maintain good safety awareness. pt stated she feels comfortable complete ADLS at home and states no concerns. Other Treatment pt demo ability to stated splint precaution/ wearing schedule and demo ability to successfully singh/. doff resting hand splint. no concerns noted. Education OT Patient Education: Progress toward Goal/Update tx plan Teaching Recipient: Patient Teaching Methods: Discussion Response to Teaching: Verbalize Understanding OT Short Term Goals Short Term Goals Eating(FIM): 6 Grooming(FIM): 5 Bathing(FIM): 5 Bathing Location: L Arm, R Arm, L Upper Leg, R Upper Leg, L Lower Leg ( including foot), R Lower Leg (including foot), Chest, Abdomen, Buttocks, Perineal Area Upper Body Dressing(FIM): 5 Lower Body Dressing(FIM): 5 Toileting(FIM): 5 Transfers (B,C,W/C) (FIM): 5 Toilet/Commode Transfer(FIM): 5 Tub Transfer(FIM): 5 Shower Transfer(FIM): 5 Comprehension(FIM): 5 Additional Short Term Goals: 1-Demonstrate ADL Tasks, 2-Verbalize Understanding , 3-ImproveStrength/Francy 1=Demonstrate adherence to instructed precautions during ADL tasks. 2=Patient will verbalize/demonstrate understanding of assistive devices/ modifications for ADL. 3=Patient will improve strength/tolerance for activity to enable patient to perform ADL's. OT Ed Transporter Goals [place] Goals Eating (FIM): 6 Eating (QC): 6 Groomin Oral Hygiene (QC): 6 Bathing(FIM): 6 Bathing Location: L Arm, R Arm, L Upper Leg, R Upper Leg, L Lower Leg ( including foot), R Lower Leg (including foot), Chest, Abdomen, Buttocks, Perineal Area Shower/Bathe Self (QC): 6 Upper Body Dressing(FIM): 6 Upper Body Dressing (QC): 6 Lower Body Dressing(FIM): 6 Lower Body Dressing (QC): 6 On/Off Footwear (QC): 6 Toileting(FIM): 5 Toileting Hygiene (QC): 6 Transfers (B,C,W/C) (FIM): 6 Toilet/Commode Transfer(FIM): 6 Toilet/Commode Transfer (QC): 6 Tub Transfer(FIM): 0 Shower Transfer(FIM): 6 Comprehension(FIM): 6 Expression (FIM): 6 Social Interaction(FIM): 6 Problem Solving(FIM): 6 Memory(FIM): 6 Additional Goals: 1-Demonstrate ADL Tasks, 2-Verbalize Understanding, 3- ImproveStrength/Francy 1=Demonstrate adherence to instructed precautions during ADL tasks. 2=Patient will verbalize/demonstrate understanding of assistive devices/ modifications for ADL. 3=Patient will improve strength/tolerance for activity to enable patient to perform ADL's. OT Education/Plan Problem List/Assessment pt has made good progress with OT services. pt has met all OT goals. Discharge Recommendations Plan/Recommendations: Discharge/Goals Met Therapy D/C Recommendations: Home w/ Family Support Equpiment Recommendations-D/C: None Target Placement home Treatment Plan/Plan of Care Treatment,Training & Education: Yes Patient would benefit from OT for education, treatment and training to promote independence in ADL's, mobility, safety and/or upper extremity function for ADL' s. Plan of Care: ADL Retraining, Caregiver Training, Concurrent Therapy, Functional Mobility, Group Exercise/Act as Ind, Orthotic Fitting/Training, UE Funct Exercise/Act, UE Neuromus Re-Ed/Coord Treatment Duration: August 17, 2018 Frequency: At least 5 of 7 days/Wk (IRF) Estimated Hrs Per Day: 1.5 hours per day Agreement: Yes Rehab Potential: Good Time/GCodes Start Time: 09:30 Stop Time: 10:15 Billed Treatment Time ADL 45 minutes, 3 units DEBORA SLOAN OT Aug 02, 2018 09:57
--- NOTE | 2018-08-02 10:11 | Therapy Team Discharge Summary ---
Therapy Discharge Summary Discharge Recommendations Date of Discharge 08/02/18 Therapy D/C Recommendations: Home w/ Family Support Occupational Therapy OT has focused on increasing independence with ADLs, functional transfers, activity tolerance, activity endurance, safe IADLs, UE strength, resting hand splint, splint precautions, standing tolerance, overall standing balance, and overall safety with functional tasks in sitting and standing. pt has made great progress will in inpatient rehab. pt is currently performing all ADLs and functional transfers MOD I / I with use of platform walker for functional transfers and GB and shower chair for bathing. pt home is handicap accessible therefore, pt does no need any equipment for discharge. pt is safe to discharge home. 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) PT [employer] Engagement Planning Operator Goals [employer] Operator Goals PT [employer] Planning Operator Goals Time Frame: August 17, 2018 Transfers (B,C,W/C) (FIM): 5 Roll Left to Right (QC): 4 Sit to Lying (QC): 4 Lying-Sitting on Side/Bed(QC): 4 Sit to Stand (QC): 4 Chair/Nof-ki-Anvjy Xfer(QC): 4 Car Transfer (QC): 4 Gait (FIM): 5 Distance: 300' Walk 10 feet (QC): 4 Walk 10ft-Uneven Surface(QC): 4 Walk 50ft with 2 Turns (QC): 4 Walk 150 ft (QC): 4 Gait Level of Assist: 5 Gait Assistive Device: Walker Platform Stairs (FIM): 2 # of Steps: 4 1 Step (curb) (QC): 4 4 Steps (QC): 4 Stairs Level Of Assist: 4 OT [employer] Planning Operator Goals [facility] Goals Eating (FIM): 6 (met) Eating (QC): 6 (MET) Oral Hygiene (QC): 6 (MET) Grooming(FIM): 6 (MET) Bathing(FIM): 6 (MET) Bathing Location: L Arm, R Arm, L Upper Leg, R Upper Leg, L Lower Leg ( including foot), R Lower Leg (including foot), Chest, Abdomen, Buttocks, Perineal Area Shower/Bathe Self (QC): 6 (MET) Upper Body Dressing(FIM): 6 (MET) Upper Body Dressing (QC): 6 (MET) Lower Body Dressing(FIM): 6 (MET) Lower Body Dressing (QC): 6 (MET) On/Off Footwear (QC): 6 (MET) Toileting(FIM): 5 (MET) Toileting Hygiene (QC): 6 (MET) Transfers (B,C,W/C) (FIM): 6 (MET) Toilet/Commode Transfer(FIM): 6 (MET) Toilet/Commode Transfer (QC): 6 (MET) Tub Transfer(FIM): 0 Shower Transfer(FIM): 6 (MET) Comprehension(FIM): 6 (MET) Expression (FIM): 6 (MET) Social Interaction(FIM): 6 (MET) Problem Solving(FIM): 6 (MET) Memory(FIM): 6 (MET) Additional Goals: 1-Demonstrate ADL Tasks, 2-Verbalize Understanding, 3- ImproveStrength/Francy 1=Demonstrate adherence to instructed precautions during ADL tasks. 2=Patient will verbalize/demonstrate understanding of assistive devices/ modifications for ADL. 3=Patient will improve strength/tolerance for activity to enable patient to perform ADL's. Speech [employer] Planning Operator Goals [facility] Goals Comprehension: 6 Expression: 6 Social Interaction: 6 Problem Solvin Memory: 6 DEBORA SLOAN OT Aug 02, 2018 10:11
[2018-08-02 13:06] VITALS: BP 119/57
== END 2018-08-02 15:54 | disposition home health service (06) | DRG 560 ==
PROVIDERS: ADMIT Internal Medicine; ATTEND Internal Medicine
DX: S32.050D Wedge compression fracture of fifth lumbar vertebra, subsequent encounter for fracture with routine healing (principal); S32.020D Wedge compression fracture of second lumbar vertebra, subsequent encounter for fracture with routine healing; M48.061 Spinal stenosis, lumbar region without neurogenic claudication; I69.351 Hemiplegia and hemiparesis following cerebral infarction affecting right dominant side; I69.398 Other sequelae of cerebral infarction; M21.371 Foot drop, right foot; M81.0 Age-related osteoporosis without current pathological fracture; N31.9 Neuromuscular dysfunction of bladder, unspecified; N39.3 Stress incontinence (female) (male); R33.9 Retention of urine, unspecified; N32.81 Overactive bladder; G40.909 Epilepsy, unspecified, not intractable, without status epilepticus; I10 Essential (primary) hypertension; E78.00 Pure hypercholesterolemia, unspecified; Z95.2 Presence of prosthetic heart valve; F41.9 Anxiety disorder, unspecified; F32.9 Major depressive disorder, single episode, unspecified; H54.62 Unqualified visual loss, left eye, normal vision right eye; Z79.01 Long term (current) use of anticoagulants; W18.09XD Striking against other object with subsequent fall, subsequent encounter
CPT/HCPCS: 36415; 80053; 85025; 85610; 93306

== ENCOUNTER 2018-08-28 23:36 | Emergency (ER) | payer MEDICARE, OTHER | END 2018-08-29 01:45 | disposition home or self-care (01) | LOC: ER 08-29 01:45 ==

== ENCOUNTER 2018-09-01 05:50 | Outpatient (CLI) | payer MEDICARE, OTHER ==
[~2018-09-01] VITALS: Ht 157.5 cm; Wt 49.9 kg
[~2018-09-01 05:50] MED LIST changes: +ACHD5005 PO; +FLUO40CA PO; +Lidocaine 4% Patch TOP; +OXYB15TA PO
[2018-09-01] MEDS ORDERED: OXYB5TAB9 PO (12:41)
== END 2018-09-02 14:27 | disposition home or self-care (01) ==
LOC: PREOP 05:50
PROVIDERS: ATTEND Specialist
DX: Z01.818 Encounter for other preprocedural examination (principal)

== ENCOUNTER 2018-09-03 09:27 | Day surgery (SDC) | payer MEDICARE, OTHER ==
[~2018-09-03] VITALS: Ht 157.5 cm; Wt 49.9 kg
[~2018-09-03 09:27] MED LIST changes: +OXYB5TAB9 PO
[2018-09-03 09:35] VITALS: BP 137/61
[2018-09-03] MEDS ORDERED: POVIDONE (BETADINE) OPHTH SOLN 5% 30 ML OP ONE (09:45)
[2018-09-03] MEDS ORDERED: MOXIFLOXACIN OPHTH SOLN 5 MG/ML 0.3 ML SYRINGE OP ONE (09:45)
[2018-09-03] MEDS ORDERED: TIMOLOL MALEATE 0.5% 5 ML (TIMOPTIC) BTL OU PRN (09:45)
[2018-09-03] MEDS ORDERED: LIDOCAINE PF 1% 2 ML AMP IR PRN (09:45)
[2018-09-03] MEDS: TETRACAINE 0.5% OPHTH SOLN 4 ML BTL (SINGLE DOSE ONLY) OU PRN ×4 (10:00→10:15)
--- OUTSIDE RECORDS SUMMARY | 2018-09-03 10:03 | XMS REPORT | Continuity of Care Document ---
Author Organization Unknown Address Unknown Allergies Active Description Code Type Severity Reaction Onset Reported/Identified Relationship to Patient Clinical Status Yes PENICILLINS MODERATE OTHER Yes TETRACYCLINE MILD DERMATOLOGICAL - ERIC Yes No Known Drug Allergies [id number] Drug Allergy Unknown N/A 12/18/2014 Yes tetracycline [id number] Drug Allergy Unknown N/A 12/18/2014 Yes Penicillins [id number] Drug Allergy Unknown N/A 07/27/2018 Yes Sulfa (Sulfonamide Antibiotics) [id number] Drug Allergy Unknown N/A 09/01/2018 Medications Medication Packaging Start Date Stop Date [...] BID&0800,2000 WARFARIN TAB 2 MG (COUMADIN) tab 07/20/2018 07/26/2018 Daily&1700 LEVETIRACETAM TAB 500 MG (KEPPRA) [...] BID&0800,2000 BACLOFEN TAB 10 MG (LIORESAL) MG 07/21/2018 07/31/2018 PRN TID FENTANYL PATCH PAT 12 MCG/HR (DURAGESIC PATCH) PATCH 07/21/2018 08/02/2018 Q72H&0800 BISACODYL TAB 5 MG (DULCOLAX) MG 07/21/2018 07/27/2018 PRN Daily POLYETHYLENE GLYCOL POWDER UD PWD (MIRALAX 17GM UNIT DOSE PAKS) gm 07/21/2018 07/27/2018 Daily&0900 BISACODYL SUPPOS 10 MG (DULCOLAX SUPPOS) MG 07/21/2018 07/27/2018 PRN Daily FENTANYL INJ 100 MCG/2CC VIAL MCG 07/21/2018 07/24/2018 PRN Q3H MILK OF CYNDI ROSALES ml 07/21/2018 08/19/2018 PRN Daily WARFARIN TAB 2 MG (COUMADIN) tab 07/21/2018 07/27/2018 Daily&0900 FENTANYL PATCH PAT 25 MCG/HR [...] Q4H BACLOFEN TAB 10 MG (LIORESAL) MG 07/24/2018 08/03/2018 PRN TID ALUM/MAG/SIMETH 30CC LIQ (MYLANTA PLUS) cc 07/24/2018 08/03/2018 PRN Q4H GUAIFENESIN - DM LIQ (ROBITUSSIN DM) MLS 07/24/2018 07/31/2018 PRN Q4H WARFARIN TAB 2 MG (COUMADIN) MG 07/24/2018 07/30/2018 QPM&1800 Docusate sodium 100mg oral capsule (COLACE) 07/24/2018 08/23/2018 PRN BID LACTULOSE SYRUP LIQ 20 GM/30CC (CHRONULAC SYRUP) GM 07/24/2018 08/23/2018 BID&0800,2000 LEVETIRACETAM TAB 500 MG (KEPPRA) MG 07/24/2018 08/22/2018 QHS&2100 MELATONIN TAB 3 MG (MELATONIN) MG 07/24/2018 07/30/2018 PRN QHS HYDROCODONE/APAP 5MG/325MG TAB 5 MG/325MG (JAQUELINE-TAB 5/325) TAB 07/25/2018 08/04/2018 PRN Q4H BISACODYL TAB 5 MG (DULCOLAX) MG 07/25/2018 07/31/2018 PRN Daily POLYETHYLENE GLYCOL POWDER UD PWD (MIRALAX 17GM UNIT DOSE PAKS) gm 07/25/2018 08/23/2018 Daily&0900 FLUOXETINE CAP 20 MG (PROZAC) MG 07/25/2018 07/31/2018 Daily&0900 BISACODYL SUPPOS 10 MG (DULCOLAX SUPPOS) MG 07/25/2018 07/31/2018 PRN Daily Lidocaine adhesive patch 5% (Lidoderm) PATCH 07/25/2018 08/03/2018 Daily&0900 MILK OF MAGNESIA LIQ ml 07/25/2018 08/23/2018 PRN Daily ENOXAPARIN SYRINGE INJ 40 MG (LOVENOX SYRINGE) MG 07/25/2018 08/04/2018 BID&0800,2000 WARFARIN TAB 2 MG (COUMADIN) MG 07/26/2018 07/30/2018 QPM&1800 ALENDRONATE TAB 35 MG (FOSAMAX) MG 07/28/2018 08/18/2018 Q1WK&0600 Problems Date Dx Coded Attending Type Code Diagnosis Diagnosed By 12/18/2014 DEENA ROBERSON, ROSENDO Shaffer Ot 432.9 INTRACRANIAL HEMORR NOS 12/18/2014 DEENA ROBERSON, ROSENDO Shaffer Ot 873.42 OPEN WOUND OF FOREHEAD 12/18/2014 DEENA ROBERSON, ROSENDO Shaffer Ot 959.01 HEAD INJURY, NOS 12/18/2014 DEENA ROBERSON, ROSENDO Shaffer Ot E000.8 OTHER EXTERNAL CAUSE STATUS 12/18/2014 ROSENDO SHAFFER MD Ot E001.0 ACTIVITIES INVOLVING WALKING, MARCHING A 12/18/2014 ROSENDO SHAFFER MD Ot E849.6 ACCIDENT IN PUBLIC BLDG 12/18/2014 ROSENDO SHAFFER MD Ot E885.9 FALL FROM SLIPPING, TRIPPING, OR STUMBLI 12/26/2014 FIFI PARKER DO Ot V58.32 ENCOUNTER FOR REMOVAL OF SUTURES 01/21/2018 ENRRIQUE ARRIAGA APRN Ot I63.9 CEREBRAL INFARCTION, UNSPECIFIED 01/21/2018 DARÍO ARRIAGARE O SALAD CHEF Ot I67.82 CEREBRAL ISCHEMIA 01/21/2018 NWENRRIQUE PRUETT APRN Ot S09.90XA UNSPECIFIED INJURY OF HEAD, INITIAL ENCO 01/21/2018 NWGUNNERWDARÍO AcostaRE O SALAD CHEF Ot W19.XXXA UNSPECIFIED FALL, INITIAL ENCOUNTER 02/04/2018 ENRRIQUE ARRIAGA APRN Ot I63.9 CEREBRAL INFARCTION, UNSPECIFIED 02/04/2018 ENRRIQUE ARRIAGA APRN Ot I67.82 CEREBRAL ISCHEMIA 02/04/2018 NWGUNNERWDARÍO AcostaRE O SALAD CHEF Ot S09.90XA UNSPECIFIED INJURY OF HEAD, INITIAL ENCO 02/04/2018 ENRRIQUE ARRIAGA O SALAD CHEF Ot W19.XXXA UNSPECIFIED FALL, INITIAL ENCOUNTER 03/11/2018 JEWEL ROBERSON, ANUEL Betts Ot I69.351 HEMIPLGA FOLLOWING CEREBRAL INFRC AFF RI 03/18/2018 JEWEL ROBERSON, ANUEL Betts Ot I69.351 HEMIPLGA FOLLOWING CEREBRAL INFRC AFF RI 03/19/2018 JEWEL ROBERSON, ANUEL Betts Ot I69.351 HEMIPLGA FOLLOWING CEREBRAL INFRC AFF RI 07/20/2018 Tracey Dean S32.0 FRACTURE OF LUMBAR VERTEBRA 07/20/2018 Tracey Dean S32.0 FRACTURE OF LUMBAR VERTEBRA 07/23/2018 NWAGWU, ISIDORE O SALAD CHEF Ot I63.9 CEREBRAL INFARCTION, UNSPECIFIED 07/23/2018 NWAGWU, ISIDORE O SALAD CHEF Ot I67.82 CEREBRAL ISCHEMIA 07/23/2018 NWAGWU, ISIDORE O SALAD CHEF Ot S09.90XA UNSPECIFIED INJURY OF HEAD, INITIAL ENCO 07/23/2018 NWAGWU, ISIDORE O SALAD CHEF Ot W19.XXXA UNSPECIFIED FALL, INITIAL ENCOUNTER 07/24/2018 Tracey Dean 345.90 07/24/2018 Tracey Dean W 438.31 07/24/2018 Tracey Dean W 733.00 07/24/2018 Tracey Dean 805.4 CLOSED FRACTURE OF LUMBAR VERTEBRA WITHOUT MENTION OF SPINAL CORD INJURY 07/24/2018 Tracey Dean G40.909 EPILEPSY, UNSP, NOT INTRACTABLE, WITHOUT STATUS EPILEPTICUS 07/24/2018 Tracey Dean 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 07/24/2018 Tracey Dean M81.0 AGE- RELATED OSTEOPOROSIS W/O CURRENT PATHOLOGICAL FRACTURE 07/24/2018 Tracey Dean S32.0 FRACTURE OF LUMBAR VERTEBRA 07/24/2018 Tracey Dean S32.029A UNSP FRACTURE OF SECOND LUMBAR VERTEBRA, INIT FOR CLOS FX 07/24/2018 Tracey Dean S32.059A UNSP FRACTURE OF FIFTH LUMBAR VERTEBRA, INIT FOR CLOS FX 07/24/2018 Tracey Dean V43.3 HEART VALVE REPLACED BY OTHER MEANS 07/24/2018 Tracey Dean V58.61 LONG- TERM (CURRENT) USE OF ANTICOAGULANTS 07/24/2018 Tracey Dean W Z79.01 LONGTERM (CURRENT) USE OF ANTICOAGULANTS 07/24/2018 Tracey Dean W Z95.2 PRESENCE OF PROSTHETIC HEART VALVE 07/28/2018 ENRRIQUE ARRIAGA APRN Ot I63.9 CEREBRAL INFARCTION, UNSPECIFIED 07/28/2018 NWENRRIQUE PRUETT O SALAD CHEF Ot I67.82 CEREBRAL ISCHEMIA 07/28/2018 NWDARÍO PRUETT O SALAD CHEF Ot S09.90XA UNSPECIFIED INJURY OF HEAD, INITIAL ENCO 07/28/2018 ENRRIQUE ARRIAGA O SALAD CHEF Ot W19.XXXA UNSPECIFIED FALL, INITIAL ENCOUNTER 08/02/2018 TRACEY DEAN DO Ot E78.00 PURE HYPERCHOLESTEROLEMIA, UNSPECIFIED 08/02/2018 TRACEY DEAN DO Ot F32.9 MAJOR DEPRESSIVE DISORDER, SINGLE EPISOD 08/02/2018 TRACEY DEAN DO Ot F41.9 ANXIETY DISORDER, UNSPECIFIED 08/02/2018 TRACEY DEAN DO Ot G40.909 EPILEPSY, UNSP, NOT INTRACTABLE, WITHOUT 08/02/2018 MICHELLE DEAN DOI Ot H54.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, LEFT EYE, [place] 08/02/2018 TRACEY DEAN DO Ot I10 ESSENTIAL (PRIMARY) HYPERTENSION 08/02/2018 TRACEY DEAN DO Ot I69.351 HEMIPLGA FOLLOWING CEREBRAL INFRC AFF RI 08/02/2018 MICHELLE DEAN DOI Ot I69.398 OTHER SEQUELAE OF CEREBRAL INFARCTION 08/02/2018 TRACEY DEAN DO Ot M21.371 FOOT DROP, RIGHT FOOT 08/02/2018 TRACEY DEAN DO Ot M48.061 SPINAL STENOSIS, LUMBAR REGION WITHOUT N 08/02/2018 TRACEY DEAN DO Ot M81.0 AGE-RELATED OSTEOPOROSIS W/O CURRENT PAT 08/02/2018 TRACEY DEAN DO Ot N31.9 NEUROMUSCULAR DYSFUNCTION OF BLADDER, UN 08/02/2018 MICHELLE DEAN DOI Ot N32.81 OVERACTIVE BLADDER 08/02/2018 TRACEY DEAN DO Ot N39.3 STRESS INCONTINENCE (FEMALE) (MALE) 08/02/2018 TRACEY DEAN DO Ot R33.9 RETENTION OF URINE, UNSPECIFIED 08/02/2018 MICHELLE DEAN DOI Ot S32.020D WEDGE COMPRSN FX SECOND LUM VERT, SUBS F 08/02/2018 JERMAINE SALEH TRACEY Ot S32.050D WEDGE COMPRSN FX FIFTH LUM VERT, SUBS FO 08/02/2018 JERMAINE SALEH TRACEY Ot W18.09XD STRIKING AGAINST OTH OBJECT W SUBSEQUENT 08/02/2018 DEANTRACEY ALDANA DO Ot Z79.01 LONGTERM (CURRENT) USE OF ANTICOAGULANT 08/02/2018 TRACEY DEAN DO Ot Z95.2 PRESENCE OF PROSTHETIC HEART VALVE 09/02/2018 CHUY ROGERS DO Ot E78.00 PURE HYPERCHOLESTEROLEMIA, UNSPECIFIED 09/02/2018 CHUY ROGERS DO, Ot F32.9 MAJOR DEPRESSIVE DISORDER, SINGLE EPISOD 09/02/2018 CHUY ROGERS DO, Ot F41.9 ANXIETY DISORDER, UNSPECIFIED 09/02/2018 CHUY ROGERS DO, Ot G40.909 EPILEPSY, UNSP, NOT INTRACTABLE, WITHOUT 09/02/2018 CHUY ROGERS DO Ot I10 ESSENTIAL (PRIMARY) HYPERTENSION 09/02/2018 CHUY ROGERS DO Ot M62.81 MUSCLE WEAKNESS (GENERALIZED) 09/02/2018 CHUY ROGERS DO Ot M81.0 AGE-RELATED OSTEOPOROSIS W/O CURRENT PAT 09/02/2018 CHUY ROGERS DO Ot R51 HEADACHE 09/02/2018 CHUY ROGERS DO Ot S01.01XA LACERATION WITHOUT FOREIGN BODY OF SCALP 09/02/2018 CHUY ROGERS DO, Ot S09.90XA UNSPECIFIED INJURY OF HEAD, INITIAL ENCO 09/02/2018 CHUY ROGERS DO Ot W01.198A FALL SAME LEV FROM SLIP/TRIP W STRIKE AG 09/02/2018 CHUY ROGERS DO Ot Z23 ENCOUNTER FOR IMMUNIZATION 09/02/2018 CHUY ROGERS DO, Ot Z79.01 LONGTERM (CURRENT) USE OF ANTICOAGULANT 09/02/2018 CHUY ROGERS DO, Ot Z86.73 PRSNL HX OF TIA (TIA), AND CEREB INFRC W 09/02/2018 CHUY ROGERS DO, Ot Z88.0 ALLERGY STATUS TO PENICILLIN 09/02/2018 CHUY ROGERS DO, Ot Z88.1 ALLERGY STATUS TO OTHER ANTIBIOTIC AGENT 09/02/2018 CHUY ROGERS DO Ot Z90.710 ACQUIRED ABSENCE OF BOTH CERVIX AND UTER 09/02/2018 CHUY ROGERS DO Ot Z95.2 PRESENCE OF PROSTHETIC HEART VALVE 09/02/2018 CHUY ROGERS DO Ot 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 Results Test Result Range CMP - 10/09/17 12:07 GLUCOSE 88 mg/dL 65-99 UREA NITROGEN (BUN) 16 mg/dL 7-25 CREATININE 0.66 mg/dL 0.60-0.93 eGFR NON-AFR. CITIZEN OF [place] 85 mL/min/1.73m2 > OR=60 eGFR 98 mL/min/1.73m2 [...] 19 U/L 10-35 ALT 10 U/L 6-29 [id number] - 01/20/18 12:35 Serum or plasma urea [...] 5-8.5 Urine-Protein Negative Negative Urine-RBC Rare/HPF Urine-Specific [place] 1.015 1.000-1.030 Urine-WBC Negative Urobilinogen 0.2 0.2-1.0 [...] 32.6 g/dL 32.0-36.0 MCV 95.1 fL 80.0-97.0 [place]% 12.7 % 0.0-12.0 MPV 12.5 fL 7.4-10.0 All% 73.4 % 37.0-80.0 Plt 209 K/uL 150-400 RBC 3.68 M/uL 3.60-5.00 RDW 13.8 % 11.6-14.8 WBC 6.04 K/uL 5.00-10.00 All 4.43 K/uL 2.00-6.90 [place] 0.8 K/uL 0.0-0.9 Baso 0.0 K/uL 0.0-0.2 [...] 0.2 mg/dL 0.2-1.2 TP 5.6 g/dL 6.0-8.3 Complete blood count (CBC) with automated white blood cell (WBC) differential - 07/28/18 05:05 Blood leukocytes automated count (number/volume) 5.0 10*3/uL 4.3-11.0 Blood erythrocytes automated count (number/volume) 3.75 10*6/uL 4.35-5.85 Venous blood hemoglobin measurement (mass/volume) 11.2 g/dL 11.5-16.0 Blood hematocrit (volume fraction) 36 % 35-52 Automated erythrocyte mean corpuscular volume 95 [foz_us] 80-99 Automated erythrocyte mean corpuscular hemoglobin (mass per erythrocyte) 30 pg 25-34 Automated erythrocyte mean corpuscular hemoglobin concentration measurement (mass/volume) 32 g/dL 32-36 Automated erythrocyte distribution width ratio 14.3 % 10.0- 14.5 Automated blood platelet count (count/volume) 237 10*3/uL 130-400 Automated blood platelet mean volume measurement 11.8 [foz_us] 7.4-10.4 Automated blood neutrophils/100 leukocytes 63 % 42-75 Automated blood lymphocytes/100 leukocytes 19 % 12-44 Blood monocytes/100 leukocytes 13 % 0-12 Automated blood eosinophils/100 leukocytes 4 % 0-10 Automated blood basophils/100 leukocytes 1 % 0-10 Blood neutrophils automated count (number/volume) 3.1 10*3 1.8-7.8 Blood lymphocytes automated count (number/volume) 1.0 10*3 1.0-4.0 Blood monocytes automated count (number/volume) 0.7 10*3 0.0- 1.0 Automated eosinophil count 0.2 10*3/uL 0.0-0.3 Automated blood basophil count (count/volume) 0.0 10*3/uL 0.0-0.1 Comprehensive metabolic panel - 07/28/18 05:05 Serum or plasma sodium measurement (moles/volume) 142 mmol/L 135-145 Serum or plasma potassium measurement (moles/volume) 4.7 mmol/L 3.6-5.0 Serum or plasma chloride measurement (moles/volume) 107 mmol/L 98-107 Carbon dioxide 25 mmol/L 21-32 Serum or plasma anion gap determination (moles/volume) 10 mmol/L 5-14 Serum or plasma urea nitrogen measurement (mass/volume) 20 mg/dL 7-18 Serum or plasma creatinine measurement (mass/volume) 0.61 mg/dL 0.60-1.30 Serum or plasma urea nitrogen/creatinine mass ratio 33 NRG Serum or plasma creatinine measurement with calculation of estimated glomerular filtration rate > NRG Serum or plasma glucose measurement (mass/volume) 99 mg/dL 70-105 Serum or plasma calcium measurement (mass/volume) 9.1 mg/dL 8.5-10.1 Serum or plasma total bilirubin measurement (mass/volume) 0.2 mg/dL 0.1-1.0 Serum or plasma alkaline phosphatase measurement (enzymatic activity/volume) 162 U/L 40-136 Serum or plasma aspartate aminotransferase measurement (enzymatic activity/volume) 21 U/L 5-34 Serum or plasma alanine aminotransferase measurement (enzymatic activity/volume) 18 U/L 0-55 Serum or plasma protein measurement (mass/volume) 5.9 g/dL 6.4-8.2 Serum or plasma albumin measurement (mass/volume) 3.4 g/dL 3.2-4.5 CALCIUM CORRECTED 9.6 mg/dL 8.5-10.1 PT panel in platelet poor plasma by coagulation assay - 07/28/18 05:05 Prothrombin time (PT) in platelet poor plasma by coagulation assay 22.8 s 12.2-14.7 INR in platelet poor plasma or blood by coagulation assay 1.9 0.8-1.4 PT panel in platelet poor plasma by coagulation assay - 07/29/18 06:12 Prothrombin time (PT) in platelet poor plasma by coagulation assay 21.6 s 12.2-14.7 INR in platelet poor plasma or blood by coagulation assay 1.8 0.8-1.4 PT panel in platelet poor plasma by coagulation assay - 07/30/18 05:46 Prothrombin time (PT) in platelet poor plasma by coagulation assay 24.7 s 12.2-14.7 INR in platelet poor plasma or blood by coagulation assay 2.1 0.8-1.4 Complete blood count (CBC) with automated white blood cell (WBC) differential - 08/01/18 05:00 Blood leukocytes automated count (number/volume) 5.2 10*3/uL 4.3-11.0 Blood erythrocytes automated count (number/volume) 3.76 10*6/uL 4.35-5.85 Venous blood hemoglobin measurement (mass/volume) 11.2 g/dL 11.5-16.0 Blood hematocrit (volume fraction) 36 % 35-52 Automated erythrocyte mean corpuscular volume 95 [foz_us] 80-99 Automated erythrocyte mean corpuscular hemoglobin (mass per erythrocyte) 30 pg 25-34 Automated erythrocyte mean corpuscular hemoglobin concentration measurement (mass/volume) 31 g/dL 32-36 Automated erythrocyte distribution width ratio 13.9 % 10.0- 14.5 Automated blood platelet count (count/volume) 265 10*3/uL 130-400 Automated blood platelet mean volume measurement 11.6 [foz_us] 7.4-10.4 Automated blood neutrophils/100 leukocytes 59 % 42-75 Automated blood lymphocytes/100 leukocytes 22 % 12-44 Blood monocytes/100 leukocytes 14 % 0-12 Automated blood eosinophils/100 leukocytes 4 % 0-10 Automated blood basophils/100 leukocytes 1 % 0-10 Blood neutrophils automated count (number/volume) 3.1 10*3 1.8-7.8 Blood lymphocytes automated count (number/volume) 1.1 10*3 1.0-4.0 Blood monocytes automated count (number/volume) 0.7 10*3 0.0- 1.0 Automated eosinophil count 0.2 10*3/uL 0.0-0.3 Automated blood basophil count (count/volume) 0.1 10*3/uL 0.0-0.1 PT panel in platelet poor plasma by coagulation assay - 08/01/18 05:00 Prothrombin time (PT) in platelet poor plasma by coagulation assay 29.0 s 12.2-14.7 INR in platelet poor plasma or blood by coagulation assay 2.6 0.8-1.4 Comprehensive metabolic panel - 08/01/18 05:00 Serum or plasma sodium measurement (moles/volume) 143 mmol/L 135-145 Serum or plasma potassium measurement (moles/volume) 4.2 mmol/L 3.6-5.0 Serum or plasma chloride measurement (moles/volume) 107 mmol/L 98-107 Carbon dioxide 24 mmol/L 21-32 Serum or plasma anion gap determination (moles/volume) 12 mmol/L 5-14 Serum or plasma urea nitrogen measurement (mass/volume) 21 mg/dL 7-18 Serum or plasma creatinine measurement (mass/volume) 0.63 mg/dL 0.60-1.30 Serum or plasma urea nitrogen/creatinine mass ratio 33 NRG Serum or plasma creatinine measurement with calculation of estimated glomerular filtration rate > NRG Serum or plasma glucose measurement (mass/volume) 98 mg/dL 70-105 Serum or plasma calcium measurement (mass/volume) 9.0 mg/dL 8.5-10.1 Serum or plasma total bilirubin measurement (mass/volume) 0.2 mg/dL 0.1-1.0 Serum or plasma alkaline phosphatase measurement (enzymatic activity/volume) 185 U/L 40-136 Serum or plasma aspartate aminotransferase measurement (enzymatic activity/volume) 21 U/L 5-34 Serum or plasma alanine aminotransferase measurement (enzymatic activity/volume) 18 U/L 0-55 Serum or plasma protein measurement (mass/volume) 5.9 g/dL 6.4-8.2 Serum or plasma albumin measurement (mass/volume) 3.5 g/dL 3.2-4.5 CALCIUM CORRECTED 9.4 mg/dL 8.5-10.1 Complete blood count (CBC) with automated white blood cell (WBC) differential - 08/29/18 00:05 Blood leukocytes automated count (number/volume) 7.4 10*3/uL 4.3-11.0 Blood erythrocytes automated count (number/volume) 4.06 10*6/uL 4.35-5.85 Venous blood hemoglobin measurement (mass/volume) 12.3 g/dL 11.5-16.0 Blood hematocrit (volume fraction) 37 % 35-52 Automated erythrocyte mean corpuscular volume 92 [foz_us] 80-99 Automated erythrocyte mean corpuscular hemoglobin (mass per erythrocyte) 30 pg 25-34 Automated erythrocyte mean corpuscular hemoglobin concentration measurement (mass/volume) 33 g/dL 32-36 Automated erythrocyte distribution width ratio 14.1 % 10.0- 14.5 Automated blood platelet count (count/volume) 215 10*3/uL 130-400 Automated blood platelet mean volume measurement 11.6 [foz_us] 7.4-10.4 Automated blood neutrophils/100 leukocytes 74 % 42-75 Automated blood lymphocytes/100 leukocytes 14 % 12-44 Blood monocytes/100 leukocytes 11 % 0-12 Automated blood eosinophils/100 leukocytes 1 % 0-10 Automated blood basophils/100 leukocytes 0 % 0-10 Blood neutrophils automated count (number/volume) 5.4 10*3 1.8-7.8 Blood lymphocytes automated count (number/volume) 1.0 10*3 1.0-4.0 Blood monocytes automated count (number/volume) 0.8 10*3 0.0- 1.0 Automated eosinophil count 0.1 10*3/uL 0.0-0.3 Automated blood basophil count (count/volume) 0.0 10*3/uL 0.0-0.1 PT panel in platelet poor plasma by coagulation assay - 08/29/18 00:05 Prothrombin time (PT) in platelet poor plasma by coagulation assay 27.3 s 12.2-14.7 INR in platelet poor plasma or blood by coagulation assay 2.4 0.8-1.4 Activated partial thromboplastin time (aPTT) in platelet poor plasma bycoagulation assay - 08/29/18 00:05 Activated partial thromboplastin time (aPTT) in platelet poor plasma bycoagulation assay 40 s 24-35 Comprehensive metabolic panel - 08/29/18 00:05 Serum or plasma sodium measurement (moles/volume) 141 mmol/L 135-145 Serum or plasma potassium measurement (moles/volume) 3.9 mmol/L 3.6-5.0 Serum or plasma chloride measurement (moles/volume) 106 mmol/L 98-107 Carbon dioxide 24 mmol/L 21-32 Serum or plasma anion gap determination (moles/volume) 11 mmol/L 5-14 Serum or plasma urea nitrogen measurement (mass/volume) 16 mg/dL 7-18 Serum or plasma creatinine measurement (mass/volume) 0.73 mg/dL 0.60-1.30 Serum or plasma urea nitrogen/creatinine mass ratio 22 NRG Serum or plasma creatinine measurement with calculation of estimated glomerular filtration rate > NRG Serum or plasma glucose measurement (mass/volume) 118 mg/dL 70-105 Serum or plasma calcium measurement (mass/volume) 9.0 mg/dL 8.5-10.1 Serum or plasma total bilirubin measurement (mass/volume) 0.2 mg/dL 0.1-1.0 Serum or plasma alkaline phosphatase measurement (enzymatic activity/volume) 155 U/L 40-136 Serum or plasma aspartate aminotransferase measurement (enzymatic activity/volume) 21 U/L 5-34 Serum or plasma alanine aminotransferase measurement (enzymatic activity/volume) 12 U/L 0-55 Serum or plasma protein measurement (mass/volume) 6.6 g/dL 6.4-8.2 Serum or plasma albumin measurement (mass/volume) 4.2 g/dL 3.2-4.5 CALCIUM CORRECTED 8.8 mg/dL 8.5-10.1 Encounters ACCT No. Visit Date/Time Discharge Status Pt. Type Provider Facility Loc./Unit Complaint [id number] 08/12/2018 11:40:00 08/12/2018 23:59:59 CLS Outpatient ANUEL HOLLOWAY MD [facility] [id number] 10/09/2017 10:20:00 Document Registration [id number] 07/24/2018 10:00:00 07/27/2018 09:50:00 DIS Inpatient Former[facility] MED-SURG [id number] 07/20/2018 19:10:00 07/24/2018 10:00:00 DIS Inpatient Formerly [facility] MED-SURG [id number] 07/20/2018 16:07:00 Document Registration [id number] 07/20/2018 19:10:00 Document Registration [id number] 08/28/2018 23:36:00 08/29/2018 01:45:00 DIS Outpatient CHUY ROGERS DO [facility] ER FALL [id number] 08/06/2018 12:00:00 08/06/2018 23:59:59 CLS Preadmit VALENTE WALKER MD [facility] SDC CATARACT RIGHT EYE [id number] 07/27/2018 10:30:00 08/02/2018 15:54:00 DIS Inpatient TRACEY DEAN DO [facility] IRF LUMBAR COMPRESSION FX [id number] 07/30/2018 09:00:00 07/30/2018 23:59:59 CLS Preadmit VALENTE WALKER MD [facility] SDC LEFT CATARACT [id number] 02/12/2018 09:07:00 03/19/2018 11:39:00 DIS Outpatient ANUEL HOLLOWAY MD [facility] REHAB CVA [id number] 01/20/2018 12:21:00 01/20/2018 23:59:59 CLS Outpatient ENRRIQUE ARRIAGA APRN [facility] RAD FALL [id number] 12/26/2014 10:28:00 12/26/2014 11:06:00 DIS Emergency FIFI PARKER DO [facility] ER SUTURE REMOVAL [id number] 12/18/2014 11:48:00 12/18/2014 14:45:00 DIS Emergency ROSENDO SHAFFER MD [facility] ER FALL/RT EYE LAC [id number] 09/01/2018 05:50:00 ACT Outpatient VALENTE WALKER MD [facility] PREOP LEFT CATARACT EXTRACTION WITH IOL
[2018-09-03] MEDS: PHENYLEPHRINE 10% OPHTH (NEO-SYN) 5 ML BTL OU SCH ×3 (10:05→10:16)
[2018-09-03] MEDS: CYCLOPENTOLATE 1% (CYCLOGYL) 2 ML DROPS OP SCH ×3 (10:05→10:16)
--- NOTE | 2018-09-03 10:07 | Ophthalmologist Pre-Op Note ---
Pre-Operative Progress Note H&P Reviewed The H&P was reviewed, patient examined and no changes noted. Date H&P Reviewed: September 03, 2018 Time H&P Reviewed: 10:07 Pre-Op Dx Cataract, Left Eye VALENTE WALKER MD September 03, 2018 10:07
[2018-09-03] MEDS ORDERED: MIDAZOLAM 2 MG/2 ML (VERSED) VIAL ONE (10:23)
--- NOTE | 2018-09-03 10:45 | Ophthalmology Operative Report ---
Cataract removal/placement IOL PREOPERATIVE DIAGNOSIS: Cataract Left Eye POSTOPERATIVE DIAGNOSIS: Cataract Left Eye PROCEDURE: Cataract removal and placement of posterior chamber implant, left eye SURGEON: Geremias Walker ANESTHESIA: Topical with sedation COMPLICATIONS: None ESTIMATED BLOOD LOSS: Minimal DESCRIPTION OF PROCEDURE: After proper informed consent was obtained, the patient, a 78 female, was taken to the Operating Room and the left eye was anesthetized with tetracaine. The left eye was then prepped and draped in the usual manner. A wire lid speculum was placed. A paracentesis was made at the left hand position. Preservative free lidocaine was injected into the anterior chamber followed by viscoelastic. A clear corneal incision was made in the temporal position. A capsulorrhexis was preformed and the central nuclear and cortical material were removed. The posterior capsule was polished and an Dionte 19.0 [id number] was placed into the capsular bag. The residual viscoelastic was aspirated and balanced saline solution was injected into the anterior chamber. Moxifloxacin was injected into the anterior chamber. The wound was checked and found to be water tight. The patient tolerated the procedure well without complications. GEREMIAS WALKER MD September 03, 2018 10:45
[2018-09-03 10:50] VITALS: BP 145/57
--- NOTE | 2018-09-03 11:02 | Anesthesia-General Post-Op ---
MAC Patient Condition Mental Status/LOC: Same as Preop Cardiovascular: Satisfactory Nausea/Vomiting: Absent Respiratory: Satisfactory Pain: Controlled Complications: Absent Post Op Complications Complications None Follow Up Care/Instructions Patient Instructions None needed. Anesthesiology Discharge Order Discharge Order Patient is doing well, no complaints, stable vital signs, no apparent adverse anesthesia problems. No complications reported per nursing. JUANY DAVIS CRNA September 03, 2018 11:02
== END 2018-09-03 10:50 | disposition home or self-care (01) ==
LOC: SDC 09:27
PROVIDERS: ATTEND Specialist
DX: H25.12 Age-related nuclear cataract, left eye (principal); R56.9 Unspecified convulsions; F41.9 Anxiety disorder, unspecified; F32.9 Major depressive disorder, single episode, unspecified; Z95.2 Presence of prosthetic heart valve; Z79.01 Long term (current) use of anticoagulants; Z79.899 Other long term (current) drug therapy

== ENCOUNTER 2018-09-07 14:16 | Emergency (ER) | payer MEDICARE, OTHER ==
[~2018-09-07] VITALS: Ht 162.6 cm; Wt 49.9 kg
[2018-09-07 15:22] VITALS: BP 149/69
== END 2018-09-07 15:22 | disposition home or self-care (01) ==
LOC: EDUNIT# 14:16 → ER 14:17
DX: S01.01XD Laceration without foreign body of scalp, subsequent encounter (principal); X58.XXXD Exposure to other specified factors, subsequent encounter

== ENCOUNTER 2018-09-08 06:00 | Outpatient (CLI) | payer MEDICARE, OTHER ==
[~2018-09-08] VITALS: Ht 162.6 cm; Wt 49.9 kg
== END 2018-09-08 14:58 | disposition home or self-care (01) ==
LOC: PREOP 06:00
PROVIDERS: ATTEND Specialist
DX: Z01.818 Encounter for other preprocedural examination (principal)

== ENCOUNTER 2018-09-10 09:46 | Day surgery (SDC) | payer MEDICARE, OTHER ==
[~2018-09-10] VITALS: Ht 162.6 cm; Wt 49.9 kg
[2018-09-10 09:50] VITALS: BP 141/66
[2018-09-10] MEDS ORDERED: POVIDONE (BETADINE) OPHTH SOLN 5% 30 ML OP ONE (10:00)
[2018-09-10] MEDS ORDERED: MOXIFLOXACIN OPHTH SOLN 5 MG/ML 0.3 ML SYRINGE OP ONE (10:00)
[2018-09-10] MEDS ORDERED: LIDOCAINE PF 1% 2 ML AMP IR PRN (10:00)
[2018-09-10] MEDS ORDERED: TIMOLOL MALEATE 0.5% 5 ML (TIMOPTIC) BTL OU PRN (10:00)
[2018-09-10] MEDS: TETRACAINE 0.5% OPHTH SOLN 4 ML BTL (SINGLE DOSE ONLY) OU PRN ×4 (10:06→10:36)
[2018-09-10] MEDS: PHENYLEPHRINE 10% OPHTH (NEO-SYN) 5 ML BTL OU SCH ×3 (10:23→10:36)
[2018-09-10] MEDS: CYCLOPENTOLATE 1% (CYCLOGYL) 2 ML DROPS OP SCH ×3 (10:23→10:36)
--- NOTE | 2018-09-10 10:25 | Ophthalmologist Pre-Op Note ---
Pre-Operative Progress Note H&P Reviewed The H&P was reviewed, patient examined and no changes noted. Date H&P Reviewed: Sep 10, 2018 Time H&P Reviewed: 10:25 Pre-Op Dx Cataract, Right Eye VALENTE WALKER MD Sep 10, 2018 10:25
[2018-09-10] MEDS ORDERED: MIDAZOLAM 2 MG/2 ML (VERSED) VIAL ONE (10:50)
--- NOTE | 2018-09-10 11:12 | Ophthalmology Operative Report ---
Cataract removal/placement IOL PREOPERATIVE DIAGNOSIS: Cataract Right Eye POSTOPERATIVE DIAGNOSIS: Cataract Right Eye PROCEDURE: Cataract removal and placement of posterior chamber implant, right eye SURGEON: Geremias Walker ANESTHESIA: Topical with sedation COMPLICATIONS: None ESTIMATED BLOOD LOSS: Minimal DESCRIPTION OF PROCEDURE: After proper informed consent was obtained, the patient, a 78 female, was taken to the Operating Room and the right eye was anesthetized with tetracaine. The right eye was then prepped and draped in the usual manner. A wire lid speculum was placed. A paracentesis was made at the left hand position. Preservative free lidocaine was injected into the anterior chamber followed by viscoelastic. A clear corneal incision was made in the temporal position. A capsulorrhexis was preformed and the central nuclear and cortical material were removed. The posterior capsule was polished and Dionte 19.5 AU00T0 IOL was placed into the capsular bag. The residual viscoelastic was aspirated and balanced saline solution was injected into the anterior chamber. Moxifloxacin was injected into the anterior chamber. The wound was checked and found to be water tight. The patient tolerated the procedure well without complications. GEREMIAS WALKER MD Sep 10, 2018 11:12
[2018-09-10 11:20] VITALS: BP 153/66
--- NOTE | 2018-09-10 12:14 | Anesthesia-General Post-Op ---
MAC Patient Condition Mental Status/LOC: Same as Preop Cardiovascular: Satisfactory Nausea/Vomiting: Absent Respiratory: Satisfactory Pain: Controlled Complications: Absent Post Op Complications Complications None Follow Up Care/Instructions Patient Instructions None needed. Anesthesiology Discharge Order Discharge Order Patient is doing well, no complaints, stable vital signs, no apparent adverse anesthesia problems. No complications reported per nursing. JUANY DAVIS CRNA Sep 10, 2018 12:14
--- OUTSIDE RECORDS SUMMARY | 2018-09-10 13:36 | XMS REPORT | Continuity of Care Document ---
Author Organization Unknown Address Unknown Allergies Active Description Code Type Severity Reaction Onset Reported/Identified Relationship to Patient Clinical Status Yes PENICILLINS MODERATE OTHER Yes TETRACYCLINE MILD DERMATOLOGICAL - ERIC Yes No Known Drug Allergies [id number] Drug Allergy Unknown N/A 12/18/2014 Yes Penicillins [id number] Drug Allergy Unknown N/A 09/02/2018 Yes Sulfa (Sulfonamide Antibiotics) [id number] Drug Allergy Unknown N/A 09/02/2018 Yes tetracycline [id number] Drug Allergy Unknown N/A 09/02/2018 Medications Medication Packaging Start Date Stop Date [...] CEREBRAL INFARCTION, UNSPECIFIED 01/21/[address] O [address] SCAN TECH Ot I67.82 CEREBRAL ISCHEMIA 01/21/2018 NWENRRIQUE PRUETT APRN Ot S09.90XA UNSPECIFIED INJURY OF HEAD, INITIAL ENCO 01/21/[address]RE O CT SCAN TECH Ot W19.XXXA UNSPECIFIED FALL, INITIAL ENCOUNTER 02/04/2018 ENRRIQUE ARRIAGA APRN Ot I63.9 CEREBRAL INFARCTION, UNSPECIFIED 02/04/2018 ENRRIQUE ARRIAGA APRN Ot I67.82 CEREBRAL ISCHEMIA 02/04/2018 [address]ostaRE O CT SCAN TECH Ot S09.90XA UNSPECIFIED INJURY OF HEAD, INITIAL ENCO 02/04/[address] SCAN TECH Ot W19.XXXA UNSPECIFIED FALL, INITIAL ENCOUNTER 03/11/2018 [...] OF LUMBAR VERTEBRA 07/23/2018 NWAGWU, ISIDORE O CT SCAN TECH Ot I63.9 CEREBRAL INFARCTION, UNSPECIFIED 07/23/2018 NWAGWU, ISIDORE O CT SCAN TECH Ot I67.82 CEREBRAL ISCHEMIA 07/23/2018 NWAGWU, ISIDORE O CT SCAN TECH Ot S09.90XA UNSPECIFIED INJURY OF HEAD, INITIAL ENCO 07/23/2018 NWAGWU, ISIDORE O CT SCAN TECH Ot W19.XXXA UNSPECIFIED FALL, INITIAL ENCOUNTER 07/24/2018 Tracey Dean 345.90 07/24/2018 Tracey Dean W 438.31 07/24/2018 Tracey Dean W 733.00 07/24/2018 rTacey Dean 805.4 CLOSED FRACTURE OF LUMBAR VERTEBRA [...] OF ANTICOAGULANTS 07/24/2018 Tracey Dean W Z79.01 ALF (CURRENT) USE OF ANTICOAGULANTS 07/24/2018 Tracey Dean W Z95.2 PRESENCE OF PROSTHETIC HEART VALVE 07/28/2018 ENRRIQUE ARRIAGA APRN Ot I63.9 CEREBRAL INFARCTION, UNSPECIFIED 07/28/[address] SCAN TECH Ot I67.82 CEREBRAL ISCHEMIA 07/28/[address] SCAN TECH Ot S09.90XA UNSPECIFIED INJURY OF HEAD, INITIAL ENCO 07/28/[address] SCAN TECH Ot W19.XXXA UNSPECIFIED FALL, INITIAL ENCOUNTER 08/02/2018 TRACEY DEAN DO Ot E78.00 PURE HYPERCHOLESTEROLEMIA, UNSPECIFIED 08/02/2018 TRACEY DEAN DO Ot F32.9 MAJOR DEPRESSIVE DISORDER, SINGLE EPISOD 08/02/2018 TRACYE DEAN DO Ot F41.9 ANXIETY DISORDER, UNSPECIFIED [...] SECOND LUM VERT, SUBS F 08/02/2018 JERMAINE TRACEY Ot S32.050D WEDGE COMPRSN FX FIFTH LUM VERT, SUBS FO 08/02/2018 JERMAINE TRACEY Ot W18.09XD STRIKING AGAINST OTH OBJECT W SUBSEQUENT 08/02/2018 DEANTRACEY ALDANA DO Ot Z79.01 ALF (CURRENT) USE OF ANTICOAGULANT 08/02/2018 TRACEY DEAN DO Ot Z95.2 PRESENCE OF PROSTHETIC HEART VALVE 08/29/2018 CHUY ROGERS DO Ot E78.00 PURE HYPERCHOLESTEROLEMIA, UNSPECIFIED 08/29/2018 CHUY ROGERS DO, Ot F32.9 MAJOR DEPRESSIVE DISORDER, SINGLE EPISOD 08/29/2018 CHUY ROGERS DO, Ot F41.9 ANXIETY DISORDER, UNSPECIFIED 08/29/2018 CHUY ROGERS DO, Ot G40.909 EPILEPSY, UNSP, NOT INTRACTABLE, WITHOUT 08/29/2018 CHUY ROGERS DO Ot I10 ESSENTIAL (PRIMARY) HYPERTENSION 08/29/2018 CHUY ROGERS DO Ot M62.81 MUSCLE WEAKNESS (GENERALIZED) 08/29/2018 CHUY ROGERS DO Ot M81.0 AGE-RELATED OSTEOPOROSIS W/O CURRENT PAT 08/29/2018 CHUY ROGERS DO Ot R51 HEADACHE 08/29/2018 CHUY ROGERS DO, Ot S01.01XA LACERATION WITHOUT FOREIGN BODY OF SCALP 08/29/2018 CHUY ROGERS DO, Ot S09.90XA UNSPECIFIED INJURY OF HEAD, INITIAL ENCO 08/29/2018 CHUY ROGERS DO Ot W01.198A FALL SAME LEV FROM SLIP/TRIP W STRIKE AG 08/29/2018 CHUY ROGERS DO Ot Z23 ENCOUNTER FOR IMMUNIZATION 08/29/2018 CHUY ROGERS DO, Ot Z79.01 ALF (CURRENT) USE OF ANTICOAGULANT 08/29/2018 CHUY ROGERS DO, Ot Z86.73 PRSNL HX OF TIA (TIA), AND CEREB INFRC W 08/29/2018 CHUY ROGERS DO, Ot Z88.0 ALLERGY STATUS TO PENICILLIN 08/29/2018 CHUY ROGERS DO, Ot Z88.1 ALLERGY STATUS TO OTHER ANTIBIOTIC AGENT 08/29/2018 SUE SALEH CHUY K Ot Z90.710 ACQUIRED ABSENCE OF BOTH CERVIX AND UTER 08/29/2018 [place] CHUY SALEH Ot Z95.2 PRESENCE OF PROSTHETIC HEART [facility]/29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 08/29/2018 [facility] Z96.641 PRESENCE OF RIGHT ARTIFICIAL HIP JOINT 09/02/2018 [facility] E78.00 PURE HYPERCHOLESTEROLEMIA, UNSPECIFIED 09/02/2018 [facility] F32.9 MAJOR DEPRESSIVE DISORDER, SINGLE EPISOD 09/02/2018 [facility] F41.9 ANXIETY DISORDER, UNSPECIFIED 09/02/2018 [facility] G40.909 EPILEPSY, UNSP, NOT INTRACTABLE, WITHOUT 09/02/2018 [facility] I10 ESSENTIAL (PRIMARY) HYPERTENSION 09/02/2018 [facility] M62.81 MUSCLE WEAKNESS (GENERALIZED) 09/02/2018 [facility] M81.0 AGE-RELATED OSTEOPOROSIS W/O CURRENT PAT 09/02/2018 [place] CHUY SALEH Ot R51 HEADACHE 09/02/2018 [place] CHUY SALEH Ot S01.01XA LACERATION WITHOUT FOREIGN BODY OF SCALP 09/02/2018 [facility] S09.90XA UNSPECIFIED INJURY OF HEAD, INITIAL ENCO 09/02/2018 [facility] CHUY SALEH Ot W01.198A FALL SAME LEV FROM SLIP/TRIP W STRIKE AG 09/02/2018 [facility] CHUY SALEH Ot Z23 ENCOUNTER FOR IMMUNIZATION 09/02/2018 [place] CHUY SALEH Ot Z79.01 ALF (CURRENT) USE OF ANTICOAGULANT 09/02/2018 [place] CHUY SALEH Ot Z86.73 PRSNL HX OF TIA (TIA), AND CEREB INFRC W 09/02/2018 [facility] Z88.0 ALLERGY STATUS TO PENICILLIN 09/02/2018 [place] CHUY SALEH Ot Z88.1 ALLERGY STATUS TO OTHER ANTIBIOTIC AGENT 09/02/2018 [facility] Z90.710 ACQUIRED ABSENCE OF BOTH CERVIX AND UTER 09/02/2018 CHUY ROGERS DO Ot Z95.2 PRESENCE OF PROSTHETIC HEART VALVE 09/02/2018 CHUY ROGERS DO Ot 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 09/02/2018 CHUY ROGERS DO Ot Z96.641 PRESENCE OF RIGHT ARTIFICIAL HIP JOINT 09/03/2018 VALENTE WALKER MD Ot Z01.818 ENCOUNTER FOR OTHER PREPROCEDURAL EXAMIN 09/03/2018 VALENTE WALKER MD Ot F32.9 MAJOR DEPRESSIVE DISORDER, SINGLE EPISOD 09/03/2018 VALENTE WALKER MD Ot F41.9 ANXIETY DISORDER, UNSPECIFIED 09/03/2018 VALENTE WALKER MD Ot H25.12 AGE-RELATED NUCLEAR CATARACT, LEFT EYE 09/03/2018 VALENTE WALKER MD Ot R56.9 UNSPECIFIED CONVULSIONS 09/03/2018 VALENTE WALKER MD Ot Z79.01 ALF (CURRENT) USE OF ANTICOAGULANT 09/03/2018 VALENTE WALKER MD Ot Z79.899 OTHER [employer]OR (CURRENT) DRUG THERAPY 09/03/2018 VALENTE WALKER MD Ot Z95.2 PRESENCE OF PROSTHETIC HEART VALVE 09/07/2018 VALENTE WALKER MD Ot F32.9 MAJOR DEPRESSIVE DISORDER, SINGLE EPISOD 09/07/2018 VALENTE WALKER MD Ot F41.9 ANXIETY DISORDER, UNSPECIFIED 09/07/2018 VALENTE WALKER MD Ot H25.12 AGE-RELATED NUCLEAR CATARACT, LEFT EYE 09/07/2018 VALENTE WALKER MD Ot R56.9 UNSPECIFIED CONVULSIONS 09/07/2018 VALENTE WALKER MD Ot Z79.01 FR[employer]ZEN FO[employer] SELECTOR (CURRENT) USE OF ANTICOAGULANT 09/07/2018 VALENTE WALKER MD Ot Z79.899 OTHER ALF (CURRENT) DRUG THERAPY 09/07/2018 VALENTE WALKER MD Ot Z95.2 PRESENCE OF PROSTHETIC HEART VALVE Procedures There is no data. Results Test Result Range - 10/09/17 12:07 GLUCOSE 88 mg/dL 65-99 UREA NITROGEN (BUN) 16 mg/dL 7-25 CREATININE 0.66 mg/dL 0.60-0.93 eGFR NON-AFR. MAURITIAN 85 mL/min/1.73m2 > OR=60 eGFR 98 mL/min/1.73m2 [...] 19 U/L 10-35 ALT 10 U/L 6-29 [id number] - 01/20/18 12:35 Serum or plasma urea [...] 5-8.5 Urine-Protein Negative Negative Urine-RBC Rare/HPF Urine-Specific [place] 1.015 1.000-1.030 Urine-WBC Negative Urobilinogen 0.2 0.2-1.0 [...] 32.6 g/dL 32.0-36.0 MCV 95.1 fL 80.0-97.0 [place]% 12.7 % 0.0-12.0 MPV 12.5 fL 7.4-10.0 All% 73.4 % 37.0-80.0 Plt 209 K/uL 150-400 RBC 3.68 M/uL 3.60-5.00 RDW 13.8 % 11.6-14.8 WBC 6.04 K/uL 5.00-10.00 All 4.43 K/uL 2.00-6.90 [place] 0.8 K/uL 0.0-0.9 Baso 0.0 K/uL 0.0-0.2 [...] Status Pt. Type Provider Facility Loc./Unit Complaint [id number] 08/12/2018 11:40:00 08/12/2018 23:59:59 CLS [facility] [id number] 10/09/2017 10:20:00 Document Registration [id number] 07/24/2018 10:00:00 07/27/2018 09:50:00 DIS Inpatient [facility] MED-SURG [id number] 07/20/2018 19:10:00 07/24/2018 10:00:00 DIS Inpatient [facility] MED-SURG [id number] 07/20/2018 16:07:00 Document Registration [id number] 07/20/2018 19:10:00 Document Registration [id number] 09/08/2018 06:00:00 09/08/2018 14:58:00 DIS Outpatient VALENTE WALKER MD [facility] PREOP CATARACT RIGHT EYE [id number] 09/03/2018 09:27:00 09/03/2018 10:50:00 DIS Outpatient VALENTE WALKER MD [facility] LEFT CATARACT [id number] 09/01/2018 05:50:00 09/02/2018 14:27:00 DIS Outpatient VALENTE WALKER MD [facility] PREOP LEFT CATARACT EXTRACTION WITH IOL [id number] 08/28/2018 23:36:00 08/29/2018 01:45:00 DIS Emergency CHUY ROGERS DO [facility] ER FALL [id number] 08/06/2018 12:00:00 08/06/2018 23:59:59 CLS Preadmit VALENTE WALKER MD [facility] CATARACT RIGHT EYE [id number] 07/27/2018 10:30:00 08/02/2018 15:54:00 DIS Inpatient TRACEY DEAN DO [facility] IRF LUMBAR COMPRESSION FX [id number] 02/12/2018 09:07:00 03/19/2018 11:39:00 DIS Outpatient ANUEL HOLLOWAY MD [facility] REHAB CVA [id number] 01/20/2018 12:21:00 01/20/2018 23:59:59 CLS Outpatient ENRRIQUE ARRIAGA APRN [facility] RAD FALL [id number] 12/26/2014 10:28:00 12/26/2014 11:06:00 DIS Emergency FIFI PARKER DO [facility] ER SUTURE REMOVAL [id number] 12/18/2014 11:48:00 12/18/2014 14:45:00 DIS Emergency DEENA ROBERSON, ROSENDO Shaffer [facility] ER FALL/RT EYE LAC [id number] 09/07/2018 14:17:00 ACT Emergency JOSH SCHERER APRN [facility] ER STAPLE REMOVAL
== END 2018-09-10 11:20 | disposition home or self-care (01) ==
LOC: SDC 09:46
PROVIDERS: ATTEND Specialist
DX: H25.11 Age-related nuclear cataract, right eye (principal); R56.9 Unspecified convulsions; Z79.899 Other long term (current) drug therapy

== ENCOUNTER → 2019-06-03 | Outpatient (CLI) | payer MEDICARE, OTHER ==
[~2019-06-03] MED LIST changes: -BISA10SU6 RC; +BISA10SU8 RC; -HYDR-3812 PO; -MELA3TAB PO; +MELA3TAB65 PO; -OXYB15TA PO; +OXYB15TA19 PO; +OXYB5TAB13 PO; -OXYB5TAB9 PO
--- NOTE | 2019-06-03 16:16 | Diagnostic Imaging Report ---
PROCEDURE: MRI lumbar spine without contrast. TECHNIQUE: Multiplanar, multisequence MRI of the lumbar spine was performed without contrast. INDICATION: Hip and low back pain. COMPARISON: None. FINDINGS: 5 lumbar type vertebral bodies are visualized with the last well-formed disc space designated L5-S1. No acute fracture or dislocation is seen in the lumbar spine. Possible pars defects with surrounding edema is seen on the right at L5. There is straightening of the lumbar spine. Chronic height loss is seen in the superior endplates of L2 and L4 secondary to prominent Schmorl's nodes. The bone marrow signal is normal. The conus terminates at the L1 level. No masses are seen associated with the conus or nerve roots of the cauda equina. No epidural collections are identified. Multilevel degenerative changes are seen in the lumbar spine with disc bulges, facet hypertrophy, and buckling of the ligamentum flavum. T12-L1: No significant spinal canal or foraminal stenosis. L1-L2: Broad-based disc bulge, facet hypertrophy, and buckling of ligamentum flavum results in mild spinal canal narrowing and mild left and no right foraminal narrowing. L2-L3: Broad-based disc bulge, facet hypertrophy, and buckling of ligamentum flavum results in no significant spinal canal narrowing and mild bilateral foraminal narrowing. L3-L4: Broad-based disc bulge, facet hypertrophy, and buckling of ligamentum flavum resulting in moderate spinal canal stenosis and mild to moderate left and mild right foraminal narrowing. L4-L5: Broad-based disc bulge, facet hypertrophy, and buckling of the ligamentum flavum results in severe spinal canal stenosis and moderate to severe bilateral foraminal stenosis. L5-S1: Broad-based disc bulge, facet hypertrophy, and buckling of the ligamentum flavum results in moderate spinal canal stenosis and moderate bilateral foraminal stenosis. Paravertebral soft tissues are unremarkable. IMPRESSION: 1. No acute fracture or dislocation in the lumbar spine. 2. Multilevel degenerative changes in the lumbar spine, greatest at L4-L5 and L5-S1. 3. Possible pars defect on the right at L5 with surrounding edema. Dictated by: Dictated on workstation # [id number]
== END ==
LOC: RAD 15:14
PROVIDERS: ATTEND Internal Medicine
DX: M47.27 Other spondylosis with radiculopathy, lumbosacral region (principal); M48.07 Spinal stenosis, lumbosacral region
CPT/HCPCS: 72148

== ENCOUNTER 2020-05-30 11:38 | Inpatient (IN) | payer MEDICARE, OTHER ==
[~2020-05-30] VITALS: Ht 157.5 cm; Wt 39.9 kg
[~2020-05-30 11:38] MED LIST changes: +ACET325C7 PO; +ALEN70TA80 PO; +ALPR.25T PO; -ALPR0.254 PO; +CLN.1T PO; -CLON0.1T PO; +FLUO40CA12 PO; +LEVE500T6 PO; +MELA3TAB39 PO; -MELA3TAB65 PO; +ROSU10TA28 PO; +WARF4TAB3 PO
[2020-05-30] MEDS ORDERED: LACTULOSE SYRUP 10GM/15ML (ENULOSE) 30ML UDC PO PRN (12:00)
[2020-05-30] MEDS ORDERED: BISACODYL 10 MG SUPP (DULCOLAX) PR PRN ×2 (12:00→17:30)
[2020-05-30] MEDS ORDERED: DOCUSATE SODIUM 100 MG (COLACE) CAP PO PRN (12:00)
[2020-05-30] MEDS ORDERED: CALCIUM CARBONATE 500 MG (TUMS) TAB.CHEW PO PRN (12:00)
[2020-05-30] MEDS ORDERED: guaiFENesin/CODEINE (ROBITUSSIN AC) 10ML UDC PO PRN (12:00)
[2020-05-30] MEDS ORDERED: ONDANSETRON 4 MG (ZOFRAN) ORAL DISSOLVE TAB PO PRN (12:00)
[2020-05-30] MEDS ORDERED: LOPERAMIDE 2 MG (IMODIUM) TABLET PO PRN (12:00)
[2020-05-30] MEDS ORDERED: diphenhydrAMINE 25 MG TAB (BENADRYL) PO PRN (12:00)
[2020-05-30] MEDS ORDERED: FLEET ENEMA ADULT 1 EA BTL PR PRN (12:00)
[2020-05-30 13:00] VITALS: BP 145/60
--- NOTE | 2020-05-30 14:06 | Occupational Therapy Eval ---
OT Evaluation-General/PLF Medical Diagnosis Admission Date May 30, 2020 at 12:30 Medical Diagnosis: L tib/fib fracture Onset Date: May 21, 2020 Therapy Diagnosis Therapy Diagnosis: Decreased ADL status Height/Weight Height (Feet): 5 Height (Inches): 4.00 Weight (Pounds): 110 Weight (Ounces): 0.8 Precautions Precautions/Isolations: Fall Prevention, Standard Precautions, Pressure Ulcer Weight Bear Status Weight Bearing Restriction: Non Weight Bearing Location Restriction: L LE Referral Physician: Heather Referral Reason: Activity Tolerance, Self Care, Evaluation/Treatment, Strengthening/ROM Medical History Pertinent Medical History: CVA, HTN Additional Medical History Previous CVA (R side affected), mechanical heart valve, dysarthria, seizure hx, OA Current History Pt fell in home after slipping on ice cube. Sustained L tib/ fib fracture and IM denice placed. Reviewed History: Yes Social History Home: Single Level Current Living Status: Alone Entry Into Home: Ramp Steps Into Home: 0 Steps Inside Home: 0 ADL-Prior Level of Function SCALE: Activities may be completed with or without assistive devices. 5-Khyxijkufx-jrhndjj completes the activity by him/herself with no assistance from a helper. 5-Set-up or Clean-up Assistance-helper sets up or cleans up; patient completes activity. [place] assists only prior to or following the activity. 4-Supervision or Touching Assistance-helper provides verbal cues and/or touching/steadying and/or contact guard assistance as patient completes activity. Assistance may be provided throughout the activity or intermittently. 3-Partial/Moderate Assistance-helper does LESS THAN HALF the effort. [place] lifts, holds or supports trunk or limbs, but provides less than half the effort. 2-Substantial/Maximal Assistance-helper does MORE THAN HALF the effort. [place] lifts or holds trunk or limbs and provides more than half the effort. 1-Thrdqwcov-kjcvog does ALL the effort. Patient does none of the effort to complete the activity. Or, the assistance of 2 or more helpers is required for the patient to complete the activity. If activity was not attempted, code reason: 7-Patient Refused. 9-Not Applicable-not attempted and the patient did not perform the activity before the current illness, exacerbation or injury. 10-Not Attempted due to Environmental Limitations-(lack of equipment, weather restraints, etc.). 88-Not Attempted due to Medical Conditions or Safety Concerns. ADL PLOF Comments Pt. reports that she lives alone, but that her family checks on her 2x/day. She states that she is able to bathe/dress herself, but has assist for housekeeping and food prep. Has a caregiver 2x per week, 2 hours a day. She states that her family makes sure that she eats when they are there, breakfast and dinner, and that they cut up her meat for her. She uses a walker for ambulation. Self Care: Independent Functional Cognition: Independent DME/Equipment Comments more info needed for d/c recommendations in bathroom/ home. Occupation: retired. Drive Self: Yes OT Current Status Subjective Pt AxO. Upright in recliner. States 3/10 pain in L tib/fib, states NWB status. Pt agrees to OT eval and transfer to ARU. ARU expectations and OT role explained. Pt has minimal expressive aphasia. Mental Status/Objective Patient Orientation: Person, Place, Situation, Normal For Age Current Hearing Aids: No Dentures/Partials: No Hand Dominance: Left Upper Extremity ROM shoulder flexion WFL bilaterally pt's R hand contracted to semi-flexed position, able to PROM with LUE Upper Extremity Coordination WFL LUE decreased RUE (able to mobilize passively only), states uses arm during stabilization tasks. Upper Extremity Sensation DNT Upper Extremity Strength WFL LUE (4/5), decreased RUE (3+/5) ADL-Treatment Eating (QC): 5 (s/u (given coke with straw and able to drink s/u)) Oral Hygiene (QC): 7 Shower/Bathe Self (QC): 7 Upper Body Dressing (QC): 7 Lower Body Dressing (QC): 7 On/Off Footwear (QC): 7 Toileting Hygiene (QC): 7 Other Treatments Pt in recliner, completes medication management with nurse assist and s/u for drink. Pt completes MMT/ ROM screening with noted R side fx decrease due to prior CVA. Pt completes SPT to w/c placed on R side with mod A. Pt sits with control, is pushed to ARU and explained ARU expectations and role of therapy. Pt provides environmental and medical hx, increased time needed for expressive aphasia. Pt left with HUDSON end of session for fx treatment. Education OT Patient Education: Correct positioning, Purpose of tx/functional activities, Reviewed precautions, Rehab process, Safety issues, Transfer techniques Teaching Recipient: Patient Teaching Methods: Demonstration, Discussion Response to Teaching: Verbalize Understanding, Return Demonstration, Reinforcement Needed OT Short Term Goals Short Term Goals Eatin Oral hygiene: 5 Toileting hygiene: 3 Shower/bathe self: 3 Upper body dressin Lower body dressin Putting on/taking off footwear: 2 OT Interviewing Clerk Goals Interviewing Clerk Goals Time Frame: Jun 06, 2020 Eating (QC): 5 Oral Hygiene (QC): 5 Toileting Hygiene (QC): 6 Shower/Bathe Self (QC): 5 Upper Body Dressing (QC): 6 Lower Body Dressing (QC): 6 On/Off Footwear (QC): 6 Additional Goals: 1-Demonstrate ADL Tasks, 2-Verbalize Understanding, 3- ImproveStrength/Francy 1=Demonstrate adherence to instructed precautions during ADL tasks. 2=Patient will verbalize/demonstrate understanding of assistive devices/modifications for ADL. 3=Patient will improve strength/tolerance for activity to enable patient to perform ADL's. OT Education/Plan Problem List/Assessment Assessment: Decreased Activ Tolerance, Decreased UE Strength, Dependent Transfers, Impaired Bed Mobility, Impaired Coordination, Impaired Funct Balance, Impaired I ADL's, Impaired Self-Care Skills, Restricted Funct UE ROM Discharge Recommendations Plan/Recommendations: Continue POC Therapy Discharge Recommendati: Intermittent Supervision, Home & Family, Post Acute OT Comment more info/ time needed for AD/ AE needs upon d/c. Treatment Plan/Plan of Care Treatment,Training & Education: Yes Patient would benefit from OT for education, treatment and training to promote independence in ADL's, mobility, safety and/or upper extremity function for ADL's. Plan of Care: ADL Retraining, Caregiver Training, Concurrent Therapy, Functional Mobility, Group Exercise/Act as Ind, Orthotic Fitting/Training, UE Funct Exercise/Act, UE Neuromus Re-Ed/Coord, W/C Management Training Treatment Duration: Jun 13, 2020 Frequency: At least 5 of 7 days/Wk (IRF) Estimated Hrs Per Day: 1.5 hours per day Agreement: Yes Rehab Potential: Fair Time/GCodes Start Time: 12:30 Stop Time: 12:50 Total Time Billed (hr/min): 20 Billed Treatment Time 1, EVM (20) ELIAS SILVER OTR May 30, 2020 14:06
--- NOTE | 2020-05-30 14:32 | Occupational Ther Daily Note ---
OT Current Status-Daily Note Subjective Took over care from OTR/L. Pt alert, sitting in w/c. Pt agrees to therapy. No c/o pain. Pt is anxious and overwhelmed with move to ARU, but continues to want to work with therapy. Mental Status/Objective Patient Orientation: Person, Place, Time, Situation Attachments: IV ADL-Treatment Pt does have difficulty with word finding at times. Pt agrees to sponge bath. Pt requests to use toilet. Assist to propel w/c to bathroom. Mod A to transfer from w/c to toilet. Max A to hike pants down. Co-treat with PT ([id number]), skilled instruction and care requires 2 clinicians due to decreased mobility, increased fall risk and fatigue of pt. PT focusing on transfers, mobility, w/c mobility and standing while OT focusing on functional transfers, ADLs and placement of extremities during mobility. Assist x2 to stand, cleanse and manipulate clothing after BM for toileting. Mod A to transfer to recliner to complete sponge bath. Set up for sponge bath, pt able to reach all areas except L lower leg/foot due to SHIRIN wrap and buttocks. Set up for upper body dressing. Pt is able to thread R foot into pant leg and due to R LE fracture requires assist to thread R foot. Assist x1 to stand while 2nd assist to hike pants over hips. Max A to don socks. Sitting at sink, pt is able to complete oral care independently. Pt uses R UE for a functional assist. Therapy Code Descriptions/Definitions Functional Monroe Measure: 0=Not Assessed/NA 4=Minimal Assistance 1=Total Assistance 5=Supervision or Setup 2=Maximal Assistance 6=Modified [place] 3=Moderate Assistance 7=Complete IndependenceSCALE: Activities may be completed with or without assistive devices. 1-Oienihhpfo-ezlhgif completes the activity by him/herself with no assistance from a helper. 5-Set-up or Clean-up Assistance-helper sets up or cleans up; patient completes activity. [place] assists only prior to or following the activity. 4-Supervision or Touching Assistance-helper provides verbal cues and/or touching/steadying and/or contact guard assistance as patient completes activity. Assistance may be provided throughout the activity or intermittently. 3-Partial/Moderate Assistance-helper does LESS THAN HALF the effort. [place] lifts, holds or supports trunk or limbs, but provides less than half the effort. 2-Substantial/Maximal Assistance-helper does MORE THAN HALF the effort. [place] lifts or holds trunk or limbs and provides more than half the effort. 4-Khbyvkawf-qvzhsd does ALL the effort. Patient does none of the effort to complete the activity. Or, the assistance of 2 or more helpers is required for the patient to complete the activity. If activity was not attempted, code reason: 7-Patient Refused. 9-Not Applicable-not attempted and the patient did not perform the activity before the current illness, exacerbation or injury. 10-Not Attempted due to Environmental Limitations-(lack of equipment, weather restraints, etc.). 88-Not Attempted due to Medical Conditions or Safety Concerns. Eating (QC): 88 Oral Hygiene (QC): 6 Shower/Bathe Self (QC): 3 Upper Body Dressing (QC): 5 Lower Body Dressing (QC): 1 On/Off Footwear: 2 Toileting Hygiene (QC): 1 Toilet Transfer (QC): 3 Other Treatment Pt working on w/c mobility using R foot and L UE, fatigues quickly. See PT notes for ambulation and car transfer. Pt is independent with bed mobility. After therapy, pt lying in bed with call light/phone in reach. All needs met in room. Education OT Patient Education: Purpose of tx/functional activities, Transfer techniques Teaching Recipient: Patient Teaching Methods: Demonstration, Discussion Response to Teaching: Verbalize Understanding, Return Demonstration, Reinforcement Needed OT Short Term Goals Short Term Goals Eatin Oral hygiene: 5 Toileting hygiene: 3 Shower/bathe self: 3 Upper body dressin Lower body dressin Putting on/taking off footwear: 2 OT Air Chief Marshal Goals Air Chief Marshal Goals Time Frame: Jun 06, 2020 Eating (QC): 5 Oral Hygiene (QC): 5 Toileting Hygiene (QC): 6 Shower/Bathe Self (QC): 5 Upper Body Dressing (QC): 6 Lower Body Dressing (QC): 6 On/Off Footwear (QC): 6 1=Demonstrate adherence to instructed precautions during ADL tasks. 2=Patient will verbalize/demonstrate understanding of assistive devices/modifications for ADL. 3=Patient will improve strength/tolerance for activity to enable patient to perform ADL's. OT Education/Plan Problem List/Assessment Assessment: Decreased Activ Tolerance, Decreased UE Strength, Impaired Coordination, Impaired Funct Balance, Impaired Self-Care Skills, Restricted Funct UE ROM Discharge Recommendations Plan/Recommendations: Continue POC Treatment Plan/Plan of Care Patient would benefit from OT for education, treatment and training to promote independence in ADL's, mobility, safety and/or upper extremity function for ADL's. Plan of Care: ADL Retraining, Functional Mobility, Group Exercise/Act as Ind, UE Funct Exercise/Act, UE Neuromus Re-Ed/Coord, W/C Management Training Treatment Duration: Jun 13, 2020 Frequency: At least 5 of 7 days/Wk (IRF) Agreement: Yes Time/GCodes Start Time: 12:50 (1310) Stop Time: 13:00 (1410) Total Time Billed (hr/min): 70 Billed Treatment Time 1 visit- ADL 3 (40 min) FA 2 (30 min) co-treat with PT [id number], [id number]. PT jose antonioal [phone] JOSE MANUEL PRINGLE May 30, 2020 14:32
--- NOTE | 2020-05-30 14:32 | Physical Therapy Evaluation ---
PT Evaluation-General Medical Diagnosis Admission Date May 30, 2020 at 12:30 Medical Diagnosis: L tib/fib fracture Onset Date: May 30, 2020 Therapy Diagnosis Therapy Diagnosis: weakness; abn gait Height/Weight Height (Feet): 5 Height (Inches): 4.00 Weight (Pounds): 110 Weight (Ounces): 0.8 Precautions Precautions/Isolations: Fall Prevention, Standard Precautions, Pressure Ulcer Weight Bear Status Right Lower Extremity: Right Full Weight Bearing Left Lower Extremity: Left Non Weight Bearing Referral Physician: Heather Reason for Referral: Evaluation/Treatment Medical History Pertinent Medical History: CVA (right side affected), HTN Additional Medical History Mechanical heart valve, Osteoporosis Current History Post acute hospital stay post fall with closed left tib/fib fracture (NWB) and repaired surgically with IM denice in the tibia. Transferred to ARU for skilled therapy services Reviewed History: Yes Social History Home: Single Level Current Living Status: Alone Entry Into Home: Ramp Patient lives alone with family next door. Ramp to enter, but small threshhold to enter the home. Her home would be mostly accomodating with moving a few pieces of furniture. Prior Prior Level of Function SCALE: Activities may be completed with or without assistive devices. 9-Ctrxbvesdf-euzgbab completes the activity by him/herself with no assistance from a helper. 5-Set-up or Clean-up Assistance-helper sets up or cleans up; patient completes activity. Darby assists only prior to or following the activity. 4-Supervision or Touching Assistance-helper provides verbal cues and/or touching/steadying and/or contact guard assistance as patient completes activity. Assistance may be provided throughout the activity or intermittently. 3-Partial/Moderate Assistance-helper does LESS THAN HALF the effort. Darby lifts, holds or supports trunk or limbs, but provides less than half the effort. 2-Substantial/Maximal Assistance-helper does MORE THAN HALF the effort. Darby lifts or holds trunk or limbs and provides more than half the effort. 4-Neyjxmisd-qoouwe does ALL the effort. Patient does none of the effort to complete the activity. Or, the assistance of 2 or more helpers is required for the patient to complete the activity. If activity was not attempted, code reason: 7-Patient Refused. 9-Not Applicable-not attempted and the patient did not perform the activity before the current illness, exacerbation or injury. 10-Not Attempted due to Environmental Limitations-(lack of equipment, weather restraints, etc.). 88-Not Attempted due to Medical Conditions or Safety Concerns. Bed Mobility: 6 Transfers (B,C,W/C): 6 Gait: 6 (FWW with platform or QC; she has both) Stairs: 9 Indoor Mobility (Ambulation): Independent Stairs: Not Applicalbe Prior Devices Use: Walker, Other-see list below (Quad cane) Pt did perform community mobility with assist from family; does not drive. PT Evaluation-Current Subjective Pt agreeable to PT. Post treatment, voices that she feels tired. Pt is adament that her plan is to discharge home as before. Pt/Family Goals Her goal is to return home alone as before with family support as needed. Objective Patient Orientation: Person, Place, Time, Situation ROM/Strength ROM Lower Extremities ROM is WFL Strength Lower Extremities Right LE strength is grossly 4/5 throughout; left LE hip flexion is 4/5 Cast spans foot to across knee joint. Integumentary/Posture Integumentary Pt has protective dressings on her left heel and buttock. Bowel Incontinence: No Bladder Incontinence: No Posture Hand flexion right; rounded shoulders and forward head. Neuromuscular (Tone, Coordination, Reflexes) Right UE affected by CVa with flexion tone and only gross movements. Sensory Vision: Functional Hearing: Functional Hand Dominance: Right (but now uses left hand. ) Sensation Right Lower Extremit: Intact Sensation Left Lower Extremity: Intact Transfers Roll Left & Right (QC): 4 Sit to Lying (QC): 4 Lying to Sitting/Side of Bed(Q: 4 Sit to Stand (QC): 3 Chair/Znx-dr-Zwxog Xfer(QC): 2 Toilet Transfer (QC): 3 Car Transfer (QC): 2 SPT with FWW or without requires heavy assist for use and plcement of right UE as well as maintaining NWB left. Gait Does the Patient Walk?: No and Walking Goal IS indicated Mode of Locomotion: Both Anticipated Mode of Locomotion: Both Walk 10 feet (QC): 88 Walk 50 ft with 2 Turns(QC): 88 Walk 150 ft (QC): 88 Walking 10ft/uneven surface-QC: 88 Gait Assistive Device: Walker Platform Comments/Gait Description Pt able to hop/slide forward a few hops to progress approx 1-2 feet with FWW platform with mod assist. She does maintain NWB left. Assist to advance the walker and she tends to hop too close to the walker and displace her weight to put her in a position to fall backwards if she was not supported Wheelchair Training Does the Pt Use a Wheelchair?: Yes Wheel 50 ft with 2 turns (QC): 4 (Cues for technique and sequencing. ) Wheel 150 ft (QC): 3 Type of Wheelchair: Manual Pt uses left UE and R LE Stairs 1 Step (curb) (QC): 9 4 Steps (QC): 9 12 Steps (QC): 9 Balance Sitting Static: Good Sitting Dynamic: Good Standing Static: Fair Standing Dynamic: Fair Picking up an Object (QC): 9 Assessment/Needs Pt presents post fall with left tib/fib fracture with impaired functional strength, balance and activity tolerance that limits her ability to perform bed mobility, transfers, gait and wheelchair mobility. She is NWB left and has right sided hemiplegia. She will benefit from skilled PT to address her mobility deficits and train in alter techniques to adapt and allow her to mobilize at a mod indep level to allow her to return home and care for herself. She will likely use gait and wc mobility in her home while she is NWB and will need to transfer at a mod indep level. She is motivated and cooperative. She does take extra time to communicate but follows cues and understands well Rehab Potential: Good PT Short Term Goals Short Term Goals Time Frame: Jun 13, 2020 Sit to lyin Lying to sitting on side of be: 6 Sit to stand: 4 Chair/kqb-fo-xomoa transfer: 4 Walk 10 feet: 3 Wheel 50ft w/2 turns: 6 Wheel 150 feet: 4 Type: Manual PT Nursing Home Goals Senior Director Creative Services Goals PT Senior Director Creative Services Goals Time Frame: Jun 27, 2020 Roll Left & Right (QC): 6 Sit to Lying (QC): 6 Lying-Sitting on Side/Bed(QC): 6 Sit to Stand (QC): 6 Chair/Jtr-yt-Ggheq Xfer(QC): 6 Toilet Transfer (QC): 6 Car Transfer (QC): 5 Does the Patient Walk: No and Walking Goal IS indicated Walk 10 feet (QC): 4 Walk 50ft with 2 Turns (QC): 4 Walk 150 ft (QC): 88 Walking 10ft on Uneven Surface: 88 1 Step (curb) (QC): 9 4 Steps (QC): 9 12 Steps (QC): 9 Picking up an Object (QC): 9 Does the Pt use WC or Scooter?: Yes Wheel 50 feet with 2 turns (QC: 6 Type: Manual Wheel 150 feet: 6 Type: Manual PT Plan Problem List Problem List: Activity Tolerance, Functional Strength, Safety, Balance, Gait, Transfer, Bed Mobility Treatment/Plan Treatment Plan: Continue Plan of Care Treatment Plan: Bed Mobility, Education, Functional Activity Francy, Functional Strength, Group Therapy, Gait, Safety, Therapeutic Exercise, Transfers Treatment Duration: Jun 27, 2020 Frequency: At least 5 of 7 days/Wk (IRF) Estimated Hrs Per Day: 1.5 hours per day Patient and/or Family Agrees t: Yes Safety Risks/Education Patient Education: Transfer Techniques, Safety Issues Teaching Recipient: Patient Teaching Methods: Demonstration, Discussion Response to Teaching: Reinforcement Needed Discharge Recommendations Therapy Discharge Recommendati: Post Acute PT Time/GCodes Time In: 1300 Time Out: 1310 ([id number]) Total Billed Treatment Time: 70 Total Billed Treatment visit EVM 10 FA 60 JOSE MANUEL TAM PT May 30, 2020 14:32
--- NOTE | 2020-05-30 15:14 | ST Cognitive Linguistic Eval ---
Speech Evaluation-General Medical Diagnosis L tib/fib fracture Onset Date: May 21, 2020 Therapy Diagnosis Therapy Diagnosis: Cognitive-communication Referral Referring Physician: Dr. Romero Medical History Pertinent Medical History: CVA, HTN Reviewed History: Yes Social History Current Living Status: Alone Speech PLF-Current Status Prior Level of Function Patient lived home alone where she is independent for most of her daily needs. She does have involved family who check on her 2x daily and assist her as needed. Subjective Patient was pleasant and cooperative with the cognitive assessment. Language Eval: Auditory Comprehends Simple Yes/No Ques: Functional Indent/Objects Multiple Xavier: Functional Ident/Pics in Multiple Xavier: Functional Follows 1-Step Commands: Functional Follows Complex Directions: Functional Follows General Conversations: Functional Language Eval: Verbal Language Completes Spontaneous Greeting: Functional Produces Auto, Serial Info: Functional Imitates Simple Words/Phrases: Functional Word Finding: Functional Requests Basic Needs: Functional States Basic Personal Info: Functional Expresses Complex Ideas: Functional Objective Cognitive Domain Attention: WNL Memory: WNL Problem Solving: Functional Executive Functions: WNL Visuospatial Skills: WNL Composite Severity Rating: WNL Clock Drawing Severity Rating: WNL Objective Formal/Standardized Tests [facility] Mental Status ([facility]) Results 28/30, within normal range of function Oral Motor/Speech Production Speech is intelligible, she does have difficulty with word finding at times due to an old CVA in 1996 Impression Patient is a pleasant 80 y/o female who was admitted to the ARU s/p tib-fib fracture. Patient was given the SLUMS at bedside with a score of 28/30 obtained. This score is within normal range of function and does not indicate a need for speech therapy at this time. Speech Patient Assess Expression of Ideas/Wants: Expression (4) Understanding Verbal Content: Understands (4) Brief Interview-Mental Status: Yes Repetition of Three Words: Three (3) Temporal Orientation: Year: Correct (3) Temporal Orientation: Month: Accurate within 5 days(2) Temporal Orientation: Day: Correct (1) Recall : Wear to say "Sock": Yes, no cue required (2) Recall : Color: Yes, no cue required (2) Recall : Bed: Yes,after cueing (1) Memory/Recall Ability: Current season, That he or she is in a hsp/hsp unit Speech-Plan Patient/Family Goals Patient/Family Goals: Patient plans on returning to her home upon discharge. Treatment Plan Speech Therapy Treatment Plan: Discontinue ST Treatment Duration: May 30, 2020 Frequency: 1 time per week Estimated Hrs Per Day: .5 hour per day Rehab Potential: Fair Barriers to Learning: Patient's recent fall, age Pt/Family Agrees to Plan: Yes Safety Risks/Education Teaching Recipient: Patient Teaching Methods: Discussion Response to Teaching: Verbalize Understanding Education Topics Provided: Safety within her room, communication of wants/needs, call light use Time Speech Therapy Time In: 14:30 Speech Therapy Time Out: 15:00 Total Billed Time: 30 Billed Treatment Time 1, SPSNDCOMP SUDHAKAR Daniel May 30, 2020 15:14
[2020-05-30 15:44] VITALS: BP 145/60
[2020-05-30 17:07] VITALS: BP 106/50
--- NOTE | 2020-05-30 17:29 | PM&R Post Admission Assessment ---
PM&R Date of Visit: May 30, 2020 Time of Visit: 13:00 History of Present Illness CC: s/p left tibial fracture in need of intensive rehab HPI: This is an 80yoWF clinic patient of [facility] known to me from prior IRF stay 07/2018 after sustaining a compression fracture who is now presenting to the IRF in need of aggressive rehab in order to return home to independent living next door to her family but remains non-weight bearing on the left. Pain is controlled. BM+. INR monitoring by Cardiology. Using IS. IRF previous HPI: 07/28/18: CC: Lumbar compression fracture with severe debility HPI: This is a frail 78yoWF clinic patient of Dr Martinez at [facility], who recently moved from [place], [place] to be close to her niece who provides for her care and lives 2 houses down from her, who present to IRF to improve on independent ADL's and ambulation and prevent fall prior to returning home to live independently. Patient was admitted to [facility] for 1 week due to severe spine pain and was dx with compression fracture of L5 and subacute on L2 along with lumbar stenosis so she was admitted and treated for severe pain and then required SB to improve strength prior to admit to IRF. 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 She has a mechanical valve of which her Warfarin has required multiple adjustments since she has been inpatient at [facility] so will consult Cardiology to establish care and check ECHO and further manage that while she is here at IRF. Barriers to returning home will be ability to ambulate safely without falls and regain independent ADL's of showering and toileting. Assessment from med-surg copied from prior notes: (1) Fall on same level from tripping as cause of accidental injury Status: Acute (2) Fracture, tibia and fibula, shaft Status: Acute Assessment & Plan: 05/23: Plan for surgery today, Vit K given prior to surgery 05/24: POD #1, pain well controlled, working with PT and up to chair this AM, Started on Lovenox today, will plan to restart coumadin tomorrow 05/25: POD #2, Continue to work with PT, IRF consult, restarting coumadin today, continue lovenox bridge 05/26: Postop day #3 doing well post internal fixation of left tibial fracture. INR still subtherapeutic 1.5 continue daily INR monitoring and full dose Lovenox bridging until INR reaches 2. Consult for evaluation for possible acute rehab if not a candidate will need halfway which the patient has required in the past when she lived in [place] for several months last year. 05/27: Postop day 3 internal fixation left tibial fracture. INR is up to 1.8 she is still on full dose bridging Lovenox therapy when she gets above 2 will need to have Lovenox discontinued. We are in the process of evaluation for acute rehab facility. If she is not deemed to be a candidate will need halfway placement with PT and OT. Hemoglobin was again 7 with some increase in fatigue likely mostly postop related bleeding that is not ongoing from her fracture site. We will give 1 unit of packed cells after discussion. 05/28/20: DC Lovenox since INR therapeutic and check iron Qualifiers: Qualified Codes: S82.202A - Unspecified fracture of shaft of left tibia, initial encounter for closed fracture; S82.402A - Unspecified fracture of shaft of left fibula, initial encounter for closed fracture (3) Age related osteoporosis Status: Chronic Assessment & Plan: - States that she has only taken bisphosphanates in the past, DEXA as outpatient Qualifiers: Qualified Codes: M80.00XA - Age-related osteoporosis with current pathological fracture, unspecified site, initial encounter for fracture (4) Anticoagulant long-term use Status: Chronic Assessment & Plan: - Due to mechanical heart valve 05/24: Bridging with lovenox starting today, will restart coumadin tomorrow (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 (6) Seizure disorder Status: Chronic (7) Mechanical heart valve present Status: Chronic (8) Advanced age (9) DVT prophylaxis Status: Acute Plan: Monitor labs Iron infusion Pain control Past Jolvycd-Eipjyz-Luosce Hx Past Med/Social Hx: Reviewed Nursing Past Med/Soc Hx, Reviewed and Corrections made Patient Social History Marrital Status: single Employed/Student: retired Alcohol Use: Denies Use Alcohol Beverage of Choice: Wine Drug of Choice: No recreational drug use Smoking Status: Never a Smoker Recent Hopitalizations: No Immunizations Up To Date Tetanus Booster (TDap): Less than 5yrs Date of Pneumonia Vaccine: Apr 06, 2014 Date of Influenza Vaccine: Feb 20, 2020 Seasonal Allergies Seasonal Allergies: No Past Medical History Surgeries: Cardiac, Hysterectomy, Joint Replacement, Oophorectomy, Orthopedic, Valve Replacement Currently Using CPAP: No Currently Using BIPAP: No Cardiac: High Cholesterol, Hypertension, Valvular Heart Disease Neurological: Seizure Disorder, Stroke : No Hysterectomy, Menopausal Musculoskeletal: Osteoporosis, Back Injury, Foot Drop, Fractures, Spasms HEENT: Cataract Loss of Vision: Left Psychosocial: Anxiety, Depression History of Blood Disorders: No Adverse Reaction to Blood Orellana: No Family History No Pertinent Family Hx, Heart Disease, CVA, Seizures, Stroke, Vascular Disease Osteoporosis Prior Level of Function Bed Mobility: 6 Transfers: 6 Gait: 6 (FWW with platform or QC; she has both) Stairs: 9 Indoor Mobility (Ambulation): Independent Stairs: Not Applicalbe Prior Devices Use: Walker, Other-see list below (Quad cane) Self Care: Independent Functional Cognition: Independent Occupation: retired. Drive Self: Yes Current Level of Fuctioning Roll Left to Right: 4 Sit to Lyin Lying to Sitting/Side of Bed: 4 Sit to Stand: 3 Chair/Fnc-zu-Odovo Xfer: 2 Car Transfer: 2 Does the Patient Walk: No and Walking Goal IS indicated Mode of Locomotion: Both Anticipated Mode of Locomotion: Both Walk 10 feet: 88 Walk 50 ft with 2 Turns: 88 Walk 150 ft: 88 Walking 10ft on uneven surface: 88 Gait Assistive Device: Walker Platform Does the Pt Use a Wheelchair: Yes Wheel 50 ft with 2 turns: 4 (Cues for technique and sequencing. ) Wheel 150 ft: 3 Type of Wheelchair: Manual 1 Step (curb): 9 4 Steps: 9 12 Steps: 9 Picking up an Object: 9 Eatin (s/u (given coke with straw and able to drink s/u)) Oral Hygiene: 7 Shower/Bathe Self: 7 Upper Body Dressin Lower Body Dressin On/Off Footwear: 7 Toileting Hygiene: 7 Toilet Transfer: 3 PM&R Allergy/Meds/Data Review Allergies Coded Allergies: Penicillins (Verified Allergy, Unknown, 09/02/18) Sulfa (Sulfonamide Antibiotics) (Verified Allergy, Unknown, 09/02/18) tetracycline (Verified Allergy, Unknown, 5/30/19) Home Medications Scheduled Alendronate Sodium (Alendronate Sodium), 70 MG PO FRI, (Reported) Fluoxetine HCl (Prozac), 40 MG PO DAILY, (Reported) Levetiracetam (Levetiracetam), 500 MG PO HS, (Reported) Oxybutynin Chloride (Oxybutynin Chloride ER), 15 MG PO DAILY, (Reported) Phenytoin Sodium Extended (Phenytoin Sodium Extended), 100 MG PO TID, (Reported) Rosuvastatin Calcium (Rosuvastatin Calcium), 10 MG PO HS, (Reported) Warfarin Sodium (Warfarin Sodium), 4 MG PO DAILY, (Reported) Scheduled PRN Acetaminophen (Tylenol), 650 MG PO Q8H PRN for PAIN-MILD (1-4), (Reported) Current Medications Current Medications Reviewed Review of Systems Constitutional: see HPI, malaise, weakness EENTM: no symptoms reported Respiratory: no symptoms reported Cardiovascular: no symptoms reported Gastrointestinal: no symptoms reported Genitourinary: no symptoms reported Musculoskeletal: back pain, joint pain Skin: no symptoms reported Psychiatric/Neurological: Depressed All Other Systems Reviewed Negative Unless Noted: Yes Physical Exam Physical Exam Vital Signs Vital Signs - First Documented 05/30/20 13:00 Temp 36.0 Pulse 72 Resp 18 B/P (MAP) 145/60 (88) Pulse Ox 95 O2 Delivery Room Air Capillary Refill : Height, Weight, BMI Height: 5'4.00" Weight: 110lbs. 0.8oz. [id number]; 19.75 BMI Method:Estimated General Appearance: No Apparent Distress, WD/WN, Chronically ill, Thin Eyes: Bilateral Eye Normal Inspection, Bilateral Eye PERRL HEENT: PERRL/EOMI, Normal ENT Inspection, Pharynx Normal Neck: Full Range of Motion, Normal Inspection, Non Tender, Supple, Carotid Bruit Respiratory: Chest Non Tender, Lungs Clear, Normal Breath Sounds, No Accessory Muscle Use, No Respiratory Distress Cardiovascular: No Edema, No Gallop, No JVD, No Murmur, Normal Peripheral Pulses, Systolic Murmur, Irregularly Irregular Gastrointestinal: Normal Bowel Sounds, No Organomegaly, No Pulsatile Mass, Non Tender, Soft Back: Normal Inspection, No CVA Tenderness, No Vertebral Tenderness Extremity: Normal Capillary Refill, Normal Inspection, Normal Range of Motion, Non Tender, No Calf Tenderness, No Pedal Edema Neurologic/Psychiatric: Alert, Oriented x3, Normal Mood/Affect, Abnormal Gait, Depressed Affect, Motor Weakness (generalized all extremities) Skin: Normal Color, Warm/Dry Lymphatic: No Adenopathy PM&R Medical Assessment & Plan REHAB/MEDICAL ASSESSMENT AND PLAN: REHAB IMPAIRMENT GROUP: Left tibia fracture ETIOLOGIC DIAGNOSIS: Left tibia fracture The comorbidities that impact the patients function and/or functional outcome by: previous CVA, expressive aphasia chronic, non-weight bearing on left leg REHAB PLAN: The patient is being admitted to our comprehensive inpatient rehabilitation facility and can tolerate the intensity of service consisting of at least: 180 minutes of therapy a day, 5 out of 7 days a week Rehab treatment will consist of: PT OT will help patient regain independence with the use of AD and maintain NWB status on left leg in order to return to live independently The patient/family has a good understanding of our discharge process and will benefit from an interdisciplinary inpatient rehabilitation program. The patient has potential to make improvement and is in need of at least two of the following multidisciplinary therapies including but not limited to physical, occupational, speech, and prosthetics and orthotics. Additionally the patient will need services from respiratory, nutritional services, wound care, psychology, etc. (Customize this to each patient). Given the patients complex condition and risk of further medical complications, rehabilitation services cannot be safely or effectively provided at a lower level of care such as a halfway facility. BARRIERS TO DISCHARGE: Prior CVA with deficits and non-weight bearing status on left ESTIMATED LOS: 14 days DISPOSITION: Home RELEVANT CHANGES SINCE PREADMISSION SCREENING: I have compared the patients medical and functional status at the time of the preadmission screening and there are: no changes PROGNOSIS: Good REHABILITATION GOALS: 1. PT OT will help patient regain independence with the use of AD and maintain NWB status on left leg in order to return to live independently All the above goals were reviewed with the patient and he/she is in agreement. By signing this document, I acknowledge that I have personally performed a full physical examination on this patient within 24 hours of admission to this inpatient rehabilitation facility and have determined the patient to be able to tolerate the above course of treatment at an intensive level for a reasonable period of time. I will be completing a detailed individualized Plan of Care for this patient by day #4 of the patients stay based upon the Preadmission Screen, the Post-Admission Evaluation, and the therapy evaluations. 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 (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 (6) Age related osteoporosis Status: Chronic ICD Codes: M81.0 - Age-related osteoporosis without current pathological fracture (7) Seizure disorder Status: Chronic ICD Codes: G40.909 - Epilepsy, unspecified, not intractable, without status epilepticus (8) Advanced age ICD Codes: R54 - Age-related physical debility (9) Right sided weakness ICD Codes: R53.1 - Weakness (10) Foot drop, right ICD Codes: M21.371 - Foot drop, right foot (11) Overactive bladder ICD Codes: N32.81 - Overactive bladder (12) Hypertension ICD Codes: I10 - Essential (primary) hypertension (13) Depression ICD Codes: F32.9 - Major depressive disorder, single episode, unspecified (14) Anxiety ICD Codes: F41.9 - Anxiety disorder, unspecified Assessment/Plan Assessment and Plan Assess & Plan/Chief Complaint Assessment: Left tibia fracture s/p repair Prior CVA with right sided weakness chronic Expressive aphasia from prior CVA Mechanical heart valve replacement status OAC with Coumadin AF OP OAB HTN Depression Plan: Pain control Monitor BP INR monitoring IRF protocol TRACEY DEAN DO May 30, 2020 17:29
[2020-05-30] MEDS ORDERED: ONDANSETRON 4 MG/2 ML (SDV) Z0FRAN IVP PRN (17:30)
[2020-05-30] MEDS: oxyCODONE/APAP 5/325MG (PERCOCET 5) TABLET PO PRN (17:41)
[2020-05-30] MEDS: morphine INJ 4 MG/ML 1 ML (VIAL/SYRINGE) IVP PRN ×2 (19:19→23:07)
[2020-05-30] MEDS: OXYBUTYNIN (DITROPAN) 5 MG TAB PO SCH (20:11)
[2020-05-30] MEDS: ROSUVASTATIN 10 MG (CRESTOR) TABLET PO SCH (20:11)
[2020-05-30] MEDS: LEVETIRACETAM 500 MG (KEPPRA) TAB PO SCH (20:11)
[2020-05-30] MEDS: PHENYTOIN 100 MG (DILANTIN) CAP PO SCH (20:11)
[2020-05-30] MEDS: DOCUSATE SODIUM 100 MG (COLACE) CAP PO SCH (20:13)
[2020-05-30] MEDS: LACTULOSE SYRUP 10GM/15ML (ENULOSE) 30ML UDC PO SCH (20:13)
[2020-05-30] MEDS: polyethylene glycoL POWDER 17 GM (MIRALAX) PACK PO SCH (20:13)
[2020-05-30] MEDS: SENNA W/DOCUSATE (SENOKOT S) TABLET PO SCH (20:14)
[2020-05-30] MEDS ORDERED: polyethylene glycoL POWDER 17 GM (MIRALAX) PACK PO SCH (21:00)
[2020-05-30] MEDS ORDERED: SENNA W/DOCUSATE (SENOKOT S) TABLET PO SCH (21:00)
[2020-05-30] MEDS ORDERED: DOCUSATE SODIUM 100 MG (COLACE) CAP PO SCH (21:00)
[2020-05-31] MEDS: morphine INJ 4 MG/ML 1 ML (VIAL/SYRINGE) IVP PRN ×2 (05:03→11:33)
[2020-05-31 05:29] VITALS: BP 112/55
[2020-05-31 06:32] LABS: BASOPHILS % (AUTO) 0 % (0-10); EOSINOPHILS # (AUTO) 0.2 10^3/uL (0.0-0.3); EOSINOPHILS % (AUTO) 2 % (0-10); HEMATOCRIT 27 % (35-52); HEMOGLOBIN 8.6 g/dL (11.5-16.0); LYMPHOCYTES # (AUTO) 0.6 10^3/uL (1.0-4.0); LYMPHOCYTES % (AUTO) 8 % (12-44); MEAN CORPUSCULAR HEMOGLOBIN 30 pg (25-34); MEAN CORPUSCULAR HGB CONC 32 g/dL (32-36); MEAN CORPUSCULAR VOLUME 94 fL (80-99); MEAN PLATELET VOLUME 11.7 fL (9.0-12.2); MONOCYTES # (AUTO) 0.9 10^3/uL (0.0-1.0); MONOCYTES % (AUTO) 12 % (0-12); NEUTROPHILS # (AUTO) 5.8 10^3/uL (1.8-7.8); NEUTROPHILS % (AUTO) 77 % (42-75); PLATELET COUNT 279 10^3/uL (130-400); WHITE BLOOD COUNT 7.5 10^3/uL (4.3-11.0)
[2020-05-31 06:46] LABS: INR 3.3 (0.8-1.4); PROTHROMBIN TIME PATIENT 33.6 SEC (12.2-14.7)
[2020-05-31 06:47] LABS: ALBUMIN 2.7 GM/DL (3.2-4.5); CHLORIDE 109 MMOL/L (98-107); SODIUM 140 MMOL/L (135-145)
[2020-05-31 06:48] LABS: CALCIUM 7.5 MG/DL (8.5-10.1)
[2020-05-31 06:49] LABS: GLUCOSE 111 MG/DL (70-105); TOTAL PROTEIN 5.2 GM/DL (6.4-8.2)
[2020-05-31 06:51] LABS: BILIRUBIN,TOTAL 0.3 MG/DL (0.1-1.0); CARBON DIOXIDE 23 MMOL/L (21-32)
[2020-05-31 06:53] LABS: ALKALINE PHOSPHATASE 72 U/L (40-136); CREATININE SERUM 0.71 MG/DL (0.60-1.30); GFR ESTIMATED > 60
[2020-05-31 06:54] LABS: BUN/CREATININE RATIO 18
[2020-05-31 06:56] LABS: ALANINE AMINOTRANSFERASE 20 U/L (0-55)
--- NOTE | 2020-05-31 08:03 | Cardiology Progress Note ---
Subjective Date Seen by Provider: May 31, 2020 Time Seen by Provider: 08:02 Subjective/Events-last exam Patient in bed, no new complaints. Objective-Cardiology Exam Last Set of Vital Signs Vital Signs 05/31/20 05:29 Temp 37.2 Pulse 77 Resp 18 B/P (MAP) 112/55 (74) Pulse Ox 96 O2 Delivery Room Air Capillary Refill : Less Than 3 Seconds I&O Intake and Output 05/31/20 00:00 Intake Total 480 ml Balance 480 ml Intake Oral 480 ml # Voids 1 Daily Weight Change Yes, 14-23 lbs General: Alert, Oriented X3, Cooperative HEENT: Atraumatic, PERRLA Neck: Supple, No JVD, No Thyromegaly Lungs: Clear to Auscultation, Normal Air Movement Heart: Regular Rate, Normal S1, Normal S2, No Murmurs Abdomen: Normal Bowel Sounds, Soft, No Tenderness, No Hepatosplenomegaly, No Masses Extremities: No Clubbing, No Cyanosis, No Edema, Normal Pulses, No Tenderness/Swelling Psych/Mental Status: Mental Status NL Results Lab Laboratory Tests 05/31/20 06:23 A/P-Cardiology Admission Diagnosis nonsyncopal fall Left Tib/fib fx Hx AVR HTN Assessment/Plan Non-syncopal fall resulting in left tibia/fibula fx treated with closed IM rodding left tibial shaft fracture on 05/23/20 (Dr Srinivasan) Mechanical aortic valve replacement, surgery done in [place] in the remote past, maintained on Coumadin, Echo of 05/22/20: LVEF 50-55%, s/p mech AVR that is functioning well, pulm htn with PASP 65-70 mmHg, right heart enlargement, mild to mod MR & TR. Maintained on Coumadin, INR 3.3, I will decrease dose to 4mg daily. Anemia, s/p transfusion, stable, continue to monitor H/H. Essential hypertension , continue to monitor blood pressure. Pulmonary hypertension of undetermined etiology Hyperlipidemia - statin tx PACs, asymptomatic, continue to monitor. 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 Improved. Nonobstructive carotid artery stenosis per carotid duplex done November 2018 Patient was seen and evaluated with Dominique, examination performed, management plan was discussed, agree with the current scribed note, I made few changes to the note using Italic font Patient was seen at bedside, eating breakfast this morning Feeling better, in good spirit Continue on current medication monitor, monitor INR DOMINIQUE CHRISTIANSON May 31, 2020 08:03 VALENTIN HEAD MD May 31, 2020 09:14
[2020-05-31] MEDS: PHENYTOIN 100 MG (DILANTIN) CAP PO SCH ×3 (09:27→20:33)
[2020-05-31] MEDS: OXYBUTYNIN (DITROPAN) 5 MG TAB PO SCH ×3 (09:27→20:33)
[2020-05-31] MEDS: amLODIPine 5 MG (NORVASC) TAB PO SCH (09:27)
[2020-05-31] MEDS: FLUoxetine HCL 20 MG (PROzac) CAP PO SCH (09:28)
[2020-05-31] MEDS: oxyCODONE/APAP 5/325MG (PERCOCET 5) TABLET PO PRN (09:28)
[2020-05-31] MEDS: polyethylene glycoL POWDER 17 GM (MIRALAX) PACK PO SCH ×2 (09:33→20:32)
[2020-05-31] MEDS: LACTULOSE SYRUP 10GM/15ML (ENULOSE) 30ML UDC PO SCH ×2 (09:33→20:32)
[2020-05-31] MEDS: DOCUSATE SODIUM 100 MG (COLACE) CAP PO SCH ×2 (09:33→20:32)
[2020-05-31] MEDS: SENNA W/DOCUSATE (SENOKOT S) TABLET PO SCH ×2 (09:33→20:33)
--- NOTE | 2020-05-31 11:40 | PM&R Progress Note ---
Subjective HPI/CC On Admission Date Seen by Provider: May 31, 2020 Time Seen by Provider: 12:00 Subjective/Events-last exam 05/31/20: Patient doing better Behavioral consult today for depression and statement of suicidal ideation Percocet for pain Dr Vora adjusting Coumadin Pastoral care ordered Review of Systems General: Fatigue, Malaise Musculoskeletal: leg pain Objective Exam Vital Signs Vital Signs Date Time Temp Pulse Resp B/P (MAP) Pulse Ox O2 Delivery O2 Flow Rate FiO2 05/31/20 21:15 Room Air 05/31/20 16:30 36.6 60 20 97/53 (68) 93 Capillary Refill : Less Than 3 Seconds General Appearance: No Apparent Distress, WD/WN, Chronically ill, Thin HEENT: PERRL/EOMI, Normal ENT Inspection, Pharynx Normal Neck: Full Range of Motion, Normal Inspection, Non Tender, Supple, Carotid Bruit Respiratory: Chest Non Tender, Lungs Clear, Normal Breath Sounds, No Accessory Muscle Use, No Respiratory Distress Cardiovascular: No Edema, No Gallop, No JVD, No Murmur, Normal Peripheral Pulses, Systolic Murmur, Irregularly Irregular Gastrointestinal: Normal Bowel Sounds, No Organomegaly, No Pulsatile Mass, Non Tender, Soft Back: Normal Inspection, No CVA Tenderness, No Vertebral Tenderness Extremity: Normal Capillary Refill, Normal Inspection, Normal Range of Motion, Non Tender, No Calf Tenderness, No Pedal Edema Neurologic/Psychiatric: Alert, Oriented x3, Normal Mood/Affect, Abnormal Gait, Depressed Affect, Motor Weakness (generalized all extremities) Skin: Normal Color, Warm/Dry Lymphatic: No Adenopathy Results/Procedures Lab Laboratory Tests 05/31/20 06:23 Patient resulted labs reviewed. FIM Transfers Therapy Code Descriptions/Definitions Functional Long Measure: 0=Not Assessed/NA 4=Minimal Assistance 1=Total Assistance 5=Supervision or Setup 2=Maximal Assistance 6=Modified Long 3=Moderate Assistance 7=Complete IndependenceSCALE: Activities may be completed with or without assistive devices. 9-Ydnkudmcbr-vkmajsh completes the activity by him/herself with no assistance from a helper. 5-Set-up or Clean-up Assistance-helper sets up or cleans up; patient completes activity. [place] assists only prior to or following the activity. 4-Supervision or Touching Assistance-helper provides verbal cues and/or touching/steadying and/or contact guard assistance as patient completes activity. Assistance may be provided throughout the activity or intermittently. 3-Partial/Moderate Assistance-helper does LESS THAN HALF the effort. [place] lif ts, holds or supports trunk or limbs, but provides less than half the effort. 2-Substantial/Maximal Assistance-helper does MORE THAN HALF the effort. [place] lifts or holds trunk or limbs and provides more than half the effort. 7-Thsfhqgyw-olobao does ALL the effort. Patient does none of the effort to complete the activity. Or, the assistance of 2 or more helpers is required for the patient to complete the activity. If activity was not attempted, code reason: 7-Patient Refused. 9-Not Applicable-not attempted and the patient did not perform the activity before the current illness, exacerbation or injury. 10-Not Attempted due to Environmental Limitations-(lack of equipment, weather restraints, etc.). 88-Not Attempted due to Medical Conditions or Safety Concerns. Roll Left to Right (QC): 4 Sit to Lying (QC): 4 Sit to Stand (QC): 3 Chair/Xek-qc-Wkjrz Xfer(QC): 2 Car Transfer (QC): 2 Gait Training Does the Patient Walk?: No and Walking Goal IS indicated Walk 10 feet (QC): 88 Walk 50 ft with 2 Turns(QC): 88 Walk 150 ft (QC): 88 Walking 10ft/uneven surface-QC: 88 Gait Assistive Device: Walker Platform Wheelchair Training Does the Pt Use a Wheelchair?: Yes Wheel 50 ft with 2 turns (QC): 4 (Cues for technique and sequencing. ) Wheel 150 ft (QC): 3 Type of Wheelchair: Manual Stair Training 1 Step (curb) (QC): 9 4 Steps (QC): 9 12 Steps (QC): 9 Balance Picking up an Object (QC): 9 ADL-Treatment Eating (QC): 5 (s/u (given coke with straw and able to drink s/u)) Oral Hygiene (QC): 7 Shower/Bathe Self (QC): 7 Upper Body Dressing (QC): 7 Lower Body Dressing (QC): 7 On/Off Footwear (QC): 7 Toileting Hygiene (QC): 7 Toilet Transfer (QC): 3 Assessment/Plan Assessment and Plan Assess & Plan/Chief Complaint Assessment: Left tibia fracture s/p repair Prior CVA with right sided weakness chronic Expressive aphasia from prior CVA Mechanical heart valve replacement status OAC with Coumadin AF OP OAB HTN Depression Plan: Pain control Monitor BP INR monitoring IRF protocol 05/31/20: Pain control Psych eval PT OT (1) Fracture, tibia and fibula, shaft Status: Acute (2) Mechanical heart valve present Status: Chronic (3) DVT prophylaxis Status: Acute (4) Anticoagulant long-term use Status: Chronic (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
--- NOTE | 2020-05-31 11:41 | Individualized Plan of Care ---
Individualized Plan of Care Rehab Nursing IPOC Order Admission Date May 30, 2020 at 12:30 Current Orders Orders Admission Order(Inpt,Obs,Sdc) (05/30/20 11:50) Vital Signs: Per Unit Policy ( 08,16,00 (05/30/20 11:50) Medical Art Therapist-Inpt Rehab Con (05/30/20 11:50) Rehab Nursing Orders-Ipoc (05/30/20 11:50) Physical Therapy Rehab Orders (05/30/20 11:50) Occupational Therapy Rehab Ord (05/30/20 11:50) Speech Therapy Rehab Orders (05/30/20 11:50) Cbc With Automated Diff (05/31/20 06:00) Comprehensive Metabolic Panel (05/31/20 06:00) Intake & Output 06,14,22 (05/30/20 11:50) Precautions (Aru) (05/30/20 11:50) Rehab-Intensity Of Therapy (05/30/20 11:50) Initiate Admission Nursing Pro .admission (05/30/20 11:50) Alprazolam Tablet (Xanax Tablet) (05/30/20 12:00) Calcium Carbonate Chew Tablet (Antacid C (05/30/20 12:00) Diphenhydramine Tablet (Benadryl Tablet) (05/30/20 12:00) Docusate Sodium Capsule (Colace Capsule) (05/30/20 21:00) Docusate Sodium Capsule (Colace Capsule) (05/30/20 12:00) Bisacodyl Suppository (Dulcolax Supposit (05/30/20 12:00) Lactulose Oral Solution (Enulose Oral So (05/30/20 12:00) Na Phos/Na Biphos Enema (Fleet Enema Farhad (05/30/20 12:00) Guaifenesin/Codeine Syrup (Robitussin Ac (05/30/20 12:00) Loperamide Tablet (Imodium Tablet) (05/30/20 12:00) Melatonin Tablet (Melatonin Tablet) (05/30/20 12:00) Polyethylene Glycol Powder Pkt (Miralax (05/30/20 21:00) Ondansetron Oral Dissolve Tab (Zofran (05/30/20 12:00) Senna S Tablet (Senokot S Tablet) (05/30/20 21:00) Initiate Admission Nursing Pro .admission (05/30/20 11:50) Admission Arrival Bed Request (05/30/20 13:33) General/Regular (05/30/20 Lunch) Patient Visit (05/30/20 ) Speech Sound Lang Comp (05/30/20 ) Protime With Inr (05/31/20 06:00) Protime With Inr (06/01/20 06:00) Protime With Inr (06/02/20 06:00) Protime With Inr (06/03/20 06:00) Protime With Inr (06/04/20 06:00) Protime With Inr (06/05/20 06:00) Protime With Inr (06/06/20 06:00) Protime With Inr (06/07/20 06:00) Protime With Inr (06/08/20 06:00) Protime With Inr (06/09/20 06:00) Protime With Inr (06/10/20 06:00) Protime With Inr (06/11/20 06:00) Protime With Inr (06/12/20 06:00) Protime With Inr (06/13/20 06:00) Protime With Inr (06/14/20 06:00) Protime With Inr (06/15/20 06:00) Protime With Inr (06/16/20 06:00) Protime With Inr (06/17/20 06:00) Protime With Inr (06/18/20 06:00) Protime With Inr (06/19/20 06:00) Protime With Inr (06/20/20 06:00) Protime With Inr (06/21/20 06:00) Protime With Inr (06/22/20 06:00) Protime With Inr (06/23/20 06:00) Protime With Inr (06/24/20 06:00) Protime With Inr (06/25/20 06:00) Protime With Inr (06/26/20 06:00) Protime With Inr (06/27/20 06:00) Protime With Inr (06/28/20 06:00) Protime With Inr (06/29/20 06:00) Patient Visit (05/30/20 ) Pt Eval Moderate Complexity (05/30/20 ) Functional Activities, Ea 15 (05/30/20 ) Behavorial Health Consult (05/30/20 16:38) Telesitter Service Order & Ass Q4HR (05/30/20 16:47) Code/Resuscitation (05/30/20 17:27) Dressing Order (Intervention) Q48H (05/30/20 17:27) Incentive Spirometry (Nursing) Q2H (05/30/20 17:27) Weight Bearing Restrictions (05/30/20 17:27) Acetaminophen Tablet/Caplet (Tylenol T (05/30/20 17:30) Bisacodyl Suppository (Dulcolax Supposit (05/30/20 17:30) Docusate Sodium Capsule (Colace Capsule) (05/30/20 21:00) Fluoxetine Capsule (Prozac Capsule) (05/31/20 09:00) Iron Sucrose Injection (Venofer Injectio (06/01/20 09:00) Lactulose Oral Solution (Enulose Oral So (05/30/20 21:00) Levetiracetam Tablet (Keppra Tablet) (05/30/20 21:00) Ondansetron Injection (Zofran Injectio (05/30/20 17:30) Oxybutynin Tablet (Ditropan Tablet) (05/30/20 21:00) Phenytoin Capsule (Dilantin Capsule) (05/30/20 21:00) Rosuvastatin Tablet (Crestor Tablet) (05/30/20 21:00) Senna S Tablet (Senokot S Tablet) (05/30/20 21:00) Amlodipine Tablet (Norvasc Tablet) (05/31/20 09:00) Morphine Injection (Morphine Injection (05/30/20 17:30) Oxycodone/Apap 5/325mg Tablet (Percocet (05/30/20 17:30) Polyethylene Glycol Powder Pkt (Miralax (05/30/20 21:00) Consult Cardiology (05/30/20 17:27) Consult Orthopedic Surgery (05/30/20 17:27) Consult Wound Care Physician (05/30/20 17:27) Ensure Plus Variety (05/30/20 17:33) Warfarin Tablet (Coumadin Tablet) (05/31/20 18:00) General/Regular (05/31/20 Lunch) Patient Visit (05/31/20 ) Exercise Therap, Ea 15 Min (05/31/20 ) Gait Training, Ea 15 Min (05/31/20 ) Ex Neuromuscular, Ea 15 Min (05/31/20 ) Functional Activities, Ea 15 (05/31/20 ) Wheelchair Mgmt/Propulsn 15min (05/31/20 ) Sodium Chloride Flush (Catheter Flush Sy (05/31/20 22:00) Rehab Nursing Orders: Ongoing Assess. of Cognitive Status, Ongoing Assess. of Function Status, Bladder Management, Bladder Scan, Bladder Training, Bowel Management, Bowel Training, Disease Management & Educaiton, DVT Prophylaxis, Fall Prevention, Fluid/Electrolyte/Nutrition Mgmt, Infection Prevention, Medication Management & Education, Management of Risks & Complications, Management of Skin Intergrity, Nutrition Management, Pain Management, Patient/Family Support, Safety Management, Weight Bearing Precaution, Wound Management Intensity of Therapy to be met Patient to be seen: Min.3h per day/5 of 7d PT IPOC Problem List: Activity Tolerance, Functional Strength, Safety, Balance, Gait, Transfer, Bed Mobility Treatment Plan: Continue Plan of Care Bed Mobility, Education, Functional Activity Francy, Functional Strength, Group Therapy, Gait, Safety, Therapeutic Exercise, Transfers Treatment Duration: Jun 27, 2020 Frequency: At least 5 of 7 days/Wk (IRF) Estimated Hrs Per Day: 1.5 hours per day OT IPOC Problems: Decreased Activ Tolerance, Decreased UE Strength, Dependent Transfers, Impaired Bed Mobility, Impaired Coordination, Impaired Funct Balance, Impaired I ADL's, Impaired Self-Care Skills, Restricted Funct UE ROM OT Treatment, Training and Edu: Yes Plan of Care: ADL Retraining, Caregiver Training, Concurrent Therapy, Functional Mobility, Group Exercise/Act as Ind, Orthotic Fitting/Training, UE Funct Exercise/Act, UE Neuromus Re-Ed/Coord, W/C Management Training Treatment Duration: Jun 13, 2020 Frequency: At least 5 of 7 days/Wk (IRF) Estimated Hrs Per Day: 1.[address] IPOC Speech Therapy Treatment Plan: Discontinue ST Treatment Duration: May 30, 2020 Frequency: 1 time per week Estimated Hrs Per Day: .5 hour per day Medical Art Therapist/Case Mgmt Medical Art Therapist/Case Managemen: Discharge Planning Dietitian/Sausage Stuffer Dietitian/Sausage Stuffer to monitor nutritional status and make changes and/or recommendations as needed and work with speech pathology on dietary upgrades as the occur. Neuropsychology/Psychology depression- Physician IPOC Medical Issues being managed closely and that require the 24 hour availability of a physician: Recent ankle fracture with significant cardiac issues with valve replacement and prior CVA will require close monitoring for decompensation Medical Issues: Bowel/Bladder Function, DVT Prophylaxis, Falls Precautions, Infection Protection, Pain Management, Weight Bearing Precautions Brief Synthesis of Preadmission Screen, Post-Admission Evaluation, and Therapy Evaluations: PT OT will focus on regaining function with use of AD and monitoring weight bearing status restrictions and increasing ADL independence Medical Prognosis: Guarded Anticipated Length of Stay: 14 days TRACEY DEAN DO May 31, 2020 11:41
--- NOTE | 2020-05-31 11:48 | Occupational Ther Daily Note ---
OT Current Status-Daily Note Subjective Pt alert, lying on bed. Pt agrees to therapy. Pt c/o pain during treatment, nrsg brought meds. Mental Status/Objective Patient Orientation: Person, Place, Time, Situation Attachments: IV ADL-Treatment Co-treat with PT ([id number]), skilled instruction and care requires 2 clinicians due to decreased mobility, increased fall risk and fatigue of pt. PT focusing on transfers, mobility, w/c mobility and standing while OT focusing on functional transfers, ADLs and placement of extremities during mobility. Pt agrees to shower. Supine <--> EOB independent. Doffed briefs sitting on EOB independently. Doffed shirt independently. Transferred to shower chair with cutout with mod A for SPT. Transported pt to shower using shower chair then pt was able to shower all areas after set up except L LE due to covering to keep dry. Sitting at sink, pt completed oral care independently. Pt donned shirt independently after set up. Assist to thread L LE into lower body clothing then pt was able to thread over R LE. Assist x2 to stand to hike pants over hips. Max A to don/doff sock. Therapy Code Descriptions/Definitions Functional [place] Measure: 0=Not Assessed/NA 4=Minimal Assistance 1=Total Assistance 5=Supervision or Setup 2=Maximal Assistance 6=Modified [place] 3=Moderate Assistance 7=Complete IndependenceSCALE: Activities may be completed with or without assistive devices. 2-Poegubvmku-zbbwzdw completes the activity by him/herself with no assistance from a helper. 5-Set-up or Clean-up Assistance-helper sets up or cleans up; patient completes activity. [place] assists only prior to or following the activity. 4-Supervision or Touching Assistance-helper provides verbal cues and/or touching/steadying and/or contact guard assistance as patient completes activity. Assistance may be provided throughout the activity or intermittently. 3-Partial/Moderate Assistance-helper does LESS THAN HALF the effort. [place] lifts, holds or supports trunk or limbs, but provides less than half the effort. 2-Substantial/Maximal Assistance-helper does MORE THAN HALF the effort. [place] lifts or holds trunk or limbs and provides more than half the effort. 5-Fqdygokgv-ipvmgj does ALL the effort. Patient does none of the effort to complete the activity. Or, the assistance of 2 or more helpers is required for the patient to complete the activity. If activity was not attempted, code reason: 7-Patient Refused. 9-Not Applicable-not attempted and the patient did not perform the activity before the current illness, exacerbation or injury. 10-Not Attempted due to Environmental Limitations-(lack of equipment, weather restraints, etc.). 88-Not Attempted due to Medical Conditions or Safety Concerns. Oral Hygiene (QC): 6 Shower/Bathe Self (QC): 4 Upper Body Dressing (QC): 5 Lower Body Dressing (QC): 1 On/Off Footwear: 2 Other Treatment Pt propelled w/c to therapy gym with assistance only to steer when veering to much to the left. See PT notes for pt ambulating with platform FWW. Pt then was able to sit on edge of mat and maintain balance with CGA while completing higher level balance challenge. Pt left in care of PT. All needs met in room. OT Short Term Goals Short Term Goals Eatin Oral hygiene: 5 Toileting hygiene: 3 Shower/bathe self: 3 Upper body dressin Lower body dressin Putting on/taking off footwear: 2 OT Fpc Goals Fpc Goals Time Frame: Jun 06, 2020 Eating (QC): 5 Oral Hygiene (QC): 5 Toileting Hygiene (QC): 6 Shower/Bathe Self (QC): 5 Upper Body Dressing (QC): 6 Lower Body Dressing (QC): 6 On/Off Footwear (QC): 6 Additional Goals: 1-Demonstrate ADL Tasks, 2-Verbalize Understanding, 3- ImproveStrength/[place] 1=Demonstrate adherence to instructed precautions during ADL tasks. 2=Patient will verbalize/demonstrate understanding of assistive device s/modifications for ADL. 3=Patient will improve strength/tolerance for activity to enable patient to perform ADL's. OT Education/Plan Problem List/Assessment Assessment: Decreased Activ Tolerance, Decreased UE Strength, Impaired Funct Balance, Impaired Self-Care Skills, Restricted Funct UE ROM Discharge Recommendations Plan/Recommendations: Continue POC Treatment Plan/Plan of Care Patient would benefit from OT for education, treatment and training to promote independence in ADL's, mobility, safety and/or upper extremity function for ADL's. Plan of Care: ADL Retraining, Caregiver Training, Concurrent Therapy, Functional Mobility, Group Exercise/Act as Ind, Orthotic Fitting/Training, UE Funct Exercise/Act, UE Neuromus Re-Ed/Coord, W/C Management Training Treatment Duration: Jun 13, 2020 Frequency: At least 5 of 7 days/Wk (IRF) Estimated Hrs Per Day: 1.5 hours per day Agreement: Yes Rehab Potential: Good Time/GCodes Start Time: 10:15 Stop Time: 11:45 Total Time Billed (hr/min): 90 Billed Treatment Time 1 visit-ADL 4 (60 min) FA 2 (30 min) co-treat with PT [id number] individual [id number] JOSE MANUEL PRINGLE May 31, 2020 11:48
--- NOTE | 2020-05-31 12:46 | Physical Therapy Daily Note ---
PT Daily Note-Current Subjective Patient in restroom pre tx, already working with OT, has pain of 10/10 in left foot, nurse notified and she got pain meds during tx, agrees to PT, will be co- treating with OT for part of tx due to poor patient mobility, strength, endurance, right hemiparesis, coordinate UE and LE during activity, safety and reduce risk of falls. Appearance Patient in recliner post tx with nurse call, phone, tray, all needs met, legs elevated, has telesitter in room. Mental Status Patient Orientation: Person, Place, Situation Transfers SCALE: Activities may be completed with or without assistive devices. 4-Gexvwnxhty-hfcibhb completes the activity by him/herself with no assistance from a helper. 5-Set-up or Clean-up Assistance-helper sets up or cleans up; patient completes activity. [place] assists only prior to or following the activity. 4-Supervision or Touching Assistance-helper provides verbal cues and/or touching/steadying and/or contact guard assistance as patient completes activity. Assistance may be provided throughout the activity or intermittently. 3-Partial/Moderate Assistance-helper does LESS THAN HALF the effort. [place] lifts, holds or supports trunk or limbs, but provides less than half the effort. 2-Substantial/Maximal Assistance-helper does MORE THAN HALF the effort. [place] lifts or holds trunk or limbs and provides more than half the effort. 8-Zhphdjnyf-pruzcb does ALL the effort. Patient does none of the effort to complete the activity. Or, the assistance of 2 or more helpers is required for the patient to complete the activity. If activity was not attempted, code reason: 7-Patient Refused. 9-Not Applicable-not attempted and the patient did not perform the activity before the current illness, exacerbation or injury. 10-Not Attempted due to Environmental Limitations-(lack of equipment, weather restraints, etc.). 88-Not Attempted due to Medical Conditions or Safety Concerns. Sit to Stand (QC): 3 Chair/Yee-dh-Gjljd Xfer(QC): 3 Patient needs assist to finish dressing (standing), then wheels to therapy gym, ambulates, performs trunk strengthening and balance exercise, exercises in parallel bars, and then W back to room. Mod assist to stand and pivot transfer. Patient performs transfer 3 times, twice going to therapy table and back and once to the recliner. Weight Bearing Right Lower Extremity: Right Full Weight Bearing Left Lower Extremity: Left Non Weight Bearing Gait Training Distance: 5'x3 Gait Assistive Device: Walker Platform Mod assist to stand but once standing min assist to help with balance. Patient has a hard time hopping in right foot but can do it with concentration, not really any foot clearance Wheelchair Training Does the Pt Use a Wheelchair?: Yes Wheel 50 ft with 2 turns (QC): 3 Type of Wheelchair: Manual 120'x2 Exercises Standing: Heel/toe raises, Mini squats Standing Reps: 15 (only used right leg) alternating LAQ for 5 min Neuromuscular seated trunk strengthening and balance training hitting balloon back and forth Treatments PT worked on transfers, ambulation, WC mobility, standing and positioning during dressing, balance training positioning and safety, LE exercise, OT performed dressing, balance activity, UE positioning and safety during activity Assessment Current Status: Fair Progress slightly improved strength and ambulation PT Short Term Goals Short Term Goals Time Frame: Jun 13, 2020 Sit to lyin Lying to sitting on side of be: 6 Sit to stand: 4 Chair/tmk-qd-uerch transfer: 4 Walk 10 feet: 3 Wheel 50ft w/2 turns: 6 Wheel 150 feet: 4 Type: Manual PT Residential Goals Wireless Sales Manager Goals PT Residential Goals Time Frame: Jun 27, 2020 Roll Left & Right (QC): 6 Sit to Lying (QC): 6 Lying-Sitting on Side/Bed(QC): 6 Sit to Stand (QC): 6 Chair/Lxo-db-Glxoo Xfer(QC): 6 Toilet Transfer (QC): 6 Car Transfer (QC): 5 Does the Patient Walk: No and Walking Goal IS indicated Walk 10 feet (QC): 4 Walk 50ft with 2 Turns (QC): 4 Walk 150 ft (QC): 88 Walking 10ft on Uneven Surface: 88 1 Step (curb) (QC): 9 4 Steps (QC): 9 12 Steps (QC): 9 Picking up an Object (QC): 9 Does the Pt use WC or Scooter?: Yes Wheel 50 feet with 2 turns (QC: 6 Type: Manual Wheel 150 feet: 6 Type: Manual PT Plan Problem List Problem List: Activity Tolerance, Functional Strength, Safety, Balance, Gait, Transfer, Bed Mobility, ROM Treatment/Plan Treatment Plan: Continue Plan of Care Treatment Plan: Bed Mobility, Education, Functional Activity Francy, Functional Strength, Group Therapy, Gait, Safety, Therapeutic Exercise, Transfers Treatment Duration: Jun 27, 2020 Frequency: At least 5 of 7 days/Wk (IRF) Estimated Hrs Per Day: 1.5 hours per day Patient and/or Family Agrees t: Yes Safety Risks/Education Patient Education: Gait Training, Transfer Techniques, Correct Positioning, W/C Management, Safety Issues Teaching Recipient: Patient Teaching Methods: Demonstration, Discussion Response to Teaching: Reinforcement Needed Time/GCodes Time In: 1100 Time Out: 1200 Total Billed Treatment Time: 60 Total Billed Treatment 1 visit EX 10' GT 20' NM 15' FA 15' MAURICIO POLANCO PT May 31, 2020 12:46
--- NOTE | 2020-05-31 14:02 | Physical Therapy Daily Note ---
PT Daily Note-Current Subjective Patient in recliner pre tx, agrees to PT, has no complaints of pain. Appearance Patient in bed post tx with nurse call, phone, tray, bed alarm on, telesitter in room. Mental Status Patient Orientation: Person, Place, Situation Transfers SCALE: Activities may be completed with or without assistive devices. 0-Pqrtaxtihy-qcxsubm completes the activity by him/herself with no assistance from a helper. 5-Set-up or Clean-up Assistance-helper sets up or cleans up; patient completes activity. [place] assists only prior to or following the activity. 4-Supervision or Touching Assistance-helper provides verbal cues and/or touching/steadying and/or contact guard assistance as patient completes activity. Assistance may be provided throughout the activity or intermittently. 3-Partial/Moderate Assistance-helper does LESS THAN HALF the effort. [place] lifts, holds or supports trunk or limbs, but provides less than half the effort. 2-Substantial/Maximal Assistance-helper does MORE THAN HALF the effort. [place] lifts or holds trunk or limbs and provides more than half the effort. 2-Uyutzfaju-lcsrvy does ALL the effort. Patient does none of the effort to complete the activity. Or, the assistance of 2 or more helpers is required for the patient to complete the activity. If activity was not attempted, code reason: 7-Patient Refused. 9-Not Applicable-not attempted and the patient did not perform the activity before the current illness, exacerbation or injury. 10-Not Attempted due to Environmental Limitations-(lack of equipment, weather restraints, etc.). 88-Not Attempted due to Medical Conditions or Safety Concerns. Roll Left & Right (QC): 6 Sit to Lying (QC): 6 Sit to Stand (QC): 3 Chair/Ldv-ip-Sampr Xfer(QC): 3 transferred to from recliner, from to NuStep, from NuStep to and then from to bed. Weight Bearing Right Lower Extremity: Right Full Weight Bearing Left Lower Extremity: Left Non Weight Bearing Wheelchair Training Does the Pt Use a Wheelchair?: Yes Wheel 50 ft with 2 turns (QC): 3 Type of Wheelchair: Manual 120'x2 min assist, has a hard time coordinating RLE and LUE to propel WC Exercises NuStep Minutes: 10 NuStep Workload: 3 (LLE and RUE not used) Treatments bed mobility and transfers, WC mobility, functional strengthening Assessment Current Status: Fair Progress maintains compliance with NWB on LLE PT Short Term Goals Short Term Goals Time Frame: Jun 13, 2020 Sit to lyin Lying to sitting on side of be: 6 Sit to stand: 4 Chair/lvy-wq-acrni transfer: 4 Walk 10 feet: 3 Wheel 50ft w/2 turns: 6 Wheel 150 feet: 4 Type: Manual PT Skilled Nursing Goals [employer] Supervisor Goals PT Skilled Nursing Goals Time Frame: Jun 27, 2020 Roll Left & Right (QC): 6 Sit to Lying (QC): 6 Lying-Sitting on Side/Bed(QC): 6 Sit to Stand (QC): 6 Chair/Abt-im-Oehef Xfer(QC): 6 Toilet Transfer (QC): 6 Car Transfer (QC): 5 Does the Patient Walk: No and Walking Goal IS indicated Walk 10 feet (QC): 4 Walk 50ft with 2 Turns (QC): 4 Walk 150 ft (QC): 88 Walking 10ft on Uneven Surface: 88 1 Step (curb) (QC): 9 4 Steps (QC): 9 12 Steps (QC): 9 Picking up an Object (QC): 9 Does the Pt use WC or Scooter?: Yes Wheel 50 feet with 2 turns (QC: 6 Type: Manual Wheel 150 feet: 6 Type: Manual PT Plan Problem List Problem List: Activity Tolerance, Functional Strength, Safety, Balance, Gait, Transfer, Bed Mobility, ROM Treatment/Plan Treatment Plan: Continue Plan of Care Treatment Plan: Bed Mobility, Education, Functional Activity Francy, Functional Strength, Group Therapy, Gait, Safety, Therapeutic Exercise, Transfers Treatment Duration: Jun 27, 2020 Frequency: At least 5 of 7 days/Wk (IRF) Estimated Hrs Per Day: 1.5 hours per day Patient and/or Family Agrees t: Yes Safety Risks/Education Patient Education: Transfer Techniques, Correct Positioning, W/C Management, Safety Issues Teaching Recipient: Patient Teaching Methods: Demonstration, Discussion Response to Teaching: Reinforcement Needed Time/GCodes Time In: 1330 Time Out: 1400 Total Billed Treatment Time: 30 Total Billed Treatment 1 visit [facility] 20' EX 10' MAURICIO POLANCO PT May 31, 2020 14:02
[2020-05-31 16:30] VITALS: BP 97/53
[2020-05-31] MEDS: warFARin 4 MG (COUMADIN) TAB PO SCH (17:40)
[2020-05-31] MEDS: CATHETER FLUSH 10 ML SYR IV SCH (20:33)
[2020-05-31] MEDS: LEVETIRACETAM 500 MG (KEPPRA) TAB PO SCH (20:34)
[2020-05-31] MEDS: ROSUVASTATIN 10 MG (CRESTOR) TABLET PO SCH (20:34)
[2020-06-01] MEDS: oxyCODONE/APAP 5/325MG (PERCOCET 5) TABLET PO PRN ×3 (01:55→21:41)
[2020-06-01] MEDS: morphine INJ 4 MG/ML 1 ML (VIAL/SYRINGE) IVP PRN ×2 (05:36→23:40)
[2020-06-01] MEDS: CATHETER FLUSH 10 ML SYR IV SCH ×3 (05:36→21:42)
[2020-06-01 05:58] VITALS: BP 120/57
[2020-06-01 06:45] LABS: INR 2.9 (0.8-1.4); PROTHROMBIN TIME PATIENT 30.9 SEC (12.2-14.7)
[2020-06-01] MEDS: LACTULOSE SYRUP 10GM/15ML (ENULOSE) 30ML UDC PO SCH ×2 (08:46→21:40)
[2020-06-01] MEDS: polyethylene glycoL POWDER 17 GM (MIRALAX) PACK PO SCH ×2 (08:47→21:40)
[2020-06-01] MEDS: IRON SUCROSE 200 MG/10 ML (VENOFER) VIAL IV SCH (10:04)
[2020-06-01] MEDS: DOCUSATE SODIUM 100 MG (COLACE) CAP PO SCH ×2 (10:05→21:41)
[2020-06-01] MEDS: PHENYTOIN 100 MG (DILANTIN) CAP PO SCH ×3 (10:05→21:42)
[2020-06-01] MEDS: OXYBUTYNIN (DITROPAN) 5 MG TAB PO SCH ×3 (10:05→21:42)
[2020-06-01] MEDS: FLUoxetine HCL 20 MG (PROzac) CAP PO SCH (10:05)
[2020-06-01] MEDS: SENNA W/DOCUSATE (SENOKOT S) TABLET PO SCH ×2 (10:05→21:41)
[2020-06-01] MEDS: amLODIPine 5 MG (NORVASC) TAB PO SCH (10:05)
--- NOTE | 2020-06-01 10:10 | PM&R Progress Note ---
Subjective HPI/CC On Admission Date Seen by Provider: Jun 01, 2020 Time Seen by Provider: 09:45 Subjective/Events-last exam 06/01/20: Patient doing well Behavioral consult just completed Pain controlled INR 2.9 BM 05/3105/31/20: Patient doing better Behavioral consult today for depression and statement of suicidal ideation Percocet for pain Dr Vora adjusting Coumadin Pastoral care ordered Review of Systems General: Fatigue Musculoskeletal: leg pain Neurological: Weakness, Incoordination, Change in speech Objective Exam Vital Signs Vital Signs Date Time Temp Pulse Resp B/P (MAP) Pulse Ox O2 Delivery O2 Flow Rate FiO2 06/02/20 05:29 36.8 65 18 128/60 (82) 93 Room Air Capillary Refill : Less Than 3 Seconds General Appearance: No Apparent Distress, WD/WN, Chronically ill, Thin HEENT: PERRL/EOMI, Normal ENT Inspection, Pharynx Normal Neck: Full Range of Motion, Normal Inspection, Non Tender, Supple, Carotid Bruit Respiratory: Chest Non Tender, Lungs Clear, Normal Breath Sounds, No Accessory Muscle Use, No Respiratory Distress Cardiovascular: No Edema, No Gallop, No JVD, No Murmur, Normal Peripheral Pulses, Systolic Murmur, Irregularly Irregular Gastrointestinal: Normal Bowel Sounds, No Organomegaly, No Pulsatile Mass, Non Tender, Soft Back: Normal Inspection, No CVA Tenderness, No Vertebral Tenderness Extremity: Normal Capillary Refill, Normal Inspection, Normal Range of Motion, Non Tender, No Calf Tenderness, No Pedal Edema Neurologic/Psychiatric: Alert, Oriented x3, Normal Mood/Affect, Abnormal Gait, Depressed Affect, Motor Weakness Skin: Normal Color, Warm/Dry Lymphatic: No Adenopathy Results/Procedures Lab Laboratory Tests 06/02/20 05:30 Patient resulted labs reviewed. FIM Transfers Therapy Code Descriptions/Definitions Functional [place] Measure: 0=Not Assessed/NA 4=Minimal Assistance 1=Total Assistance 5=Supervision or Setup 2=Maximal Assistance 6=Modified [place] 3=Moderate Assistance 7=Complete IndependenceSCALE: Activities may be completed with or without assistive devices. 2-Zunczgkwyj-cecucjz completes the activity by him/herself with no assistance from a helper. 5-Set-up or Clean-up Assistance-helper sets up or cleans up; patient completes activity. [place] assists only prior to or following the activity. 4-Supervision or Touching Assistance-helper provides verbal cues and/or touching/steadying and/or contact guard assistance as patient completes activity. Assistance may be provided throughout the activity or intermittently. 3-Partial/Moderate Assistance-helper does LESS THAN HALF the effort. [place] lifts, holds or supports trunk or limbs, but provides less than half the effort. 2-Substantial/Maximal Assistance-helper does MORE THAN HALF the effort. [place] lifts or holds trunk or limbs and provides more than half the effort. 9-Brzzfmmoa-getqyi does ALL the effort. Patient does none of the effort to complete the activity. Or, the assistance of 2 or more helpers is required for the patient to complete the activity. If activity was not attempted, code reason: 7-Patient Refused. 9-Not Applicable-not attempted and the patient did not perform the activity before the current illness, exacerbation or injury. 10-Not Attempted due to Environmental Limitations-(lack of equipment, weather restraints, etc.). 88-Not Attempted due to Medical Conditions or Safety Concerns. Roll Left to Right (QC): 6 Sit to Lying (QC): 6 Sit to Stand (QC): 3 Chair/Mdt-xd-Lvzhl Xfer(QC): 3 Car Transfer (QC): 2 Gait Training Does the Patient Walk?: No and Walking Goal IS indicated Distance: 5'x3 Walk 10 feet (QC): 88 Walk 50 ft with 2 Turns(QC): 88 Walk 150 ft (QC): 88 Walking 10ft/uneven surface-QC: 88 Gait Assistive Device: Walker Platform Wheelchair Training Does the Pt Use a Wheelchair?: Yes Wheel 50 ft with 2 turns (QC): 3 Wheel 150 ft (QC): 3 Type of Wheelchair: Manual Stair Training 1 Step (curb) (QC): 9 4 Steps (QC): 9 12 Steps (QC): 9 Balance Picking up an Object (QC): 9 ADL-Treatment Eating (QC): 5 (s/u (given coke with straw and able to drink s/u)) Oral Hygiene (QC): 6 Shower/Bathe Self (QC): 4 Upper Body Dressing (QC): 5 Lower Body Dressing (QC): 1 On/Off Footwear (QC): 2 Toileting Hygiene (QC): 7 Toilet Transfer (QC): 3 Assessment/Plan Assessment and Plan Assess & Plan/Chief Complaint Assessment: Left tibia fracture s/p repair Prior CVA with right sided weakness chronic Expressive aphasia from prior CVA Mechanical heart valve replacement status OAC with Coumadin AF OP OAB HTN Depression Plan: Pain control Monitor BP INR monitoring IRF protocol 05/31/20: Pain control Psych eval PT OT 06/01/20: Supportive care Pain control Appreciate Cardiology Behavioral consult appreciated (1) Fracture, tibia and fibula, shaft Status: Acute (2) Mechanical heart valve present Status: Chronic (3) DVT prophylaxis Status: Acute (4) Anticoagulant long-term use Status: Chronic (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
--- NOTE | 2020-06-01 12:02 | Occupational Ther Daily Note ---
OT Current Status-Daily Note Subjective Pt alert, in bed this am. Oriented. Denies pain at rest, increases pain during activity though medication provided prior to OT session. OT/ PT co-treat during [id number] session with OT addressing RUE placement, problem solving, UE movement and ADL status. PT addresses fx transfers, w/c mobility, gait and mobility. OT individual tx: [id number]. Pt states pain is increasing, nursing notified and pain meds administered. Mental Status/Objective Patient Orientation: Person, Place, Situation ADL-Treatment Therapy Code Descriptions/Definitions Functional [place] Measure: 0=Not Assessed/NA 4=Minimal Assistance 1=Total Assistance 5=Supervision or Setup 2=Maximal Assistance 6=Modified [place] 3=Moderate Assistance 7=Complete IndependenceSCALE: Activities may be completed with or without assistive devices. 0-Woexyjiext-fjjaqcz completes the activity by him/herself with no assistance from a helper. 5-Set-up or Clean-up Assistance-helper sets up or cleans up; patient completes activity. [place] assists only prior to or following the activity. 4-Supervision or Touching Assistance-helper provides verbal cues and/or touching/steadying and/or contact guard assistance as patient completes activity. Assistance may be provided throughout the activity or intermittently. 3-Partial/Moderate Assistance-helper does LESS THAN HALF the effort. [place] lifts, holds or supports trunk or limbs, but provides less than half the effort. 2-Substantial/Maximal Assistance-helper does MORE THAN HALF the effort. [place] lifts or holds trunk or limbs and provides more than half the effort. 5-Gailhwusr-tjbaap does ALL the effort. Patient does none of the effort to complete the activity. Or, the assistance of 2 or more helpers is required for the patient to complete the activity. If activity was not attempted, code reason: 7-Patient Refused. 9-Not Applicable-not attempted and the patient did not perform the activity before the current illness, exacerbation or injury. 10-Not Attempted due to Environmental Limitations-(lack of equipment, weather restraints, etc.). 88-Not Attempted due to Medical Conditions or Safety Concerns. Eating (QC): 5 (s/u for containers during lunch) Oral Hygiene (QC): 6 (IND sitting in w/c with items in front of pt.) Shower/Bathe Self (QC): 7 (completed yesterday, denies sponge bath) Lower Body Dressing (QC): 1 (pt threads BLE, requires Ax2 (OT assists over hips and PT addresses stance) during LB dressing.) On/Off Footwear: 6 (IND R foot) Toilet Transfer (QC): 3 (mod A to toilet. Use of gbs. ) Other Treatment OT/ PT co-treat: Pt completes bed mob with PT. Donning of pants/ sock EOB. SPT to w/c placed to L side with PT assist (see note for assist level). W/c mob with min A to gym, minimal rest breaks. Completes 3 rounds of ambulation (see PT for distance) with use of platform walker. OT addresses RUE placement during this time and adjusts accordingly. Use of BUE exercises (shoulder flexion/ shoulder abduction/ pulleys) in between ambulation tasks). Pt propels self back to room, SPT to recliner and food prepped for lunch (s/u), all needs met, call light in reach. OT individual tx: [id number]: completes SPT with mod A to w/c, medication management, wheels to sink, completes oral care with increased time, though no assist needed. Pt requests BM, completes mod A SPT to toilet, left with PT end of session. Education OT Patient Education: Correct positioning, Exercise program, Home exercise program, Progress toward Goal/Update tx plan, Safety issues, Transfer techniques Teaching Recipient: Patient Teaching Methods: Demonstration, Discussion Response to Teaching: Verbalize Understanding, Return Demonstration OT Short Term Goals Short Term Goals Eatin Oral hygiene: 5 Toileting hygiene: 3 Shower/bathe self: 3 Upper body dressin Lower body dressin Putting on/taking off footwear: 2 OT Steam Table Worker Goals Steam Table Worker Goals Time Frame: Jun 06, 2020 Eating (QC): 5 Oral Hygiene (QC): 5 Toileting Hygiene (QC): 6 Shower/Bathe Self (QC): 5 Upper Body Dressing (QC): 6 Lower Body Dressing (QC): 6 On/Off Footwear (QC): 6 Additional Goals: 1-Demonstrate ADL Tasks, 2-Verbalize Understanding, 3- ImproveStrength/[place] 1=Demonstrate adherence to instructed precautions during ADL tasks. 2=Patient will verbalize/demonstrate understanding of assistive devices/modifications for ADL. 3=Patient will improve strength/tolerance for activity to enable patient to perform ADL's. OT Education/Plan Problem List/Assessment Assessment: Decreased Activ Tolerance, Decreased UE Strength, Dependent Transfers, Impaired Coordination, Impaired Funct Balance, Impaired I ADL's, Impaired Self-Care Skills, Restricted Funct UE ROM Discharge Recommendations Plan/Recommendations: Continue POC Therapy Discharge Recommendati: 24 Hour Supervision, Assisted Living, Post Acute OT Treatment Plan/Plan of Care Treatment,Training & Education: Yes Patient would benefit from OT for education, treatment and training to promote independence in ADL's, mobility, safety and/or upper extremity function for ADL's. Plan of Care: ADL Retraining, Functional Mobility, Group Exercise/Act as Ind, UE Funct Exercise/Act, UE Neuromus Re-Ed/Coord, W/C Management Training Treatment Duration: Jun 13, 2020 Frequency: At least 5 of 7 days/Wk (IRF) Estimated Hrs Per Day: 1.5 hours per day Agreement: Yes Rehab Potential: Good Time/GCodes Start Time: 11:00 (1300) Stop Time: 12:00 (1330) Total Time Billed (hr/min): 90 Billed Treatment Time OT/ PT co-treat during [id number] session with OT addressing RUE placement, pro blem solving, UE movement and ADL status. PT addresses fx transfers, w/c mobility, gait and mobility. 1, ADL, EX 3 (60) OT individual tx: [id number] 1, ADL 2 (30) ELIAS SILVER OTR Jun 01, 2020 12:02
--- NOTE | 2020-06-01 12:40 | Cardiology Progress Note ---
Subjective Date Seen by Provider: Jun 01, 2020 Time Seen by Provider: 12:39 Subjective/Events-last exam Patient is laying down in bed. No new complaint Review of Systems General: No Chills, No Night Sweats, No Fatigue, No Malaise, No Appetite, No Other HEENT: No Head Aches, No Visual Changes, No Eye Pain, No Ear Pain, No Dysphasia, No Sinus Congestion, No Post Nasal Drip, No Sore Throat, No Other Pulmonary: No Dyspnea, No Cough, No Pleuritic Chest Pain, No Other Cardiovascular: No: Chest Pain, Palpitations, Orthopnea, Paroxysmal Noc. Dyspnea, Edema, Lt Headedness, Other Objective-Cardiology Exam Last Set of Vital Signs Vital Signs 06/01/20 06/01/20 05:58 09:00 Temp 36.8 Pulse 72 Resp 17 B/P (MAP) 120/57 (78) Pulse Ox 96 O2 Delivery Room Air Capillary Refill : Less Than 3 Seconds I&O Intake and Output 06/01/20 00:00 Intake Total 830 ml Balance 830 ml Intake Oral 830 ml # Urine Diapers 4 # Bowel Movements 2 General: Alert, Oriented X3, Cooperative HEENT: Atraumatic, PERRLA Neck: Supple, No JVD, No Thyromegaly Lungs: Clear to Auscultation, Normal Air Movement Heart: Regular Rate, Normal S1, Normal S2, No Murmurs Abdomen: Normal Bowel Sounds, Soft, No Tenderness, No Hepatosplenomegaly, No Masses Extremities: No Clubbing, No Cyanosis, No Edema, Normal Pulses, No Tenderness/S welling Psych/Mental Status: Mental Status NL A/P-Cardiology Admission Diagnosis nonsyncopal fall Left Tib/fib fx Hx AVR HTN Assessment/Plan Non-syncopal fall resulting in left tibia/fibula fx treated with closed IM rodding left tibial shaft fracture on 05/23/20 (Dr Srinivasan) Mechanical aortic valve replacement, surgery done in [place] in the remote past, maintained on Coumadin, Echo of 05/22/20: LVEF 50-55%, s/p mech AVR that is functioning well, pulm htn with PASP 65-70 mmHg, right heart enlargement, mild to mod MR & TR. Maintained on Coumadin, continue to monitor INR Anemia, s/p transfusion, stable, continue to monitor H/H. Essential hypertension , continue to monitor blood pressure. Pulmonary hypertension of undetermined etiology Hyperlipidemia - statin tx PACs, asymptomatic, continue to monitor. 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 Improved. Nonobstructive carotid artery stenosis per carotid duplex done November 2018 VALENTIN HEAD MD Jun 01, 2020 12:40 pm
--- NOTE | 2020-06-01 12:52 | Physical Therapy Daily Note ---
PT Daily Note-Current Subjective Patient in bed pre tx, agrees to PT, has unrated pain in left foot, will be co- treating with OT due to poor patient mobility, pain with activity, safety and reduce risk of falls, coordinate UE and LE during activity. Appearance Patient BTB post tx with nurse call, phone, tray, all needs met. Mental Status Patient Orientation: Person, Place, Situation Transfers SCALE: Activities may be completed with or without assistive devices. 5-Lizkjpgbbi-fhhdvja completes the activity by him/herself with no assistance from a helper. 5-Set-up or Clean-up Assistance-helper sets up or cleans up; patient completes activity. [place] assists only prior to or following the activity. 4-Supervision or Touching Assistance-helper provides verbal cues and/or touching/steadying and/or contact guard assistance as patient completes activity. Assistance may be provided throughout the activity or intermittently. 3-Partial/Moderate Assistance-helper does LESS THAN HALF the effort. [place] lifts, holds or supports trunk or limbs, but provides less than half the effort. 2-Substantial/Maximal Assistance-helper does MORE THAN HALF the effort. [place] lifts or holds trunk or limbs and provides more than half the effort. 0-Scskscqeg-eqwabp does ALL the effort. Patient does none of the effort to complete the activity. Or, the assistance of 2 or more helpers is required for the patient to complete the activity. If activity was not attempted, code reason: 7-Patient Refused. 9-Not Applicable-not attempted and the patient did not perform the activity before the current illness, exacerbation or injury. 10-Not Attempted due to Environmental Limitations-(lack of equipment, weather restraints, etc.). 88-Not Attempted due to Medical Conditions or Safety Concerns. Roll Left & Right (QC): 4 Sit to Lying (QC): 4 Lying to Sitting/Side of Bed(Q: 4 Sit to Stand (QC): 3 Chair/Pie-np-Sdsdz Xfer(QC): 3 Patient sits to the side of the bed and puts pants on with assist from OT and PT, stands to pull them up. Needs cues for positioning when sit <-> stand. Weight Bearing Right Lower Extremity: Right Full Weight Bearing Left Lower Extremity: Left Non Weight Bearing Gait Training Distance: 5'x3 Gait Assistive Device: Walker Platform WC follow, patient seems to have more trouble hopping today, still does hop some but also tends to slide her right foot across the floor Wheelchair Training Does the Pt Use a Wheelchair?: Yes Wheel 50 ft with 2 turns (QC): 3 Type of Wheelchair: Manual 120'x2 Exercises nini shoulder stretching Treatments PT performed bed mobility and transfers, ambulation, assist with balance and safety during dressing, OT performed UE ROM, dressing, UE positioning and safety during activity. Assessment Current Status: Poor Progress no change in mobility PT Short Term Goals Short Term Goals Time Frame: Jun 13, 2020 Sit to lyin Lying to sitting on side of be: 6 Sit to stand: 4 Chair/zgg-wu-jjgjz transfer: 4 Walk 10 feet: 3 Wheel 50ft w/2 turns: 6 Wheel 150 feet: 4 Type: Manual PT Halfway Goals Heat Treat Puller Goals PT Halfway Goals Time Frame: Jun 27, 2020 Roll Left & Right (QC): 6 Sit to Lying (QC): 6 Lying-Sitting on Side/Bed(QC): 6 Sit to Stand (QC): 6 Chair/Pyh-nw-Vgbxn Xfer(QC): 6 Toilet Transfer (QC): 6 Car Transfer (QC): 5 Does the Patient Walk: No and Walking Goal IS indicated Walk 10 feet (QC): 4 Walk 50ft with 2 Turns (QC): 4 Walk 150 ft (QC): 88 Walking 10ft on Uneven Surface: 88 1 Step (curb) (QC): 9 4 Steps (QC): 9 12 Steps (QC): 9 Picking up an Object (QC): 9 Does the Pt use WC or Scooter?: Yes Wheel 50 feet with 2 turns (QC: 6 Type: Manual Wheel 150 feet: 6 Type: Manual PT Plan Problem List Problem List: Activity Tolerance, Functional Strength, Safety, Balance, Gait, Transfer, Bed Mobility Treatment/Plan Treatment Plan: Continue Plan of Care Treatment Plan: Bed Mobility, Education, Functional Activity Francy, Functional Strength, Group Therapy, Gait, Safety, Therapeutic Exercise, Transfers Treatment Duration: Jun 27, 2020 Frequency: At least 5 of 7 days/Wk (IRF) Estimated Hrs Per Day: 1.5 hours per day Patient and/or Family Agrees t: Yes Safety Risks/Education Patient Education: Gait Training, Transfer Techniques, Reviewed Precautions, Correct Positioning, W/C Management, Safety Issues Teaching Recipient: Patient Teaching Methods: Demonstration, Discussion Response to Teaching: Reinforcement Needed Time/GCodes Time In: 1100 Time Out: 1200 Total Billed Treatment Time: 60 Total Billed Treatment 1 visit FA MAURICIO REDMAN PT Jun 01, 2020 12:51
--- NOTE | 2020-06-01 13:59 | Physical Therapy Daily Note ---
PT Daily Note-Current Subjective Patient on toilet pre tx, OT just put her on there and PT will take over from here, patient has no complaints of pain. Appearance Patient in bed post tx with nurse call, phone, tray, bed alarm on, all needs met. Mental Status Patient Orientation: Person, Place, Situation Transfers SCALE: Activities may be completed with or without assistive devices. 1-Qctqxnehxc-nnrxitr completes the activity by him/herself with no assistance from a helper. 5-Set-up or Clean-up Assistance-helper sets up or cleans up; patient completes activity. [place] assists only prior to or following the activity. 4-Supervision or Touching Assistance-helper provides verbal cues and/or touching/steadying and/or contact guard assistance as patient completes activity. Assistance may be provided throughout the activity or intermittently. 3-Partial/Moderate Assistance-helper does LESS THAN HALF the effort. [place] lifts, holds or supports trunk or limbs, but provides less than half the effort. 2-Substantial/Maximal Assistance-helper does MORE THAN HALF the effort. [place] lifts or holds trunk or limbs and provides more than half the effort. 7-Zmxuwauzs-fkbnkk does ALL the effort. Patient does none of the effort to complete the activity. Or, the assistance of 2 or more helpers is required for the patient to complete the activity. If activity was not attempted, code reason: 7-Patient Refused. 9-Not Applicable-not attempted and the patient did not perform the activity before the current illness, exacerbation or injury. 10-Not Attempted due to Environmental Limitations-(lack of equipment, weather restraints, etc.). 88-Not Attempted due to Medical Conditions or Safety Concerns. Roll Left & Right (QC): 6 Sit to Lying (QC): 6 Sit to Stand (QC): 3 Chair/Mfy-zo-Oxfso Xfer(QC): 3 Patient finishes, patient stands with min assist, nurse aide wipes and max assist to get pants back up, min assist stand pivot to WC, then min assist stand pivot to bed. Weight Bearing Right Lower Extremity: Right Full Weight Bearing Left Lower Extremity: Left Non Weight Bearing Exercises Supine Ex: Ankle pumps, Quad Set, Glut sets, Heel Slides, Short Arc Quads, Straight leg raise, Hip abd/add Supine Reps: 20 Treatments toileting, transfers and bed mobility, LE exercise Assessment Current Status: Poor Progress patient seems very tired, no improvement in functional mobility PT Short Term Goals Short Term Goals Time Frame: Jun 13, 2020 Sit to lyin Lying to sitting on side of be: 6 Sit to stand: 4 Chair/gkp-vy-gmkts transfer: 4 Walk 10 feet: 3 Wheel 50ft w/2 turns: 6 Wheel 150 feet: 4 Type: Manual PT Prison Goals Pastor Goals PT Pastor Goals Time Frame: Jun 27, 2020 Roll Left & Right (QC): 6 Sit to Lying (QC): 6 Lying-Sitting on Side/Bed(QC): 6 Sit to Stand (QC): 6 Chair/Guk-lt-Bqpdf Xfer(QC): 6 Toilet Transfer (QC): 6 Car Transfer (QC): 5 Does the Patient Walk: No and Walking Goal IS indicated Walk 10 feet (QC): 4 Walk 50ft with 2 Turns (QC): 4 Walk 150 ft (QC): 88 Walking 10ft on Uneven Surface: 88 1 Step (curb) (QC): 9 4 Steps (QC): 9 12 Steps (QC): 9 Picking up an Object (QC): 9 Does the Pt use WC or Scooter?: Yes Wheel 50 feet with 2 turns (QC: 6 Type: Manual Wheel 150 feet: 6 Type: Manual PT Plan Problem List Problem List: Activity Tolerance, Functional Strength, Safety, Balance, Gait, Transfer, Bed Mobility, ROM Treatment/Plan Treatment Plan: Continue Plan of Care Treatment Plan: Bed Mobility, Education, Functional Activity Francy, Functional Strength, Group Therapy, Gait, Safety, Therapeutic Exercise, Transfers Treatment Duration: Jun 27, 2020 Frequency: At least 5 of 7 days/Wk (IRF) Estimated Hrs Per Day: 1.5 hours per day Patient and/or Family Agrees t: Yes Safety Risks/Education Patient Education: Transfer Techniques, Reviewed Precautions, Correct Positioning, Safety Issues Teaching Recipient: Patient Teaching Methods: Demonstration, Discussion Response to Teaching: Reinforcement Needed Time/GCodes Time In: 1330 Time Out: 1400 Total Billed Treatment Time: 30 Total Billed Treatment 1 visit EX 10' FA 20' MAURICIO POLANCO PT Jun 01, 2020 13:59
--- NOTE | 2020-06-01 13:59 | Behavioral Health Consult ---
Consult- Consult Date Seen by Provider: Jun 01, 2020 Time Seen by Provider: 09:20 Date: 06/01/20 CPT Code: 75209 Psychodiagnostic Examination, 1 unit(s) Start Time: 9:20 am Stop Time: 10:11 am Chief Complaint: depression Referral: Yoko Brice is a 80-year-old, , female referred by Dr. Romero for a clinical diagnostic assessment. Information for this evaluation was gathered from self-report and medical records. Presenting Problem: The presenting clinical problem is depression. She reported she has struggled with depression in the past and is currently depressed. She stated her last living brother in March 2020 and she is having a hard time with it. She reported she is physically recovering well and has received great treatment at the hospital. She stated she feels that no one needs her anymore. She reported she has many nieces and nephews. She stated she is having suicidal thoughts but denied any plan or intent. She stated, Jayla lived long enough. She reported committing suicide is complicated because of how family feels about it and making sure it happens, so she would not attempt suicide for these reasons. She stated she had suicidal thoughts in the past and never acted on them. She reported she knows people care about her and would be hurt if she did. She stated she knows she needs to get back in psychotherapy as it has helped her in the past. She reported she takes Prozac and it helps. She stated because of COVID-19 she has not been leaving her house much. Overall symptoms observed or reported requiring current level of care include anergia, depressed mood, grief, and medical problems. Observations/Mental Status: Yoko was lying in her hospital bed when therapist met with Yoko through a virtual platform. Overall appearance was unremarkable clinically. Yoko appeared to be an adequate historian. Observed gait and gross motor movements were unable to be assessed. Jasmin general approach to the evaluation was cooperative. Orientation was intact for person, place, time, and situation. Yoko evidenced good understanding of the reason for the appointment. Jasmin in-session behavior was cooperative. The predominant mood was depressed with affect appropriate to expressed concerns and presenting problem. Immediate attention and concentration was grossly intact. Memory functioning appeared to be intact. Level of intellectual functioning compared to same age peers was estimated to be in the average range. Thought processes were found to be generally logical, coherent and goal directed. Thought content appeared normal. There was no report or evidence of hallucinations or delusions. Psychomotor functioning was within normal limits. Tone of voice was normal and controlled. Expressive speech was marked by word-finding difficulties. Eye contact was fair. Insight was average. Overall, style of interacting during the appointment was appropriate and motivated. Current/Previous Mental Health Treatment: Past psychiatric history was reported has been in psychotherapy in the past) over three years ago. She reported she had an appointment at [facility] to see a therapist this week but had to cancel due to being in the hospital. History of self or other harm: reported suicidal thoughts but denied any plan or intent. She denied any psychiatric hospitalizations. Medical History: Medical conditions were reported as prior CVA, mechanical heart valve replacement, and recently fractured her left tibia and fibula with surgical repair. Drug allergies: Penicillins, sulfa, and tetracycline. Educational and Vocational Histories: Yoko is retired. Family and Social Histories: Yoko reported she lives alone in [place], [place]. She stated she moved here three years ago from [place] but was raised in this [facility]. She reported her mfefli-ls-vin and her live on the same street as her and they visit her at least twice a day. She reported she was the youngest of nine children and the only girl. She stated one of her brothers was stillborn. She reported she is a and never had any children. Hobbies and recreational activities include: watching television and reading but cannot do anymore because of eyesight. Strengths/Weaknesses: Strengths/Resources: insightful and motivated for change Liabilities/Barriers: multiple life stressors Initial Treatment Plan/Recommendations: The anticipated long-term goal(s) include: describe an interest and participation in social and recreational activities and elevate the mood and show evidence of the usual energy, activities, and socialization level. The recommendations at this time include the following: individual outpatient psychotherapy. Yoko is recommended to return within one week for follow-up. Further disposition will be made at that time. Yoko verbalized understanding of these recommendations and an intention to comply with the proposed treatment plan and course of treatment. Summary and Recommendations: Yoko is a 80-year-old female with history of depression who is current in an inpatient physical rehabilitation facility following surgery for a fractured leg. Following current assessment, presenting problem and symptoms appear consistent with a preliminary diagnosis of F33.2 Major Depressive Disorder, Recurrent, Severe. Current emotional symptoms are of severe intensity. Overall, prognosis is estimated to be good. She reported a history of outpatient psychotherapy and that it was helpful. She stated she was going to start in psychotherapy this week at [facility] but cancelled her appointment due to being in the hospital. She is the youngest of nine siblings and her last living brother in March 2020. She stated she is struggling with this loss and feeling like no one needs her. It is recommended that Yoko be set up to see a therapist for outpatient psychotherapy once she is released from the hospital. She cannot see this provider due to insurance reasons. However, this provider will continue to work with her while she is in the hospital. She currently does not appear to need psychiatric hospitalization due to having no intent or plan to commit suicide. If her suicidal thoughts increase, or she develops a plan or intent then hospitalization should be reevaluated. DSM-IVTR Diagnostic Impressions: F33.2 Major Depressive Disorder, Recurrent, Severe PALMIRA AMAYA Jun 01, 2020 13:59
[2020-06-01 17:08] VITALS: BP 109/60
[2020-06-01] MEDS: warFARin 4 MG (COUMADIN) TAB PO SCH (18:52)
[2020-06-01] MEDS: LEVETIRACETAM 500 MG (KEPPRA) TAB PO SCH (21:41)
[2020-06-01] MEDS: ROSUVASTATIN 10 MG (CRESTOR) TABLET PO SCH (21:41)
[2020-06-01] MEDS: ALPRAZolam 0.25 MG (XANAX) TAB PO PRN (21:41)
[2020-06-02] MEDS: oxyCODONE/APAP 5/325MG (PERCOCET 5) TABLET PO PRN ×3 (03:51→22:36)
[2020-06-02 05:29] VITALS: BP 128/60
[2020-06-02 05:39] LABS: BASOPHILS % (AUTO) 1 % (0-10); EOSINOPHILS # (AUTO) 0.2 10^3/uL (0.0-0.3); EOSINOPHILS % (AUTO) 2 % (0-10); HEMATOCRIT 30 % (35-52); HEMOGLOBIN 9.5 g/dL (11.5-16.0); LYMPHOCYTES # (AUTO) 0.9 10^3/uL (1.0-4.0); LYMPHOCYTES % (AUTO) 12 % (12-44); MEAN CORPUSCULAR HEMOGLOBIN 30 pg (25-34); MEAN CORPUSCULAR HGB CONC 32 g/dL (32-36); MEAN CORPUSCULAR VOLUME 94 fL (80-99); MEAN PLATELET VOLUME 11.5 fL (9.0-12.2); MONOCYTES # (AUTO) 0.8 10^3/uL (0.0-1.0); MONOCYTES % (AUTO) 11 % (0-12); NEUTROPHILS % (AUTO) 72 % (42-75); PLATELET COUNT 324 10^3/uL (130-400)
[2020-06-02 05:53] LABS: CHLORIDE 108 MMOL/L (98-107); INR 2.8 (0.8-1.4); POTASSIUM 4.2 MMOL/L (3.6-5.0); PROTHROMBIN TIME PATIENT 29.7 SEC (12.2-14.7); SODIUM 138 MMOL/L (135-145)
[2020-06-02 05:54] LABS: CALCIUM 8.1 MG/DL (8.5-10.1)
[2020-06-02 05:55] LABS: GLUCOSE 103 MG/DL (70-105); TOTAL PROTEIN 5.7 GM/DL (6.4-8.2)
[2020-06-02 05:56] LABS: CARBON DIOXIDE 22 MMOL/L (21-32)
[2020-06-02 05:57] LABS: BILIRUBIN,TOTAL 0.3 MG/DL (0.1-1.0)
[2020-06-02 05:58] LABS: ALKALINE PHOSPHATASE 76 U/L (40-136)
[2020-06-02 05:59] LABS: CREATININE SERUM 0.71 MG/DL (0.60-1.30); GFR ESTIMATED > 60
[2020-06-02 06:00] LABS: BUN/CREATININE RATIO 21
[2020-06-02 06:01] LABS: ALANINE AMINOTRANSFERASE 19 U/L (0-55)
[2020-06-02] MEDS: CATHETER FLUSH 10 ML SYR IV SCH ×3 (06:36→20:52)
--- NOTE | 2020-06-02 07:27 | PM&R Progress Note ---
Subjective HPI/CC On Admission Date Seen by Provider: Jun 02, 2020 Time Seen by Provider: 12:15 Subjective/Events-last exam 06/02/20: Midline will be placed for iron Pain issues discussed BM yesterday Very weak and despondent today 06/01/20: Patient doing well Behavioral consult just completed Pain controlled INR 2.9 BM 05/3105/31/20: Patient doing better Behavioral consult today for depression and statement of suicidal ideation Percocet for pain Dr Vora adjusting Coumadin Pastoral care ordered Review of Systems Musculoskeletal: leg pain Objective Exam Vital Signs Vital Signs Date Time Temp Pulse Resp B/P (MAP) Pulse Ox O2 Delivery O2 Flow Rate FiO2 06/02/20 16:00 37.2 81 16 139/63 (88) 96 Room Air Capillary Refill : Less Than 3 Seconds General Appearance: No Apparent Distress, WD/WN, Chronically ill, Thin HEENT: PERRL/EOMI, Normal ENT Inspection, Pharynx Normal Neck: Full Range of Motion, Normal Inspection, Non Tender, Supple, Carotid Bruit Respiratory: Chest Non Tender, Lungs Clear, Normal Breath Sounds, No Accessory Muscle Use, No Respiratory Distress Cardiovascular: No Edema, No Gallop, No JVD, No Murmur, Normal Peripheral Pulses, Systolic Murmur, Irregularly Irregular Gastrointestinal: Normal Bowel Sounds, No Organomegaly, No Pulsatile Mass, Non Tender, Soft Back: Normal Inspection, No CVA Tenderness, No Vertebral Tenderness Extremity: Normal Capillary Refill, Normal Inspection, Normal Range of Motion, Non Tender, No Calf Tenderness, No Pedal Edema Neurologic/Psychiatric: Alert, Oriented x3, Normal Mood/Affect, Abnormal Gait, Depressed Affect, Motor Weakness Skin: Normal Color, Warm/Dry Lymphatic: No Adenopathy Results/Procedures Lab Laboratory Tests 06/02/20 05:30 Patient resulted labs reviewed. FIM Transfers Therapy Code Descriptions/Definitions Functional [place] Measure: 0=Not Assessed/NA 4=Minimal Assistance 1=Total Assistance 5=Supervision or Setup 2=Maximal Assistance 6=Modified [place] 3=Moderate Assistance 7=Complete IndependenceSCALE: Activities may be completed with or without assistive devices. 5-Opbrljsvjn-obukvyt completes the activity by him/herself with no assistance from a helper. 5-Set-up or Clean-up Assistance-helper sets up or cleans up; patient completes activity. [place] assists only prior to or following the activity. 4-Supervision or Touching Assistance-helper provides verbal cues and/or touching/steadying and/or contact guard assistance as patient completes activity. Assistance may be provided throughout the activity or intermittently. 3-Partial/Moderate Assistance-helper does LESS THAN HALF the effort. [place] lifts, holds or supports trunk or limbs, but provides less than half the effort. 2-Substantial/Maximal Assistance-helper does MORE THAN HALF the effort. [place] lifts or holds trunk or limbs and provides more than half the effort. 9-Xnabzgsmp-vjubwh does ALL the effort. Patient does none of the effort to complete the activity. Or, the assistance of 2 or more helpers is required for the patient to complete the activity. If activity was not attempted, code reason: 7-Patient Refused. 9-Not Applicable-not attempted and the patient did not perform the activity before the current illness, exacerbation or injury. 10-Not Attempted due to Environmental Limitations-(lack of equipment, weather re straints, etc.). 88-Not Attempted due to Medical Conditions or Safety Concerns. Roll Left to Right (QC): 6 Sit to Lying (QC): 6 Sit to Stand (QC): 3 Chair/Oat-eq-Mqaiu Xfer(QC): 3 Car Transfer (QC): 2 Gait Training Does the Patient Walk?: No and Walking Goal IS indicated Distance: 5'x3 Walk 10 feet (QC): 88 Walk 50 ft with 2 Turns(QC): 88 Walk 150 ft (QC): 88 Walking 10ft/uneven surface-QC: 88 Gait Assistive Device: Walker Platform Wheelchair Training Does the Pt Use a Wheelchair?: Yes Wheel 50 ft with 2 turns (QC): 3 Wheel 150 ft (QC): 3 Type of Wheelchair: Manual Stair Training 1 Step (curb) (QC): 9 4 Steps (QC): 9 12 Steps (QC): 9 Balance Picking up an Object (QC): 9 ADL-Treatment Eating (QC): 5 (s/u for containers during lunch) Oral Hygiene (QC): 6 (IND sitting in w/c with items in front of pt.) Shower/Bathe Self (QC): 7 (completed yesterday, denies sponge bath) Upper Body Dressing (QC): 5 Lower Body Dressing (QC): 1 (pt threads BLE, requires Ax2 (OT assists over hips and PT addresses stance) during LB dressing.) On/Off Footwear (QC): 6 (IND R foot) Toileting Hygiene (QC): 7 Toilet Transfer (QC): 3 (mod A to toilet. Use of gbs. ) Assessment/Plan Assessment and Plan Assess & Plan/Chief Complaint Assessment: Left tibia fracture s/p repair Prior CVA with right sided weakness chronic Expressive aphasia from prior CVA Mechanical heart valve replacement status OAC with Coumadin AF OP OAB HTN Depression Plan: Pain control Monitor BP INR monitoring IRF protocol 05/31/20: Pain control Psych eval PT OT 06/01/20: Supportive care Pain control Appreciate Cardiology Behavioral consult appreciated 06/02/20: Pain control Improve emotional status (1) Fracture, tibia and fibula, shaft Status: Acute (2) Mechanical heart valve present Status: Chronic (3) DVT prophylaxis Status: Acute (4) Anticoagulant long-term use Status: Chronic (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 (6) Age related osteoporosis Status: Chronic (7) Seizure disorder Status: Chronic (8) Advanced age (9) Right sided weakness (10) Foot drop, right (11) Overactive bladder (12) Hypertension (13) Depression (14) Anxiety TRACEY DEAN DO Jun 02, 2020 07:27
[2020-06-02] MEDS: PHENYTOIN 100 MG (DILANTIN) CAP PO SCH ×3 (09:12→20:30)
[2020-06-02] MEDS: amLODIPine 5 MG (NORVASC) TAB PO SCH (09:12)
[2020-06-02] MEDS: FLUoxetine HCL 20 MG (PROzac) CAP PO SCH (09:12)
[2020-06-02] MEDS: OXYBUTYNIN (DITROPAN) 5 MG TAB PO SCH ×3 (09:12→20:30)
[2020-06-02] MEDS: SENNA W/DOCUSATE (SENOKOT S) TABLET PO SCH ×2 (09:16→20:30)
[2020-06-02] MEDS: LACTULOSE SYRUP 10GM/15ML (ENULOSE) 30ML UDC PO SCH ×2 (09:16→20:31)
[2020-06-02] MEDS: DOCUSATE SODIUM 100 MG (COLACE) CAP PO SCH ×2 (09:16→20:30)
[2020-06-02] MEDS: polyethylene glycoL POWDER 17 GM (MIRALAX) PACK PO SCH ×2 (09:16→20:31)
--- NOTE | 2020-06-02 11:47 | Cardiology Progress Note ---
Subjective Date Seen by Provider: Jun 02, 2020 Time Seen by Provider: 11:46 Subjective/Events-last exam Patient is in bed, complaining of pain in her leg Review of Systems General: No Chills, No Night Sweats, No Fatigue, No Malaise, No Appetite, No Other HEENT: No Head Aches, No Visual Changes, No Eye Pain, No Ear Pain, No Dysphasia, No Sinus Congestion, No Post Nasal Drip, No Sore Throat, No Other Pulmonary: No Dyspnea, No Cough, No Pleuritic Chest Pain, No Other Cardiovascular: No: Chest Pain, Palpitations, Orthopnea, Paroxysmal Noc. Dyspnea, Edema, Lt Headedness, Other Objective-Cardiology Exam Last Set of Vital Signs Vital Signs 06/02/20 05:29 Temp 36.8 Pulse 65 Resp 18 B/P (MAP) 128/60 (82) Pulse Ox 93 O2 Delivery Room Air Capillary Refill : Less Than 3 Seconds I&O Intake and Output 06/02/20 00:00 Intake Total 740 ml Balance 740 ml Intake Oral 740 ml # Voids 1 # Urine Diapers 8 General: Alert, Oriented X3, Cooperative HEENT: Atraumatic, PERRLA Neck: Supple, No JVD, No Thyromegaly Lungs: Clear to Auscultation, Normal Air Movement Heart: Regular Rate, Normal S1, Normal S2, No Murmurs Abdomen: Normal Bowel Sounds, Soft, No Tenderness, No Hepatosplenomegaly, No Masses Extremities: No Clubbing, No Cyanosis, No Edema, Normal Pulses, No Tenderness/Swelling Psych/Mental Status: Mental Status NL Results Lab Laboratory Tests 06/02/20 05:30 A/P-Cardiology Admission Diagnosis nonsyncopal fall Left Tib/fib fx Hx AVR HTN Assessment/Plan Non-syncopal fall resulting in left tibia/fibula fx treated with closed IM rodding left tibial shaft fracture on 05/23/20 (Dr Srinivasan) Mechanical aortic valve replacement, surgery done in [place] in the remote past, maintained on Coumadin, Echo of 05/22/20: LVEF 50-55%, s/p mech AVR that is functioning well, pulm htn with PASP 65-70 mmHg, right heart enlargement, mild to mod MR & TR. Maintained on Coumadin, continue to monitor INR Anemia, s/p transfusion, stable, continue to monitor H/H. Essential hypertension , continue to monitor blood pressure. Pulmonary hypertension of undetermined etiology Hyperlipidemia - statin tx PACs, asymptomatic, continue to monitor. 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 Improved. Nonobstructive carotid artery stenosis per carotid duplex done November 2018 VALENTIN HEAD MD Jun 02, 2020 11:47 am
--- NOTE | 2020-06-02 11:57 | Physical Therapy Daily Note ---
PT Daily Note-Current Subjective Pt in bed, very sleepy. Reports 5/10 (L) ankle pain on arrival. Needed near constant cues to remain awake with exercises. Requested depend change prior to PT leaving. Pain Numeric Pain Scale: 5-Moderate Pain Location: Left Location Body Site: Ankle Pain Description: Ache Mental Status Patient Orientation: Person, Place, Time, Situation Transfers SCALE: Activities may be completed with or without assistive devices. 7-Ebvmolwxva-gokvtft completes the activity by him/herself with no assistance from a helper. 5-Set-up or Clean-up Assistance-helper sets up or cleans up; patient completes activity. [place] assists only prior to or following the activity. 4-Supervision or Touching Assistance-helper provides verbal cues and/or touching/steadying and/or contact guard assistance as patient completes activity. Assistance may be provided throughout the activity or intermittently. 3-Partial/Moderate Assistance-helper does LESS THAN HALF the effort. [place] lifts, holds or supports trunk or limbs, but provides less than half the effort. 2-Substantial/Maximal Assistance-helper does MORE THAN HALF the effort. [place] lifts or holds trunk or limbs and provides more than half the effort. 9-Lilwdlejt-ybsztb does ALL the effort. Patient does none of the effort to compl ete the activity. Or, the assistance of 2 or more helpers is required for the patient to complete the activity. If activity was not attempted, code reason: 7-Patient Refused. 9-Not Applicable-not attempted and the patient did not perform the activity before the current illness, exacerbation or injury. 10-Not Attempted due to Environmental Limitations-(lack of equipment, weather restraints, etc.). 88-Not Attempted due to Medical Conditions or Safety Concerns. Roll Left & Right (QC): 4 Rolling (L) and (R) with min A x 1 for brief change. Weight Bearing Right Lower Extremity: Right Full Weight Bearing Left Lower Extremity: Left Non Weight Bearing Exercises Supine Ex: Ankle pumps, Quad Set, Glut sets, Heel Slides, Hip abd/add Supine Reps: 15 Treatments LE ther ex. No attempt to stand this date due to decrease alertness, near constant cueing to remain awake with exercises. In bed with (L) LE elevated, needs met. Assessment Current Status: Poor Progress Pt tolerated exercises well. Unsafe to attempt OOB due to level of alertness. PT Short Term Goals Short Term Goals Time Frame: Jun 13, 2020 Sit to lyin Lying to sitting on side of be: 6 Sit to stand: 4 Chair/lcz-ya-hnoks transfer: 4 Walk 10 feet: 3 Wheel 50ft w/2 turns: 6 Wheel 150 feet: 4 Type: Manual PT Micro Paleontologist Goals Micro Paleontologist Goals PT Snf Goals Time Frame: Jun 27, 2020 Roll Left & Right (QC): 6 Sit to Lying (QC): 6 Lying-Sitting on Side/Bed(QC): 6 Sit to Stand (QC): 6 Chair/Qkh-kw-Ziaoj Xfer(QC): 6 Toilet Transfer (QC): 6 Car Transfer (QC): 5 Does the Patient Walk: No and Walking Goal IS indicated Walk 10 feet (QC): 4 Walk 50ft with 2 Turns (QC): 4 Walk 150 ft (QC): 88 Walking 10ft on Uneven Surface: 88 1 Step (curb) (QC): 9 4 Steps (QC): 9 12 Steps (QC): 9 Picking up an Object (QC): 9 Does the Pt use WC or Scooter?: Yes Wheel 50 feet with 2 turns (QC: 6 Type: Manual Wheel 150 feet: 6 Type: Manual PT Plan Problem List Problem List: Activity Tolerance, Functional Strength, Safety, Balance, Gait, Transfer, Bed Mobility, ROM Treatment/Plan Treatment Plan: Continue Plan of Care Treatment Plan: Bed Mobility, Education, Functional Activity Francy, Functional Strength, Group Therapy, Gait, Safety, Therapeutic Exercise, Transfers Treatment Duration: Jun 27, 2020 Frequency: At least 5 of 7 days/Wk (IRF) Estimated Hrs Per Day: 1.5 hours per day Patient and/or Family Agrees t: Yes Time/GCodes Time In: 1002 Time Out: 1020 Total Billed Treatment Time: 18 Total Billed Treatment 1, Ex x 18' MILAGRO GUTIÉRREZ DPT Jun 02, 2020 11:57
[2020-06-02 16:00] VITALS: BP 139/63
[2020-06-02] MEDS: warFARin 4 MG (COUMADIN) TAB PO SCH (17:47)
[2020-06-02] MEDS: ROSUVASTATIN 10 MG (CRESTOR) TABLET PO SCH (20:30)
[2020-06-02] MEDS: LEVETIRACETAM 500 MG (KEPPRA) TAB PO SCH (20:30)
[2020-06-03] MEDS: ACETAMINOPHEN 325 MG TABLET PO PRN ×2 (00:12→08:11)
[2020-06-03] MEDS: MELATONIN 3 MG TABLET PO PRN (00:21)
[2020-06-03] MEDS: CATHETER FLUSH 10 ML SYR IV SCH ×3 (04:54→20:37)
[2020-06-03 05:17] VITALS: BP 119/55
[2020-06-03] MEDS: oxyCODONE/APAP 5/325MG (PERCOCET 5) TABLET PO PRN ×2 (05:39→11:36)
[2020-06-03 06:25] LABS: INR 2.8 (0.8-1.4); PROTHROMBIN TIME PATIENT 29.4 SEC (12.2-14.7)
[2020-06-03] MEDS: OXYBUTYNIN (DITROPAN) 5 MG TAB PO SCH ×3 (08:12→20:29)
[2020-06-03] MEDS: PHENYTOIN 100 MG (DILANTIN) CAP PO SCH ×3 (08:12→20:29)
[2020-06-03] MEDS: DOCUSATE SODIUM 100 MG (COLACE) CAP PO SCH ×2 (08:12→20:29)
[2020-06-03] MEDS: FLUoxetine HCL 20 MG (PROzac) CAP PO SCH (08:12)
[2020-06-03] MEDS: polyethylene glycoL POWDER 17 GM (MIRALAX) PACK PO SCH ×3 (08:12→20:30)
[2020-06-03] MEDS: SENNA W/DOCUSATE (SENOKOT S) TABLET PO SCH ×2 (08:12→20:29)
[2020-06-03] MEDS: amLODIPine 5 MG (NORVASC) TAB PO SCH (08:12)
[2020-06-03] MEDS: LACTULOSE SYRUP 10GM/15ML (ENULOSE) 30ML UDC PO SCH ×2 (08:15→20:29)
[2020-06-03] MEDS: ALPRAZolam 0.25 MG (XANAX) TAB PO PRN (08:21)
--- NOTE | 2020-06-03 10:07 | Cardiology Progress Note ---
Subjective Date Seen by Provider: Jun 03, 2020 Time Seen by Provider: 10:06 Subjective/Events-last exam Patient is laying down in bed, still having pain in her leg. No chest pain. Review of Systems General: No Chills, No Night Sweats, No Fatigue, No Malaise, No Appetite, No Other HEENT: No Head Aches, No Visual Changes, No Eye Pain, No Ear Pain, No Dysphasia, No Sinus Congestion, No Post Nasal Drip, No Sore Throat, No Other Pulmonary: No Dyspnea, No Cough, No Pleuritic Chest Pain, No Other Cardiovascular: No: Chest Pain, Palpitations, Orthopnea, Paroxysmal Noc. Dyspnea, Edema, Lt Headedness, Other Objective-Cardiology Exam Last Set of Vital Signs Vital Signs 06/03/20 05:17 Temp 36.4 Pulse 58 Resp 17 B/P (MAP) 119/55 (76) Pulse Ox 97 O2 Delivery Room Air Capillary Refill : Less Than 3 Seconds I&O Intake and Output 06/03/20 00:00 Intake Total 1640 ml Balance 1640 ml Intake Oral 1640 ml # Voids 2 # Urine Diapers 9 General: Alert, Oriented X3, Cooperative HEENT: Atraumatic, PERRLA Neck: Supple, No JVD, No Thyromegaly Lungs: Clear to Auscultation, Normal Air Movement Heart: Regular Rate, Normal S1, Normal S2, No Murmurs Abdomen: Normal Bowel Sounds, Soft, No Tenderness, No Hepatosplenomegaly, No Masses Extremities: No Clubbing, No Cyanosis, No Edema, Normal Pulses, No Tenderness/ Swelling Psych/Mental Status: Mental Status NL A/P-Cardiology Admission Diagnosis nonsyncopal fall Left Tib/fib fx Hx AVR HTN Assessment/Plan Non-syncopal fall resulting in left tibia/fibula fx treated with closed IM rodding left tibial shaft fracture on 05/23/20 (Dr Srinivasan) Mechanical aortic valve replacement, surgery done in [place] in the remote past, maintained on Coumadin, Echo of 05/22/20: LVEF 50-55%, s/p mech AVR that i s functioning well, pulm htn with PASP 65-70 mmHg, right heart enlargement, mild to mod MR & TR. Maintained on Coumadin, INR 2.8 today. Continue to monitor Anemia, s/p transfusion, stable, continue to monitor H/H. Essential hypertension , continue to monitor blood pressure. Pulmonary hypertension of undetermined etiology Hyperlipidemia - statin tx PACs, asymptomatic, continue to monitor. 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 Improved. Nonobstructive carotid artery stenosis per carotid duplex done November 2018 VALENTIN HEAD MD Jun 03, 2020 10:07 am
[2020-06-03] MEDS: IRON SUCROSE 200 MG/10 ML (VENOFER) VIAL IV SCH (11:36)
[2020-06-03] MEDS ORDERED: CYANOCOBALAMIN INJ 1000 MCG/ML IM ONE (12:30)
--- NOTE | 2020-06-03 12:47 | PM&R Progress Note ---
Subjective HPI/CC On Admission Date Seen by Provider: Jun 03, 2020 Time Seen by Provider: 12:45 Subjective/Events-last exam 06/03/20: Patient doing well ICU nurse plaed IV for Venofer but need midline tomorrow Up in chair today Venofer will continue for 5 doses total No BM yet laxatives will be given Oxycodone will be changed to [id number] and DC APAP 06/02/20: Midline will be placed for iron Pain issues discussed BM yesterday Very weak and despondent today 06/01/20: Patient doing well Behavioral consult just completed Pain controlled INR 2.9 BM 05/3105/31/20: Patient doing better Behavioral consult today for depression and statement of suicidal ideation Percocet for pain Dr Vora adjusting Coumadin Pastoral care ordered Review of Systems General: Fatigue, Malaise Neurological: Weakness Objective Exam Vital Signs Vital Signs Date Time Temp Pulse Resp B/P (MAP) Pulse Ox O2 Delivery O2 Flow Rate FiO2 06/03/20 05:17 36.4 58 17 119/55 (76) 97 Room Air Capillary Refill : Less Than 3 Seconds General Appearance: No Apparent Distress, WD/WN, Chronically ill, Thin HEENT: PERRL/EOMI, Normal ENT Inspection, Pharynx Normal Neck: Full Range of Motion, Normal Inspection, Non Tender, Supple, Carotid Bruit Respiratory: Chest Non Tender, Lungs Clear, Normal Breath Sounds, No Accessory Muscle Use, No Respiratory Distress Cardiovascular: No Edema, No Gallop, No JVD, No Murmur, Normal Peripheral Pulses, Systolic Murmur, Irregularly Irregular Gastrointestinal: Normal Bowel Sounds, No Organomegaly, No Pulsatile Mass, Non Tender, Soft Back: Normal Inspection, No CVA Tenderness, No Vertebral Tenderness Extremity: Normal Capillary Refill, Normal Inspection, Normal Range of Motion, Non Tender, No Calf Tenderness, No Pedal Edema Neurologic/Psychiatric: Alert, Oriented x3, Normal Mood/Affect, Abnormal Gait, Depressed Affect, Motor Weakness Skin: Normal Color, Warm/Dry Lymphatic: No Adenopathy Results/Procedures Lab Patient resulted labs reviewed. FIM Transfers Therapy Code Descriptions/Definitions Functional [place] Measure: 0=Not Assessed/NA 4=Minimal Assistance 1=Total Assistance 5=Supervision or Setup 2=Maximal Assistance 6=Modified [place] 3=Moderate Assistance 7=Complete IndependenceSCALE: Activities may be completed with or without assistive devices. 4-Anpvpiaknh-iodsfwv completes the activity by him/herself with no assistance from a helper. 5-Set-up or Clean-up Assistance-helper sets up or cleans up; patient completes activity. [place] assists only prior to or following the activity. 4-Supervision or Touching Assistance-helper provides verbal cues and/or touching/steadying and/or contact guard assistance as patient completes activity. Assistance may be provided throughout the activity or intermittently. 3-Partial/Moderate Assistance-helper does LESS THAN HALF the effort. [place] lifts, holds or supports trunk or limbs, but provides less than half the effort. 2-Substantial/Maximal Assistance-helper does MORE THAN HALF the effort. [place] lifts or holds trunk or limbs and provides more than half the effort. 1-Qlvziocir-wyzkvl does ALL the effort. Patient does none of the effort to complete the activity. Or, the assistance of 2 or more helpers is required for the patient to complete the activity. If activity was not attempted, code reason: 7-Patient Refused. 9-Not Applicable-not attempted and the patient did not perform the activity before the current illness, exacerbation or injury. 10-Not Attempted due to Environmental Limitations-(lack of equipment, weather restraints, etc.). 88-Not Attempted due to Medical Conditions or Safety Concerns. Roll Left to Right (QC): 4 Sit to Lying (QC): 6 Sit to Stand (QC): 3 Chair/Gtg-bw-Yseus Xfer(QC): 3 Car Transfer (QC): 2 Gait Training Does the Patient Walk?: No and Walking Goal IS indicated Distance: 5'x3 Walk 10 feet (QC): 88 Walk 50 ft with 2 Turns(QC): 88 Walk 150 ft (QC): 88 Walking 10ft/uneven surface-QC: 88 Gait Assistive Device: Walker Platform Wheelchair Training Does the Pt Use a Wheelchair?: Yes Wheel 50 ft with 2 turns (QC): 3 Wheel 150 ft (QC): 3 Type of Wheelchair: Manual Stair Training 1 Step (curb) (QC): 9 4 Steps (QC): 9 12 Steps (QC): 9 Balance Picking up an Object (QC): 9 ADL-Treatment Eating (QC): 5 (s/u for containers during lunch) Oral Hygiene (QC): 6 (IND sitting in w/c with items in front of pt.) Shower/Bathe Self (QC): 7 (completed yesterday, denies sponge bath) Upper Body Dressing (QC): 5 Lower Body Dressing (QC): 1 (pt threads BLE, requires Ax2 (OT assists over hips and PT addresses stance) during LB dressing.) On/Off Footwear (QC): 6 (IND R foot) Toileting Hygiene (QC): 7 Toilet Transfer (QC): 3 (mod A to toilet. Use of gbs. ) Assessment/Plan Assessment and Plan Assess & Plan/Chief Complaint Assessment: Left tibia fracture s/p repair Prior CVA with right sided weakness chronic Expressive aphasia from prior CVA Mechanical heart valve replacement status OAC with Coumadin AF OP OAB HTN Depression Plan: Pain control Monitor BP INR monitoring IRF protocol 05/31/20: Pain control Psych eval PT OT 06/01/20: Supportive care Pain control Appreciate Cardiology Behavioral consult appreciated 06/02/20: Pain control Improve emotional status 06/03/20: Oxycodone change so DC APAP Venofer Midline (1) Fracture, tibia and fibula, shaft Status: Acute (2) Mechanical heart valve present Status: Chronic (3) DVT prophylaxis Status: Acute (4) Anticoagulant long-term use Status: Chronic (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
[2020-06-03 17:08] VITALS: BP 103/54
[2020-06-03] MEDS: warFARin 4 MG (COUMADIN) TAB PO SCH (17:26)
[2020-06-03] MEDS: LEVETIRACETAM 500 MG (KEPPRA) TAB PO SCH (20:29)
[2020-06-03] MEDS: ROSUVASTATIN 10 MG (CRESTOR) TABLET PO SCH (20:29)
[2020-06-04] MEDS: ALPRAZolam 0.25 MG (XANAX) TAB PO PRN (00:36)
[2020-06-04 05:14] LABS: BASOPHILS # (AUTO) 0.1 10^3/uL (0.0-0.1); BASOPHILS % (AUTO) 1 % (0-10); EOSINOPHILS # (AUTO) 0.2 10^3/uL (0.0-0.3); EOSINOPHILS % (AUTO) 3 % (0-10); HEMATOCRIT 33 % (35-52); HEMOGLOBIN 10.3 g/dL (11.5-16.0); LYMPHOCYTES # (AUTO) 0.8 10^3/uL (1.0-4.0); LYMPHOCYTES % (AUTO) 9 % (12-44); MEAN CORPUSCULAR HEMOGLOBIN 30 pg (25-34); MEAN CORPUSCULAR HGB CONC 31 g/dL (32-36); MEAN CORPUSCULAR VOLUME 96 fL (80-99); MEAN PLATELET VOLUME 11.6 fL (9.0-12.2); MONOCYTES # (AUTO) 0.9 10^3/uL (0.0-1.0); MONOCYTES % (AUTO) 10 % (0-12); NEUTROPHILS # (AUTO) 6.5 10^3/uL (1.8-7.8); NEUTROPHILS % (AUTO) 75 % (42-75); PLATELET COUNT 390 10^3/uL (130-400); WHITE BLOOD COUNT 8.7 10^3/uL (4.3-11.0)
[2020-06-04 05:27] LABS: ALBUMIN 3.1 GM/DL (3.2-4.5); CHLORIDE 107 MMOL/L (98-107); POTASSIUM 4.1 MMOL/L (3.6-5.0); SODIUM 139 MMOL/L (135-145)
[2020-06-04 05:28] LABS: CALCIUM 8.2 MG/DL (8.5-10.1)
[2020-06-04 05:29] LABS: GLUCOSE 105 MG/DL (70-105)
[2020-06-04 05:30] LABS: TOTAL PROTEIN 5.9 GM/DL (6.4-8.2)
[2020-06-04 05:31] LABS: BILIRUBIN,TOTAL 0.3 MG/DL (0.1-1.0); CARBON DIOXIDE 23 MMOL/L (21-32)
[2020-06-04 05:33] LABS: ALKALINE PHOSPHATASE 94 U/L (40-136); CREATININE SERUM 0.75 MG/DL (0.60-1.30); GFR ESTIMATED > 60
[2020-06-04 05:34] LABS: BUN/CREATININE RATIO 19
[2020-06-04 05:36] LABS: ALANINE AMINOTRANSFERASE 19 U/L (0-55)
[2020-06-04 05:37] LABS: INR 3.3 (0.8-1.4); PROTHROMBIN TIME PATIENT 33.9 SEC (12.2-14.7)
[2020-06-04 05:49] VITALS: BP 101/50
[2020-06-04] MEDS: CATHETER FLUSH 10 ML SYR IV SCH ×2 (05:51→20:47)
--- NOTE | 2020-06-04 08:23 | Cardiology Progress Note ---
Subjective Date Seen by Provider: Jun 04, 2020 Time Seen by Provider: 08:22 Subjective/Events-last exam Patient sitting up in bed, denies any chest pain or dyspnea. Review of Systems General: No Chills, No Night Sweats, No Fatigue, No Malaise, No Appetite, No Other HEENT: No Head Aches, No Visual Changes, No Eye Pain, No Ear Pain, No Dysphasia, No Sinus Congestion, No Post Nasal Drip, No Sore Throat, No Other Pulmonary: No Dyspnea, No Cough, No Pleuritic Chest Pain, No Other Cardiovascular: No: Chest Pain, Palpitations, Orthopnea, Paroxysmal Noc. Dyspnea, Edema, Lt Headedness, Other Objective-Cardiology Exam Last Set of Vital Signs Vital Signs 06/04/20 05:49 Temp 37.2 Pulse 73 Resp 18 B/P (MAP) 101/50 (67) Pulse Ox 96 O2 Delivery Room Air Capillary Refill : Less Than 3 Seconds I&O Intake and Output 06/04/20 00:00 Intake Total 1420 ml Balance 1420 ml Intake Oral 1420 ml # Urine Diapers 11 # Bowel Movements 1 General: Alert, Oriented X3, Cooperative HEENT: Atraumatic, PERRLA Neck: Supple, No JVD, No Thyromegaly Lungs: Clear to Auscultation, Normal Air Movement Heart: Regular Rate, Normal S1, Normal S2, No Murmurs Abdomen: Normal Bowel Sounds, Soft, No Tenderness, No Hepatosplenomegaly, No Masses Extremities: No Clubbing, No Cyanosis, No Edema, Normal Pulses, No Tenderness/Swelling Psych/Mental Status: Mental Status NL Results Lab Laboratory Tests 06/04/20 04:56 A/P-Cardiology Admission Diagnosis nonsyncopal fall Left Tib/fib fx Hx AVR HTN Assessment/Plan Non-syncopal fall resulting in left tibia/fibula fx treated with closed IM rodding left tibial shaft fracture on 05/23/20 (Dr Srinivasan) Mechanical aortic valve replacement, surgery done in [place] in the remote past, maintained on Coumadin, Echo of 05/22/20: LVEF 50-55%, s/p mech AVR that is functioning well, pulm htn with PASP 65-70 mmHg, right heart enlargement, mild to mod MR & TR. Maintained on Coumadin, INR 3.3 today. Continue to monitor Anemia, s/p transfusion, stable, continue to monitor H/H. Essential hypertension , continue to monitor blood pressure. Pulmonary hypertension of undetermined etiology Hyperlipidemia - statin tx PACs, asymptomatic, continue to monitor. 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 Improved. Nonobstructive carotid artery stenosis per carotid duplex done November 2018 Patient was seen and evaluated with Dominique, examination performed, management plan was discussed, agree with the current scribed note, I made few changes to the note using Italic font Patient was seen at bedside, sitting comfortably, no new complaint Still having pain in her leg. Continue to monitor blood pressure DOMINIQUE CHRISTIANSON Jun 04, 2020 8:23 am VALENTIN HEAD MD Jun 04, 2020 11:57 am
[2020-06-04] MEDS: FLUoxetine HCL 20 MG (PROzac) CAP PO SCH (09:22)
[2020-06-04] MEDS: DOCUSATE SODIUM 100 MG (COLACE) CAP PO SCH ×2 (09:22→20:45)
[2020-06-04] MEDS: PHENYTOIN 100 MG (DILANTIN) CAP PO SCH ×3 (09:22→20:47)
[2020-06-04] MEDS: LACTULOSE SYRUP 10GM/15ML (ENULOSE) 30ML UDC PO SCH ×2 (09:22→21:00)
[2020-06-04] MEDS: OXYBUTYNIN (DITROPAN) 5 MG TAB PO SCH ×3 (09:22→20:50)
[2020-06-04] MEDS: polyethylene glycoL POWDER 17 GM (MIRALAX) PACK PO SCH ×2 (09:23→22:20)
[2020-06-04] MEDS: SENNA W/DOCUSATE (SENOKOT S) TABLET PO SCH ×2 (09:23→20:47)
--- NOTE | 2020-06-04 10:38 | PM&R Progress Note ---
Subjective HPI/CC On Admission Date Seen by Provider: Jun 04, 2020 Time Seen by Provider: 10:30 Subjective/Events-last exam 06/04/20: Pt showered today Pain pill is working pretty well Pain at night is still an issue Midline was ordered for iron infusions INR is 3.3 06/03/20: Patient doing well ICU nurse plaed IV for Venofer but need midline tomorrow Up in chair today Venofer will continue for 5 doses total No BM yet laxatives will be given Oxycodone will be changed to Q8zaegs and DC APAP 06/02/20: Midline will be placed for iron Pain issues discussed BM yesterday Very weak and despondent today 06/01/20: Patient doing well Behavioral consult just completed Pain controlled INR 2.9 BM 05/3105/31/20: Patient doing better Behavioral consult today for depression and statement of suicidal ideation Percocet for pain Dr Vora adjusting Coumadin Pastoral care ordered Review of Systems General: Fatigue, Malaise Objective Exam Vital Signs Vital Signs Date Time Temp Pulse Resp B/P (MAP) Pulse Ox O2 Delivery O2 Flow Rate FiO2 06/04/20 21:27 36.7 69 16 106/60 (75) 96 06/04/20 21:00 Room Air Capillary Refill : Less Than 3 Seconds General Appearance: No Apparent Distress, WD/WN, Chronically ill, Thin HEENT: PERRL/EOMI, Normal ENT Inspection, Pharynx Normal Neck: Full Range of Motion, Normal Inspection, Non Tender, Supple, Carotid Bruit Respiratory: Chest Non Tender, Lungs Clear, Normal Breath Sounds, No Accessory Muscle Use, No Respiratory Distress Cardiovascular: No Edema, No Gallop, No JVD, No Murmur, Normal Peripheral Pulses, Systolic Murmur, Irregularly Irregular Gastrointestinal: Normal Bowel Sounds, No Organomegaly, No Pulsatile Mass, Non Tender, Soft Back: Normal Inspection, No CVA Tenderness, No Vertebral Tenderness Extremity: Normal Capillary Refill, Normal Inspection, Normal Range of Motion, Non Tender, No Calf Tenderness, No Pedal Edema Neurologic/Psychiatric: Alert, Oriented x3, Normal Mood/Affect, Abnormal Gait, Depressed Affect, Motor Weakness Skin: Normal Color, Warm/Dry Lymphatic: No Adenopathy Results/Procedures Lab Patient resulted labs reviewed. FIM Transfers Therapy Code Descriptions/Definitions Functional [place] Measure: 0=Not Assessed/NA 4=Minimal Assistance 1=Total Assistance 5=Supervision or Setup 2=Maximal Assistance 6=Modified [place] 3=Moderate Assistance 7=Complete IndependenceSCALE: Activities may be completed with or without assistive devices. 6-Awsmhlifdn-vhhrbdj completes the activity by him/herself with no assistance from a helper. 5-Set-up or Clean-up Assistance-helper sets up or cleans up; patient completes activity. [place] assists only prior to or following the activity. 4-Supervision or Touching Assistance-helper provides verbal cues and/or touching/steadying and/or contact guard assistance as patient completes activity. Assistance may be provided throughout the activity or intermittently. 3-Partial/Moderate Assistance-helper does LESS THAN HALF the effort. [place] lifts, holds or supports trunk or limbs, but provides less than half the effort. 2-Substantial/Maximal Assistance-helper does MORE THAN HALF the effort. [place] lifts or holds trunk or limbs and provides more than half the effort. 0-Wfyeopmau-sfxxfm does ALL the effort. Patient does none of the effort to complete the activity. Or, the assistance of 2 or more helpers is required for the patient to complete the activity. If activity was not attempted, code reason: 7-Patient Refused. 9-Not Applicable-not attempted and the patient did not perform the activity before the current illness, exacerbation or injury. 10-Not Attempted due to Environmental Limitations-(lack of equipment, weather restraints, etc.). 88-Not Attempted due to Medical Conditions or Safety Concerns. Roll Left to Right (QC): 4 Sit to Lying (QC): 6 Sit to Stand (QC): 3 Chair/Asj-mb-Lqfhj Xfer(QC): 3 Car Transfer (QC): 2 Gait Training Does the Patient Walk?: No and Walking Goal IS indicated Distance: 5'x3 Walk 10 feet (QC): 88 Walk 50 ft with 2 Turns(QC): 88 Walk 150 ft (QC): 88 Walking 10ft/uneven surface-QC: 88 Gait Assistive Device: Walker Platform Wheelchair Training Does the Pt Use a Wheelchair?: Yes Wheel 50 ft with 2 turns (QC): 3 Wheel 150 ft (QC): 3 Type of Wheelchair: Manual Stair Training 1 Step (curb) (QC): 9 4 Steps (QC): 9 12 Steps (QC): 9 Balance Picking up an Object (QC): 9 ADL-Treatment Eating (QC): 5 (s/u for containers during lunch) Oral Hygiene (QC): 6 (IND sitting in w/c with items in front of pt.) Shower/Bathe Self (QC): 7 (completed yesterday, denies sponge bath) Upper Body Dressing (QC): 5 Lower Body Dressing (QC): 1 (pt threads BLE, requires Ax2 (OT assists over hips and PT addresses stance) during LB dressing.) On/Off Footwear (QC): 6 (IND R foot) Toileting Hygiene (QC): 7 Toilet Transfer (QC): 3 (mod A to toilet. Use of gbs. ) Assessment/Plan Assessment and Plan Assess & Plan/Chief Complaint Assessment: Left tibia fracture s/p repair Prior CVA with right sided weakness chronic Expressive aphasia from prior CVA Mechanical heart valve replacement status OAC with Coumadin AF OP OAB HTN Depression Plan: Pain control Monitor BP INR monitoring IRF protocol 05/31/20: Pain control Psych eval PT OT 06/01/20: Supportive care Pain control Appreciate Cardiology Behavioral consult appreciated 06/02/20: Pain control Improve emotional status 06/03/20: Oxycodone change so DC APAP Venofer Midline 06/04/20: Monitor closely INR 3.3 (1) Fracture, tibia and fibula, shaft Status: Acute (2) Mechanical heart valve present Status: Chronic (3) DVT prophylaxis Status: Acute (4) Anticoagulant long-term use Status: Chronic (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
--- NOTE | 2020-06-04 12:35 | Occupational Ther Daily Note ---
OT Current Status-Daily Note Subjective Pt alert, sitting in recliner. Pt agrees to therapy. Pt began crying during session, frustrated about her situation. No c/o pain in first session, second session pt c/o pain at new midline site. Mental Status/Objective Patient Orientation: Person, Place, Time, Situation Attachments: IV ADL-Treatment 1st session (0395-6500)-Pt agrees to shower. Pt takes increased time due to slow sequence for initiation and word finding. Mod A for SPT to any surface. Pt completed shower sitting on shower bench, using hand held shower with set up required, SBA for safety. Pt able to complete oral care sitting at sink, ind ependently. Pt doffed R sock independently. Assist for dressing due to time constraints. After session, pt sitting in recliner with call light/phone in reach. All needs met in room. Therapy Code Descriptions/Definitions Functional [place] Measure: 0=Not Assessed/NA 4=Minimal Assistance 1=Total Assistance 5=Supervision or Setup 2=Maximal Assistance 6=Modified [place] 3=Moderate Assistance 7=Complete IndependenceSCALE: Activities may be completed with or without assistive devices. 0-Xnbngjzbkp-krfhdcz completes the activity by him/herself with no assistance from a helper. 5-Set-up or Clean-up Assistance-helper sets up or cleans up; patient completes activity. [place] assists only prior to or following the activity. 4-Supervision or Touching Assistance-helper provides verbal cues and/or touching/steadying and/or contact guard assistance as patient completes activity. Assistance may be provided throughout the activity or intermittently. 3-Partial/Moderate Assistance-helper does LESS THAN HALF the effort. [place] lif ts, holds or supports trunk or limbs, but provides less than half the effort. 2-Substantial/Maximal Assistance-helper does MORE THAN HALF the effort. [place] lifts or holds trunk or limbs and provides more than half the effort. 3-Qlfuihint-oupjpq does ALL the effort. Patient does none of the effort to complete the activity. Or, the assistance of 2 or more helpers is required for the patient to complete the activity. If activity was not attempted, code reason: 7-Patient Refused. 9-Not Applicable-not attempted and the patient did not perform the activity before the current illness, exacerbation or injury. 10-Not Attempted due to Environmental Limitations-(lack of equipment, weather restraints, etc.). 88-Not Attempted due to Medical Conditions or Safety Concerns. Oral Hygiene (QC): 6 Shower/Bathe Self (QC): 4 Other Treatment 2nd session ([id number])-Co-treat with PT, skilled instruction and care requires 2 clinicians due to decreased mobility, wt bearing precautions and decreased activity tolerance. PT focusing on w/c mobility and OT focusing on B UE placement and strengthening. Pt able to manage with SBA-CGA to propel w/c around ARU with multiple recovery breaks. After session, pt sitting in recliner with call light/phone in reach. All needs met in room. OT Short Term Goals Short Term Goals Eatin Oral hygiene: 5 Toileting hygiene: 3 Shower/bathe self: 3 Upper body dressin Lower body dressin Putting on/taking off footwear: 2 OT Intermediate Goals Orthodontist Vice President Goals Time Frame: Jun 06, 2020 Eating (QC): 5 Oral Hygiene (QC): 5 Toileting Hygiene (QC): 6 Shower/Bathe Self (QC): 5 Upper Body Dressing (QC): 6 Lower Body Dressing (QC): 6 On/Off Footwear (QC): 6 Additional Goals: 1-Demonstrate ADL Tasks, 2-Verbalize Understanding, 3- ImproveStrength/[place] 1=Demonstrate adherence to instructed precautions during ADL tasks. 2=Patient will verbalize/demonstrate understanding of assistive devices/modifications for ADL. 3=Patient will improve strength/tolerance for activity to enable patient to perform ADL's. OT Education/Plan Problem List/Assessment Assessment: Decreased Activ Tolerance, Decreased UE Strength, Impaired Funct Balance, Impaired Self-Care Skills, Restricted Funct UE ROM Discharge Recommendations Plan/Recommendations: Continue POC Treatment Plan/Plan of Care Patient would benefit from OT for education, treatment and training to promote independence in ADL's, mobility, safety and/or upper extremity function for ADL's. Plan of Care: ADL Retraining, Functional Mobility, Group Exercise/Act as Ind, UE Funct Exercise/Act, UE Neuromus Re-Ed/Coord, W/C Management Training Treatment Duration: Jun 13, 2020 Frequency: At least 5 of 7 days/Wk (IRF) Estimated Hrs Per Day: 1.5 hours per day Agreement: Yes Rehab Potential: Good Time/GCodes Start Time: 09:00 (1130) Stop Time: 10:00 (1200) Total Time Billed (hr/min): 90 Billed Treatment Time 1 visit-ADL 4 (60 min), 1 visit- FA 2 ([id number]) co-treat with PT [id number], individual [id number] JOSE MANUEL PRINGLE Jun 04, 2020 12:35
--- NOTE | 2020-06-04 12:57 | Physical Therapy Daily Note ---
PT Daily Note-Current Subjective Patient in bed pre tx, agrees to PT, has 9/10 pain in left arm (she just got a line put in) and says she has already had pain meds, will be co-treating with OT for part of tx due to poor patient mobility, strength, endurance, balance, right hemiparesis, coordinate UE and LE during activity, safety and reduce risk of falls. Appearance Patient in recliner post tx with nurse call, phone, tray, all needs met, legs elevated. Mental Status Patient Orientation: Person, Place, Situation Transfers SCALE: Activities may be completed with or without assistive devices. 6-Nibzeulyef-fesucrn completes the activity by him/herself with no assistance from a helper. 5-Set-up or Clean-up Assistance-helper sets up or cleans up; patient completes activity. [place] assists only prior to or following the activity. 4-Supervision or Touching Assistance-helper provides verbal cues and/or touching/steadying and/or contact guard assistance as patient completes activity. Assistance may be provided throughout the activity or intermittently. 3-Partial/Moderate Assistance-helper does LESS THAN HALF the effort. [place] lifts, holds or supports trunk or limbs, but provides less than half the effort. 2-Substantial/Maximal Assistance-helper does MORE THAN HALF the effort. [place] lifts or holds trunk or limbs and provides more than half the effort. 4-Btegewzgs-tnkjdd does ALL the effort. Patient does none of the effort to complete the activity. Or, the assistance of 2 or more helpers is required for the patient to complete the activity. If activity was not attempted, code reason: 7-Patient Refused. 9-Not Applicable-not attempted and the patient did not perform the activity before the current illness, exacerbation or injury. 10-Not Attempted due to Environmental Limitations-(lack of equipment, weather restraints, etc.). 88-Not Attempted due to Medical Conditions or Safety Concerns. Roll Left & Right (QC): 3 Lying to Sitting/Side of Bed(Q: 3 Sit to Stand (QC): 3 Chair/Axs-cc-Zmsah Xfer(QC): 3 mod assist for sit to stand and transfers Weight Bearing Right Lower Extremity: Right Full Weight Bearing Left Lower Extremity: Left Non Weight Bearing Wheelchair Training Does the Pt Use a Wheelchair?: Yes Wheel 50 ft with 2 turns (QC): 3 Wheel 150 ft (QC): 3 Type of Wheelchair: Manual 120', 300' Exercises NuStep Minutes: 15 NuStep Workload: 3 (left leg and right arm not used) Treatments PT performed bed mobility and transfers, functional strengthening, WC mobility, OT performed UE safety and positioning during WC mobility and transfers. Assessment Current Status: Poor Progress no change in mobility. PT Short Term Goals Short Term Goals Time Frame: Jun 13, 2020 Sit to lyin Lying to sitting on side of be: 6 Sit to stand: 4 Chair/jxt-uv-blbsb transfer: 4 Walk 10 feet: 3 Wheel 50ft w/2 turns: 6 Wheel 150 feet: 4 Type: Manual PT Market Reporter Goals Market Reporter Goals PT Market Reporter Goals Time Frame: Jun 27, 2020 Roll Left & Right (QC): 6 Sit to Lying (QC): 6 Lying-Sitting on Side/Bed(QC): 6 Sit to Stand (QC): 6 Chair/Fie-ak-Npxft Xfer(QC): 6 Toilet Transfer (QC): 6 Car Transfer (QC): 5 Does the Patient Walk: No and Walking Goal IS indicated Walk 10 feet (QC): 4 Walk 50ft with 2 Turns (QC): 4 Walk 150 ft (QC): 88 Walking 10ft on Uneven Surface: 88 1 Step (curb) (QC): 9 4 Steps (QC): 9 12 Steps (QC): 9 Picking up an Object (QC): 9 Does the Pt use WC or Scooter?: Yes Wheel 50 feet with 2 turns (QC: 6 Type: Manual Wheel 150 feet: 6 Type: Manual PT Plan Problem List Problem List: Activity Tolerance, Functional Strength, Safety, Balance, Gait, Transfer, Bed Mobility, ROM Treatment/Plan Treatment Plan: Continue Plan of Care Treatment Plan: Bed Mobility, Education, Functional Activity Francy, Functional Strength, Group Therapy, Gait, Safety, Therapeutic Exercise, Transfers Treatment Duration: Jun 27, 2020 Frequency: At least 5 of 7 days/Wk (IRF) Estimated Hrs Per Day: 1.5 hours per day Patient and/or Family Agrees t: Yes Safety Risks/Education Patient Education: Transfer Techniques, Correct Positioning, W/C Management, Safety Issues Teaching Recipient: Patient Teaching Methods: Demonstration, Discussion Response to Teaching: Reinforcement Needed Time/GCodes Time In: 1100 Time Out: 1200 Total Billed Treatment Time: 60 Total Billed Treatment 1 visit EX 15' FA 45' MAURICIO POLANCO PT Jun 04, 2020 12:57
--- NOTE | 2020-06-04 14:18 | Physical Therapy Daily Note ---
PT Daily Note-Current Subjective Patient in recliner pre tx, agrees to PT, states she has less pain. Appearance Patient in recliner post tx with nurse call, phone, tray, legs elevated, all needs met. Mental Status Patient Orientation: Person, Place, Situation Transfers SCALE: Activities may be completed with or without assistive devices. 1-Nuybnmctap-mkcmczo completes the activity by him/herself with no assistance from a helper. 5-Set-up or Clean-up Assistance-helper sets up or cleans up; patient completes activity. [place] assists only prior to or following the activity. 4-Supervision or Touching Assistance-helper provides verbal cues and/or touching/steadying and/or contact guard assistance as patient completes activity. Assistance may be provided throughout the activity or intermittently. 3-Partial/Moderate Assistance-helper does LESS THAN HALF the effort. [place] lifts, holds or supports trunk or limbs, but provides less than half the effort. 2-Substantial/Maximal Assistance-helper does MORE THAN HALF the effort. [place] lifts or holds trunk or limbs and provides more than half the effort. 4-Mqpvkotux-nczosn does ALL the effort. Patient does none of the effort to complete the activity. Or, the assistance of 2 or more helpers is required for the patient to complete the activity. If activity was not attempted, code reason: 7-Patient Refused. 9-Not Applicable-not attempted and the patient did not perform the activity before the current illness, exacerbation or injury. 10-Not Attempted due to Environmental Limitations-(lack of equipment, weather restraints, etc.). 88-Not Attempted due to Medical Conditions or Safety Concerns. Sit to Stand (QC): 3 Chair/Npe-rb-Lktxm Xfer(QC): 3 Weight Bearing Right Lower Extremity: Right Full Weight Bearing Left Lower Extremity: Left Non Weight Bearing Gait Training Distance: 10'x3 Walk 10 feet (QC): 3 Gait Persons Needed: 1 Gait Assistive Device: Walker Platform WC follow, patient is compliant with NWB on the left leg, patient is able to hop a little more but still a lot of sliding foot across floor Wheelchair Training Does the Pt Use a Wheelchair?: Yes Wheel 50 ft with 2 turns (QC): 3 Type of Wheelchair: Manual 120'x2 Treatments transfers, ambulation, WC mobility Assessment Current Status: Fair Progress slightly improved ambulation, decreased pain PT Short Term Goals Short Term Goals Time Frame: Jun 13, 2020 Sit to lyin Lying to sitting on side of be: 6 Sit to stand: 4 Chair/xxu-sa-kochp transfer: 4 Walk 10 feet: 3 Wheel 50ft w/2 turns: 6 Wheel 150 feet: 4 Type: Manual PT Catalogue Clerk Goals Catalogue Clerk Goals PT Catalogue Clerk Goals Time Frame: Jun 27, 2020 Roll Left & Right (QC): 6 Sit to Lying (QC): 6 Lying-Sitting on Side/Bed(QC): 6 Sit to Stand (QC): 6 Chair/Oiz-jn-Niziv Xfer(QC): 6 Toilet Transfer (QC): 6 Car Transfer (QC): 5 Does the Patient Walk: No and Walking Goal IS indicated Walk 10 feet (QC): 4 Walk 50ft with 2 Turns (QC): 4 Walk 150 ft (QC): 88 Walking 10ft on Uneven Surface: 88 1 Step (curb) (QC): 9 4 Steps (QC): 9 12 Steps (QC): 9 Picking up an Object (QC): 9 Does the Pt use WC or Scooter?: Yes Wheel 50 feet with 2 turns (QC: 6 Type: Manual Wheel 150 feet: 6 Type: Manual PT Plan Problem List Problem List: Activity Tolerance, Functional Strength, Safety, Balance, Gait, Transfer, Bed Mobility, ROM Treatment/Plan Treatment Plan: Continue Plan of Care Treatment Plan: Bed Mobility, Education, Functional Activity Francy, Functional Strength, Group Therapy, Gait, Safety, Therapeutic Exercise, Transfers Treatment Duration: Jun 27, 2020 Frequency: At least 5 of 7 days/Wk (IRF) Estimated Hrs Per Day: 1.5 hours per day Patient and/or Family Agrees t: Yes Safety Risks/Education Patient Education: Gait Training, Transfer Techniques, Correct Positioning, W/C Management, Safety Issues Teaching Recipient: Patient Teaching Methods: Demonstration, Discussion Response to Teaching: Reinforcement Needed Time/GCodes Time In: 1345 Time Out: 1415 Total Billed Treatment Time: 30 Total Billed Treatment 1 visit FA 30' MAURICIO POLANCO PT Jun 04, 2020 14:18
[2020-06-04] MEDS: warFARin 4 MG (COUMADIN) TAB PO SCH (18:08)
[2020-06-04] MEDS: ROSUVASTATIN 10 MG (CRESTOR) TABLET PO SCH (20:45)
[2020-06-04] MEDS: LEVETIRACETAM 500 MG (KEPPRA) TAB PO SCH (20:46)
[2020-06-04] MEDS: MELATONIN 3 MG TABLET PO PRN (20:46)
[2020-06-04 21:27] VITALS: BP 106/60
[2020-06-05] MEDS: CATHETER FLUSH 10 ML SYR IV SCH ×3 (05:45→23:33)
[2020-06-05 06:16] LABS: INR 3.2 (0.8-1.4); PROTHROMBIN TIME PATIENT 33.3 SEC (12.2-14.7)
[2020-06-05 06:25] VITALS: BP 107/54
[2020-06-05] MEDS: ACETAMINOPHEN 325 MG TABLET PO PRN ×2 (06:42→19:55)
--- NOTE | 2020-06-05 08:52 | Cardiology Progress Note ---
Subjective Date Seen by Provider: Jun 05, 2020 Time Seen by Provider: 08:10 Subjective/Events-last exam Patient in chair, complains of leg pain. Denies any chest pain or palpitations. Review of Systems General: No Chills, No Night Sweats, No Fatigue, No Malaise, No Appetite, No Other HEENT: No Head Aches, No Visual Changes, No Eye Pain, No Ear Pain, No Dysphasia, No Sinus Congestion, No Post Nasal Drip, No Sore Throat, No Other Pulmonary: No Dyspnea, No Cough, No Pleuritic Chest Pain, No Other Cardiovascular: No: Chest Pain, Palpitations, Orthopnea, Paroxysmal Noc. Dyspnea, Edema, Lt Headedness, Other Objective-Cardiology Exam Last Set of Vital Signs Vital Signs 06/05/20 06/05/20 06:25 08:43 Temp 36.6 Pulse 72 Resp 18 B/P (MAP) 107/54 (71) Pulse Ox 96 O2 Delivery Room Air Capillary Refill : Less Than 3 Seconds I&O Intake and Output 06/05/20 00:00 Intake Total 1275 ml Balance 1275 ml Intake Oral 1275 ml # Voids 4 # Urine Diapers 10 # Bowel Movements 2 General: Alert, Oriented X3, Cooperative HEENT: Atraumatic, PERRLA Neck: Supple, No JVD, No Thyromegaly Lungs: Clear to Auscultation, Normal Air Movement Heart: Regular Rate, Normal S1, Normal S2, No Murmurs Abdomen: Normal Bowel Sounds, Soft, No Tenderness, No Hepatosplenomegaly, No Masses Extremities: No Clubbing, No Cyanosis, No Edema, Normal Pulses, No Tenderness/Swelling Psych/Mental Status: Mental Status NL A/P-Cardiology Admission Diagnosis nonsyncopal fall Left Tib/fib fx Hx AVR HTN Assessment/Plan Non-syncopal fall resulting in left tibia/fibula fx treated with closed IM rodding left tibial shaft fracture on 05/23/20 (Dr Srinivasan) Mechanical aortic valve replacement, surgery done in [place] in the remote past, maintained on Coumadin, Echo of 05/22/20: LVEF 50-55%, s/p mech AVR that is functioning well, pulm htn with PASP 65-70 mmHg, right heart enlargement, mild to mod MR & TR. Maintained on Coumadin, INR 3.2 today. Continue to monitor Anemia, s/p transfusion, stable, continue to monitor H/H. Essential hypertension , continue to monitor blood pressure. Pulmonary hypertension of undetermined etiology Hyperlipidemia - statin tx PACs, asymptomatic, continue to monitor. 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 Improved. Nonobstructive carotid artery stenosis per carotid duplex done November 2018 Patient was seen and evaluated with Dominique, examination performed, management plan was discussed, agree with the current scribed note, I made few changes to the note using Italic font Patient was seen this morning, sleepy, tired, reporting improvement in the pain in her leg INR is still elevated, holding Coumadin for another day Monitor blood pressure and lipids DOMINIQUE CHRISTIANSON Jun 05, 2020 08:52 VALENTIN HEAD MD Jun 05, 2020 12:44
[2020-06-05] MEDS: LACTULOSE SYRUP 10GM/15ML (ENULOSE) 30ML UDC PO SCH ×2 (09:07→20:42)
[2020-06-05] MEDS: DOCUSATE SODIUM 100 MG (COLACE) CAP PO SCH ×2 (09:07→20:34)
[2020-06-05] MEDS: SENNA W/DOCUSATE (SENOKOT S) TABLET PO SCH ×2 (09:07→20:34)
[2020-06-05] MEDS: polyethylene glycoL POWDER 17 GM (MIRALAX) PACK PO SCH ×2 (09:07→20:42)
[2020-06-05] MEDS: FLUoxetine HCL 20 MG (PROzac) CAP PO SCH (09:08)
[2020-06-05] MEDS: PHENYTOIN 100 MG (DILANTIN) CAP PO SCH ×3 (09:08→20:34)
[2020-06-05] MEDS: IRON SUCROSE 200 MG/10 ML (VENOFER) VIAL IV SCH (09:08)
[2020-06-05] MEDS: OXYBUTYNIN (DITROPAN) 5 MG TAB PO SCH ×3 (09:08→20:35)
[2020-06-05] MEDS ORDERED: VENlafaxine 37.5 MG (EFFEXOR) TAB PO NR (10:30)
--- NOTE | 2020-06-05 10:47 | PM&R Progress Note ---
Subjective HPI/CC On Admission Date Seen by Provider: Jun 05, 2020 Time Seen by Provider: 10:30 Subjective/Events-last exam 06/05/20: Holding Coumadin due to INR 3.2 Pt doing pretty well Incontinent at times Air bed will help decrease chance of decubitus ulcers Dressing changes every other day Secretary are intact Effexor will be started to help motivation Bowels are moving 06/04/20: Pt showered today Pain pill is working pretty well Pain at night is still an issue Midline was ordered for iron infusions INR is 3.3 06/03/20: Patient doing well ICU nurse plaed IV for Venofer but need midline tomorrow Up in chair today Venofer will continue for 5 doses total No BM yet laxatives will be given Oxycodone will be changed to H5clyrd and DC APAP 06/02/20: Midline will be placed for iron Pain issues discussed BM yesterday Very weak and despondent today 06/01/20: Patient doing well Behavioral consult just completed Pain controlled INR 2.9 BM 05/3105/31/20: Patient doing better Behavioral consult today for depression and statement of suicidal ideation Percocet for pain Dr Vora adjusting Coumadin Pastoral care ordered Review of Systems General: Fatigue, Malaise Neurological: Weakness Objective Exam Vital Signs Vital Signs Date Time Temp Pulse Resp B/P (MAP) Pulse Ox O2 Delivery O2 Flow Rate FiO2 06/05/20 20:38 Room Air 06/05/20 16:00 36.4 53 18 132/61 (84) 97 Capillary Refill : Less Than 3 Seconds General Appearance: No Apparent Distress, WD/WN, Chronically ill, Thin HEENT: PERRL/EOMI, Normal ENT Inspection, Pharynx Normal Neck: Full Range of Motion, Normal Inspection, Non Tender, Supple, Carotid Bruit Respiratory: Chest Non Tender, Lungs Clear, Normal Breath Sounds, No Accessory Muscle Use, No Respiratory Distress Cardiovascular: No Edema, No Gallop, No JVD, No Murmur, Normal Peripheral Pulses, Systolic Murmur, Irregularly Irregular Gastrointestinal: Normal Bowel Sounds, No Organomegaly, No Pulsatile Mass, Non Tender, Soft Back: Normal Inspection, No CVA Tenderness, No Vertebral Tenderness Extremity: Normal Capillary Refill, Normal Inspection, Normal Range of Motion, Non Tender, No Calf Tenderness, No Pedal Edema Neurologic/Psychiatric: Alert, Oriented x3, Normal Mood/Affect, Abnormal Gait, Depressed Affect, Motor Weakness Skin: Normal Color, Warm/Dry Lymphatic: No Adenopathy Results/Procedures Lab Patient resulted labs reviewed. FIM Transfers Therapy Code Descriptions/Definitions Functional [place] Measure: 0=Not Assessed/NA 4=Minimal Assistance 1=Total Assistance 5=Supervision or Setup 2=Maximal Assistance 6=Modified [place] 3=Moderate Assistance 7=Complete IndependenceSCALE: Activities may be completed with or without assistive devices. 7-Drreywicww-xsauugp completes the activity by him/herself with no assistance from a helper. 5-Set-up or Clean-up Assistance-helper sets up or cleans up; patient completes activity. [place] assists only prior to or following the activity. 4-Supervision or Touching Assistance-helper provides verbal cues and/or touching/steadying and/or contact guard assistance as patient completes activity. Assistance may be provided throughout the activity or intermittently. 3-Partial/Moderate Assistance-helper does LESS THAN HALF the effort. [place] lifts, holds or supports trunk or limbs, but provides less than half the effort. 2-Substantial/Maximal Assistance-helper does MORE THAN HALF the effort. [place] lifts or holds trunk or limbs and provides more than half the effort. 4-Xxkiancux-lcfivk does ALL the effort. Patient does none of the effort to complete the activity. Or, the assistance of 2 or more helpers is required for the patient to complete the activity. If activity was not attempted, code reason: 7-Patient Refused. 9-Not Applicable-not attempted and the patient did not perform the activity before the current illness, exacerbation or injury. 10-Not Attempted due to Environmental Limitations-(lack of equipment, weather restraints, etc.). 88-Not Attempted due to Medical Conditions or Safety Concerns. Roll Left to Right (QC): 3 Sit to Lying (QC): 6 Sit to Stand (QC): 3 Chair/Pry-nm-Zdnfg Xfer(QC): 3 Car Transfer (QC): 2 Gait Training Does the Patient Walk?: No and Walking Goal IS indicated Distance: 10'x3 Walk 10 feet (QC): 3 Walk 50 ft with 2 Turns(QC): 88 Walk 150 ft (QC): 88 Walking 10ft/uneven surface-QC: 88 Gait Persons Needed: 1 Gait Assistive Device: Walker Platform Wheelchair Training Does the Pt Use a Wheelchair?: Yes Wheel 50 ft with 2 turns (QC): 3 Wheel 150 ft (QC): 3 Type of Wheelchair: Manual Stair Training 1 Step (curb) (QC): 9 4 Steps (QC): 9 12 Steps (QC): 9 Balance Picking up an Object (QC): 9 ADL-Treatment Eating (QC): 5 (s/u for containers during lunch) Oral Hygiene (QC): 6 Shower/Bathe Self (QC): 4 Upper Body Dressing (QC): 5 Lower Body Dressing (QC): 1 (pt threads BLE, requires Ax2 (OT assists over hips and PT addresses stance) during LB dressing.) On/Off Footwear (QC): 6 (IND R foot) Toileting Hygiene (QC): 7 Toilet Transfer (QC): 3 (mod A to toilet. Use of gbs. ) Assessment/Plan Assessment and Plan Assess & Plan/Chief Complaint Assessment: Left tibia fracture s/p repair Prior CVA with right sided weakness chronic Expressive aphasia from prior CVA Mechanical heart valve replacement status OAC with Coumadin AF OP OAB HTN Depression Plan: Pain control Monitor BP INR monitoring IRF protocol 05/31/20: Pain control Psych eval PT OT 06/01/20: Supportive care Pain control Appreciate Cardiology Behavioral consult appreciated 06/02/20: Pain control Improve emotional status 06/03/20: Oxycodone change so DC APAP Venofer Midline 06/04/20: Monitor closely INR 3.3 06/05/20: Monitor INR Fall risk Pain control (1) Fracture, tibia and fibula, shaft Status: Acute (2) Mechanical heart valve present Status: Chronic (3) DVT prophylaxis Status: Acute (4) Anticoagulant long-term use Status: Chronic (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
--- NOTE | 2020-06-05 12:16 | Physical Therapy Daily Note ---
PT Daily Note-Current Subjective Pt laying Supine in bed upon arrival. Pt agrees to PT. Mental Status Patient Orientation: Person, Place, Situation Transfers SCALE: Activities may be completed with or without assistive devices. 0-Mbkgdbcnxf-kffeyuo completes the activity by him/herself with no assistance from a helper. 5-Set-up or Clean-up Assistance-helper sets up or cleans up; patient completes activity. [place] assists only prior to or following the activity. 4-Supervision or Touching Assistance-helper provides verbal cues and/or touching/steadying and/or contact guard assistance as patient completes activity. Assistance may be provided throughout the activity or intermittently. 3-Partial/Moderate Assistance-helper does LESS THAN HALF the effort. [place] lifts, holds or supports trunk or limbs, but provides less than half the effort. 2-Substantial/Maximal Assistance-helper does MORE THAN HALF the effort. [place] lifts or holds trunk or limbs and provides more than half the effort. 5-Zrraljiaj-nhqtqw does ALL the effort. Patient does none of the effort to complete the activity. Or, the assistance of 2 or more helpers is required for the patient to complete the activity. If activity was not attempted, code reason: 7-Patient Refused. 9-Not Applicable-not attempted and the patient did not perform the activity before the current illness, exacerbation or injury. 10-Not Attempted due to Environmental Limitations-(lack of equipment, weather restraints, etc.). 88-Not Attempted due to Medical Conditions or Safety Concerns. Sit to Lying (QC): 5 Lying to Sitting/Side of Bed(Q: 5 Sit to Stand (QC): 4 Weight Bearing Right Lower Extremity: Right Full Weight Bearing Left Lower Extremity: Left Non Weight Bearing Gait Training Does the Patient Walk?: Yes Distance: 50' Walk 10 feet (QC): 4 Gait Persons Needed: 1 Gait Assistive Device: Walker Platform Pt needs assistance lift R UE to platform and occasional VC for sequencing. Treatments Pt completes Supine Ex in bed with RB as needed. Pt transfers to EOB then to [facility]. Pt is propelled to Therapy Gym. Pt amb. in Therapy Gym with RB as needed. Pt returns to room and bed to rest. All needs met, call light in hand. Assessment Current Status: Fair Progress Pt fatigues and needs RB. PT Short Term Goals Short Term Goals Time Frame: Jun 13, 2020 Sit to lyin Lying to sitting on side of be: 6 Sit to stand: 4 Chair/vmn-hh-ckrgf transfer: 4 Walk 10 feet: 3 Wheel 50ft w/2 turns: 6 Wheel 150 feet: 4 Type: Manual PT Long-Term Goals Process Development Technician Goals PT Long-Term Goals Time Frame: Jun 27, 2020 Roll Left & Right (QC): 6 Sit to Lying (QC): 6 Lying-Sitting on Side/Bed(QC): 6 Sit to Stand (QC): 6 Chair/Bcj-ri-Acbth Xfer(QC): 6 Toilet Transfer (QC): 6 Car Transfer (QC): 5 Does the Patient Walk: No and Walking Goal IS indicated Walk 10 feet (QC): 4 Walk 50ft with 2 Turns (QC): 4 Walk 150 ft (QC): 88 Walking 10ft on Uneven Surface: 88 1 Step (curb) (QC): 9 4 Steps (QC): 9 12 Steps (QC): 9 Picking up an Object (QC): 9 Does the Pt use WC or Scooter?: Yes Wheel 50 feet with 2 turns (QC: 6 Type: Manual Wheel 150 feet: 6 Type: Manual PT Plan Problem List Problem List: Activity Tolerance, Functional Strength, Gait, Transfer Treatment/Plan Treatment Plan: Continue Plan of Care Treatment Plan: Bed Mobility, Education, Functional Activity Francy, Functional Strength, Group Therapy, Gait, Safety, Therapeutic Exercise, Transfers Treatment Duration: Jun 27, 2020 Frequency: At least 5 of 7 days/Wk (IRF) Estimated Hrs Per Day: 1.5 hours per day Patient and/or Family Agrees t: Yes Safety Risks/Education Patient Education: Gait Training, Transfer Techniques, Correct Positioning, Safety Issues Teaching Recipient: Patient Teaching Methods: Discussion Response to Teaching: Verbalize Understanding Time/GCodes Time In: 1100 Time Out: 1200 Total Billed Treatment Time: 60 Total Billed Treatment 1, EX x2 (30m), FA (15m) & GT (15m) JOSEPH LEVY PTA Jun 05, 2020 12:16
--- NOTE | 2020-06-05 12:44 | Occupational Ther Daily Note ---
OT Current Status-Daily Note Subjective Pt alert, sitting in recliner. Pt agrees to therapy. Pt c/o pain /10, nrsg in room. Mental Status/Objective Patient Orientation: Person, Place, Time, Situation Attachments: IV ADL-Treatment 1st session ([id number])-Pt declines shower today. Pt requests to use toilet. Assist x2 for toileting, one person to transfer and second person to complete clothing manipulation and hygiene. Pt sat at sink and completed grooming and oral care independently. Pt then propelled w/c to therapy gym using R LE and L UE. Pt then completed arm bike for 10 min at 15 harris resistance to increase B UE strengthening and activity tolerance. After session, pt lying in bed with call light/phone in reach. All needs met in room. Therapy Code Descriptions/Definitions Functional [place] Measure: 0=Not Assessed/NA 4=Minimal Assistance 1=Total Assistance 5=Supervision or Setup 2=Maximal Assistance 6=Modified [place] 3=Moderate Assistance 7=Complete IndependenceSCALE: Activities may be completed with or without assistive devices. 2-Gkaqwbtcwy-gmyhhai completes the activity by him/herself with no assistance from a helper. 5-Set-up or Clean-up Assistance-helper sets up or cleans up; patient completes activity. [place] assists only prior to or following the activity. 4-Supervision or Touching Assistance-helper provides verbal cues and/or touching/steadying and/or contact guard assistance as patient completes activity. Assistance may be provided throughout the activity or intermittently. 3-Partial/Moderate Assistance-helper does LESS THAN HALF the effort. [place] lifts, holds or supports trunk or limbs, but provides less than half the effort. 2-Substantial/Maximal Assistance-helper does MORE THAN HALF the effort. [place] lifts or holds trunk or limbs and provides more than half the effort. 9-Ammjxxcaa-ggprjp does ALL the effort. Patient does none of the effort to complete the activity. Or, the assistance of 2 or more helpers is required for the patient to complete the activity. If activity was not attempted, code reason: 7-Patient Refused. 9-Not Applicable-not attempted and the patient did not perform the activity before the current illness, exacerbation or injury. 10-Not Attempted due to Environmental Limitations-(lack of equipment, weather restraints, etc.). 88-Not Attempted due to Medical Conditions or Safety Concerns. Oral Hygiene (QC): 6 Toileting Hygiene (QC): 1 Toilet Transfer (QC): 1 Other Treatment 2nd session ([id number])- Co-treat with PT ([id number]), skilled instruction and care requires 2 clinicians due to pt's decrease in transfer, ambulation and incr eased risk of falls. PT focusing on ambulation and transfers while OT focusing on placement of R UE and functional transfers. See PT notes for progress on ambulation. Pt able to complete supine <--> EOB independently using bedrails. OT Short Term Goals Short Term Goals Eatin Oral hygiene: 5 Toileting hygiene: 3 Shower/bathe self: 3 Upper body dressin Lower body dressin Putting on/taking off footwear: 2 OT Customs Inspector Goals [facility] Goals Time Frame: Jun 06, 2020 Eating (QC): 5 Oral Hygiene (QC): 5 Toileting Hygiene (QC): 6 Shower/Bathe Self (QC): 5 Upper Body Dressing (QC): 6 Lower Body Dressing (QC): 6 On/Off Footwear (QC): 6 Additional Goals: 1-Demonstrate ADL Tasks, 2-Verbalize Understanding, 3- ImproveStrength/[place] 1=Demonstrate adherence to instructed precautions during ADL tasks. 2=Patient will verbalize/demonstrate understanding of assistive device s/modifications for ADL. 3=Patient will improve strength/tolerance for activity to enable patient to perform ADL's. OT Education/Plan Problem List/Assessment Assessment: Decreased Activ Tolerance, Decreased UE Strength, Impaired Funct Balance, Impaired Self-Care Skills, Restricted Funct UE ROM Discharge Recommendations Plan/Recommendations: Continue POC Treatment Plan/Plan of Care Patient would benefit from OT for education, treatment and training to promote independence in ADL's, mobility, safety and/or upper extremity function for ADL's. Plan of Care: ADL Retraining, Functional Mobility, Group Exercise/Act as Ind, UE Funct Exercise/Act, UE Neuromus Re-Ed/Coord, W/C Management Training Treatment Duration: Jun 13, 2020 Frequency: At least 5 of 7 days/Wk (IRF) Estimated Hrs Per Day: 1.5 hours per day Agreement: Yes Rehab Potential: Good Time/GCodes Start Time: 09:00 (1130) Stop Time: 10:00 (1200) Total Time Billed (hr/min): 90 Billed Treatment Time 1 visit-ADL 2 (30 min), FA 1 (20 min) EX 1 (10 min)-([id number]) individual 60 min, 1 visit-FA 2 (30 min)-([id number]) co-treat with PT 30 min JOSE MANUEL PRINGLE Jun 05, 2020 12:44
--- NOTE | 2020-06-05 14:32 | Physical Therapy Daily Note ---
PT Daily Note-Current Subjective Pt laying Supine in bed. Pt agrees to PT. Mental Status Patient Orientation: Person, Place, Situation, [place] Transfers SCALE: Activities may be completed with or without assistive devices. 5-Lcgutaxoaq-bvizhvy completes the activity by him/herself with no assistance from a helper. 5-Set-up or Clean-up Assistance-helper sets up or cleans up; patient completes activity. [place] assists only prior to or following the activity. 4-Supervision or Touching Assistance-helper provides verbal cues and/or touching/steadying and/or contact guard assistance as patient completes activity. Assistance may be provided throughout the activity or intermittently. 3-Partial/Moderate Assistance-helper does LESS THAN HALF the effort. [place] lifts, holds or supports trunk or limbs, but provides less than half the effort. 2-Substantial/Maximal Assistance-helper does MORE THAN HALF the effort. [place] lifts or holds trunk or limbs and provides more than half the effort. 7-Hctygoxwn-lzalll does ALL the effort. Patient does none of the effort to complete the activity. Or, the assistance of 2 or more helpers is required for the patient to complete the activity. If activity was not attempted, code reason: 7-Patient Refused. 9-Not Applicable-not attempted and the patient did not perform the activity before the current illness, exacerbation or injury. 10-Not Attempted due to Environmental Limitations-(lack of equipment, weather restraints, etc.). 88-Not Attempted due to Medical Conditions or Safety Concerns. Lying to Sitting/Side of Bed(Q: 5 Sit to Stand (QC): 4 Chair/Coo-oo-Gxdxy Xfer(QC): 4 Weight Bearing Right Lower Extremity: Right Full Weight Bearing Left Lower Extremity: Left Non Weight Bearing Exercises Supine Ex: Ankle pumps, Quad Set, Glut sets, Short Arc Quads, Straight leg raise Supine Reps: 15 Treatments Pt transferred to EOB then standing. Pt SPT to recliner with VC for sequencing. MANAGER INCOME TAX & Nurse move regular hospital bed out & air mattress bed into room. Pt completes Supine Ex in recliner as pt asks to rest in recliner instead of returning to bed. All needs met, call light in hand. Assessment Current Status: Fair Progress Pt fatigues easily and is limited by WB status. PT Short Term Goals Short Term Goals Time Frame: Jun 13, 2020 Sit to lyin Lying to sitting on side of be: 6 Sit to stand: 4 Chair/lre-mc-wjonc transfer: 4 Walk 10 feet: 3 Wheel 50ft w/2 turns: 6 Wheel 150 feet: 4 Type: Manual PT [facility] Goals Engine Dynamometer Tester Goals PT [facility] Goals Time Frame: Jun 27, 2020 Roll Left & Right (QC): 6 Sit to Lying (QC): 6 Lying-Sitting on Side/Bed(QC): 6 Sit to Stand (QC): 6 Chair/Mac-ru-Lapgp Xfer(QC): 6 Toilet Transfer (QC): 6 Car Transfer (QC): 5 Does the Patient Walk: No and Walking Goal IS indicated Walk 10 feet (QC): 4 Walk 50ft with 2 Turns (QC): 4 Walk 150 ft (QC): 88 Walking 10ft on Uneven Surface: 88 1 Step (curb) (QC): 9 4 Steps (QC): 9 12 Steps (QC): 9 Picking up an Object (QC): 9 Does the Pt use WC or Scooter?: Yes Wheel 50 feet with 2 turns (QC: 6 Type: Manual Wheel 150 feet: 6 Type: Manual PT Plan Problem List Problem List: Activity Tolerance, Functional Strength, Gait, Transfer Treatment/Plan Treatment Plan: Continue Plan of Care Treatment Plan: Bed Mobility, Education, Functional Activity Francy, Functional Strength, Group Therapy, Gait, Safety, Therapeutic Exercise, Transfers Treatment Duration: Jun 27, 2020 Frequency: At least 5 of 7 days/Wk (IRF) Estimated Hrs Per Day: 1.5 hours per day Patient and/or Family Agrees t: Yes Safety Risks/Education Patient Education: Transfer Techniques, Correct Positioning, Safety Issues Teaching Recipient: Patient Teaching Methods: Discussion Response to Teaching: Verbalize Understanding Time/GCodes Time In: 1400 Time Out: 1430 Total Billed Treatment 1, FA (15m) & EX (15m) JOSEPH LEVY PTA Jun 05, 2020 14:32
[2020-06-05 16:00] VITALS: BP 132/61
[2020-06-05] MEDS: ROSUVASTATIN 10 MG (CRESTOR) TABLET PO SCH (20:34)
[2020-06-05] MEDS: LEVETIRACETAM 500 MG (KEPPRA) TAB PO SCH (20:35)
[2020-06-05] MEDS: MELATONIN 3 MG TABLET PO PRN (20:35)
[2020-06-06 05:56] VITALS: BP 107/51
[2020-06-06] MEDS: CATHETER FLUSH 10 ML SYR IV SCH ×3 (06:19→22:26)
[2020-06-06] MEDS: polyethylene glycoL POWDER 17 GM (MIRALAX) PACK PO SCH ×2 (07:33→21:49)
[2020-06-06] MEDS: VENlafaxine 37.5 MG (EFFEXOR) TAB PO SCH (07:34)
[2020-06-06] MEDS: FLUoxetine HCL 20 MG (PROzac) CAP PO SCH (07:35)
[2020-06-06] MEDS: DOCUSATE SODIUM 100 MG (COLACE) CAP PO SCH ×2 (07:35→21:48)
[2020-06-06] MEDS: SENNA W/DOCUSATE (SENOKOT S) TABLET PO SCH ×2 (07:35→21:49)
[2020-06-06] MEDS: LACTULOSE SYRUP 10GM/15ML (ENULOSE) 30ML UDC PO SCH ×2 (07:36→21:49)
[2020-06-06] MEDS: OXYBUTYNIN (DITROPAN) 5 MG TAB PO SCH ×3 (07:36→21:45)
[2020-06-06] MEDS: PHENYTOIN 100 MG (DILANTIN) CAP PO SCH ×3 (07:36→21:45)
[2020-06-06] MEDS: ACETAMINOPHEN 325 MG TABLET PO PRN (07:45)
--- NOTE | 2020-06-06 09:13 | Cardiology Progress Note ---
Subjective Date Seen by Provider: Jun 06, 2020 Time Seen by Provider: 09:08 Subjective/Events-last exam Pt doing well, no new complaints. Objective-Cardiology Exam Last Set of Vital Signs Vital Signs 06/06/20 05:56 Temp 36.5 Pulse 55 Resp 16 B/P (MAP) 107/51 (69) Pulse Ox 97 O2 Delivery Room Air Capillary Refill : Less Than 3 Seconds I&O Intake and Output 06/06/20 00:00 Intake Total 700 ml Balance 700 ml Intake Oral 700 ml # Voids 9 # Bowel Movements 2 General: Alert, Oriented X3, Cooperative HEENT: Atraumatic, PERRLA Neck: Supple, No JVD, No Thyromegaly Lungs: Clear to Auscultation, Normal Air Movement Heart: Regular Rate, Normal S1, Normal S2, No Murmurs Abdomen: Normal Bowel Sounds, Soft, No Tenderness, No Hepatosplenomegaly, No Masses Extremities: No Clubbing, No Cyanosis, No Edema, Normal Pulses Psych/Mental Status: Mental Status NL A/P-Cardiology Admission Diagnosis nonsyncopal fall Left Tib/fib fx Hx AVR HTN Assessment/Plan Non-syncopal fall resulting in left tibia/fibula fx treated with closed IM rodding left tibial shaft fracture on 05/23/20 (Dr Srinivasan) Mechanical aortic valve replacement, surgery done in [place] in the remote past, maintained on Coumadin, Echo of 05/22/20: LVEF 50-55%, s/p mech AVR that is functioning well, pulm htn with PASP 65-70 mmHg, right heart enlargement, mild to mod MR & TR. Maintained on Coumadin, continue to monitor Anemia, s/p transfusion, stable, continue to monitor H/H. Essential hypertension , continue to monitor blood pressure. Pulmonary hypertension of undetermined etiology Hyperlipidemia - statin tx PACs, asymptomatic, continue to monitor. 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 Improved. Nonobstructive carotid artery stenosis per carotid duplex done November 2018 DELICIA CHU MED STUDENT Jun 06, 2020 09:13
--- NOTE | 2020-06-06 09:15 | PM&R Progress Note ---
Subjective HPI/CC On Admission Date Seen by Provider: Jun 06, 2020 Time Seen by Provider: 09:15 Subjective/Events-last exam 06/06/20 Pt doing pretty well INR 3.2 Dr. Vora is managing the Coumadin Hgb 10.3 Took a shower today Dressing changes maintained Dr. Srinivasan removed the staple in her ankle Putting her own clothes on 06/05/20: Holding Coumadin due to INR 3.2 Pt doing pretty well Incontinent at times Air bed will help decrease chance of decubitus ulcers Dressing changes every other day Nick are intact Effexor will be started to help motivation Bowels are moving 06/04/20: Pt showered today Pain pill is working pretty well Pain at night is still an issue Midline was ordered for iron infusions INR is 3.3 06/03/20: Patient doing well ICU nurse plaed IV for Venofer but need midline tomorrow Up in chair today Venofer will continue for 5 doses total No BM yet laxatives will be given Oxycodone will be changed to [id number] and DC APAP 06/02/20: Midline will be placed for iron Pain issues discussed BM yesterday Very weak and despondent today 06/01/20: Patient doing well Behavioral consult just completed Pain controlled INR 2.9 BM 05/3105/31/20: Patient doing better Behavioral consult today for depression and statement of suicidal ideation Percocet for pain Dr Vora adjusting Coumadin Pastoral care ordered Review of Systems General: Fatigue, Malaise Musculoskeletal: leg pain, foot pain Neurological: Weakness Objective Exam Vital Signs Vital Signs Date Time Temp Pulse Resp B/P (MAP) Pulse Ox O2 Delivery O2 Flow Rate FiO2 06/06/20 21:50 Room Air 06/06/20 18:01 37.0 67 18 126/59 (81) 97 Capillary Refill : Less Than 3 Seconds General Appearance: No Apparent Distress, WD/WN, Chronically ill, Thin HEENT: PERRL/EOMI, Normal ENT Inspection, Pharynx Normal Neck: Full Range of Motion, Normal Inspection, Non Tender, Supple, Carotid Bruit Respiratory: Chest Non Tender, Lungs Clear, Normal Breath Sounds, No Accessory Muscle Use, No Respiratory Distress Cardiovascular: No Edema, No Gallop, No JVD, No Murmur, Normal Peripheral Pulses, Systolic Murmur, Irregularly Irregular Gastrointestinal: Normal Bowel Sounds, No Organomegaly, No Pulsatile Mass, Non Tender, Soft Back: Normal Inspection, No CVA Tenderness, No Vertebral Tenderness Extremity: Normal Capillary Refill, Normal Inspection, Normal Range of Motion, Non Tender, No Calf Tenderness, No Pedal Edema Neurologic/Psychiatric: Alert, Oriented x3, Normal Mood/Affect, Abnormal Gait, Depressed Affect, Motor Weakness Skin: Normal Color, Warm/Dry Lymphatic: No Adenopathy Results/Procedures Lab Patient resulted labs reviewed. FIM Transfers Therapy Code Descriptions/Definitions Functional [place] Measure: 0=Not Assessed/NA 4=Minimal Assistance 1=Total Assistance 5=Supervision or Setup 2=Maximal Assistance 6=Modified [place] 3=Moderate Assistance 7=Complete IndependenceSCALE: Activities may be completed with or without assistive devices. 0-Ceynvqkzzs-dzbutzp completes the activity by him/herself with no assistance from a helper. 5-Set-up or Clean-up Assistance-helper sets up or cleans up; patient completes activity. [place] assists only prior to or following the activity. 4-Supervision or Touching Assistance-helper provides verbal cues and/or touching/steadying and/or contact guard assistance as patient completes activit y. Assistance may be provided throughout the activity or intermittently. 3-Partial/Moderate Assistance-helper does LESS THAN HALF the effort. [place] lifts, holds or supports trunk or limbs, but provides less than half the effort. 2-Substantial/Maximal Assistance-helper does MORE THAN HALF the effort. [place] lifts or holds trunk or limbs and provides more than half the effort. 5-Zszmygbqs-vovsmx does ALL the effort. Patient does none of the effort to complete the activity. Or, the assistance of 2 or more helpers is required for the patient to complete the activity. If activity was not attempted, code reason: 7-Patient Refused. 9-Not Applicable-not attempted and the patient did not perform the activity before the current illness, exacerbation or injury. 10-Not Attempted due to Environmental Limitations-(lack of equipment, weather restraints, etc.). 88-Not Attempted due to Medical Conditions or Safety Concerns. Roll Left to Right (QC): 3 Sit to Lying (QC): 5 Sit to Stand (QC): 4 Chair/Aez-pt-Euznk Xfer(QC): 4 Car Transfer (QC): 2 Gait Training Does the Patient Walk?: Yes Distance: 50' Walk 10 feet (QC): 4 Walk 50 ft with 2 Turns(QC): 88 Walk 150 ft (QC): 88 Walking 10ft/uneven surface-QC: 88 Gait Persons Needed: 1 Gait Assistive Device: Walker Platform Wheelchair Training Does the Pt Use a Wheelchair?: Yes Wheel 50 ft with 2 turns (QC): 3 Wheel 150 ft (QC): 3 Type of Wheelchair: Manual Stair Training 1 Step (curb) (QC): 9 4 Steps (QC): 9 12 Steps (QC): 9 Balance Picking up an Object (QC): 9 ADL-Treatment Eating (QC): 5 (s/u for containers during lunch) Oral Hygiene (QC): 6 Shower/Bathe Self (QC): 4 Upper Body Dressing (QC): 5 Lower Body Dressing (QC): 1 (pt threads BLE, requires Ax2 (OT assists over hips and PT addresses stance) during LB dressing.) On/Off Footwear (QC): 6 (IND R foot) Toileting Hygiene (QC): 1 Toilet Transfer (QC): 1 Assessment/Plan Assessment and Plan Assess & Plan/Chief Complaint Assessment: Left tibia fracture s/p repair Prior CVA with right sided weakness chronic Expressive aphasia from prior CVA Mechanical heart valve replacement status OAC with Coumadin AF OP OAB HTN Depression Plan: Pain control Monitor BP INR monitoring IRF protocol 05/31/20: Pain control Psych eval PT OT 06/01/20: Supportive care Pain control Appreciate Cardiology Behavioral consult appreciated 06/02/20: Pain control Improve emotional status 06/03/20: Oxycodone change so DC APAP Venofer Midline 06/04/20: Monitor closely INR 3.3 06/05/20: Monitor INR Fall risk Pain control 06/06/20: Pain controlled Increase ADL's Monitor BP and INR (1) Fracture, tibia and fibula, shaft Status: Acute (2) Mechanical heart valve present Status: Chronic (3) DVT prophylaxis Status: Acute (4) Anticoagulant long-term use Status: Chronic (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
--- NOTE | 2020-06-06 10:10 | Diagnostic Imaging Report ---
INDICATION: Left tibia fracture followup. FINDINGS: AP and lateral views of the left tibia and fibula show post surgical changes from internal fixation of the tibia with an intramedullary denice. The denice is anchored proximally and distally with screws. The tibia appears to be transfixed in good alignment. There is also a comminuted fracture of the fibular shaft distally. IMPRESSION: Good alignment of the tibia and fibula following internal fixation. Dictated by: Dictated on workstation # [id number]
--- NOTE | 2020-06-06 10:42 | Occupational Ther Daily Note ---
OT Current Status-Daily Note Subjective Pt alert, lying in bed. Pt agrees to therapy. Nrsg in room to give pain meds. Mental Status/Objective Patient Orientation: Person, Place, Time, Situation Attachments: IV ADL-Treatment Needs BSC (she will be room bound) and possibly w/c if wt bearing status does not change. Mod A for all transfers, with clothing manipulation pt either needs platform walker to stabilize self with CGA while assist to hike pants. SBA for shower, sitting throughout shower to reach all areas. Set up for upper body dressing and footwear on R side, L side assist due to SHIRIN wrap. Assist to thread L LE into pant leg, pt thread R LE by self. If not using platform walker to hike pants, pt will need assist x1 to stand and assist x1 to manipulate pants. Independent sitting at sink for oral care. Independent for eating. Therapy Code Descriptions/Definitions Functional [place] Measure: 0=Not Assessed/NA 4=Minimal Assistance 1=Total Assistance 5=Supervision or Setup 2=Maximal Assistance 6=Modified [place] 3=Moderate Assistance 7=Complete IndependenceSCALE: Activities may be completed with or without assistive devices. 2-Seovlvgmql-mbodosx completes the activity by him/herself with no assistance from a helper. 5-Set-up or Clean-up Assistance-helper sets up or cleans up; patient completes activity. [place] assists only prior to or following the activity. 4-Supervision or Touching Assistance-helper provides verbal cues and/or touching/steadying and/or contact guard assistance as patient completes activity. Assistance may be provided throughout the activity or intermittently. 3-Partial/Moderate Assistance-helper does LESS THAN HALF the effort. [place] lifts, holds or supports trunk or limbs, but provides less than half the effort. 2-Substantial/Maximal Assistance-helper does MORE THAN HALF the effort. [place] lifts or holds trunk or limbs and provides more than half the effort. 3-Owagjdmpn-rczpzz does ALL the effort. Patient does none of the effort to complete the activity. Or, the assistance of 2 or more helpers is required for the patient to complete the activity. If activity was not attempted, code reason: 7-Patient Refused. 9-Not Applicable-not attempted and the patient did not perform the activity before the current illness, exacerbation or injury. 10-Not Attempted due to Environmental Limitations-(lack of equipment, weather restraints, etc.). 88-Not Attempted due to Medical Conditions or Safety Concerns. Eating (QC): 6 Oral Hygiene (QC): 6 Shower/Bathe Self (QC): 4 Upper Body Dressing (QC): 5 Lower Body Dressing (QC): 2 On/Off Footwear: 3 Other Treatment Co-treat with PT ([id number]), skilled instruction and care requires 2 clinicians due to decreased mobility and increased fall risk. PT focusing on transfers and OT focusing on UE placement and functional transfers. Pt able to position w/c with verbal cues for SPT then min A to CGA to complete SPT. After session, pt left in care of PT. All needs met. OT Short Term Goals Short Term Goals Eatin Oral hygiene: 5 Toileting hygiene: 3 Shower/bathe self: 3 Upper body dressin Lower body dressin Putting on/taking off footwear: 2 OT Senior Living Goals Senior Living Goals Time Frame: Jun 06, 2020 Eating (QC): 5 Oral Hygiene (QC): 5 Toileting Hygiene (QC): 6 Shower/Bathe Self (QC): 5 Upper Body Dressing (QC): 6 Lower Body Dressing (QC): 6 On/Off Footwear (QC): 6 Additional Goals: 1-Demonstrate ADL Tasks, 2-Verbalize Understanding, 3- ImproveStrength/Francy 1=Demonstrate adherence to instructed precautions during ADL tasks. 2=Patient will verbalize/demonstrate understanding of assistive devices/modifications for ADL. 3=Patient will improve strength/tolerance for activity to enable patient to perform ADL's. OT Education/Plan Problem List/Assessment Assessment: Decreased Activ Tolerance, Decreased UE Strength, Impaired Funct Balance, Impaired Self-Care Skills, Restricted Funct UE ROM Discharge Recommendations Plan/Recommendations: Continue POC Treatment Plan/Plan of Care Patient would benefit from OT for education, treatment and training to promote independence in ADL's, mobility, safety and/or upper extremity function for ADL's. Plan of Care: ADL Retraining, Functional Mobility, Group Exercise/Act as Ind, UE Funct Exercise/Act, UE Neuromus Re-Ed/Coord, W/C Management Training Treatment Duration: Jun 13, 2020 Frequency: At least 5 of 7 days/Wk (IRF) Estimated Hrs Per Day: 1.5 hours per day Agreement: Yes Rehab Potential: Good Time/GCodes Start Time: 07:30 Stop Time: 09:00 Total Time Billed (hr/min): 90 Billed Treatment Time 1 visit-ADL 4 (60 min) FA 2 (30 min) co-treat with PT [id number], individual [id number] JOSE MANUEL PRINGLE Jun 06, 2020 10:42
--- NOTE | 2020-06-06 10:54 | Physical Therapy Daily Note ---
PT Daily Note-Current Subjective Pt sitting in [facility] working with OT upon arrival. Pt agrees to to partial co- treat then PT tx. Mental Status Patient Orientation: Person, Place, Time, Situation Attachments: IV Transfers SCALE: Activities may be completed with or without assistive devices. 6-Ncvaohfvog-fhvzxja completes the activity by him/herself with no assistance from a helper. 5-Set-up or Clean-up Assistance-helper sets up or cleans up; patient completes activity. [place] assists only prior to or following the activity. 4-Supervision or Touching Assistance-helper provides verbal cues and/or touching/steadying and/or contact guard assistance as patient completes activity. Assistance may be provided throughout the activity or intermittently. 3-Partial/Moderate Assistance-helper does LESS THAN HALF the effort. [place] lifts, holds or supports trunk or limbs, but provides less than half the effort. 2-Substantial/Maximal Assistance-helper does MORE THAN HALF the effort. [place] lifts or holds trunk or limbs and provides more than half the effort. 8-Fnqetcwtw-lhkmok does ALL the effort. Patient does none of the effort to complete the activity. Or, the assistance of 2 or more helpers is required for the patient to complete the activity. If activity was not attempted, code reason: 7-Patient Refused. 9-Not Applicable-not attempted and the patient did not perform the activity before the current illness, exacerbation or injury. 10-Not Attempted due to Environmental Limitations-(lack of equipment, weather restraints, etc.). 88-Not Attempted due to Medical Conditions or Safety Concerns. Lying to Sitting/Side of Bed(Q: 4 Sit to Stand (QC): 3 Chair/Ztv-pf-Wpuky Xfer(QC): 3 Weight Bearing Right Lower Extremity: Right Full Weight Bearing Left Lower Extremity: Left Non Weight Bearing Wheelchair Training Does the Pt Use a Wheelchair?: Yes Wheel 50 ft with 2 turns (QC): 5 Wheel 150 ft (QC): 5 Type of Wheelchair: Manual Exercises NuStep Minutes: 8 NuStep Workload: 4 Treatments Pt finishes donning clothes with OT. Co-treat with PT ([id number]), skilled instruction and care requires 2 clinicians due to decreased mobility and increased fall risk. PT focusing on transfers and OT focusing on UE placement and functional transfers. Pt able to position w/c with verbal cues for SPT then min A to CGA to complete SPT. After finishing transfers, OT departs & PT continues to work with pt on H mobility. Pt also completes Seated EX followed by NuStep before returning to room. Pt returns to room to rest in recliner with all needs met. Call light in hand. Assessment Current Status: Fair Progress Pt fatigues easily and needs RB to recover. Pt is limited by WB status. PT Short Term Goals Short Term Goals Time Frame: Jun 13, 2020 Sit to lyin Lying to sitting on side of be: 6 Sit to stand: 4 Chair/axf-aj-rvcor transfer: 4 Walk 10 feet: 3 Wheel 50ft w/2 turns: 6 Wheel 150 feet: 4 Type: Manual PT Intermediate Goals Intermediate Goals PT Paving [employer] Surfacing Labourer Goals Time Frame: Jun 27, 2020 Roll Left & Right (QC): 6 Sit to Lying (QC): 6 Lying-Sitting on Side/Bed(QC): 6 Sit to Stand (QC): 6 Chair/Ugf-yt-Idhyl Xfer(QC): 6 Toilet Transfer (QC): 6 Car Transfer (QC): 5 Does the Patient Walk: No and Walking Goal IS indicated Walk 10 feet (QC): 4 Walk 50ft with 2 Turns (QC): 4 Walk 150 ft (QC): 88 Walking 10ft on Uneven Surface: 88 1 Step (curb) (QC): 9 4 Steps (QC): 9 12 Steps (QC): 9 Picking up an Object (QC): 9 Does the Pt use WC or Scooter?: Yes Wheel 50 feet with 2 turns (QC: 6 Type: Manual Wheel 150 feet: 6 Type: Manual PT Plan Problem List Problem List: Activity Tolerance, Functional Strength Treatment/Plan Treatment Plan: Continue Plan of Care Treatment Plan: Bed Mobility, Education, Functional Activity Francy, Functional Strength, Group Therapy, Gait, Safety, Therapeutic Exercise, Transfers Treatment Duration: Jun 27, 2020 Frequency: At least 5 of 7 days/Wk (IRF) Estimated Hrs Per Day: 1.5 hours per day Patient and/or Family Agrees t: Yes Time/GCodes Time In: 830 Time Out: 930 Total Billed Treatment Time: 60 Total Billed Treatment 1, FA x2 (30m) & EX x2 (30m) Co-treat w/OT for 30m (830-900) JOSEPH LEVY PTA Jun 06, 2020 10:54
--- NOTE | 2020-06-06 12:40 | Progress Note - Ortho ---
Progress Note Subjective Date of Exam 06/06/20 Chief Complaint POD#14 closed IM rodding left tibia HPI/Events since last exam Mrs Brice is 14 days since closed IM rodding left tibia for a midshaft fracture left tibia and fibula. She has no complaints. She continues nonweightbearing on the left Review of Systems Reviewed and no additions or changes Allergies: Coded Allergies: Penicillins (Verified Allergy, Unknown, 09/02/18) Sulfa (Sulfonamide Antibiotics) (Verified Allergy, Unknown, 09/02/18) tetracycline (Verified Allergy, Unknown, 09/02/18) Home Meds Reported Medications Acetaminophen (Tylenol) 325 Mg Capsule, 650 MG PO Q8H PRN for PAIN-MILD (1-4), CAP 05/22/20 Fluoxetine HCl (Prozac) 40 Mg Capsule, 40 MG PO DAILY, CAP 05/22/20 Oxybutynin Chloride (Oxybutynin Chloride ER) 15 Mg Tab.er.24, 15 MG PO DAILY, TAB LAST FILLED 12-27-2019 #90/90 DAY SUPPLY 05/22/20 Rosuvastatin Calcium (Rosuvastatin Calcium) 10 Mg Tablet, 10 MG PO HS, TAB 05/22/20 Alendronate Sodium (Alendronate Sodium) 70 Mg Tablet, 70 MG PO FRI, TAB 05/22/20 Levetiracetam (Levetiracetam) 500 Mg Tablet, 500 MG PO HS, TAB 05/22/20 Warfarin Sodium (Warfarin Sodium) 4 Mg Tablet, 4 MG PO DAILY, TAB 05/22/20 Phenytoin Sodium Extended (Phenytoin Sodium Extended) 100 Mg Capsule, 100 MG PO TID, CAP 07/27/18 Objective Exam Constitutional: [] HEENT: [] Neck: [] Cardiovascular: [] Respiratory: [] Gastrointestinal: [] Genitourinary: [] Skin: [] Back/Spine: [] Extremities: [Minimal swelling left leg. Incisions are healing well without redness or drainage. Steri-Strips were applied after removal of panfilo. He also or basically unchanged with a little more darkened center. Wound care is evaluating and managing this. Wound on the dorsum of the foot looks better. No calf tenderness and negative Homans. Still numbness over the dorsum of the great toe with normal sensation throughout the remainder of the toes and foot. No weakness or pain on dorsiflexion plantar flexion of the foot and ankle] Neurologic: [] Psychiatric: [] Hematologic/lymphatic/immunologic: [] Vital Signs Vital Signs Date Time Temp Pulse Resp B/P (MAP) Pulse Ox O2 Delivery O2 Flow Rate FiO2 06/06/20 09:00 Room Air 06/06/20 05:56 36.5 55 16 107/51 (69) 97 Room Air 06/05/20 20:38 Room Air 06/05/20 16:00 36.4 53 18 132/61 (84) 97 I & O 06/06/20 07:00 Intake Total 1300 ml Balance 1300 ml Imaging X-rays taken today shows good alignment of the denice as well as the fracture. Proximal distal locking screws and good position Assessment and Plan Assessment Doing well 2 weeks postop Problem List Unchanged Plan Continue with walker ambulation nonweightbearing on the left. Plan on partial weightbearing in 2 weeks if x-rays continue to look good Final Diagonsis Status post closed IM rodding left tibia Level of the visit: Level 3 DARIO COLEMAN MD Jun 06, 2020 12:40
--- NOTE | 2020-06-06 14:00 | Physical Therapy Daily Note ---
PT Daily Note-Current Subjective Pt laying Supine in bed and had just been repositioned. Pt agrees to PT. Pain Location: No Pain Reported Mental Status Patient Orientation: Person, Place, Time, Situation Transfers SCALE: Activities may be completed with or without assistive devices. 8-Mrdoqjtdyg-xbouhcv completes the activity by him/herself with no assistance from a helper. 5-Set-up or Clean-up Assistance-helper sets up or cleans up; patient completes activity. [place] assists only prior to or following the activity. 4-Supervision or Touching Assistance-helper provides verbal cues and/or touching/steadying and/or contact guard assistance as patient completes activity. Assistance may be provided throughout the activity or intermittently. 3-Partial/Moderate Assistance-helper does LESS THAN HALF the effort. [place] lifts, holds or supports trunk or limbs, but provides less than half the effort. 2-Substantial/Maximal Assistance-helper does MORE THAN HALF the effort. [place] lifts or holds trunk or limbs and provides more than half the effort. 3-Llavyxgpu-hzpmsk does ALL the effort. Patient does none of the effort to complete the activity. Or, the assistance of 2 or more helpers is required for the patient to complete the activity. If activity was not attempted, code reason: 7-Patient Refused. 9-Not Applicable-not attempted and the patient did not perform the activity before the current illness, exacerbation or injury. 10-Not Attempted due to Environmental Limitations-(lack of equipment, weather restraints, etc.). 88-Not Attempted due to Medical Conditions or Safety Concerns. Weight Bearing Right Lower Extremity: Right Full Weight Bearing Left Lower Extremity: Left Non Weight Bearing Exercises Supine Ex: Ankle pumps, Quad Set, Glut sets, Heel Slides, Short Arc Quads, Straight leg raise, Hip abd/add Supine Reps: 15 Treatments Pt completes Supine Ex with RB as needed. Pt resting in bed with all needs met, call light in hand. Assessment Current Status: Good Progress Pt nicolas. tx well. PT Short Term Goals Short Term Goals Time Frame: Jun 13, 2020 Sit to lyin Lying to sitting on side of be: 6 Sit to stand: 4 Chair/pyz-pw-ucxeg transfer: 4 Walk 10 feet: 3 Wheel 50ft w/2 turns: 6 Wheel 150 feet: 4 Type: Manual PT Substitute Nurse Goals Senior Living Goals PT Senior Living Goals Time Frame: Jun 27, 2020 Roll Left & Right (QC): 6 Sit to Lying (QC): 6 Lying-Sitting on Side/Bed(QC): 6 Sit to Stand (QC): 6 Chair/Blh-nr-Ykkyy Xfer(QC): 6 Toilet Transfer (QC): 6 Car Transfer (QC): 5 Does the Patient Walk: No and Walking Goal IS indicated Walk 10 feet (QC): 4 Walk 50ft with 2 Turns (QC): 4 Walk 150 ft (QC): 88 Walking 10ft on Uneven Surface: 88 1 Step (curb) (QC): 9 4 Steps (QC): 9 12 Steps (QC): 9 Picking up an Object (QC): 9 Does the Pt use WC or Scooter?: Yes Wheel 50 feet with 2 turns (QC: 6 Type: Manual Wheel 150 feet: 6 Type: Manual PT Plan Problem List Problem List: Activity Tolerance Treatment/Plan Treatment Plan: Continue Plan of Care Treatment Plan: Bed Mobility, Education, Functional Activity Francy, Functional Strength, Group Therapy, Gait, Safety, Therapeutic Exercise, Transfers Treatment Duration: Jun 27, 2020 Frequency: At least 5 of 7 days/Wk (IRF) Estimated Hrs Per Day: 1.5 hours per day Patient and/or Family Agrees t: Yes Safety Risks/Education Patient Education: Correct Positioning, Safety Issues Teaching Recipient: Patient Teaching Methods: Discussion Response to Teaching: Verbalize Understanding Time/GCodes Time In: 1300 Time Out: 1330 Total Billed Treatment Time: 30 Total Billed Treatment 1, EX x2 (30m) JOSEPH LEVY PTA Jun 06, 2020 14:00
[2020-06-06 18:01] VITALS: BP 126/59
[2020-06-06] MEDS: warFARin 4 MG (COUMADIN) TAB PO SCH (18:50)
[2020-06-06] MEDS: LEVETIRACETAM 500 MG (KEPPRA) TAB PO SCH (21:45)
[2020-06-06] MEDS: MELATONIN 3 MG TABLET PO PRN (21:45)
[2020-06-06] MEDS: ROSUVASTATIN 10 MG (CRESTOR) TABLET PO SCH (21:45)
[2020-06-07 05:36] VITALS: BP 103/51
[2020-06-07] MEDS: CATHETER FLUSH 10 ML SYR IV SCH ×3 (06:17→20:58)
[2020-06-07 06:58] LABS: PROTHROMBIN TIME PATIENT 23.3 SEC (12.2-14.7)
[2020-06-07] MEDS: IRON SUCROSE 200 MG/10 ML (VENOFER) VIAL IV SCH (07:17)
[2020-06-07] MEDS: SENNA W/DOCUSATE (SENOKOT S) TABLET PO SCH ×2 (07:18→21:03)
[2020-06-07] MEDS: VENlafaxine 37.5 MG (EFFEXOR) TAB PO SCH (07:18)
[2020-06-07] MEDS: OXYBUTYNIN (DITROPAN) 5 MG TAB PO SCH ×3 (07:19→20:57)
[2020-06-07] MEDS: FLUoxetine HCL 20 MG (PROzac) CAP PO SCH (07:19)
[2020-06-07] MEDS: DOCUSATE SODIUM 100 MG (COLACE) CAP PO SCH ×2 (07:19→21:03)
[2020-06-07] MEDS: PHENYTOIN 100 MG (DILANTIN) CAP PO SCH ×3 (07:19→20:57)
[2020-06-07] MEDS: LACTULOSE SYRUP 10GM/15ML (ENULOSE) 30ML UDC PO SCH ×2 (07:27→19:31)
[2020-06-07] MEDS: polyethylene glycoL POWDER 17 GM (MIRALAX) PACK PO SCH ×2 (07:27→19:31)
--- NOTE | 2020-06-07 07:53 | Occupational Ther Daily Note ---
OT Current Status-Daily Note Subjective Pt alert, lying in bed. Pt agrees to therapy. Discussed the need to work on w/c mobility and safe transfers to promote independence due to non-wt bearing status for 2 more weeks. Pt had pain pills prior to therapy session. Mental Status/Objective Patient Orientation: Person, Place, Time, Situation Attachments: IV (midline) ADL-Treatment Pt declines shower today. Set up for breakfast, uses regular utensils to eat. Supine <--> EOB independent. Co-treat with PT ([id number]), skilled care and instruction requires 2 clinicians due to decreased mobility and fall risk. PT focusing on transfers, standing and ambulation while OT focused on ADLs, R UE placement and functional transfers. Pt dressed upper body and socks by self sitting on EOB. Pt able to thread lower body clothing over feet by self after set up. Pt working on leaning side to side to hike pants over hips. Assist x2 for clothing manipulation one person to stand and second person to complete clothing manipulation. Pt sat at sink and completed grooming and oral care independently. Pt then propelled w/c to [facility] area using R LE and L UE. Therapy Code Descriptions/Definitions Functional [place] Measure: 0=Not Assessed/NA 4=Minimal Assistance 1=Total Assistance 5=Supervision or Setup 2=Maximal Assistance 6=Modified [place] 3=Moderate Assistance 7=Complete IndependenceSCALE: Activities may be completed with or without assistive devices. 8-Zurqxbchip-jcsffis completes the activity by him/herself with no assistance from a helper. 5-Set-up or Clean-up Assistance-helper sets up or cleans up; patient completes activity. [place] assists only prior to or following the activity. 4-Supervision or Touching Assistance-helper provides verbal cues and/or touching/steadying and/or contact guard assistance as patient completes activity. Assistance may be provided throughout the activity or intermittently. 3-Partial/Moderate Assistance-helper does LESS THAN HALF the effort. [place] lifts, holds or supports trunk or limbs, but provides less than half the effort. 2-Substantial/Maximal Assistance-helper does MORE THAN HALF the effort. [place] lifts or holds trunk or limbs and provides more than half the effort. 5-Xbndkvfyj-funhlb does ALL the effort. Patient does none of the effort to complete the activity. Or, the assistance of 2 or more helpers is required for the patient to complete the activity. If activity was not attempted, code reason: 7-Patient Refused. 9-Not Applicable-not attempted and the patient did not perform the activity before the current illness, exacerbation or injury. 10-Not Attempted due to Environmental Limitations-(lack of equipment, weather restraints, etc.). 88-Not Attempted due to Medical Conditions or Safety Concerns. Eating (QC): 5 (Set up then pt able to use regular utensils to eat.) Oral Hygiene (QC): 6 Upper Body Dressing (QC): 5 Lower Body Dressing (QC): 1 On/Off Footwear: 5 Other Treatment See PT notes for ambulation progress. Adjusted platform for easier movement of R UE. After session, pt sitting up in recliner with call light/phone in reach. All needs met in room. OT Short Term Goals Short Term Goals Eatin Oral hygiene: 5 Toileting hygiene: 3 Shower/bathe self: 3 Upper body dressin Lower body dressin Putting on/taking off footwear: 2 OT [facility] Goals Pairer Goals Time Frame: Jun 06, 2020 Eating (QC): 5 Oral Hygiene (QC): 5 Toileting Hygiene (QC): 6 Shower/Bathe Self (QC): 5 Upper Body Dressing (QC): 6 Lower Body Dressing (QC): 6 On/Off Footwear (QC): 6 Additional Goals: 1-Demonstrate ADL Tasks, 2-Verbalize Understanding, 3- ImproveStrength/[place] 1=Demonstrate adherence to instructed precautions during ADL tasks. 2=Patient will verbalize/demonstrate understanding of assistive devices/modifications for ADL. 3=Patient will improve strength/tolerance for activity to enable patient to perform ADL's. OT Education/Plan Problem List/Assessment Assessment: Decreased Activ Tolerance, Decreased UE Strength, Impaired Funct Balance, Impaired Self-Care Skills, Restricted Funct UE ROM Discharge Recommendations Plan/Recommendations: Continue POC Treatment Plan/Plan of Care Patient would benefit from OT for education, treatment and training to promote independence in ADL's, mobility, safety and/or upper extremity function for ADL's. Plan of Care: ADL Retraining, Functional Mobility, Group Exercise/Act as Ind, UE Funct Exercise/Act, UE Neuromus Re-Ed/Coord, W/C Management Training Treatment Duration: Jun 13, 2020 Frequency: At least 5 of 7 days/Wk (IRF) Estimated Hrs Per Day: 1.5 hours per day Agreement: Yes Rehab Potential: Good Time/GCodes Start Time: 07:30 Stop Time: 09:00 Total Time Billed (hr/min): 90 Billed Treatment Time 1 visit-ADL 4 (60 min) FA 2 (30 min) co-treat with PT [id number], individual [id number] JOSE MANUEL PRINGLE Jun 07, 2020 07:53
--- NOTE | 2020-06-07 08:27 | Physical Therapy Daily Note ---
PT Daily Note-Current Subjective Pt sitting up in bed working with OT upon arrival. Pt agrees to PT. Pain Location: No Pain Reported Mental Status Patient Orientation: Person, Place, Situation Transfers SCALE: Activities may be completed with or without assistive devices. 7-Jnyrexadag-mamalfo completes the activity by him/herself with no assistance from a helper. 5-Set-up or Clean-up Assistance-helper sets up or cleans up; patient completes activity. [place] assists only prior to or following the activity. 4-Supervision or Touching Assistance-helper provides verbal cues and/or touching/steadying and/or contact guard assistance as patient completes activity. Assistance may be provided throughout the activity or intermittently. 3-Partial/Moderate Assistance-helper does LESS THAN HALF the effort. [place] lifts, holds or supports trunk or limbs, but provides less than half the effort. 2-Substantial/Maximal Assistance-helper does MORE THAN HALF the effort. [place] lifts or holds trunk or limbs and provides more than half the effort. 5-Akgswakkb-tnwyaj does ALL the effort. Patient does none of the effort to c omplete the activity. Or, the assistance of 2 or more helpers is required for the patient to complete the activity. If activity was not attempted, code reason: 7-Patient Refused. 9-Not Applicable-not attempted and the patient did not perform the activity before the current illness, exacerbation or injury. 10-Not Attempted due to Environmental Limitations-(lack of equipment, weather restraints, etc.). 88-Not Attempted due to Medical Conditions or Safety Concerns. Roll Left & Right (QC): 6 Lying to Sitting/Side of Bed(Q: 6 Sit to Stand (QC): 3 Chair/Xsf-ch-Mwopx Xfer(QC): 3 Weight Bearing Right Lower Extremity: Right Full Weight Bearing Left Lower Extremity: Left Non Weight Bearing Gait Training Does the Patient Walk?: Yes Distance: 20' Walk 10 feet (QC): 4 Gait Assistive Device: Walker Platform Wheelchair Training Does the Pt Use a Wheelchair?: Yes Wheel 50 ft with 2 turns (QC): 5 Wheel 150 ft (QC): 5 Type of Wheelchair: Manual Treatments Co-treat with PT ([id number]), skilled care and instruction requires 2 clinicians due to decreased mobility and fall risk. PT focusing on transfers, standing and ambulation while OT focused on ADLs, R UE placement and functional transfers. Pt dressed upper body and socks by self sitting on EOB. Pt able to thread lower body clothing over feet by self after set up. Pt working on leaning side to side to hike pants over hips. Assist x2 for clothing manipulation one person to stand and second person to complete clothing manipulation. Pt sat at sink and completed grooming and oral care independently. Pt then propelled w/c to [facility] area using R LE and L UE. Pt amb. in hallway. Adjusted platform for easier movement of R UE. After session, pt sitting up in recliner with call light/phone in reach. All needs met in room. Assessment Current Status: Good Progress Pt is gaining strength but still limited by WB status. Pt amb. but it is difficult WB through UE. PT Short Term Goals Short Term Goals Time Frame: Jun 13, 2020 Sit to lyin Lying to sitting on side of be: 6 Sit to stand: 4 Chair/jrc-ys-xfcsi transfer: 4 Walk 10 feet: 3 Wheel 50ft w/2 turns: 6 Wheel 150 feet: 4 Type: Manual PT [employer] Goals Jail Goals PT Jail Goals Time Frame: Jun 27, 2020 Roll Left & Right (QC): 6 Sit to Lying (QC): 6 Lying-Sitting on Side/Bed(QC): 6 Sit to Stand (QC): 6 Chair/Cmr-en-Kvnzw Xfer(QC): 6 Toilet Transfer (QC): 6 Car Transfer (QC): 5 Does the Patient Walk: No and Walking Goal IS indicated Walk 10 feet (QC): 4 Walk 50ft with 2 Turns (QC): 4 Walk 150 ft (QC): 88 Walking 10ft on Uneven Surface: 88 1 Step (curb) (QC): 9 4 Steps (QC): 9 12 Steps (QC): 9 Picking up an Object (QC): 9 Does the Pt use WC or Scooter?: Yes Wheel 50 feet with 2 turns (QC: 6 Type: Manual Wheel 150 feet: 6 Type: Manual PT Plan Problem List Problem List: Activity Tolerance, Gait Treatment/Plan Treatment Plan: Continue Plan of Care Treatment Plan: Bed Mobility, Education, Functional Activity Francy, Functional Strength, Group Therapy, Gait, Safety, Therapeutic Exercise, Transfers Treatment Duration: Jun 27, 2020 Frequency: At least 5 of 7 days/Wk (IRF) Estimated Hrs Per Day: 1.5 hours per day Patient and/or Family Agrees t: Yes Safety Risks/Education Patient Education: Gait Training, Transfer Techniques, Correct Positioning, Safety Issues Teaching Recipient: Patient Teaching Methods: Discussion Response to Teaching: Verbalize Understanding Time/GCodes Time In: 800 Time Out: 900 Total Billed Treatment Time: 60 Total Billed Treatment 1, FA x2 (30m), EX (10m) & GT (20m) Co-treat w/OT for 60m (800-900) JOSEPH LEVY PTA Jun 07, 2020 08:26
--- NOTE | 2020-06-07 08:42 | Cardiology Progress Note ---
Subjective Date Seen by Provider: Jun 07, 2020 Time Seen by Provider: 08:10 Subjective/Events-last exam Patient sitting up in bed, denies any chest pain or dyspnea. States leg pain is improving. Review of Systems General: No Chills, No Night Sweats; Fatigue; No Malaise, No Appetite, No Other HEENT: No Head Aches, No Visual Changes, No Eye Pain, No Ear Pain, No Dysphasia, No Sinus Congestion, No Post Nasal Drip, No Sore Throat, No Other Pulmonary: No Dyspnea, No Cough, No Pleuritic Chest Pain, No Other Cardiovascular: No: Chest Pain, Palpitations, Orthopnea, Paroxysmal Noc. Dyspnea, Edema, Lt Headedness, Other Objective-Cardiology Exam Last Set of Vital Signs Vital Signs 06/07/20 06/07/20 05:36 09:00 Temp 37.3 Pulse 65 Resp 18 B/P (MAP) 103/51 (68) Pulse Ox 95 O2 Delivery Room Air Capillary Refill : Less Than 3 Seconds I&O Intake and Output 06/07/20 00:00 Intake Total 1430 ml Balance 1430 ml Intake Oral 1430 ml # Voids 9 # Bowel Movements 1 General: Alert, Oriented X3, Cooperative HEENT: Atraumatic, PERRLA Neck: Supple, No JVD, No Thyromegaly Lungs: Clear to Auscultation, Normal Air Movement Heart: Regular Rate, Normal S1, Normal S2, No Murmurs Abdomen: Normal Bowel Sounds, Soft, No Tenderness, No Hepatosplenomegaly, No Masses Extremities: No Clubbing, No Cyanosis, No Edema, Normal Pulses Psych/Mental Status: Mental Status NL A/P-Cardiology Admission Diagnosis nonsyncopal fall Left Tib/fib fx Hx AVR HTN Assessment/Plan Non-syncopal fall resulting in left tibia/fibula fx treated with closed IM rodding left tibial shaft fracture on 05/23/20 (Dr Srinivasan) Mechanical aortic valve replacement, surgery done in [place] in the remote past, maintained on Coumadin, Echo of 05/22/20: LVEF 50-55%, s/p mech AVR that is functioning well, pulm htn with PASP 65-70 mmHg, right heart enlargement, mild to mod MR & TR. Maintained on Coumadin, continue to monitor Anemia, s/p transfusion, stable, continue to monitor H/H. Essential hypertension , continue to monitor blood pressure. Pulmonary hypertension of undetermined etiology Hyperlipidemia - statin tx PACs, asymptomatic, continue to monitor. 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 Improved. Nonobstructive carotid artery stenosis per carotid duplex done November 2018 Patient was seen and evaluated with Dominique, examination performed, management plan was discussed, agree with the current scribed note, I made few changes to the note using Italic font Patient was at bedside, feeling better today INR is 2, restarted Coumadin, monitor INR closely Monitor blood pressure and lipids DOMINIQUE CHRISTIANSON Jun 07, 2020 08:42 VALENTIN HEAD MD Jun 07, 2020 10:47
--- NOTE | 2020-06-07 11:24 | Behavioral Health Consult ---
Consult- Consult Date Seen by Provider: Jun 07, 2020 Time Seen by Provider: 09:06 CPT Code: 93630 Psychotherapy (Session length 38-52min.) Start Time: 9:06 am End Time: 9:47 am Duration: 41 minutes Subjective: Yoko, a 80-year-old female, is seen today for individual psychother apy to address concerns and symptoms associated with F33.2 Major Depressive Disorder, Recurrent, Severe. The primary clinical themes and problems discussed during the appointment were her mood and family. She reported she is feeling better emotionally and physically. She stated she is more motivated for life and feels better since her panfilo came out yesterday. She reported she is determined to go back to her home after rehab. She stated she really wants to be able to drive. She talked about her family and how close they were. She stated her first was in the and they moved around some. She reported she and her first . She reported her second was an industrial psychologist and he had four kids. She stated she has tried to keep in touch with his kids. 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 She reported she lived in [place] from 1984 to 2017. She stated she moved back here to be close to her brother (the one who in March 2020). Overall symptoms observed or reported requiring current level of care included anergia, depressed mood, grief, medical problems, and worry. Relevant changes in medical status: none reported, observed, or indicated. Current report of any problems with pain: none reported, observed, or indicated. Pain rating: n/a. Any changes or additions to medications: none reported. Current self-destructive behavior patterns/risk factors reported or indicated during session: none indicated. Level of functioning was average. Objective: Yoko was sitting in a chair at [facility] during our virtual meeting. Yoko was oriented to person, place, time, and situation. Overall appearance was appropriately dressed and groomed. Jasmin approach to the session was cooperative. Mood was depressed with affect appropriate to expressed concerns and presenting problem. Eye contact was fair. Tone of voice was normal and controlled. Speech showed word finding difficulties. Thought processes were appropriate and focused during the appointment. Thought content was marked by no abnormal findings. Psychomotor functioning was within normal limits. Insight was average. Concentration was good. Jasmin style of interacting during the appointment was appropriate and motivated. Assessment: Interventions utilized during todays appointment included active listening and cognitive-behavioral therapy. The current long-term goal of treatment is unchanged from the initial evaluation and plan of treatment. Concerning progress to this point in treatment, Yoko appears to be making average progress towards treatment goals from observations during todays appointment. Yoko appeared to have no significant change in emotional functioning since the last appointment. Overall, a/an high level of motivation was displayed towards treatment goals. Jasmin capacity to make changes/decisions is good. Overall, prognosis is good. Diagnostic Impressions (ICD-10): F33.2 Major Depressive Disorder, Recurrent, Severe Plan: The appointment ended on time. The current treatment/therapy plan will continue for the present time without significant modification. Yoko was scheduled for a follow up appointment June 14, 2020 at 9:00am with OMAIRA Cervantes via [employer]sc/PALMIRA Lopez Jun 07, 2020 11:24
--- NOTE | 2020-06-07 12:07 | PM&R Progress Note ---
Subjective HPI/CC On Admission Date Seen by Provider: Jun 07, 2020 Time Seen by Provider: 11:45 Subjective/Events-last exam 06/07/20: Psychiatry evaluation is done INR is 2.0 today Back on Coumadin Feels like she is making some progress 06/06/20 Pt doing pretty well INR 3.2 Dr. Vora is managing the Coumadin Hgb 10.3 Took a shower today Dressing changes maintained Dr. Srinivasan removed the staple in her ankle Putting her own clothes on 06/05/20: Holding Coumadin due to INR 3.2 Pt doing pretty well Incontinent at times Air bed will help decrease chance of decubitus ulcers Dressing changes every other day Nick are intact Effexor will be started to help motivation Bowels are moving 06/04/20: Pt showered today Pain pill is working pretty well Pain at night is still an issue Midline was ordered for iron infusions INR is 3.3 06/03/20: Patient doing well ICU nurse plaed IV for Venofer but need midline tomorrow Up in chair today Venofer will continue for 5 doses total No BM yet laxatives will be given Oxycodone will be changed to E0nckbr and DC APAP 06/02/20: Midline will be placed for iron Pain issues discussed BM yesterday Very weak and despondent today 06/01/20: Patient doing well Behavioral consult just completed Pain controlled INR 2.9 BM 05/3105/31/20: Patient doing better Behavioral consult today for depression and statement of suicidal ideation Percocet for pain Dr Vora adjusting Coumadin Pastoral care ordered Review of Systems Musculoskeletal: leg pain, foot pain Neurological: Weakness, Incoordination Objective Exam Vital Signs Vital Signs Date Time Temp Pulse Resp B/P (MAP) Pulse Ox O2 Delivery O2 Flow Rate FiO2 06/07/20 21:06 Room Air 06/07/20 16:00 36.8 62 16 103/50 (67) 97 Capillary Refill : Less Than 3 Seconds General Appearance: No Apparent Distress, WD/WN, Chronically ill, Thin HEENT: PERRL/EOMI, Normal ENT Inspection, Pharynx Normal Neck: Full Range of Motion, Normal Inspection, Non Tender, Supple, Carotid Bruit Respiratory: Chest Non Tender, Lungs Clear, Normal Breath Sounds, No Accessory Muscle Use, No Respiratory Distress Cardiovascular: No Edema, No Gallop, No JVD, No Murmur, Normal Peripheral Pulses, Systolic Murmur, Irregularly Irregular Gastrointestinal: Normal Bowel Sounds, No Organomegaly, No Pulsatile Mass, Non Tender, Soft Back: Normal Inspection, No CVA Tenderness, No Vertebral Tenderness Extremity: Normal Capillary Refill, Normal Inspection, Normal Range of Motion, Non Tender, No Calf Tenderness, No Pedal Edema Neurologic/Psychiatric: Alert, Oriented x3, Normal Mood/Affect, Abnormal Gait, Depressed Affect, Motor Weakness Skin: Normal Color, Warm/Dry Lymphatic: No Adenopathy Results/Procedures Lab Patient resulted labs reviewed. FIM Transfers Therapy Code Descriptions/Definitions Functional [place] Measure: 0=Not Assessed/NA 4=Minimal Assistance 1=Total Assistance 5=Supervision or Setup 2=Maximal Assistance 6=Modified [place] 3=Moderate Assistance 7=Complete IndependenceSCALE: Activities may be completed with or without assistive devices. 6-Ovgemnnpjh-icbbstu completes the activity by him/herself with no assistance from a helper. 5-Set-up or Clean-up Assistance-helper sets up or cleans up; patient completes activity. [place] assists only prior to or following the activity. 4-Supervision or Touching Assistance-helper provides verbal cues and/or touching/steadying and/or contact guard assistance as patient completes activity. Assistance may be provided throughout the activity or intermittently. 3-Partial/Moderate Assistance-helper does LESS THAN HALF the effort. [place] lifts, holds or supports trunk or limbs, but provides less than half the effort. 2-Substantial/Maximal Assistance-helper does MORE THAN HALF the effort. [place] lifts or holds trunk or limbs and provides more than half the effort. 8-Qomgdrkmx-xtoqyu does ALL the effort. Patient does none of the effort to complete the activity. Or, the assistance of 2 or more helpers is required for the patient to complete the activity. If activity was not attempted, code reason: 7-Patient Refused. 9-Not Applicable-not attempted and the patient did not perform the activity before the current illness, exacerbation or injury. 10-Not Attempted due to Environmental Limitations-(lack of equipment, weather restraints, etc.). 88-Not Attempted due to Medical Conditions or Safety Concerns. Roll Left to Right (QC): 6 Sit to Lying (QC): 5 Sit to Stand (QC): 3 Chair/Bae-pb-Xgdqp Xfer(QC): 3 Car Transfer (QC): 2 Gait Training Does the Patient Walk?: Yes Distance: 50' Walk 10 feet (QC): 4 Walk 50 ft with 2 Turns(QC): 88 Walk 150 ft (QC): 88 Walking 10ft/uneven surface-QC: 88 Gait Persons Needed: 1 Gait Assistive Device: Walker Platform Wheelchair Training Does the Pt Use a Wheelchair?: Yes Wheel 50 ft with 2 turns (QC): 5 Wheel 150 ft (QC): 5 Type of Wheelchair: Manual Stair Training 1 Step (curb) (QC): 9 4 Steps (QC): 9 12 Steps (QC): 9 Balance Picking up an Object (QC): 9 ADL-Treatment Eating (QC): 5 (Set up then pt able to use regular utensils to eat.) Oral Hygiene (QC): 6 Shower/Bathe Self (QC): 4 Upper Body Dressing (QC): 5 Lower Body Dressing (QC): 1 On/Off Footwear (QC): 5 Toileting Hygiene (QC): 1 Toilet Transfer (QC): 1 Assessment/Plan Assessment and Plan Assess & Plan/Chief Complaint Assessment: Left tibia fracture s/p repair Prior CVA with right sided weakness chronic Expressive aphasia from prior CVA Mechanical heart valve replacement status OAC with Coumadin AF OP OAB HTN Depression Plan: Pain control Monitor BP INR monitoring IRF protocol 05/31/20: Pain control Psych eval PT OT 06/01/20: Supportive care Pain control Appreciate Cardiology Behavioral consult appreciated 06/02/20: Pain control Improve emotional status 06/03/20: Oxycodone change so DC APAP Venofer Midline 06/04/20: Monitor closely INR 3.3 06/05/20: Monitor INR Fall risk Pain control 06/06/20: Pain controlled Increase ADL's Monitor BP and INR 06/07/20: Complete iron infusions Monitor INR Monitor BP (1) Fracture, tibia and fibula, shaft Status: Acute (2) Mechanical heart valve present Status: Chronic (3) DVT prophylaxis Status: Acute (4) Anticoagulant long-term use Status: Chronic (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
--- NOTE | 2020-06-07 15:02 | Physical Therapy Daily Note ---
PT Daily Note-Current Subjective Pt sitting in recliner upon arrival. Pt agrees to PT but asked to use BR to start tx. Pain Location: No Pain Reported Mental Status Patient Orientation: Person, Place, Situation Transfers SCALE: Activities may be completed with or without assistive devices. 2-Kpdycymqtj-hpfllpg completes the activity by him/herself with no assistance from a helper. 5-Set-up or Clean-up Assistance-helper sets up or cleans up; patient completes activity. [place] assists only prior to or following the activity. 4-Supervision or Touching Assistance-helper provides verbal cues and/or touching/steadying and/or contact guard assistance as patient completes activity. Assistance may be provided throughout the activity or intermittently. 3-Partial/Moderate Assistance-helper does LESS THAN HALF the effort. [place] lifts, holds or supports trunk or limbs, but provides less than half the effort. 2-Substantial/Maximal Assistance-helper does MORE THAN HALF the effort. [place] lifts or holds trunk or limbs and provides more than half the effort. 6-Bgaozrdwr-whjhhk does ALL the effort. Patient does none of the effort to complete the activity. Or, the assistance of 2 or more helpers is required for the patient to complete the activity. If activity was not attempted, code reason: 7-Patient Refused. 9-Not Applicable-not attempted and the patient did not perform the activity before the current illness, exacerbation or injury. 10-Not Attempted due to Environmental Limitations-(lack of equipment, weather restraints, etc.). 88-Not Attempted due to Medical Conditions or Safety Concerns. Sit to Stand (QC): 3 Toilet Transfer (QC): 3 Weight Bearing Right Lower Extremity: Right Full Weight Bearing Left Lower Extremity: Left Non Weight Bearing Treatments Transfers from recliner to [facility] via SPT at Mod A. Pt propels [facility] to BR. Transfers to toilet via SPT at Mod A. After finishing, Pt returns to [facility] Pt is repositioned to comfort with all needs met, call light in hand. Assessment Current Status: Good Progress Pt fatigued at end of tx. PT Short Term Goals Short Term Goals Time Frame: Jun 13, 2020 Sit to lyin Lying to sitting on side of be: 6 Sit to stand: 4 Chair/sls-gq-sjise transfer: 4 Walk 10 feet: 3 Wheel 50ft w/2 turns: 6 Wheel 150 feet: 4 Type: Manual PT Physician Relations Specialist Goals [facility] Goals PT Physician Relations Specialist Goals Time Frame: Jun 27, 2020 Roll Left & Right (QC): 6 Sit to Lying (QC): 6 Lying-Sitting on Side/Bed(QC): 6 Sit to Stand (QC): 6 Chair/Lur-pr-Whgzm Xfer(QC): 6 Toilet Transfer (QC): 6 Car Transfer (QC): 5 Does the Patient Walk: No and Walking Goal IS indicated Walk 10 feet (QC): 4 Walk 50ft with 2 Turns (QC): 4 Walk 150 ft (QC): 88 Walking 10ft on Uneven Surface: 88 1 Step (curb) (QC): 9 4 Steps (QC): 9 12 Steps (QC): 9 Picking up an Object (QC): 9 Does the Pt use WC or Scooter?: Yes Wheel 50 feet with 2 turns (QC: 6 Type: Manual Wheel 150 feet: 6 Type: Manual PT Plan Problem List Problem List: Activity Tolerance, Safety, Transfer Treatment/Plan Treatment Plan: Continue Plan of Care Treatment Plan: Bed Mobility, Education, Functional Activity Francy, Functional Strength, Group Therapy, Gait, Safety, Therapeutic Exercise, Transfers Treatment Duration: Jun 27, 2020 Frequency: At least 5 of 7 days/Wk (IRF) Estimated Hrs Per Day: 1.5 hours per day Patient and/or Family Agrees t: Yes Safety Risks/Education Patient Education: Transfer Techniques, Correct Positioning, Safety Issues Teaching Recipient: Patient Teaching Methods: Discussion Response to Teaching: Verbalize Understanding Time/GCodes Time In: 1300 Time Out: 1330 Total Billed Treatment Time: 30 Total Billed Treatment 1, FA x2 (30m) JOSEPH LEVY PTA Jun 07, 2020 15:02
[2020-06-07 16:00] VITALS: BP 103/50
[2020-06-07] MEDS: warFARin 4 MG (COUMADIN) TAB PO SCH (18:45)
[2020-06-07] MEDS: ROSUVASTATIN 10 MG (CRESTOR) TABLET PO SCH (20:57)
[2020-06-07] MEDS: LEVETIRACETAM 500 MG (KEPPRA) TAB PO SCH (20:57)
[2020-06-08] MEDS: ACETAMINOPHEN 325 MG TABLET PO PRN (05:26)
[2020-06-08] MEDS: CATHETER FLUSH 10 ML SYR IV SCH ×3 (05:27→21:14)
[2020-06-08 05:51] VITALS: BP 115/72
[2020-06-08 05:59] LABS: INR 2.1 (0.8-1.4); PROTHROMBIN TIME PATIENT 24.3 SEC (12.2-14.7)
[2020-06-08] MEDS: OXYBUTYNIN (DITROPAN) 5 MG TAB PO SCH ×3 (07:50→21:13)
[2020-06-08] MEDS: VENlafaxine 37.5 MG (EFFEXOR) TAB PO SCH (07:50)
[2020-06-08] MEDS: FLUoxetine HCL 20 MG (PROzac) CAP PO SCH (07:50)
[2020-06-08] MEDS: PHENYTOIN 100 MG (DILANTIN) CAP PO SCH ×3 (07:50→21:13)
--- NOTE | 2020-06-08 08:58 | Physical Therapy Daily Note ---
PT Daily Note-Current Subjective Pt. agrees to rx. Explains her living situation. Just finished breakfast, does not c/o pain Pain Location: No Pain Reported Mental Status Patient Orientation: Person, Situation Transfers SCALE: Activities may be completed with or without assistive devices. 3-Lxazkibwfl-cipkoyj completes the activity by him/herself with no assistance from a helper. 5-Set-up or Clean-up Assistance-helper sets up or cleans up; patient completes activity. [place] assists only prior to or following the activity. 4-Supervision or Touching Assistance-helper provides verbal cues and/or touching/steadying and/or contact guard assistance as patient completes activity. Assistance may be provided throughout the activity or intermittently. 3-Partial/Moderate Assistance-helper does LESS THAN HALF the effort. [place] lifts, holds or supports trunk or limbs, but provides less than half the effort. 2-Substantial/Maximal Assistance-helper does MORE THAN HALF the effort. [place] l ifts or holds trunk or limbs and provides more than half the effort. 6-Tnuqgkkox-lrkhmb does ALL the effort. Patient does none of the effort to complete the activity. Or, the assistance of 2 or more helpers is required for the patient to complete the activity. If activity was not attempted, code reason: 7-Patient Refused. 9-Not Applicable-not attempted and the patient did not perform the activity before the current illness, exacerbation or injury. 10-Not Attempted due to Environmental Limitations-(lack of equipment, weather restraints, etc.). 88-Not Attempted due to Medical Conditions or Safety Concerns. Roll Left & Right (QC): 4 Sit to Lying (QC): 4 Lying to Sitting/Side of Bed(Q: 4 Sit to Stand (QC): 3 Chair/Hgx-ac-Dyygu Xfer(QC): 3 Toilet Transfer (QC): 3 pt. needs mod assist sit to stand and SPT , pt. does maintain NWBing LLE, tends to plop in to chair and w/c and on to toilet Weight Bearing Right Lower Extremity: Right Full Weight Bearing Left Lower Extremity: Left Non Weight Bearing Gait Training Does the Patient Walk?: Yes Walk 10 feet (QC): 3 Gait Persons Needed: 1 (and w/c to follow closely) Gait Assistive Device: Walker Platform much difficulty today taking hops , required mod to min assist to support during wt shift and hop step Wheelchair Training Does the Pt Use a Wheelchair?: Yes Wheel 50 ft with 2 turns (QC): 4 Exercises Supine Ex: Ankle pumps (HC stretch right), Quad Set, Rolling, Glut sets, Heel Slides, Short Arc Quads, Scooting, Straight leg raise, Hip abd/add Supine Reps: 15 Seated Therapy Exercises: Ankle pumps, Sit to stand, Long arc quads, Hip flexion, Hip abd/add Seated Reps: 15 Treatments toileted and donned pants with mod to max assist, washed hands at sink from w/c level SBA Assessment Current Status: Good Progress PT Short Term Goals Short Term Goals Time Frame: Jun 13, 2020 Sit to lyin Lying to sitting on side of be: 6 Sit to stand: 4 Chair/qqj-qh-bdwrw transfer: 4 Walk 10 feet: 3 Wheel 50ft w/2 turns: 6 Wheel 150 feet: 4 Type: Manual PT Fdc Goals [employer] Goals PT Fdc Goals Time Frame: Jun 27, 2020 Roll Left & Right (QC): 6 Sit to Lying (QC): 6 Lying-Sitting on Side/Bed(QC): 6 Sit to Stand (QC): 6 Chair/Mfd-wd-Smqrz Xfer(QC): 6 Toilet Transfer (QC): 6 Car Transfer (QC): 5 Does the Patient Walk: No and Walking Goal IS indicated Walk 10 feet (QC): 4 Walk 50ft with 2 Turns (QC): 4 Walk 150 ft (QC): 88 Walking 10ft on Uneven Surface: 88 1 Step (curb) (QC): 9 4 Steps (QC): 9 12 Steps (QC): 9 Picking up an Object (QC): 9 Does the Pt use WC or Scooter?: Yes Wheel 50 feet with 2 turns (QC: 6 Type: Manual Wheel 150 feet: 6 Type: Manual PT Plan Treatment/Plan Treatment Plan: Continue Plan of Care Treatment Plan: Bed Mobility, Education, Functional Activity Francy, Functional Strength, Group Therapy, Gait, Safety, Therapeutic Exercise, Transfers Treatment Duration: Jun 27, 2020 Frequency: At least 5 of 7 days/Wk (IRF) Estimated Hrs Per Day: 1.5 hours per day Patient and/or Family Agrees t: Yes Safety Risks/Education Patient Education: Gait Training, Transfer Techniques, Correct Positioning, W/C Management, Disease Process, Safety Issues Teaching Recipient: Patient Teaching Methods: Demonstration, Discussion Response to Teaching: Verbalize Understanding, Return Demonstration, Reinforcement Needed Time/GCodes Time In: 800 Time Out: 900 Total Billed Treatment Time: 60 Total Billed Treatment 1,GT15m,WC15m,FA15m,EX15m BETH HOOPER [employer] Jun 08, 2020 08:58
--- NOTE | 2020-06-08 10:03 | Occupational Ther Daily Note ---
OT Current Status-Daily Note Subjective Pt alert, sitting in recliner. Pt agrees to therapy. No c/o pain at this time. Mental Status/Objective Patient Orientation: Person, Place, Time, Situation Attachments: IV (midline) ADL-Treatment 1st session ([id number]) Pt agrees to shower. Pt is inconsistent with transfers due to previous stroke on R side which now is the only wt bearing LE, tendency for R LE to pull into midline of body and throw pt off balance. When positioned with foot under her and L UE pushing up, R UE placed on surface that pt is going to appears to have a safer transfer. Min A to transfer from w/c to toilet, assist to manipulate clothing and pt completed hygiene sitting on toilet. Min A to transfer in/out of shower. SBA to complete shower, pt sitting on shower bench throughout shower using hand held shower and grabbars for safety. After set up, pt dons/doff shirt by self. After set up, pt is able to thread pants on/off of feet. When sitting on bed, pt is able to hike pants over hips by self. After session, pt lying in bed with call light/phone in reach. All needs met in room. 2nd session([id number]) Bed mobility independent. Min A for SPT to w/c. Set up only to don/doff socks. Independent to complete oral care. After therapy, pt sitting in recliner with call light/phone in reach. All needs met in room. Therapy Code Descriptions/Definitions Functional [place] Measure: 0=Not Assessed/NA 4=Minimal Assistance 1=Total Assistance 5=Supervision or Setup 2=Maximal Assistance 6=Modified [place] 3=Moderate Assistance 7=Complete IndependenceSCALE: Activities may be completed with or without assistive devices. 6-Mqweilbhfu-uenvlnr completes the activity by him/herself with no assistance from a helper. 5-Set-up or Clean-up Assistance-helper sets up or cleans up; patient completes activity. [place] assists only prior to or following the activity. 4-Supervision or Touching Assistance-helper provides verbal cues and/or touching/steadying and/or contact guard assistance as patient completes activity. Assistance may be provided throughout the activity or intermittently. 3-Partial/Moderate Assistance-helper does LESS THAN HALF the effort. [place] lifts, holds or supports trunk or limbs, but provides less than half the effort. 2-Substantial/Maximal Assistance-helper does MORE THAN HALF the effort. [place] lifts or holds trunk or limbs and provides more than half the effort. 1-Augbdqoyz-uutcdk does ALL the effort. Patient does none of the effort to complete the activity. Or, the assistance of 2 or more helpers is required for the patient to complete the activity. If activity was not attempted, code reason: 7-Patient Refused. 9-Not Applicable-not attempted and the patient did not perform the activity before the current illness, exacerbation or injury. 10-Not Attempted due to Environmental Limitations-(lack of equipment, weather restraints, etc.). 88-Not Attempted due to Medical Conditions or Safety Concerns. Oral Hygiene (QC): 6 Shower/Bathe Self (QC): 4 Upper Body Dressing (QC): 5 Lower Body Dressing (QC): 5 On/Off Footwear: 5 Toileting Hygiene (QC): 3 Toilet Transfer (QC): 3 OT Short Term Goals Short Term Goals Eatin Oral hygiene: 5 Toileting hygiene: 3 Shower/bathe self: 3 Upper body dressin Lower body dressin Putting on/taking off footwear: 2 OT Mathematics Technician Goals Mathematics Technician Goals Time Frame: Jun 06, 2020 Eating (QC): 5 Oral Hygiene (QC): 5 Toileting Hygiene (QC): 6 Shower/Bathe Self (QC): 5 Upper Body Dressing (QC): 6 Lower Body Dressing (QC): 6 On/Off Footwear (QC): 6 Additional Goals: 1-Demonstrate ADL Tasks, 2-Verbalize Understanding, 3- ImproveStrength/[place] 1=Demonstrate adherence to instructed precautions during ADL tasks. 2=Patient will verbalize/demonstrate understanding of assistive devices/modifications for ADL. 3=Patient will improve strength/tolerance for activity to enable patient to perform ADL's. OT Education/Plan Problem List/Assessment Assessment: Decreased Activ Tolerance, Decreased UE Strength, Impaired Funct Balance, Impaired Self-Care Skills Discharge Recommendations Plan/Recommendations: Continue POC Treatment Plan/Plan of Care Patient would benefit from OT for education, treatment and training to promote independence in ADL's, mobility, safety and/or upper extremity function for ADL's. Plan of Care: ADL Retraining, Functional Mobility, Group Exercise/Act as Ind, UE Funct Exercise/Act, UE Neuromus Re-Ed/Coord, W/C Management Training Treatment Duration: Jun 13, 2020 Frequency: At least 5 of 7 days/Wk (IRF) Estimated Hrs Per Day: 1.5 hours per day Agreement: Yes Rehab Potential: Good Time/GCodes Start Time: 09:00 (1130) Stop Time: 10:00 (1200) Total Time Billed (hr/min): 90 Billed Treatment Time 1 visit-ADL 4 (60 min) 1 visit ADL 2 (30 min) JOSE MANUEL PRINGLE Jun 08, 2020 10:03
--- NOTE | 2020-06-08 11:36 | PM&R Progress Note ---
Subjective HPI/CC On Admission Date Seen by Provider: Jun 08, 2020 Time Seen by Provider: 11:45 Subjective/Events-last exam 06/08/20: Patient doing well INR stable Monitor BP Fall risk 06/07/20: Psychiatry evaluation is done INR is 2.0 today Back on Coumadin Feels like she is making some progress 06/06/20 Pt doing pretty well INR 3.2 Dr. Vora is managing the Coumadin Hgb 10.3 Took a shower today Dressing changes maintained Dr. Srinivasan removed the staple in her ankle Putting her own clothes on 06/05/20: Holding Coumadin due to INR 3.2 Pt doing pretty well Incontinent at times Air bed will help decrease chance of decubitus ulcers Dressing changes every other day [place] are intact Effexor will be started to help motivation Bowels are moving 06/04/20: Pt showered today Pain pill is working pretty well Pain at night is still an issue Midline was ordered for iron infusions INR is 3.3 06/03/20: Patient doing well ICU nurse plaed IV for Venofer but need midline tomorrow Up in chair today Venofer will continue for 5 doses total No BM yet laxatives will be given Oxycodone will be changed to [id number] and DC APAP 06/02/20: Midline will be placed for iron Pain issues discussed BM yesterday Very weak and despondent today 06/01/20: Patient doing well Behavioral consult just completed Pain controlled INR 2.9 BM 05/3105/31/20: Patient doing better Behavioral consult today for depression and statement of suicidal ideation Percocet for pain Dr Vora adjusting Coumadin Pastoral care ordered Review of Systems General: Fatigue, Malaise Musculoskeletal: leg pain, foot pain Objective Exam Vital Signs Vital Signs Date Time Temp Pulse Resp B/P (MAP) Pulse Ox O2 Delivery O2 Flow Rate FiO2 06/09/20 05:57 36.6 63 16 127/58 (81) 96 Room Air Capillary Refill : Less Than 3 Seconds General Appearance: No Apparent Distress, WD/WN, Chronically ill, Thin HEENT: PERRL/EOMI, Normal ENT Inspection, Pharynx Normal Neck: Full Range of Motion, Normal Inspection, Non Tender, Supple, Carotid Bruit Respiratory: Chest Non Tender, Lungs Clear, Normal Breath Sounds, No Accessory Muscle Use, No Respiratory Distress Cardiovascular: No Edema, No Gallop, No JVD, No Murmur, Normal Peripheral Pulses, Systolic Murmur, Irregularly Irregular Gastrointestinal: Normal Bowel Sounds, No Organomegaly, No Pulsatile Mass, Non Tender, Soft Back: Normal Inspection, No CVA Tenderness, No Vertebral Tenderness Extremity: Normal Capillary Refill, Normal Inspection, Normal Range of Motion, Non Tender, No Calf Tenderness, No Pedal Edema Neurologic/Psychiatric: Alert, Oriented x3, Normal Mood/Affect, Abnormal Gait, Depressed Affect, Motor Weakness Skin: Normal Color, Warm/Dry Lymphatic: No Adenopathy Results/Procedures Lab Patient resulted labs reviewed. FIM Transfers Therapy Code Descriptions/Definitions Functional [place] Measure: 0=Not Assessed/NA 4=Minimal Assistance 1=Total Assistance 5=Supervision or Setup 2=Maximal Assistance 6=Modified [place] 3=Moderate Assistance 7=Complete IndependenceSCALE: Activities may be completed with or without assistive devices. 9-Cmaqjodvdc-zpmrcdo completes the activity by him/herself with no assistance from a helper. 5-Set-up or Clean-up Assistance-helper sets up or cleans up; patient completes activity. [place] assists only prior to or following the activity. 4-Supervision or Touching Assistance-helper provides verbal cues and/or touching/steadying and/or contact guard assistance as patient completes activity. Assistance may be provided throughout the activity or intermittently. 3-Partial/Moderate Assistance-helper does LESS THAN HALF the effort. [place] lifts, holds or supports trunk or limbs, but provides less than half the effort. 2-Substantial/Maximal Assistance-helper does MORE THAN HALF the effort. [place] lifts or holds trunk or limbs and provides more than half the effort. 2-Dwzpawbwa-azecdd does ALL the effort. Patient does none of the effort to complete the activity. Or, the assistance of 2 or more helpers is required for the patient to complete the activity. If activity was not attempted, code reason: 7-Patient Refused. 9-Not Applicable-not attempted and the patient did not perform the activity before the current illness, exacerbation or injury. 10-Not Attempted due to Environmental Limitations-(lack of equipment, weather restraints, etc.). 88-Not Attempted due to Medical Conditions or Safety Concerns. Roll Left to Right (QC): 4 Sit to Lying (QC): 4 Sit to Stand (QC): 3 Chair/Igt-hs-Elrbh Xfer(QC): 3 Car Transfer (QC): 2 Gait Training Does the Patient Walk?: Yes Distance: 20' Walk 10 feet (QC): 3 Walk 50 ft with 2 Turns(QC): 88 Walk 150 ft (QC): 88 Walking 10ft/uneven surface-QC: 88 Gait Persons Needed: 1 (and w/c to follow closely) Gait Assistive Device: Walker Platform Wheelchair Training Does the Pt Use a Wheelchair?: Yes Wheel 50 ft with 2 turns (QC): 4 Wheel 150 ft (QC): 5 Type of Wheelchair: Manual Stair Training 1 Step (curb) (QC): 9 4 Steps (QC): 9 12 Steps (QC): 9 Balance Picking up an Object (QC): 9 ADL-Treatment Eating (QC): 5 (Set up then pt able to use regular utensils to eat.) Oral Hygiene (QC): 6 Shower/Bathe Self (QC): 4 Upper Body Dressing (QC): 5 Lower Body Dressing (QC): 1 On/Off Footwear (QC): 5 Toileting Hygiene (QC): 1 Toilet Transfer (QC): 1 Assessment/Plan Assessment and Plan Assess & Plan/Chief Complaint Assessment: Left tibia fracture s/p repair Prior CVA with right sided weakness chronic Expressive aphasia from prior CVA Mechanical heart valve replacement status OAC with Coumadin AF OP OAB HTN Depression Plan: Pain control Monitor BP INR monitoring IRF protocol 05/31/20: Pain control Psych eval PT OT 06/01/20: Supportive care Pain control Appreciate Cardiology Behavioral consult appreciated 06/02/20: Pain control Improve emotional status 06/03/20: Oxycodone change so DC APAP Venofer Midline 06/04/20: Monitor closely INR 3.3 06/05/20: Monitor INR Fall risk Pain control 06/06/20: Pain controlled Increase ADL's Monitor BP and INR 06/07/20: Complete iron infusions Monitor INR Monitor BP 06/08/20: Monitor INR Fall risk Monitor closely (1) Fracture, tibia and fibula, shaft Status: Acute (2) Mechanical heart valve present Status: Chronic (3) DVT prophylaxis Status: Acute (4) Anticoagulant long-term use Status: Chronic (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
[2020-06-08] MEDS: SENNA W/DOCUSATE (SENOKOT S) TABLET PO SCH ×2 (12:14→21:13)
[2020-06-08] MEDS: polyethylene glycoL POWDER 17 GM (MIRALAX) PACK PO SCH ×2 (12:14→21:13)
[2020-06-08] MEDS: DOCUSATE SODIUM 100 MG (COLACE) CAP PO SCH ×2 (12:15→21:12)
[2020-06-08] MEDS: LACTULOSE SYRUP 10GM/15ML (ENULOSE) 30ML UDC PO SCH ×2 (12:15→21:12)
--- NOTE | 2020-06-08 13:30 | Physical Therapy Daily Note ---
PT Daily Note-Current Subjective Pt. agrees to Rx, comments that TRFs SPT are difficult as well as sit to stand Pain Location: No Pain Reported Transfers SCALE: Activities may be completed with or without assistive devices. 2-Vccjakvijb-mefkbut completes the activity by him/herself with no assistance from a helper. 5-Set-up or Clean-up Assistance-helper sets up or cleans up; patient completes a ctivity. [place] assists only prior to or following the activity. 4-Supervision or Touching Assistance-helper provides verbal cues and/or touching/steadying and/or contact guard assistance as patient completes activity. Assistance may be provided throughout the activity or intermittently. 3-Partial/Moderate Assistance-helper does LESS THAN HALF the effort. [place] lifts, holds or supports trunk or limbs, but provides less than half the effort. 2-Substantial/Maximal Assistance-helper does MORE THAN HALF the effort. [place] lifts or holds trunk or limbs and provides more than half the effort. 1-Fojxdgarp-btlwml does ALL the effort. Patient does none of the effort to complete the activity. Or, the assistance of 2 or more helpers is required for the patient to complete the activity. If activity was not attempted, code reason: 7-Patient Refused. 9-Not Applicable-not attempted and the patient did not perform the activity before the current illness, exacerbation or injury. 10-Not Attempted due to Environmental Limitations-(lack of equipment, weather restraints, etc.). 88-Not Attempted due to Medical Conditions or Safety Concerns. Sit to Stand (QC): 2 Chair/Inw-ab-Rigoj Xfer(QC): 3 Toilet Transfer (QC): 2 pt. needed mod to max assist sit to stand and SPT w/c to toilet and back as well as to manage pants up down. Pt. needed cuing sequence and instruction to use railing etc. Pt. did better once seating levels were raised and pt. used FWW correctly for SPT Weight Bearing Right Lower Extremity: Right Full Weight Bearing Left Lower Extremity: Left Non Weight Bearing Gait Training Does the Patient Walk?: Yes Gait Assistive Device: Walker Platform 5ft x 2 mod assist and w/c to follow Exercises Seated Therapy Exercises: Ankle pumps, Sit to stand, Long arc quads Seated Reps: 15 Treatments SPTs and sit to stands were emphasized this Rx Assessment Current Status: Good Progress PT Short Term Goals Short Term Goals Time Frame: Jun 13, 2020 Sit to lyin Lying to sitting on side of be: 6 Sit to stand: 4 Chair/hor-rj-kypbb transfer: 4 Walk 10 feet: 3 Wheel 50ft w/2 turns: 6 Wheel 150 feet: 4 Type: Manual PT Compensation Expert Goals Correction Goals PT Compensation Expert Goals Time Frame: Jun 27, 2020 Roll Left & Right (QC): 6 Sit to Lying (QC): 6 Lying-Sitting on Side/Bed(QC): 6 Sit to Stand (QC): 6 Chair/Ynj-hl-Toyjd Xfer(QC): 6 Toilet Transfer (QC): 6 Car Transfer (QC): 5 Does the Patient Walk: No and Walking Goal IS indicated Walk 10 feet (QC): 4 Walk 50ft with 2 Turns (QC): 4 Walk 150 ft (QC): 88 Walking 10ft on Uneven Surface: 88 1 Step (curb) (QC): 9 4 Steps (QC): 9 12 Steps (QC): 9 Picking up an Object (QC): 9 Does the Pt use WC or Scooter?: Yes Wheel 50 feet with 2 turns (QC: 6 Type: Manual Wheel 150 feet: 6 Type: Manual PT Plan Treatment/Plan Treatment Plan: Continue Plan of Care Treatment Plan: Bed Mobility, Education, Functional Activity Francy, Functional Strength, Group Therapy, Gait, Safety, Therapeutic Exercise, Transfers Treatment Duration: Jun 27, 2020 Frequency: At least 5 of 7 days/Wk (IRF) Estimated Hrs Per Day: 1.5 hours per day Patient and/or Family Agrees t: Yes Safety Risks/Education Patient Education: Transfer Techniques Teaching Recipient: Patient Teaching Methods: Demonstration, Discussion Response to Teaching: Verbalize Understanding, Return Demonstration, Reinforcem ent Needed Time/GCodes Time In: 1300 Time Out: 1330 Total Billed Treatment Time: 30 Total Billed Treatment 1,FA30m BETH HOOPER PTA Jun 08, 2020 13:30
[2020-06-08 16:14] VITALS: BP 109/45
[2020-06-08] MEDS: warFARin 4 MG (COUMADIN) TAB PO SCH (17:22)
[2020-06-08] MEDS: LEVETIRACETAM 500 MG (KEPPRA) TAB PO SCH (21:13)
[2020-06-08] MEDS: ROSUVASTATIN 10 MG (CRESTOR) TABLET PO SCH (21:13)
[2020-06-09 05:18] LABS: INR 2.5 (0.8-1.4); PROTHROMBIN TIME PATIENT 27.1 SEC (12.2-14.7)
[2020-06-09] MEDS: CATHETER FLUSH 10 ML SYR IV SCH ×3 (05:43→20:29)
[2020-06-09 05:57] VITALS: BP 127/58
--- NOTE | 2020-06-09 07:35 | PM&R Progress Note ---
Subjective HPI/CC On Admission Date Seen by Provider: Jun 09, 2020 Time Seen by Provider: 09:40 Subjective/Events-last exam 06/09/20: Patient improved Getting around well No pain reported Eating well BM INR 2.5 Pressure ulcers managed 06/08/20: Patient doing well INR stable Monitor BP Fall risk 06/07/20: Psychiatry evaluation is done INR is 2.0 today Back on Coumadin Feels like she is making some progress 06/06/20 Pt doing pretty well INR 3.2 Dr. Vora is managing the Coumadin Hgb 10.3 Took a shower today Dressing changes maintained Dr. Srinivasan removed the staple in her ankle Putting her own clothes on 06/05/20: Holding Coumadin due to INR 3.2 Pt doing pretty well Incontinent at times Air bed will help decrease chance of decubitus ulcers Dressing changes every other day [place] are intact Effexor will be started to help motivation Bowels are moving 06/04/20: Pt showered today Pain pill is working pretty well Pain at night is still an issue Midline was ordered for iron infusions INR is 3.3 06/03/20: Patient doing well ICU nurse plaed IV for Venofer but need midline tomorrow Up in chair today Venofer will continue for 5 doses total No BM yet laxatives will be given Oxycodone will be changed to [id number] and DC APAP 06/02/20: Midline will be placed for iron Pain issues discussed BM yesterday Very weak and despondent today 06/01/20: Patient doing well Behavioral consult just completed Pain controlled INR 2.9 BM 05/3105/31/20: Patient doing better Behavioral consult today for depression and statement of suicidal ideation Percocet for pain Dr Vora adjusting Coumadin Pastoral care ordered Review of Systems General: Fatigue Musculoskeletal: leg pain Objective Exam Vital Signs Vital Signs Date Time Temp Pulse Resp B/P (MAP) Pulse Ox O2 Delivery O2 Flow Rate FiO2 06/09/20 17:09 36.8 72 18 138/65 (89) 97 Room Air Capillary Refill : Less Than 3 Seconds General Appearance: No Apparent Distress, WD/WN, Chronically ill, Thin HEENT: PERRL/EOMI, Normal ENT Inspection, Pharynx Normal Neck: Full Range of Motion, Normal Inspection, Non Tender, Supple, Carotid Bruit Respiratory: Chest Non Tender, Lungs Clear, Normal Breath Sounds, No Accessory Muscle Use, No Respiratory Distress Cardiovascular: No Edema, No Gallop, No JVD, No Murmur, Normal Peripheral Pulses, Systolic Murmur, Irregularly Irregular Gastrointestinal: Normal Bowel Sounds, No Organomegaly, No Pulsatile Mass, Non Tender, Soft Back: Normal Inspection, No CVA Tenderness, No Vertebral Tenderness Extremity: Normal Capillary Refill, Normal Inspection, Normal Range of Motion, Non Tender, No Calf Tenderness, No Pedal Edema Neurologic/Psychiatric: Alert, Oriented x3, Normal Mood/Affect, Abnormal Gait, Depressed Affect, Motor Weakness Skin: Normal Color, Warm/Dry Lymphatic: No Adenopathy Results/Procedures Lab Patient resulted labs reviewed. FIM Transfers Therapy Code Descriptions/Definitions Functional [place] Measure: 0=Not Assessed/NA 4=Minimal Assistance 1=Total Assistance 5=Supervision or Setup 2=Maximal Assistance 6=Modified [place] 3=Moderate Assistance 7=Complete IndependenceSCALE: Activities may be completed with or without assistive devices. 4-Zkdhwvpfcp-wwuppoi completes the activity by him/herself with no assistance from a helper. 5-Set-up or Clean-up Assistance-helper sets up or cleans up; patient completes activity. [place] assists only prior to or following the activity. 4-Supervision or Touching Assistance-helper provides verbal cues and/or touching/steadying and/or contact guard assistance as patient completes activity. Assistance may be provided throughout the activity or intermittently. 3-Partial/Moderate Assistance-helper does LESS THAN HALF the effort. [place] lifts, holds or supports trunk or limbs, but provides less than half the effort. 2-Substantial/Maximal Assistance-helper does MORE THAN HALF the effort. [place] lifts or holds trunk or limbs and provides more than half the effort. 9-Cbhlevkva-reegsh does ALL the effort. Patient does none of the effort to complete the activity. Or, the assistance of 2 or more helpers is required for the patient to complete the activity. If activity was not attempted, code reason: 7-Patient Refused. 9-Not Applicable-not attempted and the patient did not perform the activity before the current illness, exacerbation or injury. 10-Not Attempted due to Environmental Limitations-(lack of equipment, weather restraints, etc.). 88-Not Attempted due to Medical Conditions or Safety Concerns. Roll Left to Right (QC): 4 Sit to Lying (QC): 4 Sit to Stand (QC): 2 Chair/Ayh-dc-Xisyr Xfer(QC): 3 Car Transfer (QC): 2 Gait Training Does the Patient Walk?: Yes Distance: 20' Walk 10 feet (QC): 3 Walk 50 ft with 2 Turns(QC): 88 Walk 150 ft (QC): 88 Walking 10ft/uneven surface-QC: 88 Gait Persons Needed: 1 (and w/c to follow closely) Gait Assistive Device: Walker Platform Wheelchair Training Does the Pt Use a Wheelchair?: Yes Wheel 50 ft with 2 turns (QC): 4 Wheel 150 ft (QC): 5 Type of Wheelchair: Manual Stair Training 1 Step (curb) (QC): 9 4 Steps (QC): 9 12 Steps (QC): 9 Balance Picking up an Object (QC): 9 ADL-Treatment Eating (QC): 5 (Set up then pt able to use regular utensils to eat.) Oral Hygiene (QC): 6 Shower/Bathe Self (QC): 4 Upper Body Dressing (QC): 5 Lower Body Dressing (QC): 5 On/Off Footwear (QC): 5 Toileting Hygiene (QC): 3 Toilet Transfer (QC): 3 Assessment/Plan Assessment and Plan Assess & Plan/Chief Complaint Assessment: Left tibia fracture s/p repair Prior CVA with right sided weakness chronic Expressive aphasia from prior CVA Mechanical heart valve replacement status OAC with Coumadin AF OP OAB HTN Depression Plan: Pain control Monitor BP INR monitoring IRF protocol 05/31/20: Pain control Psych eval PT OT 06/01/20: Supportive care Pain control Appreciate Cardiology Behavioral consult appreciated 06/02/20: Pain control Improve emotional status 06/03/20: Oxycodone change so DC APAP Venofer Midline 06/04/20: Monitor closely INR 3.3 06/05/20: Monitor INR Fall risk Pain control 06/06/20: Pain controlled Increase ADL's Monitor BP and INR 06/07/20: Complete iron infusions Monitor INR Monitor BP 06/08/20: Monitor INR Fall risk Monitor closely 06/09/20: Monitor INR Pain control Decubitus ulcers (1) Fracture, tibia and fibula, shaft Status: Acute (2) Mechanical heart valve present Status: Chronic (3) DVT prophylaxis Status: Acute (4) Anticoagulant long-term use Status: Chronic (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
[2020-06-09] MEDS: LACTULOSE SYRUP 10GM/15ML (ENULOSE) 30ML UDC PO SCH ×2 (08:20→20:29)
[2020-06-09] MEDS: polyethylene glycoL POWDER 17 GM (MIRALAX) PACK PO SCH ×2 (08:20→20:29)
[2020-06-09] MEDS: OXYBUTYNIN (DITROPAN) 5 MG TAB PO SCH ×3 (08:21→20:29)
[2020-06-09] MEDS: VENlafaxine 37.5 MG (EFFEXOR) TAB PO SCH (08:21)
[2020-06-09] MEDS: DOCUSATE SODIUM 100 MG (COLACE) CAP PO SCH ×2 (08:21→20:29)
[2020-06-09] MEDS: SENNA W/DOCUSATE (SENOKOT S) TABLET PO SCH ×2 (08:21→20:29)
[2020-06-09] MEDS: FLUoxetine HCL 20 MG (PROzac) CAP PO SCH (08:22)
[2020-06-09] MEDS: PHENYTOIN 100 MG (DILANTIN) CAP PO SCH ×3 (08:22→20:29)
[2020-06-09] MEDS: IRON SUCROSE 200 MG/10 ML (VENOFER) VIAL IV SCH (08:22)
--- NOTE | 2020-06-09 11:31 | Physical Therapy Daily Note ---
PT Daily Note-Current Subjective Agrees to PT. No pain reported. Wants to toilet and wants to work on wc mobility Transfers SCALE: Activities may be completed with or without assistive devices. 2-Ialplqnuow-toshukp completes the activity by him/herself with no assistance from a helper. 5-Set-up or Clean-up Assistance-helper sets up or cleans up; patient completes activity. [place] assists only prior to or following the activity. 4-Supervision or Touching Assistance-helper provides verbal cues and/or touching/steadying and/or contact guard assistance as patient completes activity. Assistance may be provided throughout the activity or intermittently. 3-Partial/Moderate Assistance-helper does LESS THAN HALF the effort. [place] lifts, holds or supports trunk or limbs, but provides less than half the effort. 2-Substantial/Maximal Assistance-helper does MORE THAN HALF the effort. [place] lifts or holds trunk or limbs and provides more than half the effort. 4-Sxmcdblto-xksgem does ALL the effort. Patient does none of the effort to complete the activity. Or, the assistance of 2 or more helpers is required for the patient to complete the activity. If activity was not attempted, code reason: 7-Patient Refused. 9-Not Applicable-not attempted and the patient did not perform the activity before the current illness, exacerbation or injury. 10-Not Attempted due to Environmental Limitations-(lack of equipment, weather restraints, etc.). 88-Not Attempted due to Medical Conditions or Safety Concerns. Sit to Stand (QC): 3 Chair/Rth-jk-Ryjwt Xfer(QC): 3 Toilet Transfer (QC): 3 Sit to stand with min assist and intermittent reminders for sequencing and hand placement, maintains NWB status. SPT x 4 reps. Weight Bearing Right Lower Extremity: Right Full Weight Bearing Left Lower Extremity: Left Non Weight Bearing Wheelchair Training Wheel 50 ft with 2 turns (QC): 4 Wheel 150 ft (QC): 4 Type of Wheelchair: Manual Able to manage with right LE and left UE. Makes turns and able to pullup to the table. Treatments Transfers and wc training. Assessment Current Status: Good Progress Pt has difficulty with SPT and requires assist; doing well with wc mobility and does not require assist. PT Short Term Goals Short Term Goals Time Frame: Jun 13, 2020 Sit to lyin Lying to sitting on side of be: 6 Sit to stand: 4 Chair/xdu-hr-dawsq transfer: 4 Walk 10 feet: 3 Wheel 50ft w/2 turns: 6 Wheel 150 feet: 4 Type: Manual PT Residential Goals Residential Goals PT Residential Goals Time Frame: Jun 27, 2020 Roll Left & Right (QC): 6 Sit to Lying (QC): 6 Lying-Sitting on Side/Bed(QC): 6 Sit to Stand (QC): 6 Chair/Gra-pk-Iulhf Xfer(QC): 6 Toilet Transfer (QC): 6 Car Transfer (QC): 5 Does the Patient Walk: No and Walking Goal IS indicated Walk 10 feet (QC): 4 Walk 50ft with 2 Turns (QC): 4 Walk 150 ft (QC): 88 Walking 10ft on Uneven Surface: 88 1 Step (curb) (QC): 9 4 Steps (QC): 9 12 Steps (QC): 9 Picking up an Object (QC): 9 Does the Pt use WC or Scooter?: Yes Wheel 50 feet with 2 turns (QC: 6 Type: Manual Wheel 150 feet: 6 Type: Manual PT Plan Problem List Problem List: Activity Tolerance, Functional Strength, Safety, Balance, Gait, Transfer, Bed Mobility Treatment/Plan Treatment Plan: Continue Plan of Care Treatment Plan: Bed Mobility, Education, Functional Activity Francy, Functional Strength, Group Therapy, Gait, Safety, Therapeutic Exercise, Transfers Treatment Duration: Jun 27, 2020 Frequency: At least 5 of 7 days/Wk (IRF) Estimated Hrs Per Day: 1.5 hours per day Patient and/or Family Agrees t: Yes Safety Risks/Education Patient Education: Safety Issues Teaching Recipient: Patient Teaching Methods: Discussion Response to Teaching: Verbalize Understanding Time/GCodes Time In: 1000 Time Out: 1025 Total Billed Treatment Time: 25 Total Billed Treatment visit FA 10 WC 15 JOSE MANUEL TAM PT Jun 09, 2020 11:31
[2020-06-09] MEDS: warFARin 4 MG (COUMADIN) TAB PO SCH (16:39)
[2020-06-09 17:09] VITALS: BP 138/65
[2020-06-09] MEDS: ACETAMINOPHEN 325 MG TABLET PO PRN (19:15)
[2020-06-09] MEDS: ROSUVASTATIN 10 MG (CRESTOR) TABLET PO SCH (20:29)
[2020-06-09] MEDS: LEVETIRACETAM 500 MG (KEPPRA) TAB PO SCH (20:29)
[2020-06-10] MEDS: CATHETER FLUSH 10 ML SYR IV SCH (04:58)
[2020-06-10 05:35] LABS: INR 2.9 (0.8-1.4); PROTHROMBIN TIME PATIENT 30.8 SEC (12.2-14.7)
[2020-06-10 06:06] VITALS: BP 132/61
--- NOTE | 2020-06-10 09:34 | PM&R Progress Note ---
Subjective HPI/CC On Admission Date Seen by Provider: Jun 10, 2020 Time Seen by Provider: 11:00 Subjective/Events-last exam 06/10/20: Patient doing well Obtaining more help at the house DC Iron infusion since she had 4/5 doses and the midline was too painful to maintain 06/09/20: Patient improved Getting around well No pain reported Eating well BM INR 2.5 Pressure ulcers managed 06/08/20: Patient doing well INR stable Monitor BP Fall risk 06/07/20: Psychiatry evaluation is done INR is 2.0 today Back on Coumadin Feels like she is making some progress 06/06/20 Pt doing pretty well INR 3.2 Dr. Vora is managing the Coumadin Hgb 10.3 Took a shower today Dressing changes maintained Dr. Srinivasan removed the staple in her ankle Putting her own clothes on 06/05/20: Holding Coumadin due to INR 3.2 Pt doing pretty well Incontinent at times Air bed will help decrease chance of decubitus ulcers Dressing changes every other day [place] are intact Effexor will be started to help motivation Bowels are moving 06/04/20: Pt showered today Pain pill is working pretty well Pain at night is still an issue Midline was ordered for iron infusions INR is 3.3 06/03/20: Patient doing well ICU nurse plaed IV for Venofer but need midline tomorrow Up in chair today Venofer will continue for 5 doses total No BM yet laxatives will be given Oxycodone will be changed to [id number] and DC APAP 06/02/20: Midline will be placed for iron Pain issues discussed BM yesterday Very weak and despondent today 06/01/20: Patient doing well Behavioral consult just completed Pain controlled INR 2.9 BM 05/3105/31/20: Patient doing better Behavioral consult today for depression and statement of suicidal ideation Percocet for pain Dr Vora adjusting Coumadin Pastoral care ordered Review of Systems Musculoskeletal: leg pain, foot pain Objective Exam Vital Signs Vital Signs Date Time Temp Pulse Resp B/P (MAP) Pulse Ox O2 Delivery O2 Flow Rate FiO2 06/10/20 17:17 38.0 76 18 132/59 (83) 98 Room Air Capillary Refill : Less Than 3 Seconds General Appearance: No Apparent Distress, WD/WN, Chronically ill, Thin HEENT: PERRL/EOMI, Normal ENT Inspection, Pharynx Normal Neck: Full Range of Motion, Normal Inspection, Non Tender, Supple, Carotid Bruit Respiratory: Chest Non Tender, Lungs Clear, Normal Breath Sounds, No Accessory Muscle Use, No Respiratory Distress Cardiovascular: No Edema, No Gallop, No JVD, No Murmur, Normal Peripheral Pulses, Systolic Murmur, Irregularly Irregular Gastrointestinal: Normal Bowel Sounds, No Organomegaly, No Pulsatile Mass, Non Tender, Soft Back: Normal Inspection, No CVA Tenderness, No Vertebral Tenderness Extremity: Normal Capillary Refill, Normal Inspection, Normal Range of Motion, Non Tender, No Calf Tenderness, No Pedal Edema Neurologic/Psychiatric: Alert, Oriented x3, Normal Mood/Affect, Abnormal Gait, Depressed Affect, Motor Weakness Skin: Normal Color, Warm/Dry Lymphatic: No Adenopathy Results/Procedures Lab Patient resulted labs reviewed. FIM Transfers Therapy Code Descriptions/Definitions Functional [place] Measure: 0=Not Assessed/NA 4=Minimal Assistance 1=Total Assistance 5=Supervision or Setup 2=Maximal Assistance 6=Modified [place] 3=Moderate Assistance 7=Complete IndependenceSCALE: Activities may be completed with or without assistive devices. 8-Gsjkjhdvqk-gaazjwy completes the activity by him/herself with no assistance f rom a helper. 5-Set-up or Clean-up Assistance-helper sets up or cleans up; patient completes activity. [place] assists only prior to or following the activity. 4-Supervision or Touching Assistance-helper provides verbal cues and/or touching/steadying and/or contact guard assistance as patient completes activity. Assistance may be provided throughout the activity or intermittently. 3-Partial/Moderate Assistance-helper does LESS THAN HALF the effort. [place] lifts, holds or supports trunk or limbs, but provides less than half the effort. 2-Substantial/Maximal Assistance-helper does MORE THAN HALF the effort. [place] lifts or holds trunk or limbs and provides more than half the effort. 8-[place]uvks does ALL the effort. Patient does none of the effort to complete the activity. Or, the assistance of 2 or more helpers is required for the patient to complete the activity. If activity was not attempted, code reason: 7-Patient Refused. 9-Not Applicable-not attempted and the patient did not perform the activity before the current illness, exacerbation or injury. 10-Not Attempted due to Environmental Limitations-(lack of equipment, weather restraints, etc.). 88-Not Attempted due to Medical Conditions or Safety Concerns. Roll Left to Right (QC): 4 Sit to Lying (QC): 4 Sit to Stand (QC): 3 Chair/Pjp-nz-Eflcg Xfer(QC): 3 Car Transfer (QC): 2 Gait Training Does the Patient Walk?: Yes Distance: 20' Walk 10 feet (QC): 3 Walk 50 ft with 2 Turns(QC): 88 Walk 150 ft (QC): 88 Walking 10ft/uneven surface-QC: 88 Gait Persons Needed: 1 (and w/c to follow closely) Gait Assistive Device: Walker Platform Wheelchair Training Does the Pt Use a Wheelchair?: Yes Wheel 50 ft with 2 turns (QC): 4 Wheel 150 ft (QC): 4 Type of Wheelchair: Manual Stair Training 1 Step (curb) (QC): 9 4 Steps (QC): 9 12 Steps (QC): 9 Balance Picking up an Object (QC): 9 ADL-Treatment Eating (QC): 5 (Set up then pt able to use regular utensils to eat.) Oral Hygiene (QC): 6 Shower/Bathe Self (QC): 4 Upper Body Dressing (QC): 5 Lower Body Dressing (QC): 5 On/Off Footwear (QC): 5 Toileting Hygiene (QC): 3 Toilet Transfer (QC): 3 Assessment/Plan Assessment and Plan Assess & Plan/Chief Complaint Assessment: Left tibia fracture s/p repair Prior CVA with right sided weakness chronic Expressive aphasia from prior CVA Mechanical heart valve replacement status OAC with Coumadin AF OP OAB HTN Depression Plan: Pain control Monitor BP INR monitoring IRF protocol 05/31/20: Pain control Psych eval PT OT 06/01/20: Supportive care Pain control Appreciate Cardiology Behavioral consult appreciated 06/02/20: Pain control Improve emotional status 06/03/20: Oxycodone change so DC APAP Venofer Midline 06/04/20: Monitor closely INR 3.3 06/05/20: Monitor INR Fall risk Pain control 06/06/20: Pain controlled Increase ADL's Monitor BP and INR 06/07/20: Complete iron infusions Monitor INR Monitor BP 06/08/20: Monitor INR Fall risk Monitor closely 06/09/20: Monitor INR Pain control Decubitus ulcers 06/10/20: Pain controlled Needs more help at home (1) Fracture, tibia and fibula, shaft Status: Acute (2) Mechanical heart valve present Status: Chronic (3) DVT prophylaxis Status: Acute (4) Anticoagulant long-term use Status: Chronic (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
[2020-06-10] MEDS: PHENYTOIN 100 MG (DILANTIN) CAP PO SCH ×3 (09:40→20:26)
[2020-06-10] MEDS: VENlafaxine 37.5 MG (EFFEXOR) TAB PO SCH (09:40)
[2020-06-10] MEDS: FLUoxetine HCL 20 MG (PROzac) CAP PO SCH (09:41)
[2020-06-10] MEDS: OXYBUTYNIN (DITROPAN) 5 MG TAB PO SCH ×3 (09:41→20:26)
[2020-06-10] MEDS: DOCUSATE SODIUM 100 MG (COLACE) CAP PO SCH ×2 (09:41→20:25)
[2020-06-10] MEDS: polyethylene glycoL POWDER 17 GM (MIRALAX) PACK PO SCH ×2 (09:41→20:25)
[2020-06-10] MEDS: SENNA W/DOCUSATE (SENOKOT S) TABLET PO SCH ×2 (09:41→20:26)
[2020-06-10] MEDS: LACTULOSE SYRUP 10GM/15ML (ENULOSE) 30ML UDC PO SCH ×2 (09:42→20:25)
[2020-06-10] MEDS: ACETAMINOPHEN 325 MG TABLET PO PRN (09:54)
[2020-06-10 17:17] VITALS: BP 132/59
[2020-06-10] MEDS: warFARin 4 MG (COUMADIN) TAB PO SCH (17:54)
[2020-06-10] MEDS: ROSUVASTATIN 10 MG (CRESTOR) TABLET PO SCH (20:26)
[2020-06-10] MEDS: LEVETIRACETAM 500 MG (KEPPRA) TAB PO SCH (20:26)
[2020-06-11 05:47] VITALS: BP 113/54
[2020-06-11 05:49] LABS: BASOPHILS # (AUTO) 0.1 10^3/uL (0.0-0.1); BASOPHILS % (AUTO) 1 % (0-10); EOSINOPHILS % (AUTO) 0 % (0-10); HEMATOCRIT 35 % (35-52); HEMOGLOBIN 10.8 g/dL (11.5-16.0); LYMPHOCYTES # (AUTO) 1.1 10^3/uL (1.0-4.0); LYMPHOCYTES % (AUTO) 9 % (12-44); MEAN CORPUSCULAR HEMOGLOBIN 30 pg (25-34); MEAN CORPUSCULAR HGB CONC 31 g/dL (32-36); MEAN CORPUSCULAR VOLUME 96 fL (80-99); MEAN PLATELET VOLUME 11.6 fL (9.0-12.2); MONOCYTES # (AUTO) 1.5 10^3/uL (0.0-1.0); MONOCYTES % (AUTO) 12 % (0-12); NEUTROPHILS # (AUTO) 9.3 10^3/uL (1.8-7.8); NEUTROPHILS % (AUTO) 76 % (42-75); PLATELET COUNT 316 10^3/uL (130-400); WHITE BLOOD COUNT 12.2 10^3/uL (4.3-11.0)
--- NOTE | 2020-06-11 05:49 | PM&R Progress Note ---
Subjective HPI/CC On Admission Date Seen by Provider: Jun 11, 2020 Time Seen by Provider: 08:30 Subjective/Events-last exam 06/11/20: No major issues Still trying to workout 27/10 caregiver which will be $14,000 a month with her current program she will need a jail placement Overall doing pretty well otherwise 06/10/20: Patient doing well Obtaining more help at the house DC Iron infusion since she had 4/5 doses and the midline was too painful to maintain 06/09/20: Patient improved Getting around well No pain reported Eating well BM INR 2.5 Pressure ulcers managed 06/08/20: Patient doing well INR stable Monitor BP Fall risk 06/07/20: Psychiatry evaluation is done INR is 2.0 today Back on Coumadin Feels like she is making some progress 06/06/20 Pt doing pretty well INR 3.2 Dr. Vora is managing the Coumadin Hgb 10.3 Took a shower today Dressing changes maintained Dr. Srinivasan removed the staple in her ankle Putting her own clothes on 06/05/20: Holding Coumadin due to INR 3.2 Pt doing pretty well Incontinent at times Air bed will help decrease chance of decubitus ulcers Dressing changes every other day [place] are intact Effexor will be started to help motivation Bowels are moving 06/04/20: Pt showered today Pain pill is working pretty well Pain at night is still an issue Midline was ordered for iron infusions INR is 3.3 06/03/20: Patient doing well ICU nurse plaed IV for Venofer but need midline tomorrow Up in chair today Venofer will continue for 5 doses total No BM yet laxatives will be given Oxycodone will be changed to [id number] and DC APAP 06/02/20: Midline will be placed for iron Pain issues discussed BM yesterday Very weak and despondent today 06/01/20: Patient doing well Behavioral consult just completed Pain controlled INR 2.9 BM 05/3105/31/20: Patient doing better Behavioral consult today for depression and statement of suicidal ideation Percocet for pain Dr Vora adjusting Coumadin Pastoral care ordered Review of Systems General: Fatigue Musculoskeletal: leg pain, foot pain Neurological: Weakness Objective Exam Vital Signs Vital Signs Date Time Temp Pulse Resp B/P (MAP) Pulse Ox O2 Delivery O2 Flow Rate FiO2 06/11/20 20:35 Room Air 06/11/20 17:08 102/60 (74) 06/11/20 17:07 37.7 77 16 95 Capillary Refill : Less Than 3 Seconds General Appearance: No Apparent Distress, WD/WN, Chronically ill, Thin HEENT: PERRL/EOMI, Normal ENT Inspection, Pharynx Normal Neck: Full Range of Motion, Normal Inspection, Non Tender, Supple, Carotid Bruit Respiratory: Chest Non Tender, Lungs Clear, Normal Breath Sounds, No Accessory Muscle Use, No Respiratory Distress Cardiovascular: No Edema, No Gallop, No JVD, No Murmur, Normal Peripheral Pulses, Systolic Murmur, Irregularly Irregular Gastrointestinal: Normal Bowel Sounds, No Organomegaly, No Pulsatile Mass, Non Tender, Soft Back: Normal Inspection, No CVA Tenderness, No Vertebral Tenderness Extremity: Normal Capillary Refill, Normal Inspection, Normal Range of Motion, Non Tender, No Calf Tenderness, No Pedal Edema Neurologic/Psychiatric: Alert, Oriented x3, Normal Mood/Affect, Abnormal Gait, Depressed Affect, Motor Weakness Skin: Normal Color, Warm/Dry Lymphatic: No Adenopathy Results/Procedures Lab Laboratory Tests 06/11/20 05:00 Patient resulted labs reviewed. FIM Transfers Therapy Code Descriptions/Definitions Functional [place] Measure: 0=Not Assessed/NA 4=Minimal Assistance 1=Total Assistance 5=Supervision or Setup 2=Maximal Assistance 6=Modified [place] 3=Moderate Assistance 7=Complete IndependenceSCALE: Activities may be completed with or without assistive devices. 4-Lfvvwpgsbe-sdkesvv completes the activity by him/herself with no assistance from a helper. 5-Set-up or Clean-up Assistance-helper sets up or cleans up; patient completes activity. [place] assists only prior to or following the activity. 4-Supervision or Touching Assistance-helper provides verbal cues and/or touching/steadying and/or contact guard assistance as patient completes activity. Assistance may be provided throughout the activity or intermittently. 3-Partial/Moderate Assistance-helper does LESS THAN HALF the effort. [place] lif ts, holds or supports trunk or limbs, but provides less than half the effort. 2-Substantial/Maximal Assistance-helper does MORE THAN HALF the effort. [place] lifts or holds trunk or limbs and provides more than half the effort. 5-Xfijscqpb-fvwizd does ALL the effort. Patient does none of the effort to complete the activity. Or, the assistance of 2 or more helpers is required for the patient to complete the activity. If activity was not attempted, code reason: 7-Patient Refused. 9-Not Applicable-not attempted and the patient did not perform the activity before the current illness, exacerbation or injury. 10-Not Attempted due to Environmental Limitations-(lack of equipment, weather restraints, etc.). 88-Not Attempted due to Medical Conditions or Safety Concerns. Roll Left to Right (QC): 4 Sit to Lying (QC): 4 Sit to Stand (QC): 3 Chair/Xxg-xu-Uehdi Xfer(QC): 3 Car Transfer (QC): 2 Gait Training Does the Patient Walk?: Yes Distance: 20' Walk 10 feet (QC): 3 Walk 50 ft with 2 Turns(QC): 88 Walk 150 ft (QC): 88 Walking 10ft/uneven surface-QC: 88 Gait Persons Needed: 1 (and w/c to follow closely) Gait Assistive Device: Walker Platform Wheelchair Training Does the Pt Use a Wheelchair?: Yes Wheel 50 ft with 2 turns (QC): 4 Wheel 150 ft (QC): 4 Type of Wheelchair: Manual Stair Training 1 Step (curb) (QC): 9 4 Steps (QC): 9 12 Steps (QC): 9 Balance Picking up an Object (QC): 9 ADL-Treatment Eating (QC): 5 (Set up then pt able to use regular utensils to eat.) Oral Hygiene (QC): 6 Shower/Bathe Self (QC): 4 Upper Body Dressing (QC): 5 Lower Body Dressing (QC): 5 On/Off Footwear (QC): 5 Toileting Hygiene (QC): 3 Toilet Transfer (QC): 3 Assessment/Plan Assessment and Plan Assess & Plan/Chief Complaint Assessment: Left tibia fracture s/p repair Prior CVA with right sided weakness chronic Expressive aphasia from prior CVA Mechanical heart valve replacement status OAC with Coumadin AF OP OAB HTN Depression Plan: Pain control Monitor BP INR monitoring IRF protocol 05/31/20: Pain control Psych eval PT OT 06/01/20: Supportive care Pain control Appreciate Cardiology Behavioral consult appreciated 06/02/20: Pain control Improve emotional status 06/03/20: Oxycodone change so DC APAP Venofer Midline 06/04/20: Monitor closely INR 3.3 06/05/20: Monitor INR Fall risk Pain control 06/06/20: Pain controlled Increase ADL's Monitor BP and INR 06/07/20: Complete iron infusions Monitor INR Monitor BP 06/08/20: Monitor INR Fall risk Monitor closely 06/09/20: Monitor INR Pain control Decubitus ulcers 06/10/20: Pain controlled Needs more help at home 06/11/20: Needs 27/10 supervision Needs NHP (1) Fracture, tibia and fibula, shaft Status: Acute (2) Mechanical heart valve present Status: Chronic (3) DVT prophylaxis Status: Acute (4) Anticoagulant long-term use Status: Chronic (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
[2020-06-11 06:01] LABS: CHLORIDE 105 MMOL/L (98-107); POTASSIUM 4.1 MMOL/L (3.6-5.0); SODIUM 135 MMOL/L (135-145)
[2020-06-11 06:02] LABS: CALCIUM 7.8 MG/DL (8.5-10.1)
[2020-06-11 06:03] LABS: GLUCOSE 127 MG/DL (70-105); INR 4.5 (0.8-1.4); PROTHROMBIN TIME PATIENT 42.9 SEC (12.2-14.7); TOTAL PROTEIN 5.9 GM/DL (6.4-8.2)
[2020-06-11 06:04] LABS: CARBON DIOXIDE 20 MMOL/L (21-32)
[2020-06-11 06:05] LABS: BILIRUBIN,TOTAL 0.3 MG/DL (0.1-1.0)
[2020-06-11 06:07] LABS: ALKALINE PHOSPHATASE 119 U/L (40-136); CREATININE SERUM 0.81 MG/DL (0.60-1.30); GFR ESTIMATED > 60
[2020-06-11 06:08] LABS: BUN/CREATININE RATIO 20
[2020-06-11 06:10] LABS: ALANINE AMINOTRANSFERASE 22 U/L (0-55)
[2020-06-11] MEDS: VENlafaxine 37.5 MG (EFFEXOR) TAB PO SCH (08:23)
[2020-06-11] MEDS: FLUoxetine HCL 20 MG (PROzac) CAP PO SCH (08:23)
[2020-06-11] MEDS: OXYBUTYNIN (DITROPAN) 5 MG TAB PO SCH ×3 (08:23→20:28)
[2020-06-11] MEDS: PHENYTOIN 100 MG (DILANTIN) CAP PO SCH ×3 (08:23→20:27)
[2020-06-11] MEDS: polyethylene glycoL POWDER 17 GM (MIRALAX) PACK PO SCH ×2 (10:05→20:34)
[2020-06-11] MEDS: SENNA W/DOCUSATE (SENOKOT S) TABLET PO SCH ×2 (10:05→20:34)
[2020-06-11] MEDS: LACTULOSE SYRUP 10GM/15ML (ENULOSE) 30ML UDC PO SCH ×2 (10:06→20:34)
[2020-06-11] MEDS: DOCUSATE SODIUM 100 MG (COLACE) CAP PO SCH ×2 (10:06→20:34)
--- NOTE | 2020-06-11 10:43 | Occupational Ther Daily Note ---
OT Current Status-Daily Note Subjective Pt alert, sitting in recliner. Pt agrees to therapy. No c/o pain at this time. Mental Status/Objective Patient Orientation: Person, Place, Time, Situation ADL-Treatment Pt agrees to shower. Pt is mod A for all transfers this session. Pt requests to use toilet prior to shower. Pt is able to stand using grabbar and CGA while assist to hike pants over hips. Pt is able to manipulate clothing over feet, independently. Pt complete hygiene sitting on toilet. After set up, pt is able to complete shower sitting on shower bench using grabbars and hand held shower. Pt sits at sink to complete oral care independently. After set up, pt able to don/doff shirt by self. Pt transferred to recliner to complete lower body dressing. Pt able to thread lower body clothing over feet then leaning side to side, pt able to hike pants over hips in sitting. Assist with donning socks due to fatigue. Therapy Code Descriptions/Definitions Functional [place] Measure: 0=Not Assessed/NA 4=Minimal Assistance 1=Total Assistance 5=Supervision or Setup 2=Maximal Assistance 6=Modified [place] 3=Moderate Assistance 7=Complete IndependenceSCALE: Activities may be completed with or without assistive devices. 4-Khvcceyzzj-xpoibue completes the activity by him/herself with no assistance from a helper. 5-Set-up or Clean-up Assistance-helper sets up or cleans up; patient completes activity. [place] assists only prior to or following the activity. 4-Supervision or Touching Assistance-helper provides verbal cues and/or touching/steadying and/or contact guard assistance as patient completes activity. Assistance may be provided throughout the activity or intermittently. 3-Partial/Moderate Assistance-helper does LESS THAN HALF the effort. [place] lifts, holds or supports trunk or limbs, but provides less than half the effort. 2-Substantial/Maximal Assistance-helper does MORE THAN HALF the effort. [place] lifts or holds trunk or limbs and provides more than half the effort. 7-Pirqlepsj-wiunvk does ALL the effort. Patient does none of the effort to complete the activity. Or, the assistance of 2 or more helpers is required for the patient to complete the activity. If activity was not attempted, code reason: 7-Patient Refused. 9-Not Applicable-not attempted and the patient did not perform the activity bef ore the current illness, exacerbation or injury. 10-Not Attempted due to Environmental Limitations-(lack of equipment, weather r estraints, etc.). 88-Not Attempted due to Medical Conditions or Safety Concerns. Oral Hygiene (QC): 6 Shower/Bathe Self (QC): 5 Upper Body Dressing (QC): 5 Lower Body Dressing (QC): 5 Toileting Hygiene (QC): 3 Toilet Transfer (QC): 3 Other Treatment Co-treat with PT ([id number]), skilled care and instruction requires 2 clinicians due to low endurance and decreased balance with ambulation. PT focusing on transfers and ambulation while OT focusing on R UE placement during transfers a nd ambulation. See PT notes for ambulation progress. After session, pt left in care of PT. All needs met. OT Short Term Goals Short Term Goals Eatin Oral hygiene: 5 Toileting hygiene: 3 Shower/bathe self: 3 Upper body dressin Lower body dressin Putting on/taking off footwear: 2 OT Detention Goals Detention Goals Time Frame: Jun 06, 2020 Eating (QC): 5 Oral Hygiene (QC): 5 Toileting Hygiene (QC): 6 Shower/Bathe Self (QC): 5 Upper Body Dressing (QC): 6 Lower Body Dressing (QC): 6 On/Off Footwear (QC): 6 Additional Goals: 1-Demonstrate ADL Tasks, 2-Verbalize Understanding, 3- ImproveStrength/[place] 1=Demonstrate adherence to instructed precautions during ADL tasks. 2=Patient will verbalize/demonstrate understanding of assistive devic es/modifications for ADL. 3=Patient will improve strength/tolerance for activity to enable patient to perform ADL's. OT Education/Plan Problem List/Assessment Assessment: Decreased Activ Tolerance, Impaired Funct Balance, Impaired Self- Care Skills, Restricted Funct UE ROM Discharge Recommendations Plan/Recommendations: Continue POC Treatment Plan/Plan of Care Patient would benefit from OT for education, treatment and training to promote independence in ADL's, mobility, safety and/or upper extremity function for ADL's. Plan of Care: ADL Retraining, Functional Mobility, Group Exercise/Act as Ind, UE Funct Exercise/Act, UE Neuromus Re-Ed/Coord, W/C Management Training Treatment Duration: Jun 13, 2020 Frequency: At least 5 of 7 days/Wk (IRF) Estimated Hrs Per Day: 1.5 hours per day Agreement: Yes Rehab Potential: Good Time/GCodes Start Time: 10:00 Stop Time: 11:30 Total Time Billed (hr/min): 90 Billed Treatment Time 1 visit-ADL 4 (60 min), FA 2 (30 min) co-treat with PT [id number], individual 10-1100 JOSE MANUEL PRINGLE Jun 11, 2020 10:43
--- NOTE | 2020-06-11 12:57 | Physical Therapy Daily Note ---
PT Daily Note-Current Subjective Patient in recliner pre tx, agrees to PT, has no complaints of pain. Will be co-treating with OT due to poor patient mobility, strength, endurance, right hemiparesis, coordinate UE and LE during activity, safety and reduce risk of falls. Appearance Patient in recliner post tx with nurse call, phone, tray, all needs met. Mental Status Patient Orientation: Person, Place, Situation Transfers SCALE: Activities may be completed with or without assistive devices. 7-Vncmxouafh-poydqul completes the activity by him/herself with no assistance from a helper. 5-Set-up or Clean-up Assistance-helper sets up or cleans up; patient completes activity. [place] assists only prior to or following the activity. 4-Supervision or Touching Assistance-helper provides verbal cues and/or touching/steadying and/or contact guard assistance as patient completes activity. Assistance may be provided throughout the activity or intermittently. 3-Partial/Moderate Assistance-helper does LESS THAN HALF the effort. [place] lifts, holds or supports trunk or limbs, but provides less than half the effort. 2-Substantial/Maximal Assistance-helper does MORE THAN HALF the effort. [place] lifts or holds trunk or limbs and provides more than half the effort. 6-Sczytggkn-mydnoi does ALL the effort. Patient does none of the effort to complete the activity. Or, the assistance of 2 or more helpers is required for the patient to complete the activity. If activity was not attempted, code reason: 7-Patient Refused. 9-Not Applicable-not attempted and the patient did not perform the activity before the current illness, exacerbation or injury. 10-Not Attempted due to Environmental Limitations-(lack of equipment, weather restraints, etc.). 88-Not Attempted due to Medical Conditions or Safety Concerns. Sit to Stand (QC): 3 Chair/Xep-dj-Lvjwr Xfer(QC): 3 Patient can perform a stand pivot transfer with mod/min assist and cues for hand placement. Weight Bearing Right Lower Extremity: Right Full Weight Bearing Left Lower Extremity: Left Non Weight Bearing Gait Training Distance: 10', 5'x2 Walk 10 feet (QC): 4 Gait Persons Needed: 1 Gait Assistive Device: FWW WC follow, patient has difficulty clearing right foot off the floor to hop Wheelchair Training Does the Pt Use a Wheelchair?: Yes Wheel 50 ft with 2 turns (QC): 4 Type of Wheelchair: Manual 120'x2 Exercises NuStep Minutes: 15 NuStep Workload: 4 (left LE not used, nor RUE) Treatments PT performed bed mobility and transfers, ambulation, WC mobility, functional strengthening, OT performed UE positioning and safety during ambulation and transfers Assessment Current Status: Fair Progress no change in mobility PT Short Term Goals Short Term Goals Time Frame: Jun 13, 2020 Sit to lyin Lying to sitting on side of be: 6 Sit to stand: 4 Chair/afg-km-umllk transfer: 4 Walk 10 feet: 3 Wheel 50ft w/2 turns: 6 Wheel 150 feet: 4 Type: Manual PT Bone Process Operator Goals Bone Process Operator Goals PT Bone Process Operator Goals Time Frame: Jun 27, 2020 Roll Left & Right (QC): 6 Sit to Lying (QC): 6 Lying-Sitting on Side/Bed(QC): 6 Sit to Stand (QC): 6 Chair/Cpl-yu-Gagmm Xfer(QC): 6 Toilet Transfer (QC): 6 Car Transfer (QC): 5 Does the Patient Walk: No and Walking Goal IS indicated Walk 10 feet (QC): 4 Walk 50ft with 2 Turns (QC): 4 Walk 150 ft (QC): 88 Walking 10ft on Uneven Surface: 88 1 Step (curb) (QC): 9 4 Steps (QC): 9 12 Steps (QC): 9 Picking up an Object (QC): 9 Does the Pt use WC or Scooter?: Yes Wheel 50 feet with 2 turns (QC: 6 Type: Manual Wheel 150 feet: 6 Type: Manual PT Plan Problem List Problem List: Activity Tolerance, Functional Strength, Safety, Balance, Gait, Transfer, Bed Mobility, ROM Treatment/Plan Treatment Plan: Continue Plan of Care Treatment Plan: Bed Mobility, Education, Functional Activity Francy, Functional Strength, Group Therapy, Gait, Safety, Therapeutic Exercise, Transfers Treatment Duration: Jun 27, 2020 Frequency: At least 5 of 7 days/Wk (IRF) Estimated Hrs Per Day: 1.5 hours per day Patient and/or Family Agrees t: Yes Safety Risks/Education Patient Education: Gait Training, Transfer Techniques, Reviewed Precautions, Correct Positioning, W/C Management, Safety Issues Teaching Recipient: Patient Teaching Methods: Demonstration, Discussion Response to Teaching: Reinforcement Needed Time/GCodes Time In: 1100 Time Out: 1200 Total Billed Treatment Time: 60 Total Billed Treatment 1 visit GT 30' WCH 15' EX 15' MAURICIO POLANCO PT Jun 11, 2020 12:57
--- NOTE | 2020-06-11 15:01 | Physical Therapy Daily Note ---
PT Daily Note-Current Subjective Patient in recliner pre tx, agrees to PT, has no complaints of pain. Appearance Patient in recliner post tx with nurse call, phone, tray, legs elevated, all needs met. Mental Status Patient Orientation: Person, Place, Situation Transfers SCALE: Activities may be completed with or without assistive devices. 2-Pqmsqrxoxk-sflamyu completes the activity by him/herself with no assistance from a helper. 5-Set-up or Clean-up Assistance-helper sets up or cleans up; patient completes activity. [place] assists only prior to or following the activity. 4-Supervision or Touching Assistance-helper provides verbal cues and/or touching/steadying and/or contact guard assistance as patient completes activity. Assistance may be provided throughout the activity or intermittently. 3-Partial/Moderate Assistance-helper does LESS THAN HALF the effort. [place] lifts, holds or supports trunk or limbs, but provides less than half the effort. 2-Substantial/Maximal Assistance-helper does MORE THAN HALF the effort. [place] lifts or holds trunk or limbs and provides more than half the effort. 3-Xaziptqhk-bvhycr does ALL the effort. Patient does none of the effort to complete the activity. Or, the assistance of 2 or more helpers is required for the patient to complete the activity. If activity was not attempted, code reason: 7-Patient Refused. 9-Not Applicable-not attempted and the patient did not perform the activity before the current illness, exacerbation or injury. 10-Not Attempted due to Environmental Limitations-(lack of equipment, weather restraints, etc.). 88-Not Attempted due to Medical Conditions or Safety Concerns. Sit to Stand (QC): 3 Chair/Pac-ce-Bofko Xfer(QC): 3 Weight Bearing Right Lower Extremity: Right Full Weight Bearing Left Lower Extremity: Left Non Weight Bearing Gait Training Distance: 5'x3 Gait Persons Needed: 1 Gait Assistive Device: Walker Platform very fatigued this afternoon, cannot clear floor, slides foot forward Wheelchair Training Does the Pt Use a Wheelchair?: Yes Wheel 50 ft with 2 turns (QC): 3 Type of Wheelchair: Manual 120'x2 Treatments transfers, ambulation, WC mobility Assessment Current Status: Poor Progress no change in mobility PT Short Term Goals Short Term Goals Time Frame: Jun 13, 2020 Sit to lyin Lying to sitting on side of be: 6 Sit to stand: 4 Chair/qlk-at-skaib transfer: 4 Walk 10 feet: 3 Wheel 50ft w/2 turns: 6 Wheel 150 feet: 4 Type: Manual PT Retirement Goals Retirement Goals PT Patient Care Technician Instructor Goals Time Frame: Jun 27, 2020 Roll Left & Right (QC): 6 Sit to Lying (QC): 6 Lying-Sitting on Side/Bed(QC): 6 Sit to Stand (QC): 6 Chair/Pkh-yw-Wsglo Xfer(QC): 6 Toilet Transfer (QC): 6 Car Transfer (QC): 5 Does the Patient Walk: No and Walking Goal IS indicated Walk 10 feet (QC): 4 Walk 50ft with 2 Turns (QC): 4 Walk 150 ft (QC): 88 Walking 10ft on Uneven Surface: 88 1 Step (curb) (QC): 9 4 Steps (QC): 9 12 Steps (QC): 9 Picking up an Object (QC): 9 Does the Pt use WC or Scooter?: Yes Wheel 50 feet with 2 turns (QC: 6 Type: Manual Wheel 150 feet: 6 Type: Manual PT Plan Problem List Problem List: Activity Tolerance, Functional Strength, Safety, Balance, Gait, Transfer, Bed Mobility, ROM Treatment/Plan Treatment Plan: Continue Plan of Care Treatment Plan: Bed Mobility, Education, Functional Activity Francy, Functional Strength, Group Therapy, Gait, Safety, Therapeutic Exercise, Transfers Treatment Duration: Jun 27, 2020 Frequency: At least 5 of 7 days/Wk (IRF) Estimated Hrs Per Day: 1.5 hours per day Patient and/or Family Agrees t: Yes Safety Risks/Education Patient Education: Gait Training, Transfer Techniques, Correct Positioning, W/C Management, Safety Issues Teaching Recipient: Patient Teaching Methods: Demonstration, Discussion Response to Teaching: Reinforcement Needed Time/GCodes Time In: 1430 Time Out: 1500 Total Billed Treatment Time: 30 Total Billed Treatment 1 visit FA 30' MAURICIO POLANCO PT Jun 11, 2020 15:01
[2020-06-11 17:07] VITALS: BP 84/44
[2020-06-11 17:08] VITALS: BP 102/60
[2020-06-11] MEDS: LEVETIRACETAM 500 MG (KEPPRA) TAB PO SCH (20:27)
[2020-06-11] MEDS: ROSUVASTATIN 10 MG (CRESTOR) TABLET PO SCH (20:28)
[2020-06-11] MEDS: MELATONIN 3 MG TABLET PO PRN (20:31)
[2020-06-12 05:21] LABS: INR 3.7 (0.8-1.4); PROTHROMBIN TIME PATIENT 37.2 SEC (12.2-14.7)
--- NOTE | 2020-06-12 05:22 | PM&R Progress Note ---
Subjective HPI/CC On Admission Date Seen by Provider: Jun 12, 2020 Time Seen by Provider: 08:00 Subjective/Events-last exam 06/12/20: No major issues Still having difficulties about having to go to a alf INR is 3.7, will notify cardiology 06/11/20: No major issues Still trying to workout 27/10 caregiver which will be $14,000 a month with her current program she will need a alf placement Overall doing pretty well otherwise 06/10/20: Patient doing well Obtaining more help at the house DC Iron infusion since she had 4/5 doses and the midline was too painful to maintain 06/09/20: Patient improved Getting around well No pain reported Eating well BM INR 2.5 Pressure ulcers managed 06/08/20: Patient doing well INR stable Monitor BP Fall risk 06/07/20: Psychiatry evaluation is done INR is 2.0 today Back on Coumadin Feels like she is making some progress 06/06/20 Pt doing pretty well INR 3.2 Dr. Vora is managing the Coumadin Hgb 10.3 Took a shower today Dressing changes maintained Dr. Srinivasan removed the staple in her ankle Putting her own clothes on 06/05/20: Holding Coumadin due to INR 3.2 Pt doing pretty well Incontinent at times Air bed will help decrease chance of decubitus ulcers Dressing changes every other day [place] are intact Effexor will be started to help motivation Bowels are moving 06/04/20: Pt showered today Pain pill is working pretty well Pain at night is still an issue Midline was ordered for iron infusions INR is 3.3 06/03/20: Patient doing well ICU nurse plaed IV for Venofer but need midline tomorrow Up in chair today Venofer will continue for 5 doses total No BM yet laxatives will be given Oxycodone will be changed to [id number] and DC APAP 06/02/20: Midline will be placed for iron Pain issues discussed BM yesterday Very weak and despondent today 06/01/20: Patient doing well Behavioral consult just completed Pain controlled INR 2.9 BM 05/3105/31/20: Patient doing better Behavioral consult today for depression and statement of suicidal ideation Percocet for pain Dr Vora adjusting Coumadin Pastoral care ordered Review of Systems General: Fatigue Neurological: Weakness Objective Exam Vital Signs Vital Signs Date Time Temp Pulse Resp B/P (MAP) Pulse Ox O2 Delivery O2 Flow Rate FiO2 06/12/20 21:00 Room Air 06/12/20 18:03 37.2 80 18 110/56 (74) 96 Capillary Refill : Less Than 3 Seconds General Appearance: No Apparent Distress, WD/WN, Chronically ill, Thin HEENT: PERRL/EOMI, Normal ENT Inspection, Pharynx Normal Neck: Full Range of Motion, Normal Inspection, Non Tender, Supple, Carotid Bruit Respiratory: Chest Non Tender, Lungs Clear, Normal Breath Sounds, No Accessory Muscle Use, No Respiratory Distress Cardiovascular: No Edema, No Gallop, No JVD, No Murmur, Normal Peripheral Pulses, Systolic Murmur, Irregularly Irregular Gastrointestinal: Normal Bowel Sounds, No Organomegaly, No Pulsatile Mass, Non Tender, Soft Back: Normal Inspection, No CVA Tenderness, No Vertebral Tenderness Extremity: Normal Capillary Refill, Normal Inspection, Normal Range of Motion, Non Tender, No Calf Tenderness, No Pedal Edema Neurologic/Psychiatric: Alert, Oriented x3, Normal Mood/Affect, Abnormal Gait, Depressed Affect, Motor Weakness Skin: Normal Color, Warm/Dry Lymphatic: No Adenopathy Results/Procedures Lab Patient resulted labs reviewed. FIM Transfers Therapy Code Descriptions/Definitions Functional [place] Measure: 0=Not Assessed/NA 4=Minimal Assistance 1=Total Assistance 5=Supervision or Setup 2=Maximal Assistance 6=Modified [place] 3=Moderate Assistance 7=Complete IndependenceSCALE: Activities may be completed with or without assistive devices. 9-Fqbflsfymn-jdvfgbj completes the activity by him/herself with no assistance from a helper. 5-Set-up or Clean-up Assistance-helper sets up or cleans up; patient completes activity. [place] assists only prior to or following the activity. 4-Supervision or Touching Assistance-helper provides verbal cues and/or touching/steadying and/or contact guard assistance as patient completes activity. Assistance may be provided throughout the activity or intermittently. 3-Partial/Moderate Assistance-helper does LESS THAN HALF the effort. [place] lifts, holds or supports trunk or limbs, but provides less than half the effort. 2-Substantial/Maximal Assistance-helper does MORE THAN HALF the effort. [place] lifts or holds trunk or limbs and provides more than half the effort. 4-Vsayirlif-guduvt does ALL the effort. Patient does none of the effort to complete the activity. Or, the assistance of 2 or more helpers is required for the patient to complete the activity. If activity was not attempted, code reason: 7-Patient Refused. 9-Not Applicable-not attempted and the patient did not perform the activity b efore the current illness, exacerbation or injury. 10-Not Attempted due to Environmental Limitations-(lack of equipment, weather restraints, etc.). 88-Not Attempted due to Medical Conditions or Safety Concerns. Roll Left to Right (QC): 4 Sit to Lying (QC): 4 Sit to Stand (QC): 3 Chair/Szm-up-Ulllj Xfer(QC): 3 Car Transfer (QC): 2 Gait Training Does the Patient Walk?: Yes Distance: 5'x3 Walk 10 feet (QC): 4 Walk 50 ft with 2 Turns(QC): 88 Walk 150 ft (QC): 88 Walking 10ft/uneven surface-QC: 88 Gait Persons Needed: 1 Gait Assistive Device: Walker Platform Wheelchair Training Does the Pt Use a Wheelchair?: Yes Wheel 50 ft with 2 turns (QC): 3 Wheel 150 ft (QC): 4 Type of Wheelchair: Manual Stair Training 1 Step (curb) (QC): 9 4 Steps (QC): 9 12 Steps (QC): 9 Balance Picking up an Object (QC): 9 ADL-Treatment Eating (QC): 5 (Set up then pt able to use regular utensils to eat.) Oral Hygiene (QC): 6 Shower/Bathe Self (QC): 5 Upper Body Dressing (QC): 5 Lower Body Dressing (QC): 5 On/Off Footwear (QC): 5 Toileting Hygiene (QC): 3 Toilet Transfer (QC): 3 Assessment/Plan Assessment and Plan Assess & Plan/Chief Complaint Assessment: Left tibia fracture s/p repair Prior CVA with right sided weakness chronic Expressive aphasia from prior CVA Mechanical heart valve replacement status OAC with Coumadin AF OP OAB HTN Depression Plan: Pain control Monitor BP INR monitoring IRF protocol 05/31/20: Pain control Psych eval PT OT 06/01/20: Supportive care Pain control Appreciate Cardiology Behavioral consult appreciated 06/02/20: Pain control Improve emotional status 06/03/20: Oxycodone change so DC APAP Venofer Midline 06/04/20: Monitor closely INR 3.3 06/05/20: Monitor INR Fall risk Pain control 06/06/20: Pain controlled Increase ADL's Monitor BP and INR 06/07/20: Complete iron infusions Monitor INR Monitor BP 06/08/20: Monitor INR Fall risk Monitor closely 06/09/20: Monitor INR Pain control Decubitus ulcers 06/10/20: Pain controlled Needs more help at home 06/11/20: Needs 27/10 supervision Needs NHP 06/12/20: NHP required Monitor closely (1) Fracture, tibia and fibula, shaft Status: Acute (2) Mechanical heart valve present Status: Chronic (3) DVT prophylaxis Status: Acute (4) Anticoagulant long-term use Status: Chronic (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
[2020-06-12 05:25] VITALS: BP 96/52
[2020-06-12] MEDS: OXYBUTYNIN (DITROPAN) 5 MG TAB PO SCH ×3 (09:28→21:22)
[2020-06-12] MEDS: FLUoxetine HCL 20 MG (PROzac) CAP PO SCH (09:28)
[2020-06-12] MEDS: DOCUSATE SODIUM 100 MG (COLACE) CAP PO SCH ×2 (09:28→21:22)
[2020-06-12] MEDS: PHENYTOIN 100 MG (DILANTIN) CAP PO SCH ×3 (09:28→21:23)
[2020-06-12] MEDS: VENlafaxine 37.5 MG (EFFEXOR) TAB PO SCH (09:28)
[2020-06-12] MEDS: polyethylene glycoL POWDER 17 GM (MIRALAX) PACK PO SCH ×2 (09:29→21:34)
[2020-06-12] MEDS: SENNA W/DOCUSATE (SENOKOT S) TABLET PO SCH ×2 (09:29→21:23)
[2020-06-12] MEDS: LACTULOSE SYRUP 10GM/15ML (ENULOSE) 30ML UDC PO SCH ×2 (09:29→21:23)
--- NOTE | 2020-06-12 10:58 | Physical Therapy Daily Note ---
PT Daily Note-Current Subjective Patient in recliner pre tx, agrees to PT, says she still has some soreness in her left arm. Appearance Patient in recliner post tx with nurse call, phone, tray, all needs met, legs elevated Mental Status Patient Orientation: Person, Place, Situation Transfers SCALE: Activities may be completed with or without assistive devices. 7-Refbzmtsxg-vszkyum completes the activity by him/herself with no assistance from a helper. 5-Set-up or Clean-up Assistance-helper sets up or cleans up; patient completes activity. [place] assists only prior to or following the activity. 4-Supervision or Touching Assistance-helper provides verbal cues and/or touching/steadying and/or contact guard assistance as patient completes activity. Assistance may be provided throughout the activity or intermittently. 3-Partial/Moderate Assistance-helper does LESS THAN HALF the effort. [place] lifts, holds or supports trunk or limbs, but provides less than half the effort. 2-Substantial/Maximal Assistance-helper does MORE THAN HALF the effort. [place] lifts or holds trunk or limbs and provides more than half the effort. 5-Xlncyujrq-yavlzf does ALL the effort. Patient does none of the effort to complete the activity. Or, the assistance of 2 or more helpers is required for the patient to complete the activity. If activity was not attempted, code reason: 7-Patient Refused. 9-Not Applicable-not attempted and the patient did not perform the activity before the current illness, exacerbation or injury. 10-Not Attempted due to Environmental Limitations-(lack of equipment, weather restraints, etc.). 88-Not Attempted due to Medical Conditions or Safety Concerns. Sit to Stand (QC): 3 Chair/Xiw-yx-Vfesl Xfer(QC): 3 Weight Bearing Right Lower Extremity: Right Full Weight Bearing Left Lower Extremity: Left Non Weight Bearing Gait Training Distance: 10'x2, 5' Walk 10 feet (QC): 3 Gait Assistive Device: Walker Platform WC follow Wheelchair Training Does the Pt Use a Wheelchair?: Yes Wheel 50 ft with 2 turns (QC): 4 Type of Wheelchair: Manual 120'x2 Exercises NuStep Minutes: 15 NuStep Workload: 4 (LLE not used) Treatments transfers, ambulation, WC mobility, functional strengthening Assessment Current Status: Poor Progress no change in mobility but she was able to clear the floor with her right foot a little more today, she is compliant with NWB on the left leg. PT Short Term Goals Short Term Goals Time Frame: Jun 13, 2020 Sit to lyin Lying to sitting on side of be: 6 Sit to stand: 4 Chair/rjx-kg-trwji transfer: 4 Walk 10 feet: 3 Wheel 50ft w/2 turns: 6 Wheel 150 feet: 4 Type: Manual PT Custodial Goals Branch Sales And Service Representative Goals PT Branch Sales And Service Representative Goals Time Frame: Jun 27, 2020 Roll Left & Right (QC): 6 Sit to Lying (QC): 6 Lying-Sitting on Side/Bed(QC): 6 Sit to Stand (QC): 6 Chair/Dfj-vj-Dhscr Xfer(QC): 6 Toilet Transfer (QC): 6 Car Transfer (QC): 5 Does the Patient Walk: No and Walking Goal IS indicated Walk 10 feet (QC): 4 Walk 50ft with 2 Turns (QC): 4 Walk 150 ft (QC): 88 Walking 10ft on Uneven Surface: 88 1 Step (curb) (QC): 9 4 Steps (QC): 9 12 Steps (QC): 9 Picking up an Object (QC): 9 Does the Pt use WC or Scooter?: Yes Wheel 50 feet with 2 turns (QC: 6 Type: Manual Wheel 150 feet: 6 Type: Manual PT Plan Problem List Problem List: Activity Tolerance, Functional Strength, Safety, Balance, Gait, Transfer, Bed Mobility, ROM Treatment/Plan Treatment Plan: Continue Plan of Care Treatment Plan: Bed Mobility, Education, Functional Activity Francy, Functional Strength, Group Therapy, Gait, Safety, Therapeutic Exercise, Transfers Treatment Duration: Jun 27, 2020 Frequency: At least 5 of 7 days/Wk (IRF) Estimated Hrs Per Day: 1.5 hours per day Patient and/or Family Agrees t: Yes Safety Risks/Education Patient Education: Gait Training, Transfer Techniques, Correct Positioning, W/C Management, Safety Issues Teaching Recipient: Patient Teaching Methods: Demonstration, Discussion Response to Teaching: Reinforcement Needed Time/GCodes Time In: 1000 Time Out: 1100 Total Billed Treatment Time: 60 Total Billed Treatment 1 visit EX 15' GT 30' W[facility] 15' MAURICIO POLANCO PT Jun 12, 2020 10:58
--- NOTE | 2020-06-12 11:05 | Occupational Ther Daily Note ---
OT Current Status-Daily Note Subjective Pt alert, sitting in recliner. Pt agrees to therapy. No c/o pain at this time. Mental Status/Objective Patient Orientation: Person, Place, Time, Situation ADL-Treatment 1st session ([id number]) Pt declines shower and changing lower body clothing. Pt agrees to oral care and changing upper body clothing. Pt propelled w/c to/from bathroom to complete oral care and grooming independently. Pt retrieved clothing from counter using w/c and donned/doffed shirt by self. Pt required set up for meal then uses regular utensils to eat. Pt is very frustrated with having to pay for and have 24/7 care at home. Pt takes increased time to com plete all tasks. After session, pt sitting in recliner with call light/phone in reach. All needs met in room. 2nd session ([id number]) Pt very upset about news of the new plan and placement. Pt verbalizing fears and frustration and would like to talk to Pastor Walter. Discussed the things that pt will need to work on to be able to be independent to go home. After therapy, pt sitting in recliner with call light/phone in reach. Nrsg aware of pt's request for talking to the assistant foreman service ([place]). Therapy Code Descriptions/Definitions Functional [place] Measure: 0=Not Assessed/NA 4=Minimal Assistance 1=Total Assistance 5=Supervision or Setup 2=Maximal Assistance 6=Modified [place] 3=Moderate Assistance 7=Complete IndependenceSCALE: Activities may be completed with or without assistive devices. 4-Pgyxvuwdkh-jsnlphv completes the activity by him/herself with no assistance from a helper. 5-Set-up or Clean-up Assistance-helper sets up or cleans up; patient completes activity. [place] assists only prior to or following the activity. 4-Supervision or Touching Assistance-helper provides verbal cues and/or touching/steadying and/or contact guard assistance as patient completes activity. Assistance may be provided throughout the activity or intermittently. 3-Partial/Moderate Assistance-helper does LESS THAN HALF the effort. [place] lifts, holds or supports trunk or limbs, but provides less than half the effort. 2-Substantial/Maximal Assistance-helper does MORE THAN HALF the effort. [place] lifts or holds trunk or limbs and provides more than half the effort. 7-Ryegzfoyb-enmpxd does ALL the effort. Patient does none of the effort to complete the activity. Or, the assistance of 2 or more helpers is required for the patient to complete the activity. If activity was not attempted, code reason: 7-Patient Refused. 9-Not Applicable-not attempted and the patient did not perform the activity before the current illness, exacerbation or injury. 10-Not Attempted due to Environmental Limitations-(lack of equipment, weather restraints, etc.). 88-Not Attempted due to Medical Conditions or Safety Concerns. OT Short Term Goals Short Term Goals Eatin Oral hygiene: 5 Toileting hygiene: 3 Shower/bathe self: 3 Upper body dressin Lower body dressin Putting on/taking off footwear: 2 OT [facility] Goals Steamfitter Supervisor Goals Time Frame: Jun 06, 2020 Eating (QC): 5 Oral Hygiene (QC): 5 Toileting Hygiene (QC): 6 Shower/Bathe Self (QC): 5 Upper Body Dressing (QC): 6 Lower Body Dressing (QC): 6 On/Off Footwear (QC): 6 Additional Goals: 1-Demonstrate ADL Tasks, 2-Verbalize Understanding, 3- ImproveStrength/[place] 1=Demonstrate adherence to instructed precautions during ADL tasks. 2=Patient will verbalize/demonstrate understanding of assistive devices/modifications for ADL. 3=Patient will improve strength/tolerance for activity to enable patient to perform ADL's. OT Education/Plan Problem List/Assessment Assessment: Decreased Activ Tolerance, Impaired Funct Balance, Impaired Self- Care Skills Discharge Recommendations Plan/Recommendations: Continue POC Treatment Plan/Plan of Care Patient would benefit from OT for education, treatment and training to promote independence in ADL's, mobility, safety and/or upper extremity function for ADL's. Plan of Care: ADL Retraining, Functional Mobility, Group Exercise/Act as Ind, UE Funct Exercise/Act, UE Neuromus Re-Ed/Coord, W/C Management Training Treatment Duration: Jun 13, 2020 Frequency: At least 5 of 7 days/Wk (IRF) Estimated Hrs Per Day: 1.5 hours per day Agreement: Yes Rehab Potential: Good Time/GCodes Start Time: 11:00 (1300) Stop Time: 12:00 (1330) Total Time Billed (hr/min): 90 Billed Treatment Time 1 visit-ADL 4 (60 min) 1 visit-FA 2 (30 min) JOSE MANUEL PRINGLE Jun 12, 2020 11:05
--- NOTE | 2020-06-12 14:35 | Physical Therapy Daily Note ---
PT Daily Note-Current Subjective Patient in recliner pre tx, agrees to PT, has no complaints of pain. Patient states she is frustrated with her DC planning. Appearance Patient in recliner post tx with nurse call, phone, tray, legs elevated. Mental Status Patient Orientation: Person, Place, Situation Transfers SCALE: Activities may be completed with or without assistive devices. 7-Qpmuoyqdhx-ccmdrvk completes the activity by him/herself with no assistance from a helper. 5-Set-up or Clean-up Assistance-helper sets up or cleans up; patient completes activity. [place] assists only prior to or following the activity. 4-Supervision or Touching Assistance-helper provides verbal cues and/or touching/steadying and/or contact guard assistance as patient completes act ivity. Assistance may be provided throughout the activity or intermittently. 3-Partial/Moderate Assistance-helper does LESS THAN HALF the effort. [place] lifts, holds or supports trunk or limbs, but provides less than half the effort. 2-Substantial/Maximal Assistance-helper does MORE THAN HALF the effort. [place] lifts or holds trunk or limbs and provides more than half the effort. 8-Dhdrxqxjs-obbwud does ALL the effort. Patient does none of the effort to complete the activity. Or, the assistance of 2 or more helpers is required for the patient to complete the activity. If activity was not attempted, code reason: 7-Patient Refused. 9-Not Applicable-not attempted and the patient did not perform the activity before the current illness, exacerbation or injury. 10-Not Attempted due to Environmental Limitations-(lack of equipment, weather restraints, etc.). 88-Not Attempted due to Medical Conditions or Safety Concerns. Sit to Stand (QC): 3 Chair/Lnx-dp-Izjys Xfer(QC): 3 mod assist Weight Bearing Right Lower Extremity: Right Full Weight Bearing Left Lower Extremity: Left Non Weight Bearing Gait Training Distance: 10'x3 Walk 10 feet (QC): 3 Gait Persons Needed: 1 Gait Assistive Device: Walker Platform needs assist with balance and help guiding walker, was able to hop better this afternoon Wheelchair Training Does the Pt Use a Wheelchair?: Yes Wheel 50 ft with 2 turns (QC): 4 Wheel 150 ft (QC): 4 Type of Wheelchair: Manual Treatments transfers, ambulation, WC mobility Assessment Current Status: Fair Progress improved ambulation PT Short Term Goals Short Term Goals Time Frame: Jun 13, 2020 Sit to lyin Lying to sitting on side of be: 6 Sit to stand: 4 Chair/add-uc-rckud transfer: 4 Walk 10 feet: 3 Wheel 50ft w/2 turns: 6 Wheel 150 feet: 4 Type: Manual PT [facility] Goals Director Of Loss Prevention Goals PT Director Of Loss Prevention Goals Time Frame: Jun 27, 2020 Roll Left & Right (QC): 6 Sit to Lying (QC): 6 Lying-Sitting on Side/Bed(QC): 6 Sit to Stand (QC): 6 Chair/Eki-zj-Fazqn Xfer(QC): 6 Toilet Transfer (QC): 6 Car Transfer (QC): 5 Does the Patient Walk: No and Walking Goal IS indicated Walk 10 feet (QC): 4 Walk 50ft with 2 Turns (QC): 4 Walk 150 ft (QC): 88 Walking 10ft on Uneven Surface: 88 1 Step (curb) (QC): 9 4 Steps (QC): 9 12 Steps (QC): 9 Picking up an Object (QC): 9 Does the Pt use WC or Scooter?: Yes Wheel 50 feet with 2 turns (QC: 6 Type: Manual Wheel 150 feet: 6 Type: Manual PT Plan Treatment/Plan Treatment Plan: Continue Plan of Care Treatment Plan: Bed Mobility, Education, Functional Activity Francy, Functional Strength, Group Therapy, Gait, Safety, Therapeutic Exercise, Transfers Treatment Duration: Jun 27, 2020 Frequency: At least 5 of 7 days/Wk (IRF) Estimated Hrs Per Day: 1.5 hours per day Patient and/or Family Agrees t: Yes Safety Risks/Education Patient Education: Gait Training, Transfer Techniques, Correct Positioning, W/C Management, Safety Issues Teaching Recipient: Patient Teaching Methods: Demonstration, Discussion Response to Teaching: Reinforcement Needed Time/GCodes Time In: 1400 Time Out: 1430 Total Billed Treatment Time: 30 Total Billed Treatment 1 visit GT 20' [facility] 10' MAURICIO POLANCO PT Jun 12, 2020 14:34
[2020-06-12 18:03] VITALS: BP 110/56
[2020-06-12] MEDS: ROSUVASTATIN 10 MG (CRESTOR) TABLET PO SCH (21:22)
[2020-06-12] MEDS: LEVETIRACETAM 500 MG (KEPPRA) TAB PO SCH (21:23)
[2020-06-13] MEDS: ACETAMINOPHEN 325 MG TABLET PO PRN (04:02)
[2020-06-13 05:43] LABS: INR 2.3 (0.8-1.4); PROTHROMBIN TIME PATIENT 25.5 SEC (12.2-14.7)
[2020-06-13 06:11] VITALS: BP 126/61
--- NOTE | 2020-06-13 08:25 | Occupational Ther Daily Note ---
OT Current Status-Daily Note Subjective Pt lying in bed, alert. Pt agrees to therapy. No c/o pain at this time. Pt appears depressed. Mental Status/Objective Patient Orientation: Person, Place, Time, Situation ADL-Treatment 1 session ([id number])-Pt requires assistance to cut food then uses regular utensils to eat. Pt takes increased time to complete all tasks due to slow processing. After session, pt lying in bed with call light/phone in reach. All needs met in room. 2 session ([id number])-Co-treat with PT ([id number]) skilled care and instruction due to low endurance and fall risk during functional transfers. PT focusing on transfers and OT focusing on B UE placement and safe functional transfers. Pt agrees to shower today. After set up, pt able to complete shower independently sitting on bench and using hand held shower and grabbars. After set up, pt able to complete upper body dressing sitting in w/c. Completes oral care sitting at sink, independently. After transferring back to bed, pt able to complete all lower body dressing by self sitting on bed after setup. Pt independent with bed mobility. After session, pt lying in bed with call light/phone in reach. All needs met in room. Therapy Code Descriptions/Definitions Functional [place] Measure: 0=Not Assessed/NA 4=Minimal Assistance 1=Total Assistance 5=Supervision or Setup 2=Maximal Assistance 6=Modified [place] 3=Moderate Assistance 7=Complete IndependenceSCALE: Activities may be completed with or without assistive devices. 4-Qlioprjgpa-lgbimom completes the activity by him/herself with no assistance from a helper. 5-Set-up or Clean-up Assistance-helper sets up or cleans up; patient completes activity. [place] assists only prior to or following the activity. 4-Supervision or Touching Assistance-helper provides verbal cues and/or touching/steadying and/or contact guard assistance as patient completes activity. Assistance may be provided throughout the activity or intermittently. 3-Partial/Moderate Assistance-helper does LESS THAN HALF the effort. [place] lifts, holds or supports trunk or limbs, but provides less than half the effort. 2-Substantial/Maximal Assistance-helper does MORE THAN HALF the effort. [place] lifts or holds trunk or limbs and provides more than half the effort. 5-Oypwxvboo-wozuyi does ALL the effort. Patient does none of the effort to complete the activity. Or, the assistance of 2 or more helpers is required for the patient to complete the activity. If activity was not attempted, code reason: 7-Patient Refused. 9-Not Applicable-not attempted and the patient did not perform the activity before the current illness, exacerbation or injury. 10-Not Attempted due to Environmental Limitations-(lack of equipment, weather restraints, etc.). 88-Not Attempted due to Medical Conditions or Safety Concerns. Eating (QC): 5 (After assist cutting food and setting up meal, pt uses regular utensils to eat.) Oral Hygiene (QC): 6 Shower/Bathe Self (QC): 5 Upper Body Dressing (QC): 5 Lower Body Dressing (QC): 5 On/Off Footwear: 5 Toileting Hygiene (QC): 3 Toilet Transfer (QC): 3 OT Short Term Goals Short Term Goals Eatin Oral hygiene: 5 Toileting hygiene: 3 Shower/bathe self: 3 Upper body dressin Lower body dressin Putting on/taking off footwear: 2 OT Fdc Goals Performance Engineer Goals Time Frame: Jun 06, 2020 Eating (QC): 5 Oral Hygiene (QC): 5 Toileting Hygiene (QC): 6 Shower/Bathe Self (QC): 5 Upper Body Dressing (QC): 6 Lower Body Dressing (QC): 6 On/Off Footwear (QC): 6 Additional Goals: 1-Demonstrate ADL Tasks, 2-Verbalize Understanding, 3- ImproveStrength/[place] 1=Demonstrate adherence to instructed precautions during ADL tasks. 2=Patient will verbalize/demonstrate understanding of assistive devices/modifications for ADL. 3=Patient will improve strength/tolerance for activity to enable patient to perform ADL's. OT Education/Plan Problem List/Assessment Assessment: Decreased Activ Tolerance, Decreased UE Strength, Impaired Funct Balance, Impaired Self-Care Skills Discharge Recommendations Plan/Recommendations: Continue POC Treatment Plan/Plan of Care Patient would benefit from OT for education, treatment and training to promote independence in ADL's, mobility, safety and/or upper extremity function for ADL's. Plan of Care: ADL Retraining, Functional Mobility, Group Exercise/Act as Ind, UE Funct Exercise/Act, UE Neuromus Re-Ed/Coord, W/C Management Training Treatment Duration: Jun 13, 2020 Frequency: At least 5 of 7 days/Wk (IRF) Estimated Hrs Per Day: 1.5 hours per day Agreement: Yes Rehab Potential: Good Time/GCodes Start Time: 08:15 (1000) Stop Time: 08:45 (1100) Total Time Billed (hr/min): 90 Billed Treatment Time 1 visit-ADL 2 (30 min) [id number], 1 visit-ADL 4 (60 min) co-treat with PT [id number], individual [id number] JOSE MANUEL PRINGLE Jun 13, 2020 08:25
--- NOTE | 2020-06-13 08:38 | PM&R Progress Note ---
Subjective HPI/CC On Admission Date Seen by Provider: Jun 13, 2020 Time Seen by Provider: 08:30 Subjective/Events-last exam 06/13/20: Pt pretty depressed about the snf but wants to go to [facility] Ensure protein will be encouraged Loose bowels moved today INR 3.3 06/12/20: No major issues Still having difficulties about having to go to a snf INR is 3.7, will notify cardiology 06/11/20: No major issues Still trying to workout 27/10 caregiver which will be $14,000 a month with her current program she will need a snf placement Overall doing pretty well otherwise 06/10/20: Patient doing well Obtaining more help at the house DC Iron infusion since she had 4/5 doses and the midline was too painful to maintain 06/09/20: Patient improved Getting around well No pain reported Eating well BM INR 2.5 Pressure ulcers managed 06/08/20: Patient doing well INR stable Monitor BP Fall risk 06/07/20: Psychiatry evaluation is done INR is 2.0 today Back on Coumadin Feels like she is making some progress 06/06/20 Pt doing pretty well INR 3.2 Dr. Vora is managing the Coumadin Hgb 10.3 Took a shower today Dressing changes maintained Dr. Srinivasan removed the staple in her ankle Putting her own clothes on 06/05/20: Holding Coumadin due to INR 3.2 Pt doing pretty well Incontinent at times Air bed will help decrease chance of decubitus ulcers Dressing changes every other day [place] are intact Effexor will be started to help motivation Bowels are moving 06/04/20: Pt showered today Pain pill is working pretty well Pain at night is still an issue Midline was ordered for iron infusions INR is 3.3 06/03/20: Patient doing well ICU nurse plaed IV for Venofer but need midline tomorrow Up in chair today Venofer will continue for 5 doses total No BM yet laxatives will be given Oxycodone will be changed to [id number] and DC APAP 06/02/20: Midline will be placed for iron Pain issues discussed BM yesterday Very weak and despondent today 06/01/20: Patient doing well Behavioral consult just completed Pain controlled INR 2.9 BM 05/3105/31/20: Patient doing better Behavioral consult today for depression and statement of suicidal ideation Percocet for pain Dr Vora adjusting Coumadin Pastoral care ordered Review of Systems General: Fatigue Musculoskeletal: leg pain, foot pain Neurological: Weakness Objective Exam Vital Signs Vital Signs Date Time Temp Pulse Resp B/P (MAP) Pulse Ox O2 Delivery O2 Flow Rate FiO2 06/13/20 20:00 Room Air 06/13/20 17:46 37.4 80 18 109/54 (72) 95 Capillary Refill : Less Than 3 Seconds General Appearance: No Apparent Distress, WD/WN, Chronically ill, Thin HEENT: PERRL/EOMI, Normal ENT Inspection, Pharynx Normal Neck: Full Range of Motion, Normal Inspection, Non Tender, Supple, Carotid Bru it Respiratory: Chest Non Tender, Lungs Clear, Normal Breath Sounds, No Accessory Muscle Use, No Respiratory Distress Cardiovascular: No Edema, No Gallop, No JVD, No Murmur, Normal Peripheral Pulses, Systolic Murmur, Irregularly Irregular Gastrointestinal: Normal Bowel Sounds, No Organomegaly, No Pulsatile Mass, Non Tender, Soft Back: Normal Inspection, No CVA Tenderness, No Vertebral Tenderness Extremity: Normal Capillary Refill, Normal Inspection, Normal Range of Motion, Non Tender, No Calf Tenderness, No Pedal Edema Neurologic/Psychiatric: Alert, Oriented x3, Normal Mood/Affect, Abnormal Gait, Depressed Affect, Motor Weakness Skin: Normal Color, Warm/Dry Lymphatic: No Adenopathy Results/Procedures Lab Patient resulted labs reviewed. FIM Transfers Therapy Code Descriptions/Definitions Functional [place] Measure: 0=Not Assessed/NA 4=Minimal Assistance 1=Total Assistance 5=Supervision or Setup 2=Maximal Assistance 6=Modified [place] 3=Moderate Assistance 7=Complete IndependenceSCALE: Activities may be completed with or without assistive devices. 5-Iutcujtrwp-ykurekr completes the activity by him/herself with no assistance from a helper. 5-Set-up or Clean-up Assistance-helper sets up or cleans up; patient completes activity. [place] assists only prior to or following the activity. 4-Supervision or Touching Assistance-helper provides verbal cues and/or touching/steadying and/or contact guard assistance as patient completes activity. Assistance may be provided throughout the activity or intermittently. 3-Partial/Moderate Assistance-helper does LESS THAN HALF the effort. [place] lifts, holds or supports trunk or limbs, but provides less than half the effort. 2-Substantial/Maximal Assistance-helper does MORE THAN HALF the effort. [place] lifts or holds trunk or limbs and provides more than half the effort. 2-Ltusjuenz-ytwejj does ALL the effort. Patient does none of the effort to complete the activity. Or, the assistance of 2 or more helpers is required for the patient to complete the activity. If activity was not attempted, code reason: 7-Patient Refused. 9-Not Applicable-not attempted and the patient did not perform the activity before the current illness, exacerbation or injury. 10-Not Attempted due to Environmental Limitations-(lack of equipment, weather restraints, etc.). 88-Not Attempted due to Medical Conditions or Safety Concerns. Roll Left to Right (QC): 4 Sit to Lying (QC): 4 Sit to Stand (QC): 3 Chair/Ckg-wi-Pxwhe Xfer(QC): 3 Car Transfer (QC): 2 Gait Training Does the Patient Walk?: Yes Distance: 10'x3 Walk 10 feet (QC): 3 Walk 50 ft with 2 Turns(QC): 88 Walk 150 ft (QC): 88 Walking 10ft/uneven surface-QC: 88 Gait Persons Needed: 1 Gait Assistive Device: Walker Platform Wheelchair Training Does the Pt Use a Wheelchair?: Yes Wheel 50 ft with 2 turns (QC): 4 Wheel 150 ft (QC): 4 Type of Wheelchair: Manual Stair Training 1 Step (curb) (QC): 9 4 Steps (QC): 9 12 Steps (QC): 9 Balance Picking up an Object (QC): 9 ADL-Treatment Eating (QC): 5 (After assist cutting food and setting up meal, pt uses regular utensils to eat.) Oral Hygiene (QC): 6 Shower/Bathe Self (QC): 5 Upper Body Dressing (QC): 5 Lower Body Dressing (QC): 5 On/Off Footwear (QC): 5 Toileting Hygiene (QC): 3 Toilet Transfer (QC): 3 Assessment/Plan Assessment and Plan Assess & Plan/Chief Complaint Assessment: Left tibia fracture s/p repair Prior CVA with right sided weakness chronic Expressive aphasia from prior CVA Mechanical heart valve replacement status OAC with Coumadin AF OP OAB HTN Depression Plan: Pain control Monitor BP INR monitoring IRF protocol 05/31/20: Pain control Psych eval PT OT 06/01/20: Supportive care Pain control Appreciate Cardiology Behavioral consult appreciated 06/02/20: Pain control Improve emotional status 06/03/20: Oxycodone change so DC APAP Venofer Midline 06/04/20: Monitor closely INR 3.3 06/05/20: Monitor INR Fall risk Pain control 06/06/20: Pain controlled Increase ADL's Monitor BP and INR 06/07/20: Complete iron infusions Monitor INR Monitor BP 06/08/20: Monitor INR Fall risk Monitor closely 06/09/20: Monitor INR Pain control Decubitus ulcers 06/10/20: Pain controlled Needs more help at home 06/11/20: Needs 27/10 supervision Needs NHP 06/12/20: NHP required Monitor closely 06/13/20: Monitor pain NHP VCV referral (1) Fracture, tibia and fibula, shaft Status: Acute (2) Mechanical heart valve present Status: Chronic (3) DVT prophylaxis Status: Acute (4) Anticoagulant long-term use Status: Chronic (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
[2020-06-13] MEDS: VENlafaxine 37.5 MG (EFFEXOR) TAB PO SCH (09:42)
[2020-06-13] MEDS: PHENYTOIN 100 MG (DILANTIN) CAP PO SCH ×3 (09:43→20:50)
[2020-06-13] MEDS: FLUoxetine HCL 20 MG (PROzac) CAP PO SCH (09:43)
[2020-06-13] MEDS: OXYBUTYNIN (DITROPAN) 5 MG TAB PO SCH ×3 (09:43→20:51)
[2020-06-13] MEDS: SENNA W/DOCUSATE (SENOKOT S) TABLET PO SCH ×2 (09:45→20:50)
[2020-06-13] MEDS: polyethylene glycoL POWDER 17 GM (MIRALAX) PACK PO SCH ×2 (09:45→20:50)
[2020-06-13] MEDS: DOCUSATE SODIUM 100 MG (COLACE) CAP PO SCH ×2 (09:48→20:50)
[2020-06-13] MEDS: LACTULOSE SYRUP 10GM/15ML (ENULOSE) 30ML UDC PO SCH ×2 (09:48→20:50)
--- NOTE | 2020-06-13 10:18 | Physical Therapy Daily Note ---
PT Daily Note-Current Subjective Pt laying Supine in bed, still working on breakfast upon arrival. Pt is very teary & reports not wanting to DC to SNF. Pain Location: No Pain Reported Mental Status Patient Orientation: Person, Place, Situation Transfers SCALE: Activities may be completed with or without assistive devices. 5-Hvfwwjprds-wxatgyg completes the activity by him/herself with no assistance from a helper. 5-Set-up or Clean-up Assistance-helper sets up or cleans up; patient completes activity. [place] assists only prior to or following the activity. 4-Supervision or Touching Assistance-helper provides verbal cues and/or touching/steadying and/or contact guard assistance as patient completes activity. Assistance may be provided throughout the activity or intermittently. 3-Partial/Moderate Assistance-helper does LESS THAN HALF the effort. [place] lifts, holds or supports trunk or limbs, but provides less than half the effort. 2-Substantial/Maximal Assistance-helper does MORE THAN HALF the effort. [place] lifts or holds trunk or limbs and provides more than half the effort. 8-Kuypyiuca-nxmdbr does ALL the effort. Patient does none of the effort to complete the activity. Or, the assistance of 2 or more helpers is required for the patient to complete the activity. If activity was not attempted, code reason: 7-Patient Refused. 9-Not Applicable-not attempted and the patient did not perform the activity before the current illness, exacerbation or injury. 10-Not Attempted due to Environmental Limitations-(lack of equipment, weather restraints, etc.). 88-Not Attempted due to Medical Conditions or Safety Concerns. Roll Left & Right (QC): 5 Sit to Lying (QC): 5 Lying to Sitting/Side of Bed(Q: 5 Sit to Stand (QC): 3 Chair/Lar-tc-Vbcfw Xfer(QC): 3 Toilet Transfer (QC): 3 Car Transfer (QC): 3 Weight Bearing Right Lower Extremity: Right Full Weight Bearing Left Lower Extremity: Left Non Weight Bearing Wheelchair Training Does the Pt Use a Wheelchair?: Yes Wheel 50 ft with 2 turns (QC): 5 Wheel 150 ft (QC): 5 Type of Wheelchair: Manual Treatments TF to EOB then SPT to [facility]. Pt transfers to toilet with assistance from MACHINE TECHNICIAN due to foot sliding. TF is Mod A. Pt propels [facility] in hallway before completing car transfer with MACHINE TECHNICIAN's assist. Pt returns to room at end of tx to shower with OT. Pt transfers from [facility] to shower bench then OT continues as PT departs. All needs met. Assessment Current Status: Fair Progress Pt visibly upset and breaks down several times during tx about pending DC to SNF. Pt states, "I just don't want to go". PT Short Term Goals Short Term Goals Time Frame: Jun 13, 2020 Sit to lyin Lying to sitting on side of be: 6 Sit to stand: 4 Chair/tte-gq-itdch transfer: 4 Walk 10 feet: 3 Wheel 50ft w/2 turns: 6 Wheel 150 feet: 4 Type: Manual PT Alf Goals Alf Goals PT Alf Goals Time Frame: Jun 27, 2020 Roll Left & Right (QC): 6 Sit to Lying (QC): 6 Lying-Sitting on Side/Bed(QC): 6 Sit to Stand (QC): 6 Chair/Tjp-yb-Giqah Xfer(QC): 6 Toilet Transfer (QC): 6 Car Transfer (QC): 5 Does the Patient Walk: No and Walking Goal IS indicated Walk 10 feet (QC): 4 Walk 50ft with 2 Turns (QC): 4 Walk 150 ft (QC): 88 Walking 10ft on Uneven Surface: 88 1 Step (curb) (QC): 9 4 Steps (QC): 9 12 Steps (QC): 9 Picking up an Object (QC): 9 Does the Pt use WC or Scooter?: Yes Wheel 50 feet with 2 turns (QC: 6 Type: Manual Wheel 150 feet: 6 Type: Manual PT Plan Problem List Problem List: Activity Tolerance, Functional Strength, Transfer Treatment/Plan Treatment Plan: Continue Plan of Care Treatment Plan: Bed Mobility, Education, Functional Activity Francy, Functional Strength, Group Therapy, Gait, Safety, Therapeutic Exercise, Transfers Treatment Duration: Jun 27, 2020 Frequency: At least 5 of 7 days/Wk (IRF) Estimated Hrs Per Day: 1.5 hours per day Patient and/or Family Agrees t: Yes Safety Risks/Education Patient Education: Transfer Techniques, Correct Positioning, Safety Issues Teaching Recipient: Patient Teaching Methods: Discussion Response to Teaching: Verbalize Understanding Time/GCodes Time In: 915 Time Out: 1015 Total Billed Treatment Time: 60 Total Billed Treatment 1, FA x3 (40m) & WC (20m) Co-treat w/OT for 15m, pt seen for co-treat due to activity tolerance and needs for 2 skilled clinicians for coordination of UE & LE. PT focused on transfers & mobility while OT focused on coordination of UE for tasks including transfers. JOSEPH LEVY MACHINE TECHNICIAN Jun 13, 2020 10:18
--- NOTE | 2020-06-13 14:56 | Physical Therapy Daily Note ---
PT Daily Note-Current Subjective Pt laying Supine in bed asleep upon arrival. Pt agrees to PT for Supine Ex. Pain Location: No Pain Reported Mental Status Patient Orientation: Person, Place, Situation Transfers SCALE: Activities may be completed with or without assistive devices. 7-Nradjmpyfc-etqstxf completes the activity by him/herself with no assistance from a helper. 5-Set-up or Clean-up Assistance-helper sets up or cleans up; patient completes activity. [place] assists only prior to or following the activity. 4-Supervision or Touching Assistance-helper provides verbal cues and/or touching/steadying and/or contact guard assistance as patient completes activity. Assistance may be provided throughout the activity or intermittently. 3-Partial/Moderate Assistance-helper does LESS THAN HALF the effort. [place] lifts, holds or supports trunk or limbs, but provides less than half the effort. 2-Substantial/Maximal Assistance-helper does MORE THAN HALF the effort. [place] lifts or holds trunk or limbs and provides more than half the effort. 7-Flvhvprmb-fcldou does ALL the effort. Patient does none of the effort to complete the activity. Or, the assistance of 2 or more helpers is required for the patient to complete the activity. If activity was not attempted, code reason: 7-Patient Refused. 9-Not Applicable-not attempted and the patient did not perform the activity before the current illness, exacerbation or injury. 10-Not Attempted due to Environmental Limitations-(lack of equipment, weather restraints, etc.). 88-Not Attempted due to Medical Conditions or Safety Concerns. Weight Bearing Right Lower Extremity: Right Full Weight Bearing Left Lower Extremity: Left Non Weight Bearing Exercises Supine Ex: Ankle pumps, Quad Set, Glut sets, Heel Slides, Straight leg raise, Hip abd/add Supine Reps: 15 Treatments Pt completes Supine Ex with RB as needed. Pt resting at end of tx with all needs met, call light in hand. Assessment Current Status: Fair Progress Pt is still very down about DC. PT Short Term Goals Short Term Goals Time Frame: Jun 13, 2020 Sit to lyin Lying to sitting on side of be: 6 Sit to stand: 4 Chair/fsx-ot-jpkmv transfer: 4 Walk 10 feet: 3 Wheel 50ft w/2 turns: 6 Wheel 150 feet: 4 Type: Manual PT Wax Pattern Repairer Goals Wax Pattern Repairer Goals PT Shelter Goals Time Frame: Jun 27, 2020 Roll Left & Right (QC): 6 Sit to Lying (QC): 6 Lying-Sitting on Side/Bed(QC): 6 Sit to Stand (QC): 6 Chair/Nkj-hv-Qyrkx Xfer(QC): 6 Toilet Transfer (QC): 6 Car Transfer (QC): 5 Does the Patient Walk: No and Walking Goal IS indicated Walk 10 feet (QC): 4 Walk 50ft with 2 Turns (QC): 4 Walk 150 ft (QC): 88 Walking 10ft on Uneven Surface: 88 1 Step (curb) (QC): 9 4 Steps (QC): 9 12 Steps (QC): 9 Picking up an Object (QC): 9 Does the Pt use WC or Scooter?: Yes Wheel 50 feet with 2 turns (QC: 6 Type: Manual Wheel 150 feet: 6 Type: Manual PT Plan Problem List Problem List: Activity Tolerance, Functional Strength Treatment/Plan Treatment Plan: Continue Plan of Care Treatment Plan: Bed Mobility, Education, Functional Activity Francy, Functional Strength, Group Therapy, Gait, Safety, Therapeutic Exercise, Transfers Treatment Duration: Jun 27, 2020 Frequency: At least 5 of 7 days/Wk (IRF) Estimated Hrs Per Day: 1.5 hours per day Patient and/or Family Agrees t: Yes Safety Risks/Education Patient Education: Correct Positioning, Safety Issues Teaching Recipient: Patient Teaching Methods: Discussion Response to Teaching: Verbalize Understanding Time/GCodes Time In: 1330 Time Out: 1400 Total Billed Treatment Time: 30 Total Billed Treatment 1, EX x2 (30m) JOSEPH LEVY PTA Jun 13, 2020 14:56
[2020-06-13 17:46] VITALS: BP 109/54
[2020-06-13] MEDS: warFARin 4 MG (COUMADIN) TAB PO SCH (18:00)
[2020-06-13] MEDS: ALPRAZolam 0.25 MG (XANAX) TAB PO PRN (18:34)
[2020-06-13] MEDS: LEVETIRACETAM 500 MG (KEPPRA) TAB PO SCH (20:50)
[2020-06-13] MEDS: ROSUVASTATIN 10 MG (CRESTOR) TABLET PO SCH (20:50)
[2020-06-14 05:32] LABS: INR 1.5 (0.8-1.4); PROTHROMBIN TIME PATIENT 18.9 SEC (12.2-14.7)
--- NOTE | 2020-06-14 05:57 | PM&R Progress Note ---
Subjective HPI/CC On Admission Date Seen by Provider: Jun 14, 2020 Time Seen by Provider: 10:15 Subjective/Events-last exam 06/14/20: Improved status DC tomorrow to [facility] on my service 06/13/20: Pt pretty depressed about the group home but wants to go to [facility] Ensure protein will be encouraged Loose bowels moved today INR 3.3 06/12/20: No major issues Still having difficulties about having to go to a group home INR is 3.7, will notify cardiology 06/11/20: No major issues Still trying to workout 27/10 caregiver which will be $14,000 a month with her current program she will need a group home placement Overall doing pretty well otherwise 06/10/20: Patient doing well Obtaining more help at the house DC Iron infusion since she had 4/5 doses and the midline was too painful to maintain 06/09/20: Patient improved Getting around well No pain reported Eating well BM INR 2.5 Pressure ulcers managed 06/08/20: Patient doing well INR stable Monitor BP Fall risk 06/07/20: Psychiatry evaluation is done INR is 2.0 today Back on Coumadin Feels like she is making some progress 06/06/20 Pt doing pretty well INR 3.2 Dr. Vora is managing the Coumadin Hgb 10.3 Took a shower today Dressing changes maintained Dr. Srinivasan removed the staple in her ankle Putting her own clothes on 06/05/20: Holding Coumadin due to INR 3.2 Pt doing pretty well Incontinent at times Air bed will help decrease chance of decubitus ulcers Dressing changes every other day Nick are intact Effexor will be started to help motivation Bowels are moving 06/04/20: Pt showered today Pain pill is working pretty well Pain at night is still an issue Midline was ordered for iron infusions INR is 3.3 06/03/20: Patient doing well ICU nurse plaed IV for Venofer but need midline tomorrow Up in chair today Venofer will continue for 5 doses total No BM yet laxatives will be given Oxycodone will be changed to C3wsfzo and DC APAP 06/02/20: Midline will be placed for iron Pain issues discussed BM yesterday Very weak and despondent today 06/01/20: Patient doing well Behavioral consult just completed Pain controlled INR 2.9 BM 2/25 2/25/21: Patient doing better Behavioral consult today for depression and statement of suicidal ideation Percocet for pain Dr Vora adjusting Coumadin Pastoral care ordered Review of Systems General: Fatigue, Malaise Musculoskeletal: leg pain, foot pain Objective Exam Vital Signs Vital Signs Date Time Temp Pulse Resp B/P (MAP) Pulse Ox O2 Delivery O2 Flow Rate FiO2 06/14/20 20:15 Room Air 06/14/20 18:03 77 96/53 (67) 06/14/20 16:00 36.8 16 96 Capillary Refill : Less Than 3 Seconds General Appearance: No Apparent Distress, WD/WN, Chronically ill, Thin HEENT: PERRL/EOMI, Normal ENT Inspection, Pharynx Normal Neck: Full Range of Motion, Normal Inspection, Non Tender, Supple, Carotid Bruit Respiratory: Chest Non Tender, Lungs Clear, Normal Breath Sounds, No Accessory Muscle Use, No Respiratory Distress Cardiovascular: No Edema, No Gallop, No JVD, No Murmur, Normal Peripheral Pulses, Systolic Murmur, Irregularly Irregular Gastrointestinal: Normal Bowel Sounds, No Organomegaly, No Pulsatile Mass, Non Tender, Soft Back: Normal Inspection, No CVA Tenderness, No Vertebral Tenderness Extremity: Normal Capillary Refill, Normal Inspection, Normal Range of Motion, Non Tender, No Calf Tenderness, No Pedal Edema Neurologic/Psychiatric: Alert, Oriented x3, Normal Mood/Affect, Abnormal Gait, Depressed Affect, Motor Weakness Skin: Normal Color, Warm/Dry Lymphatic: No Adenopathy Results/Procedures Lab Patient resulted labs reviewed. FIM Transfers Therapy Code Descriptions/Definitions Functional [place] Measure: 0=Not Assessed/NA 4=Minimal Assistance 1=Total Assistance 5=Supervision or Setup 2=Maximal Assistance 6=Modified [place] 3=Moderate Assistance 7=Complete IndependenceSCALE: Activities may be completed with or without assistive devices. 3-Nzmdudeuvl-efjulll completes the activity by him/herself with no assistance from a helper. 5-Set-up or Clean-up Assistance-helper sets up or cleans up; patient completes activity. [place] assists only prior to or following the activity. 4-Supervision or Touching Assistance-helper provides verbal cues and/or touching/steadying and/or contact guard assistance as patient completes activity. Assistance may be provided throughout the activity or intermittently. 3-Partial/Moderate Assistance-helper does LESS THAN HALF the effort. [place] lifts, holds or supports trunk or limbs, but provides less than half the effort. 2-Substantial/Maximal Assistance-helper does MORE THAN HALF the effort. [place] lifts or holds trunk or limbs and provides more than half the effort. 7-Geosrwaqi-ebinsi does ALL the effort. Patient does none of the effort to complete the activity. Or, the assistance of 2 or more helpers is required for the patient to complete the activity. If activity was not attempted, code reason: 7-Patient Refused. 9-Not Applicable-not attempted and the patient did not perform the activity before the current illness, exacerbation or injury. 10-Not Attempted due to Environmental Limitations-(lack of equipment, weather restraints, etc.). 88-Not Attempted due to Medical Conditions or Safety Concerns. Roll Left to Right (QC): 5 Sit to Lying (QC): 5 Sit to Stand (QC): 3 Chair/Lkj-gk-Gxzll Xfer(QC): 3 Car Transfer (QC): 3 Gait Training Does the Patient Walk?: Yes Distance: 10'x3 Walk 10 feet (QC): 3 Walk 50 ft with 2 Turns(QC): 88 Walk 150 ft (QC): 88 Walking 10ft/uneven surface-QC: 88 Gait Persons Needed: 1 Gait Assistive Device: Walker Platform Wheelchair Training Does the Pt Use a Wheelchair?: Yes Wheel 50 ft with 2 turns (QC): 5 Wheel 150 ft (QC): 5 Type of Wheelchair: Manual Stair Training 1 Step (curb) (QC): 9 4 Steps (QC): 9 12 Steps (QC): 9 Balance Picking up an Object (QC): 9 ADL-Treatment Eating (QC): 5 (After assist cutting food and setting up meal, pt uses regular utensils to eat.) Oral Hygiene (QC): 6 Shower/Bathe Self (QC): 5 Upper Body Dressing (QC): 5 Lower Body Dressing (QC): 5 On/Off Footwear (QC): 5 Toileting Hygiene (QC): 3 Toilet Transfer (QC): 3 Assessment/Plan Assessment and Plan Assess & Plan/Chief Complaint Assessment: Left tibia fracture s/p repair Prior CVA with right sided weakness chronic Expressive aphasia from prior CVA Mechanical heart valve replacement status OAC with Coumadin AF OP OAB HTN Depression Plan: Pain control Monitor BP INR monitoring IRF protocol 05/31/20: Pain control Psych eval PT OT 06/01/20: Supportive care Pain control Appreciate Cardiology Behavioral consult appreciated 06/02/20: Pain control Improve emotional status 06/03/20: Oxycodone change so DC APAP Venofer Midline 06/04/20: Monitor closely INR 3.3 06/05/20: Monitor INR Fall risk Pain control 06/06/20: Pain controlled Increase ADL's Monitor BP and INR 06/07/20: Complete iron infusions Monitor INR Monitor BP 06/08/20: Monitor INR Fall risk Monitor closely 06/09/20: Monitor INR Pain control Decubitus ulcers 06/10/20: Pain controlled Needs more help at home 06/11/20: Needs 27/10 supervision Needs NHP 06/12/20: NHP required Monitor closely 06/13/20: Monitor pain NHP VCV referral 06/14/20: VCV tomorrow Monitor INR (1) Fracture, tibia and fibula, shaft Status: Acute (2) Mechanical heart valve present Status: Chronic (3) DVT prophylaxis Status: Acute (4) Anticoagulant long-term use Status: Chronic (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
[2020-06-14 06:05] VITALS: BP 104/59
--- NOTE | 2020-06-14 07:34 | Occupational Ther Daily Note ---
OT Current Status-Daily Note Subjective Pt alert, lying in bed. Pt agrees to therapy. No c/o pain. Pt appears depressed. Mental Status/Objective Patient Orientation: Person, Place, Time, Situation ADL-Treatment Pt incontinent of urine. Pt cleaned up in bed, rolling side to side independently, assist to change briefs required. Set up for eating then uses regular utensils to feed self. Co-treat with PT at this time ([id number]), skilled instruction and care requires 2 clinicians due to pt's decrease mobility with transfers and ambulation. PT focusing on transfers, w/c mobility and ambulation while OT focusing on ADLs, functional transfers and B UE placement during mobility. Set up for lower body dressing while pt sat EOB and donned socks and pants by self. Min A for transfer from EOB to w/c. Pt propels w/c to bathroom by self and complete oral care independently. Therapy Code Descriptions/Definitions Functional [place] Measure: 0=Not Assessed/NA 4=Minimal Assistance 1=Total Assistance 5=Supervision or Setup 2=Maximal Assistance 6=Modified [place] 3=Moderate Assistance 7=Complete IndependenceSCALE: Activities may be completed with or without assistive devices. 5-Hddujbxtyq-mlxpgul completes the activity by him/herself with no assistance from a helper. 5-Set-up or Clean-up Assistance-helper sets up or cleans up; patient completes activity. [place] assists only prior to or following the activity. 4-Supervision or Touching Assistance-helper provides verbal cues and/or touching/steadying and/or contact guard assistance as patient completes activity. Assistance may be provided throughout the activity or intermittently. 3-Partial/Moderate Assistance-helper does LESS THAN HALF the effort. [place] lifts, holds or supports trunk or limbs, but provides less than half the effort. 2-Substantial/Maximal Assistance-helper does MORE THAN HALF the effort. [place] lifts or holds trunk or limbs and provides more than half the effort. 6-Sqfeecziw-hhebon does ALL the effort. Patient does none of the effort to complete the activity. Or, the assistance of 2 or more helpers is required for the patient to complete the activity. If activity was not attempted, code reason: 7-Patient Refused. 9-Not Applicable-not attempted and the patient did not perform the activity before the current illness, exacerbation or injury. 10-Not Attempted due to Environmental Limitations-(lack of equipment, weather restraints, etc.). 88-Not Attempted due to Medical Conditions or Safety Concerns. Eating (QC): 5 (After set up, pt able to use regular utensils to eat.) Oral Hygiene (QC): 6 Lower Body Dressing (QC): 5 On/Off Footwear: 5 Other Treatment Pt then propels w/c to [facility] to work on ambulation. Pt requires increased time to complete ambulation with platform walker due to low endurance and need of lengthy recovery breaks. See PT notes for ambulation progress. Pt propelled w/c back to room and requested to change briefs. Pt was incontinent in briefs. Assist to doff briefs then pt was able to cleanse self in sitting. Pt has demonstrated ability to complete lower body dressing by self after setup when sitting though due to time constraints assist to complete task was given. After session, pt sitting in recliner with call light/phone in reach. OT Short Term Goals Short Term Goals Eatin Oral hygiene: 5 Toileting hygiene: 3 Shower/bathe self: 3 Upper body dressin Lower body dressin Putting on/taking off footwear: 2 OT Environmental Engineering Intern Goals Half-Way Goals Time Frame: Jun 06, 2020 Eating (QC): 5 (met) Oral Hygiene (QC): 5 (met) Toileting Hygiene (QC): 6 (not met) Shower/Bathe Self (QC): 5 (met) Upper Body Dressing (QC): 6 (not met) Lower Body Dressing (QC): 6 (not met) On/Off Footwear (QC): 6 (met) Additional Goals: 1-Demonstrate ADL Tasks, 2-Verbalize Understanding, 3- ImproveStrength/[place] 1=Demonstrate adherence to instructed precautions during ADL tasks. 2=Patient will verbalize/demonstrate understanding of assistive devices/modifications for ADL. 3=Patient will improve strength/tolerance for activity to enable patient to perform ADL's. OT Education/Plan Problem List/Assessment Assessment: Decreased Activ Tolerance, Impaired Funct Balance Discharge Recommendations Plan/Recommendations: Continue POC Treatment Plan/Plan of Care Patient would benefit from OT for education, treatment and training to promote independence in ADL's, mobility, safety and/or upper extremity function for ADL's. Plan of Care: ADL Retraining, Functional Mobility, Group Exercise/Act as Ind, UE Funct Exercise/Act, UE Neuromus Re-Ed/Coord, W/C Management Training Treatment Duration: Jun 13, 2020 Frequency: At least 5 of 7 days/Wk (IRF) Estimated Hrs Per Day: 1.5 hours per day Agreement: Yes Rehab Potential: Good Time/GCodes Start Time: 07:30 Stop Time: 09:00 Total Time Billed (hr/min): 90 Billed Treatment Time 1 visit-ADL 3 (45 min) FA 3 (45 min) co-treat with PT [id number], individual [id number] JOSE MANUEL PRINGLE Jun 14, 2020 07:34
[2020-06-14] MEDS: FLUoxetine HCL 20 MG (PROzac) CAP PO SCH (08:07)
[2020-06-14] MEDS: OXYBUTYNIN (DITROPAN) 5 MG TAB PO SCH ×3 (08:07→20:14)
[2020-06-14] MEDS: DOCUSATE SODIUM 100 MG (COLACE) CAP PO SCH ×2 (08:07→20:14)
[2020-06-14] MEDS: PHENYTOIN 100 MG (DILANTIN) CAP PO SCH ×3 (08:07→20:14)
[2020-06-14] MEDS: VENlafaxine 37.5 MG (EFFEXOR) TAB PO SCH (08:07)
[2020-06-14] MEDS: SENNA W/DOCUSATE (SENOKOT S) TABLET PO SCH ×2 (08:07→20:15)
[2020-06-14] MEDS: polyethylene glycoL POWDER 17 GM (MIRALAX) PACK PO SCH ×2 (08:08→20:14)
[2020-06-14] MEDS: LACTULOSE SYRUP 10GM/15ML (ENULOSE) 30ML UDC PO SCH ×2 (08:08→20:14)
--- NOTE | 2020-06-14 09:07 | Physical Therapy Daily Note ---
PT Daily Note-Current Subjective Pt laying Supine in bed upon arrival. Pt agrees to PT/OT co-treat. Pain Location: No Pain Reported Mental Status Patient Orientation: Person, Place, Time, Situation Transfers SCALE: Activities may be completed with or without assistive devices. 6-Quqdhoniqv-rflglpp completes the activity by him/herself with no assistance from a helper. 5-Set-up or Clean-up Assistance-helper sets up or cleans up; patient completes activity. [place] assists only prior to or following the activity. 4-Supervision or Touching Assistance-helper provides verbal cues and/or touching/steadying and/or contact guard assistance as patient completes activity. Assistance may be provided throughout the activity or intermittently. 3-Partial/Moderate Assistance-helper does LESS THAN HALF the effort. [place] lifts, holds or supports trunk or limbs, but provides less than half the effort. 2-Substantial/Maximal Assistance-helper does MORE THAN HALF the effort. [place] lifts or holds trunk or limbs and provides more than half the effort. 8-Gzekuzxkw-kgoalj does ALL the effort. Patient does none of the effort to complete the activity. Or, the assistance of 2 or more helpers is required for the patient to complete the activity. If activity was not attempted, code reason: 7-Patient Refused. 9-Not Applicable-not attempted and the patient did not perform the activity before the current illness, exacerbation or injury. 10-Not Attempted due to Environmental Limitations-(lack of equipment, weather restraints, etc.). 88-Not Attempted due to Medical Conditions or Safety Concerns. Roll Left & Right (QC): 5 Lying to Sitting/Side of Bed(Q: 5 Sit to Stand (QC): 4 Chair/Gbz-qn-Fqwhj Xfer(QC): 4 Toilet Transfer (QC): 4 Weight Bearing Right Lower Extremity: Right Full Weight Bearing Left Lower Extremity: Left Non Weight Bearing Gait Training Does the Patient Walk?: Yes Distance: 10' Walk 10 feet (QC): 3 Walk 50 ft with 2 Turns(QC): 88 Walk 150 ft (QC): 88 Walking 10ft/uneven surface-QC: 88 Gait Persons Needed: 1 Gait Assistive Device: Walker Platform Wheelchair Training Does the Pt Use a Wheelchair?: Yes Wheel 50 ft with 2 turns (QC): 5 Wheel 150 ft (QC): 5 Stair Training 1 Step (curb) (QC): 88 4 Steps (QC): 88 12 Steps (QC): 88 Treatments Co-treat with PT at this time ([id number]), skilled instruction and care requires 2 clinicians due to pt's decrease mobility with transfers and ambulation. PT focusing on transfers, w/c mobility and ambulation while OT focusing on ADLs, functional transfers and B UE placement during mobility. Set up for lower body dressing while pt sat EOB and donned socks and pants by self. Min A for transfer from EOB to w/c. Pt propels w/c to bathroom by self and complete oral care independently. Pt then propels w/c to [facility] area to work on ambulation. Pt requires increased time to complete ambulation with platform walker due to low endurance and need of lengthy recovery breaks. Pt propelled w/c back to room and requested to change briefs. Pt was incontinent in briefs. Assist to doff briefs then pt was able to cleanse self in sitting. Pt has demonstrated ability to complete lower body dressing by self after setup when sitting though due to time constraints assist to complete task was given. After session, pt sitting in recliner with call light/phone in reach. Assessment Current Status: Fair Progress Pt fatigues quickly and needs frequent RB trang. with ambulation. WB status observed but limits ambulation due to fatigue. PT Short Term Goals Short Term Goals Time Frame: Jun 13, 2020 Sit to lyin Lying to sitting on side of be: 6 Sit to stand: 4 Chair/ryo-nb-iswhx transfer: 4 Walk 10 feet: 3 Wheel 50ft w/2 turns: 6 Wheel 150 feet: 4 Type: Manual PT Electronic Video Games Servicer Goals Nursing Home Goals PT Nursing Home Goals Time Frame: Jun 27, 2020 Roll Left & Right (QC): 6 Sit to Lying (QC): 6 Lying-Sitting on Side/Bed(QC): 6 Sit to Stand (QC): 6 Chair/Qoe-vw-Jhjix Xfer(QC): 6 Toilet Transfer (QC): 6 Car Transfer (QC): 5 Does the Patient Walk: No and Walking Goal IS indicated Walk 10 feet (QC): 4 Walk 50ft with 2 Turns (QC): 4 Walk 150 ft (QC): 88 Walking 10ft on Uneven Surface: 88 1 Step (curb) (QC): 9 4 Steps (QC): 9 12 Steps (QC): 9 Picking up an Object (QC): 9 Does the Pt use WC or Scooter?: Yes Wheel 50 feet with 2 turns (QC: 6 Type: Manual Wheel 150 feet: 6 Type: Manual PT Plan Problem List Problem List: Activity Tolerance, Functional Strength, Gait, Transfer Treatment/Plan Treatment Plan: Continue Plan of Care Treatment Plan: Bed Mobility, Education, Functional Activity Francy, Functional Strength, Group Therapy, Gait, Safety, Therapeutic Exercise, Transfers Treatment Duration: Jun 27, 2020 Frequency: At least 5 of 7 days/Wk (IRF) Estimated Hrs Per Day: 1.5 hours per day Patient and/or Family Agrees t: Yes Safety Risks/Education Patient Education: Gait Training, Transfer Techniques, Correct Positioning, Safety Issues Teaching Recipient: Patient Teaching Methods: Discussion Response to Teaching: Verbalize Understanding Time/GCodes Time In: 800 Time Out: 900 Total Billed Treatment Time: 60 Total Billed Treatment 1, FA x2 (30m), [facility] (15m) & GT (15m) Co-treat w/OT for 60m (800-900) JOSEPH LEVY TRAFFIC OR SYSTEM DISPATCHER Jun 14, 2020 09:07
--- NOTE | 2020-06-14 10:36 | Behavioral Health Consult ---
Consult- Consult Date Seen by Provider: Jun 14, 2020 Time Seen by Provider: 09:00 CPT Code: 61083 Psychotherapy (Session length 17-37min.) Start Time: 9:00 am End Time: 9:30 am Duration: 30 minutes Subjective: Yoko, a 80-year-old female, is seen today for individual psychothe rapy to address concerns and symptoms associated with F33.2 Major Depressive Disorder, Recurrent, Severe. The primary clinical themes and problems discussed during the appointment were her mood and family. She reported she had a breakdown last night and talked with her flnsdl-ve-ayz last night and this morning. She stated she knows she should not have doubted her [id number]. She reported she will be going to the skilled nursing, but she is hoping it will be a transitional step and that she will eventually go home. She stated her mood has been down because of going to the skilled nursing, but she is trying to think positive. She was not as talkative today and appeared tired. She was falling asleep, so we ended the session a little early. She asked therapist to come back and see her and therapist explained that she would if she was still in the hospital next week. Overall symptoms observed or reported requiring current level of care included anergia, depressed mood, grief, medical problems, sleep disturbance (onset delay/easily awakened), and worry. Relevant changes in medical status: none reported, observed, or indicated. Current report of any problems with pain: none reported, observed, or indicated. Pain rating: n/a. Any changes or additions to medications: none reported. Current self-destructive behavior patterns/risk factors reported or indicated during session: none indicated. Level of functioning was average. Objective: Yoko was sitting in a chair in her room when therapist arrived. Yoko was oriented to person, place, time, and situation. Overall appearance was appropriately dressed and groomed. [facility] approach to the session was cooperative. Mood was depressed with affect appropriate to expressed concerns and presenting problem. Eye contact was fair. Tone of voice was normal and controlled. Speech showed word finding difficulties. Thought processes were appropriate and focused during the appointment. Thought content was marked by no abnormal findings. Psychomotor functioning was within normal limits. Insight was average. Concentration was good. [facility] style of interacting during the appointment was appropriate and motivated. Assessment: Interventions utilized during todays appointment included active listening and cognitive-behavioral therapy. The current long-term goal of treatment is unchanged from the initial evaluation and plan of treatment. Concerning progress to this point in treatment, Yoko appears to be making average progress towards treatment goals from observations during todays appointment. Yoko appeared to have some deterioration in emotional functioning since the last appointment. Overall, a/an high level of motivation was displayed towards treatment goals. Ykoos capacity to make changes/decisions is good. Overall, prognosis is good. Diagnostic Impressions (ICD-10): F33.2 Major Depressive Disorder, Recurrent, Severe Plan: The appointment ended on time. The current treatment/therapy plan will continue for the present time without significant modification. Yoko will need to be scheduled for follow up psychotherapy appointments with [facility] or Dr. Salomon at [facility] as this provider is not covered by Medicare. PALMIRA AMAYA Jun 14, 2020 10:36
--- NOTE | 2020-06-14 13:57 | Physical Therapy Daily Note ---
PT Daily Note-Current Subjective Pt sitting in recliner upon arrival. Pt agrees to PT but asked to lay in bed. Pain Location: No Pain Reported Mental Status Patient Orientation: Person, Place, Situation Transfers SCALE: Activities may be completed with or without assistive devices. 2-Vrxukxakjs-rrralds completes the activity by him/herself with no assistance f rom a helper. 5-Set-up or Clean-up Assistance-helper sets up or cleans up; patient completes activity. [place] assists only prior to or following the activity. 4-Supervision or Touching Assistance-helper provides verbal cues and/or touching/steadying and/or contact guard assistance as patient completes activity. Assistance may be provided throughout the activity or intermittently. 3-Partial/Moderate Assistance-helper does LESS THAN HALF the effort. [place] lifts, holds or supports trunk or limbs, but provides less than half the effort. 2-Substantial/Maximal Assistance-helper does MORE THAN HALF the effort. [place] lifts or holds trunk or limbs and provides more than half the effort. 4-Ctcxsmlmy-npfucr does ALL the effort. Patient does none of the effort to complete the activity. Or, the assistance of 2 or more helpers is required for the patient to complete the activity. If activity was not attempted, code reason: 7-Patient Refused. 9-Not Applicable-not attempted and the patient did not perform the activity before the current illness, exacerbation or injury. 10-Not Attempted due to Environmental Limitations-(lack of equipment, weather restraints, etc.). 88-Not Attempted due to Medical Conditions or Safety Concerns. Sit to Stand (QC): 3 Toilet Transfer (QC): 3 Weight Bearing Right Lower Extremity: Right Full Weight Bearing Left Lower Extremity: Left Non Weight Bearing Treatments Pt declines BR. TF to standing then EOB. As TF back to EOB, pt reports needing to use BR. After using BR for extended time. Pt TF back to [facility] then to recliner to rest. All needs met, call light in hand. Assessment Current Status: Fair Progress Pt remains emotional and fatigues easy. PT Short Term Goals Short Term Goals Time Frame: Jun 13, 2020 Sit to lyin Lying to sitting on side of be: 6 Sit to stand: 4 Chair/ywq-jp-djzah transfer: 4 Walk 10 feet: 3 Wheel 50ft w/2 turns: 6 Wheel 150 feet: 4 Type: Manual PT Electrician Station Assistant Goals Alf Goals PT Alf Goals Time Frame: Jun 27, 2020 Roll Left & Right (QC): 6 Sit to Lying (QC): 6 Lying-Sitting on Side/Bed(QC): 6 Sit to Stand (QC): 6 Chair/Wwe-nq-Pivsi Xfer(QC): 6 Toilet Transfer (QC): 6 Car Transfer (QC): 5 Does the Patient Walk: No and Walking Goal IS indicated Walk 10 feet (QC): 4 Walk 50ft with 2 Turns (QC): 4 Walk 150 ft (QC): 88 Walking 10ft on Uneven Surface: 88 1 Step (curb) (QC): 9 4 Steps (QC): 9 12 Steps (QC): 9 Picking up an Object (QC): 9 Does the Pt use WC or Scooter?: Yes Wheel 50 feet with 2 turns (QC: 6 Type: Manual Wheel 150 feet: 6 Type: Manual PT Plan Problem List Problem List: Activity Tolerance, Functional Strength, Transfer Treatment/Plan Treatment Plan: Continue Plan of Care Treatment Plan: Bed Mobility, Education, Functional Activity Francy, Functional Strength, Group Therapy, Gait, Safety, Therapeutic Exercise, Transfers Treatment Duration: Jun 27, 2020 Frequency: At least 5 of 7 days/Wk (IRF) Estimated Hrs Per Day: 1.5 hours per day Patient and/or Family Agrees t: Yes Safety Risks/Education Patient Education: Transfer Techniques, Correct Positioning, Safety Issues Teaching Recipient: Patient Teaching Methods: Discussion Response to Teaching: Verbalize Understanding Time/GCodes Time In: 1300 Time Out: 1330 Total Billed Treatment Time: 30 Total Billed Treatment 1, FA x2 (30m) JOSEPH LEVY FACILITIES MANAGEMENT EXECUTIVE Jun 14, 2020 13:57
[2020-06-14] MEDS: warFARin 4 MG (COUMADIN) TAB PO SCH (17:07)
[2020-06-14 18:03] VITALS: BP 96/53
[2020-06-14] MEDS: ROSUVASTATIN 10 MG (CRESTOR) TABLET PO SCH (20:14)
[2020-06-14] MEDS: LEVETIRACETAM 500 MG (KEPPRA) TAB PO SCH (20:14)
[2020-06-14] MEDS: ACETAMINOPHEN 325 MG TABLET PO PRN (20:16)
[2020-06-14] MEDS ORDERED: ONDA4TAB11 PO (21:00)
[2020-06-14] MEDS ORDERED: VNL37.5T PO (21:00)
[2020-06-14] MEDS ORDERED: OXC5T PO (21:00)
[2020-06-14] MEDS ORDERED: SENN1TAB76 PO (21:00)
--- NOTE | 2020-06-14 21:01 | Discharge Inst-Skilled Nursing ---
Discharge Inst-Skilled NF Reconcile Patient Problems Problems Reviewed?: Yes Patient Instructions Patient Problems: s/p left tibia fracture and non-weight bearing Previous CVA Coumadin therapy Goal: [place] Consult/Follow Up/Orders Follow Up Appt.: Dr Romero/[facility] retirement service Skilled NF Admit to: Via [facility] Certification ([facility]) I certify that [facility] services are required to be given on an inpatient basis because of the above named patient's need for prison care on a continuing basis for the conditions(s) for which he/she was receiving inpatient hospital services prior to his/her transfer to the [facility]. [facility] Facility Order: Nursing Services, [place] Tender-Evaluate & Treat, Physical Therapy-Evaluate & Treat, Speech Language-Evaluate & Treat Oxygen Delivery Method: Room Air Discharge Diet: No Restrictions Resuscitation Status: Do Not Resuscitate New & Resume Previous Orders New Medications: Ondansetron (Ondansetron Odt) 4 Mg Tab.rapdis 4 MG PO Q6H PRN for NAUSEA/VOMITING-1ST LINE for 30 Days, TAB Oxycodone Hcl (Oxyir Tablet) 5 Mg Tab 5 MG PO Q4H PRN for PAIN-SEVERE (8-10), #40 TAB Sennosides/Docusate Sodium (Stool Softener-Laxative Tablet) 1 Each Tablet 2 EA PO BID for 30 Days, TAB Venlafaxine HCl (Venlafaxine HCl) 37.5 Mg Tab 37.5 MG PO DAILY for 30 Days, TAB Continued Medications: Acetaminophen (Tylenol) 325 Mg Capsule 650 MG PO Q8H PRN for PAIN-MILD (1-4), CAP Alendronate Sodium (Alendronate Sodium) 70 Mg Tablet 70 MG PO FRI, TAB Fluoxetine HCl (Prozac) 40 Mg Capsule 40 MG PO DAILY, CAP Levetiracetam (Levetiracetam) 500 Mg Tablet 500 MG PO HS, TAB Oxybutynin Chloride (Oxybutynin Chloride ER) 15 Mg Tab.er.24 15 MG PO DAILY, TAB LAST FILLED 12-27-2019 #90/90 DAY SUPPLY Phenytoin Sodium Extended (Phenytoin Sodium Extended) 100 Mg Capsule 100 MG PO TID, CAP Rosuvastatin Calcium (Rosuvastatin Calcium) 10 Mg Tablet 10 MG PO HS, TAB Warfarin Sodium (Warfarin Sodium) 4 Mg Tablet 4 MG PO DAILY, TAB Regine Romero Jun 14, 2020 21:00 REGINE ROMERO DO Jun 14, 2020 21:01
[2020-06-15] MEDS: ACETAMINOPHEN 325 MG TABLET PO PRN (05:08)
[2020-06-15 06:02] VITALS: BP 111/54
--- NOTE | 2020-06-15 06:16 | Discharge Summary ---
Diagnosis/Chief Complaint Date of Admission May 30, 2020 at 12:30 Date of Discharge Discharge Date: Jun 15, 2020 Discharge Diagnosis Assessment: Left tibia fracture s/p repair Prior CVA with right sided weakness chronic Expressive aphasia from prior CVA Mechanical heart valve replacement status OAC with Coumadin AF OP OAB HTN Depression Plan: Pain control Monitor BP INR monitoring IRF protocol 05/31/20: Pain control Psych eval PT OT 06/01/20: Supportive care Pain control Appreciate Cardiology Behavioral consult appreciated 06/02/20: Pain control Improve emotional status 06/03/20: Oxycodone change so DC APAP Venofer Midline 06/04/20: Monitor closely INR 3.3 06/05/20: Monitor INR Fall risk Pain control 06/06/20: Pain controlled Increase ADL's Monitor BP and INR 06/07/20: Complete iron infusions Monitor INR Monitor BP 06/08/20: Monitor INR Fall risk Monitor closely 06/09/20: Monitor INR Pain control Decubitus ulcers 06/10/20: Pain controlled Needs more help at home 06/11/20: Needs 27/10 supervision Needs NHP 06/12/20: NHP required Monitor closely 06/13/20: Monitor pain NHP VCV referral 06/14/20: VCV tomorrow Monitor INR (1) Fracture, tibia and fibula, shaft Status: Acute (2) Mechanical heart valve present Status: Chronic (3) DVT prophylaxis Status: Acute (4) Anticoagulant long-term use Status: Chronic (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 (6) Age related osteoporosis Status: Chronic (7) Seizure disorder Status: Chronic (8) Advanced age (9) Right sided weakness (10) Foot drop, right (11) Overactive bladder (12) Hypertension (13) Depression (14) Anxiety Discharge Summary Discharge Physical Examination Allergies: Coded Allergies: Penicillins (Verified Allergy, Unknown, 09/02/18) Sulfa (Sulfonamide Antibiotics) (Verified Allergy, Unknown, 09/02/18) tetracycline (Verified Allergy, Unknown, 09/02/18) Vitals & I&Os Vital Signs Date Time Temp Pulse Resp B/P (MAP) Pulse Ox O2 Delivery O2 Flow Rate FiO2 06/15/20 14:45 37.2 75 17 111/54 97 Room Air General Appearance: Alert, Oriented X3, Cooperative Respiratory: Clear to Auscultation Psych/Mental Status: Mental Status NL Hospital Course Was the Problem List Reviewed?: Yes Hospital course: patient had a lengthy course after admitted from 4th floor after left tibia fracture and increased disability following CVA years ago. Patient was followed by Cardiology and managed INR. Overall she did very well and had no decompensation during her course but remained very debilitated with non-weight bearing on the left leg due to severe thin bones so she moved to [facility] on my service for further rehab. Labs (last 24 hrs) Laboratory Tests 05/31/20 06:23: White Blood Count 7.5, Red Blood Count 2.85L, Hemoglobin 8.6L, Hematocrit 27L, Mean Corpuscular Volume 94, Mean Corpuscular Hemoglobin 30, Mean Corpuscular Hemoglobin Concent 32, Red Cell Distribution Width 14.4, Platelet Count 279, Mean Platelet Volume 11.7, Immature Granulocyte % (Auto) 1, Neutrophils (%) (Auto) 77H, Lymphocytes (%) (Auto) 8L, Monocytes (%) (Auto) 12, Eosinophils (%) (Auto) 2, Basophils (%) (Auto) 0, Neutrophils # (Auto) 5.8, Lymphocytes # (Auto) 0.6L, Monocytes # (Auto) 0.9, Eosinophils # (Auto) 0.2, Basophils # (Auto) 0.0, Immature Granulocyte # (Auto) 0.1, Prothrombin Time 33.6H, INR Comment 3.3H, Sodium Level 140, Potassium Level 4.0, Chloride Level 109H, Carbon Dioxide Level 23, Anion Gap 8, Blood Urea Nitrogen 13, Creatinine 0.71, Estimat Glomerular Filtration Rate > 60, BUN/Creatinine Ratio 18, Glucose Level 111H, Calcium Level 7.5L, Corrected Calcium 8.5, Total Bilirubin 0.3, Aspartate Amino Transf (AST/SGOT) 23, Alanine Aminotransferase (ALT/SGPT) 20, Alkaline Phosphatase 72, Total Protein 5.2L, Albumin 2.7L 06/01/20 05:28: Prothrombin Time 30.9H, INR Comment 2.9H 06/02/20 05:30: White Blood Count 7.0, Red Blood Count 3.16L, Hemoglobin 9.5L, Hematocrit 30L, Mean Corpuscular Volume 94, Mean Corpuscular Hemoglobin 30, Mean Corpuscular Hemoglobin Concent 32, Red Cell Distribution Width 14.4, Platelet Count 324, Mean Platelet Volume 11.5, Immature Granulocyte % (Auto) 1, Neutrophils (%) (Auto) 72, Lymphocytes (%) (Auto) 12, Monocytes (%) (Auto) 11, Eosinophils (%) (Auto) 2, Basophils (%) (Auto) 1, Neutrophils # (Auto) 5.0, Lymphocytes # (Auto) 0.9L, Monocytes # (Auto) 0.8, Eosinophils # (Auto) 0.2, Basophils # (Auto) 0.0, Immature Granulocyte # (Auto) 0.1, Prothrombin Time 29.7H, INR Comment 2.8H, Sodium Level 138, Potassium Level 4.2, Chloride Level 108H, Carbon Dioxide Level 22, Anion Gap 8, Blood Urea Nitrogen 15, Creatinine 0.71, Estimat Glomerular Filtration Rate > 60, BUN/Creatinine Ratio 21, Glucose Level 103, Calcium Level 8.1L, Corrected Calcium 8.9, Total Bilirubin 0.3, Aspartate Amino Transf (AST/SGOT) 21, Alanine Aminotransferase (ALT/SGPT) 19, Alkaline Phosphatase 76, Total Protein 5.7L, Albumin 3.0L 06/03/20 05:16: Prothrombin Time 29.4H, INR Comment 2.8H 06/04/20 04:56: White Blood Count 8.7, Red Blood Count 3.47L, Hemoglobin 10.3L, Hematocrit 33L, Mean Corpuscular Volume 96, Mean Corpuscular Hemoglobin 30, Mean Corpuscular Hemoglobin Concent 31L, Red Cell Distribution Width 14.4, Platelet Count 390, Mean Platelet Volume 11.6, Immature Granulocyte % (Auto) 2, Neutrophils (%) (Auto) 75, Lymphocytes (%) (Auto) 9L, Monocytes (%) (Auto) 10, Eosinophils (%) (Auto) 3, Basophils (%) (Auto) 1, Neutrophils # (Auto) 6.5, Lymphocytes # (Auto) 0.8L, Monocytes # (Auto) 0.9, Eosinophils # (Auto) 0.2, Basophils # (Auto) 0.1, Immature Granulocyte # (Auto) 0.2H, Prothrombin Time 33.9H, INR Comment 3.3H, Sodium Level 139, Potassium Level 4.1, Chloride Level 107, Carbon Dioxide Level 23, Anion Gap 9, Blood Urea Nitrogen 14, Creatinine 0.75, Estimat Glomerular Filtration Rate > 60, BUN/Creatinine Ratio 19, Glucose Level 105, Calcium Level 8.2L, Corrected Calcium 8.9, Total Bilirubin 0.3, Aspartate Amino Transf (AST/SGOT) 23, Alanine Aminotransferase (ALT/SGPT) 19, Alkaline Phosphatase 94, Total Protein 5.9L, Albumin 3.1L 06/05/20 05:45: Prothrombin Time 33.3H, INR Comment 3.2H 06/07/20 05:25: Prothrombin Time 23.3H, INR Comment 2.0H 06/08/20 05:23: Prothrombin Time 24.3H, INR Comment 2.1H 06/09/20 04:47: Prothrombin Time 27.1H, INR Comment 2.5H 06/10/20 05:17: Prothrombin Time 30.8H, INR Comment 2.9H 06/11/20 05:00: Prothrombin Time 42.9H, INR Comment 4.5H, White Blood Count 12.2H, Red Blood Count 3.63L, Hemoglobin 10.8L, Hematocrit 35, Mean Corpuscular Volume 96, Mean Corpuscular Hemoglobin 30, Mean Corpuscular Hemoglobin Concent 31L, Red Cell Distribution Width 14.7H, Platelet Count 316, Mean Platelet Volume 11.6, Immature Granulocyte % (Auto) 2, Neutrophils (%) (Auto) 76H, Lymphocytes (%) (Auto) 9L, Monocytes (%) (Auto) 12, Eosinophils (%) (Auto) 0, Basophils (%) (Auto) 1, Neutrophils # (Auto) 9.3H, Lymphocytes # (Auto) 1.1, Monocytes # (Auto) 1.5H, Eosinophils # (Auto) 0.0, Basophils # (Auto) 0.1, Immature Granulocyte # (Auto) 0.2H, Sodium Level 135, Potassium Level 4.1, Chloride Level 105, Carbon Dioxide Level 20L, Anion Gap 10, Blood Urea Nitrogen 16, Creatinine 0.81, Estimat Glomerular Filtration Rate > 60, BUN/Creatinine Ratio 20, Glucose Level 127H, Calcium Level 7.8L, Corrected Calcium 8.6, Total Bilirubin 0.3, Aspartate Amino Transf (AST/SGOT) 23, Alanine Aminotransferase (ALT/SGPT) 22, Alkaline Phosphatase 119, Total Protein 5.9L, Albumin 3.0L 06/12/20 04:53: Prothrombin Time 37.2H, INR Comment 3.7H 06/13/20 04:46: Prothrombin Time 25.5H, INR Comment 2.3H 06/14/20 05:14: Prothrombin Time 18.9H, INR Comment 1.5H 06/15/20 06:11: Prothrombin Time 21.4H, INR Comment 1.8H Pending Labs Laboratory Tests 05/31/20 06:23: White Blood Count 7.5, Red Blood Count 2.85, Hemoglobin 8.6, Hematocrit 27, Mean Corpuscular Volume 94, Mean Corpuscular Hemoglobin 30, Mean Corpuscular Hemoglobin Concent 32, Red Cell Distribution Width 14.4, Platelet Count 279, Mean Platelet Volume 11.7, Immature Granulocyte % (Auto) 1, Neutrophils (%) (Auto) 77, Lymphocytes (%) (Auto) 8, Monocytes (%) (Auto) 12, Eosinophils (%) (Auto) 2, Basophils (%) (Auto) 0, Neutrophils # (Auto) 5.8, Lymphocytes # (Auto) 0.6, Monocytes # (Auto) 0.9, Eosinophils # (Auto) 0.2, Basophils # (Auto) 0.0, Immature Granulocyte # (Auto) 0.1, Prothrombin Time 33.6, INR Comment 3.3, Sod ium Level 140, Potassium Level 4.0, Chloride Level 109, Carbon Dioxide Level 23, Anion Gap 8, Blood Urea Nitrogen 13, Creatinine 0.71, Estimat Glomerular Filtration Rate > 60, BUN/Creatinine Ratio 18, Glucose Level 111, Calcium Level 7.5, Corrected Calcium 8.5, Total Bilirubin 0.3, Aspartate Amino Transf (AST/SGOT) 23, Alanine Aminotransferase (ALT/SGPT) 20, Alkaline Phosphatase 72, Total Protein 5.2, Albumin 2.7 06/01/20 05:28: Prothrombin Time 30.9, INR Comment 2.9 06/02/20 05:30: White Blood Count 7.0, Red Blood Count 3.16, Hemoglobin 9.5, Hematocrit 30, Mean Corpuscular Volume 94, Mean Corpuscular Hemoglobin 30, Mean Corpuscular Hemoglobin Concent 32, Red Cell Distribution Width 14.4, Platelet Count 324, Mean Platelet Volume 11.5, Immature Granulocyte % (Auto) 1, Neutrophils (%) (Auto) 72, Lymphocytes (%) (Auto) 12, Monocytes (%) (Auto) 11, Eosinophils (%) (Auto) 2, Basophils (%) (Auto) 1, Neutrophils # (Auto) 5.0, Lymphocytes # (Auto) 0.9, Monocytes # (Auto) 0.8, Eosinophils # (Auto) 0.2, Basophils # (Auto) 0.0, Immature Granulocyte # (Auto) 0.1, Prothrombin Time 29.7, INR Comment 2.8, So dium Level 138, Potassium Level 4.2, Chloride Level 108, Carbon Dioxide Level 22, Anion Gap 8, Blood Urea Nitrogen 15, Creatinine 0.71, Estimat Glomerular Filtration Rate > 60, BUN/Creatinine Ratio 21, Glucose Level 103, Calcium Level 8.1, Corrected Calcium 8.9, Total Bilirubin 0.3, Aspartate Amino Transf (AST/SGOT) 21, Alanine Aminotransferase (ALT/SGPT) 19, Alkaline Phosphatase 76, Total Protein 5.7, Albumin 3.0 06/03/20 05:16: Prothrombin Time 29.4, INR Comment 2.8 06/04/20 04:56: White Blood Count 8.7, Red Blood Count 3.47, Hemoglobin 10.3, Hematocrit 33, Mean Corpuscular Volume 96, Mean Corpuscular Hemoglobin 30, Mean Corpuscular Hemoglobin Concent 31, Red Cell Distribution Width 14.4, Platelet Count 390, Mean Platelet Volume 11.6, Immature Granulocyte % (Auto) 2, Neutrophils (%) (Auto) 75, Lymphocytes (%) (Auto) 9, Monocytes (%) (Auto) 10, Eosinophils (%) (Auto) 3, Basophils (%) (Auto) 1, Neutrophils # (Auto) 6.5, Lymphocytes # (Auto) 0.8, Monocytes # (Auto) 0.9, Eosinophils # (Auto) 0.2, Basophils # (Auto) 0.1, Immature Granulocyte # (Auto) 0.2, Prothrombin Time 33.9, INR Comment 3.3, So dium Level 139, Potassium Level 4.1, Chloride Level 107, Carbon Dioxide Level 23, Anion Gap 9, Blood Urea Nitrogen 14, Creatinine 0.75, Estimat Glomerular Filtration Rate > 60, BUN/Creatinine Ratio 19, Glucose Level 105, Calcium Level 8.2, Corrected Calcium 8.9, Total Bilirubin 0.3, Aspartate Amino Transf (AST/SGOT) 23, Alanine Aminotransferase (ALT/SGPT) 19, Alkaline Phosphatase 94, Total Protein 5.9, Albumin 3.1 06/05/20 05:45: Prothrombin Time 33.3, INR Comment 3.2 06/07/20 05:25: Prothrombin Time 23.3, INR Comment 2.0 06/08/20 05:23: Prothrombin Time 24.3, INR Comment 2.1 06/09/20 04:47: Prothrombin Time 27.1, INR Comment 2.5 06/10/20 05:17: Prothrombin Time 30.8, INR Comment 2.9 06/11/20 05:00: Prothrombin Time 42.9, INR Comment 4.5, White Blood Count 12.2, Red Blood Count 3.63, Hemoglobin 10.8, Hematocrit 35, Mean Corpuscular Volume 96, Mean Corpuscular Hemoglobin 30, Mean Corpuscular Hemoglobin Concent 31, Red Cell Distribution Width 14.7, Platelet Count 316, Mean Platelet Volume 11.6, Immature Granulocyte % (Auto) 2, Neutrophils (%) (Auto) 76, Lymphocytes (%) (Auto) 9, Monocytes (%) (Auto) 12, Eosinophils (%) (Auto) 0, Basophils (%) (Auto) 1, Neutrophils # (Auto) 9.3, Lymphocytes # (Auto) 1.1, Monocytes # (Auto) 1.5, Eosinophils # (Auto) 0.0, Basophils # (Auto) 0.1, Immature Granulocyte # (Auto) 0.2, Sodium Level 135, Potassium Level 4.1, Chloride Level 105, Carbon Dioxide Level 20, Anion Gap 10, Blood Urea Nitrogen 16, Creatinine 0.81, Estimat Glomerular Filtration Rate > 60, BUN/Creatinine Ratio 20, Glucose Level 127, Calcium Level 7.8, Corrected Calcium 8.6, Total Bilirubin 0.3, Aspartate Amino Transf (AST/SGOT) 23, Alanine Aminotransferase (ALT/SGPT) 22, Alkaline Phosphatase 119, Total Protein 5.9, Albumin 3.0 06/12/20 04:53: Prothrombin Time 37.2, INR Comment 3.7 06/13/20 04:46: Prothrombin Time 25.5, INR Comment 2.3 06/14/20 05:14: Prothrombin Time 18.9, INR Comment 1.5 06/15/20 06:11: Prothrombin Time 21.4, INR Comment 1.8 Discharge Home Medications: Active Scripts Active Ondansetron Odt (Ondansetron) 4 Mg Tab.rapdis 4 Mg PO Q6H PRN 30 Days Stool Softener-Laxative Tablet (Sennosides/Docusate Sodium) 1 Each Tablet 2 Ea PO BID 30 Days Venlafaxine HCl 37.5 Mg Tab 37.5 Mg PO DAILY 30 Days Oxyir Tablet (Oxycodone HCl) 5 Mg Tab 5 Mg PO Q4H PRN Reported Tylenol (Acetaminophen) 325 Mg Capsule 650 Mg PO Q8H PRN Prozac (Fluoxetine HCl) 40 Mg Capsule 40 Mg PO DAILY Oxybutynin Chloride ER (Oxybutynin Chloride) 15 Mg Tab.er.24 15 Mg PO DAILY LAST FILLED 12-27-2019 #90/90 DAY SUPPLY Rosuvastatin Calcium 10 Mg Tablet 10 Mg PO HS Alendronate Sodium 70 Mg Tablet 70 Mg PO FRI Levetiracetam 500 Mg Tablet 500 Mg PO HS Warfarin Sodium 4 Mg Tablet 4 Mg PO DAILY Phenytoin Sodium Extended 100 Mg Capsule 100 Mg PO TID Instructions to patient/family Please see electronic discharge instructions given to patient. 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
[2020-06-15 06:31] LABS: INR 1.8 (0.8-1.4); PROTHROMBIN TIME PATIENT 21.4 SEC (12.2-14.7)
[2020-06-15] MEDS: PHENYTOIN 100 MG (DILANTIN) CAP PO SCH ×2 (07:26→12:26)
[2020-06-15] MEDS: VENlafaxine 37.5 MG (EFFEXOR) TAB PO SCH (07:26)
[2020-06-15] MEDS: OXYBUTYNIN (DITROPAN) 5 MG TAB PO SCH ×2 (07:26→12:26)
[2020-06-15] MEDS: FLUoxetine HCL 20 MG (PROzac) CAP PO SCH (07:26)
[2020-06-15] MEDS: SENNA W/DOCUSATE (SENOKOT S) TABLET PO SCH (09:11)
[2020-06-15] MEDS: polyethylene glycoL POWDER 17 GM (MIRALAX) PACK PO SCH (09:11)
[2020-06-15] MEDS: DOCUSATE SODIUM 100 MG (COLACE) CAP PO SCH (09:11)
[2020-06-15] MEDS: LACTULOSE SYRUP 10GM/15ML (ENULOSE) 30ML UDC PO SCH (09:11)
--- NOTE | 2020-06-15 10:05 | Therapy Team Discharge Summary ---
Therapy Discharge Summary Discharge Recommendations Date of Discharge Occupational Therapy Pt admits to ARU with L tib/ fib fx, previous CVA hx with R side affected and minimal expressive aphasia. Pt original/ admitting abilities include showering with min A/ transfers with min A to commode, LB and toilet hygiene total A, footwear max A. Pt and OT staff work towards higher fx IND through ADLs, UE strengthening, ambulation/ problem solving, fx safety and activity tolerance training. Pt limited by NWB status of L LE. Meets most goals, increasing all ADLs to s/u to IND level and CGA ambulation. Pt d/c's to [facility] for further therapies. D/c at this time. Decreased Activ Tolerance, Impaired Funct Balance PT Machine Builder Goals Halfway Goals PT Machine Builder Goals Time Frame: Jun 27, 2020 Roll Left to Right (QC): 6 Sit to Lying (QC): 6 Lying-Sitting on Side/Bed(QC): 6 Sit to Stand (QC): 6 Chair/Iqn-kh-Lkenc Xfer(QC): 6 Car Transfer (QC): 5 Does the Patient Walk: No and Walking Goal IS indicated Walk 10 feet (QC): 4 Walk 10ft-Uneven Surface(QC): 88 Walk 50ft with 2 Turns (QC): 4 Walk 150 ft (QC): 88 Does the Pt use WC or Scooter?: Yes Wheel 50 feet with 2 turns (QC: 6 1 Step (curb) (QC): 9 4 Steps (QC): 9 12 Steps (QC): 9 Picking up an Object (QC): 9 OT Halfway Goals Halfway Goals Time Frame: Jun 06, 2020 Eating (QC): 5 (met) Oral Hygiene (QC): 5 (met) Shower/Bathe Self (QC): 5 (met) Upper Body Dressing (QC): 6 (not met) Lower Body Dressing (QC): 6 (not met) On/Off Footwear (QC): 6 (met) Toileting Hygiene (QC): 6 (not met) Toilet/Commode Transfer (QC): 6 Additional Goals: 1-Demonstrate ADL Tasks, 2-Verbalize Understanding, 3- ImproveStrength/Francy 1=Demonstrate adherence to instructed precautions during ADL tasks. 2=Patient will verbalize/demonstrate understanding of assistive devices/modifications for ADL. 3=Patient will improve strength/tolerance for activity to enable patient to perform ADL's. ELIAS SILVER OTR Jun 15, 2020 10:05
--- NOTE | 2020-06-15 11:53 | Therapy Team Discharge Summary ---
Therapy Discharge Summary Discharge Recommendations Date of Discharge Physical Therapy Patient came to rehab following a left tib/fib fx. Upon evaluation patient performed bed mobility and supine <-> sit with SBA, sit <-> stand with min/mod assist, transfers max assist, car transfer max assist, was able to ambulate 2' with a platform walker with mod assist, and could propel a manual WC 150' with min/mod assist. Patient has been performing bed mobility and transfer training, balance and endurance training, functional strengthening, gait training, and education. 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 Now, patient performs bed mobility and supine <-> sit with SBA, sit <-> stand and transfers with min assist, ambulates 10' with a platform walker with min assist, and can propel a manual WC 150' with min assist. Patient is discharging from this facility today and will be discharged from PT at this time. Occupational Therapy Decreased Activ Tolerance, Impaired Funct Balance PT Art Appraiser Goals Art Appraiser Goals PT Correction Goals Time Frame: Jun 27, 2020 Roll Left to Right (QC): 6 Sit to Lying (QC): 6 Lying-Sitting on Side/Bed(QC): 6 Sit to Stand (QC): 6 Chair/Nss-ws-Lsxkh Xfer(QC): 6 Car Transfer (QC): 5 Does the Patient Walk: No and Walking Goal IS indicated Walk 10 feet (QC): 4 Walk 10ft-Uneven Surface(QC): 88 Walk 50ft with 2 Turns (QC): 4 Walk 150 ft (QC): 88 Does the Pt use WC or Scooter?: Yes Wheel 50 feet with 2 turns (QC: 6 1 Step (curb) (QC): 9 4 Steps (QC): 9 12 Steps (QC): 9 Picking up an Object (QC): 9 OT Correction Goals Art Appraiser Goals Time Frame: Jun 06, 2020 Eating (QC): 5 (met) Oral Hygiene (QC): 5 (met) Shower/Bathe Self (QC): 5 (met) Upper Body Dressing (QC): 6 (not met) Lower Body Dressing (QC): 6 (not met) On/Off Footwear (QC): 6 (met) Toileting Hygiene (QC): 6 (not met) Toilet/Commode Transfer (QC): 6 Additional Goals: 1-Demonstrate ADL Tasks, 2-Verbalize Understanding, 3- ImproveStrength/Francy 1=Demonstrate adherence to instructed precautions during ADL tasks. 2=Patient will verbalize/demonstrate understanding of assistive devices/modifications for ADL. 3=Patient will improve strength/tolerance for activity to enable patient to perform ADL's. MAURICIO POLANCO PT Jun 15, 2020 11:53
[2020-06-15 14:45] VITALS: BP 111/54
== END 2020-06-15 12:45 | DRG 560 ==
PROVIDERS: ADMIT Internal Medicine; ATTEND Internal Medicine
DX: M80.062D Age-related osteoporosis with current pathological fracture, left lower leg, subsequent encounter for fracture with routine healing (principal); I69.351 Hemiplegia and hemiparesis following cerebral infarction affecting right dominant side; I69.320 Aphasia following cerebral infarction; F32.9 Major depressive disorder, single episode, unspecified; I48.91 Unspecified atrial fibrillation; E78.00 Pure hypercholesterolemia, unspecified; E78.5 Hyperlipidemia, unspecified; N32.81 Overactive bladder; Z66 Do not resuscitate; I10 Essential (primary) hypertension; I27.20 Pulmonary hypertension, unspecified; I49.1 Atrial premature depolarization; F41.9 Anxiety disorder, unspecified; R32 Unspecified urinary incontinence; D64.9 Anemia, unspecified; G40.909 Epilepsy, unspecified, not intractable, without status epilepticus; Z95.2 Presence of prosthetic heart valve; H54.7 Unspecified visual loss; Z79.01 Long term (current) use of anticoagulants; Z88.1 Allergy status to other antibiotic agents; Z88.0 Allergy status to penicillin; Z88.2 Allergy status to sulfonamides
CPT/HCPCS: 36410; 36415; 73590; 76937; 80053; 85025; 85610

== ENCOUNTER → 2020-07-04 | Outpatient (CLI) | payer MEDICARE, OTHER ==
[~2020-07-04] MED LIST changes: +ONDA4TAB11 PO; +OXC5T PO; +SENN1TAB76 PO; +VNL37.5T PO
--- NOTE | 2020-07-04 12:31 | Diagnostic Imaging Report ---
INDICATION: Follow-up fracture. COMPARISON: 06/06/2020 FINDINGS: Multiple radiographic views of the left tibia and fibula were obtained and again show postsurgical changes of previous ORIF of the left tibia. Intramedullary denice traverses the tibial shaft. Proximal and distal anchor screws are noted and appear well-seated. No unexpected radiopaque foreign bodies are seen. Nonacute fractures of the distal tibial and fibular shaft are again identified. There has been development of mild surrounding soft tissue ossification of the distal fibular fracture consistent with partial interval healing. Fracture lines remain conspicuous. No new acute fracture or dislocation of the left lower leg is seen. IMPRESSION: 1. Expected postsurgical changes of previous ORIF of the left tibia. 2. Redemonstration of nonacute distal tibial and fibular fractures with partial interval healing of the distal fibular fracture as described above. Dictated by: Dictated on workstation # [id number]
== END ==
LOC: ORTHO 09:49
PROVIDERS: ATTEND Orthopaedic Surgery
DX: S82.232D Displaced oblique fracture of shaft of left tibia, subsequent encounter for closed fracture with routine healing (principal); X58.XXXD Exposure to other specified factors, subsequent encounter
CPT/HCPCS: 73590

== ENCOUNTER → 2020-07-25 | Outpatient (CLI) | payer MEDICARE, OTHER ==
--- NOTE | 2020-07-25 15:01 | Diagnostic Imaging Report ---
INDICATION: Tibial fracture. COMPARISON: 07/04/2020 TECHNIQUE: Four radiographs of the left tibia and fibula dated 07/25/2020. FINDINGS: Intramedullary denice is again identified transfixing a distal tibial shaft fracture. Alignment remains unchanged. Persistent fracture lucencies remain without significant periosteal reaction. Comminuted distal fibular shaft fracture is again identified in stable alignment since the prior examination with increasing periosteal reaction. No new fracture or dislocation. Osseous structures appear diffusely demineralized. Background vascular calcifications. IMPRESSION: Internally displaced distal tibial shaft fracture remaining in stable alignment without evidence of hardware complication. However, no significant healing is identified at this time. Therefore, this may relate to developing nonunion. Recommend continued radiographic follow-up. Interval progression of healing of previously noted distal fibular shaft fracture remaining in stable alignment. No new acute osseous abnormality. Osseous demineralization, possibly secondary to disuse. Dictated by: Dictated on workstation # [id number]
== END ==
LOC: ORTHO 10:08
PROVIDERS: ATTEND Orthopaedic Surgery
DX: S82.232D Displaced oblique fracture of shaft of left tibia, subsequent encounter for closed fracture with routine healing (principal); S82.832D Other fracture of upper and lower end of left fibula, subsequent encounter for closed fracture with routine healing
CPT/HCPCS: 73590

== ENCOUNTER → 2020-08-15 | Outpatient (CLI) | payer MEDICARE, OTHER ==
--- NOTE | 2020-08-15 10:51 | Diagnostic Imaging Report ---
INDICATION: Tibial fracture. TECHNIQUE/COMPARISON: AP and lateral views of the right leg were obtained with comparison made to the study of 07/25/2020. FINDINGS: There has been mild further increase in callus about the mildly displaced fractures involving the mid to distal shafts of the left tibia and fibula. The tibial intramedullary denice remains in stable position without evidence of complication. No definite acute knee or ankle abnormality is appreciated. IMPRESSION: Ongoing healing about the mildly displaced distal fibular shaft fracture and internally fixed distal tibial shaft fracture. Dictated by: Dictated on workstation # [id number]
== END ==
LOC: ORTHO 10:25
PROVIDERS: ATTEND Orthopaedic Surgery
DX: S82.232D Displaced oblique fracture of shaft of left tibia, subsequent encounter for closed fracture with routine healing (principal); X58.XXXD Exposure to other specified factors, subsequent encounter
CPT/HCPCS: 73590

== ENCOUNTER → 2021-07-26 | Outpatient (CLI) | payer MEDICARE, OTHER ==
[~2021-07-26] MED LIST changes: +BARIUM for suspension 96% w/w (Vanilla Silq Medium Density) PO NR; +BARIUM for suspension 98% w/w (Vanilla Silq High Density) PO NR
--- NOTE | 2021-07-27 09:06 | Diagnostic Imaging Report ---
INDICATION: Food getting stuck in the throat. Patient ingested effervescent crystals as well as thin and thick barium and imaging of the esophagus was performed in multiple obliquities. 1.0 minutes of fluoroscopic time was utilized. Preliminary radiograph of the chest is unremarkable. The esophagus has a smooth contour. No mass or stricture seen. No gastroesophageal reflux or hiatal hernia was demonstrated. IMPRESSION: Unremarkable esophagram. Dictated by: Dictated on workstation # [id number]
== END ==
LOC: RAD 10:39
PROVIDERS: ATTEND Internal Medicine
DX: I69.391 Dysphagia following cerebral infarction (principal)
CPT/HCPCS: 74220

== ENCOUNTER → 2021-09-06 | Outpatient (CLI) | payer MEDICARE, OTHER ==
[~2021-09-06] MED LIST changes: -BARIUM for suspension 96% w/w (Vanilla Silq Medium Density) PO NR; -BARIUM for suspension 98% w/w (Vanilla Silq High Density) PO NR
--- NOTE | 2021-09-06 11:18 | Diagnostic Imaging Report ---
Indication: Dysphagia. Procedure performed in conjunction with speech pathology. Patient ingested varying consistencies of barium while under fluoroscopic interrogation. There was a single solitary episode of laryngeal penetration which occurred with the largest swallow with a hand-held cup. There were no episodes of joshua aspiration. All the remaining swallows and consistencies including multiple additional hand-held thin barium via cup were swallowed without episodes of aspiration or airway penetration or abnormal residuals within the pharyngeal recesses. Impression: 1. Unremarkable video swallow series. Solitary episode of laryngeal penetration but no joshua aspiration occurred one time with a thin barium ingested via cup and a large swallow taken. 2. Please refer to speech pathology report for any additional findings and any recommendations. Dictated by: Dictated on workstation # [id number]
== END ==
LOC: RAD 09:25
PROVIDERS: ATTEND Internal Medicine
DX: R13.12 Dysphagia, oropharyngeal phase (principal)
CPT/HCPCS: 74230